=== PATIENT | male | born 1945 | race Two or more races ===

== ENCOUNTER → 2020-04-16 08:42 | Outpatient (BNVA) | payer MEDICARE, SELFPAY | PROVIDERS: PCP Internal Medicine; Referring Provider Internal Medicine; Visit Provider Nurse Practitioner Gerontology | DX: Z13.89 Encounter for screening for other disorder (principal) | CPT/HCPCS: Q3014 ==

== ENCOUNTER → 2020-09-04 08:06 | Outpatient (BNVA) | payer MEDICARE, SELFPAY | PROVIDERS: PCP Internal Medicine; Visit Provider Nurse Practitioner Gerontology | CPT/HCPCS: Q3014 ==

== ENCOUNTER 2020-09-16 07:03 | Outpatient (REF) | payer MEDICARE, BC, SELFPAY ==
[2020-09-16 08:26] LABS: Estimated Average Glucose 148 mg/dL; Hemoglobin A1c % 6.8 %
[2020-09-16 08:37] LABS: Alanine Aminotransferase 24 U/L (0-40); Albumin Level 4.3 g/dL (3.5-5.0); Alkaline Phosphatase 47 U/L (39-117); Anion Gap 14 (12-20); Aspartate Amino Transferase 18 U/L (5-37); Bilirubin Total 0.4 mg/dL (0.0-1.0); Blood Urea Nitrogen 21 mg/dL (9-16); Calcium 9.5 mg/dL (8.4-10.2); Carbon Dioxide 21 mmol/L (22-29); Chloride 106 mmol/L (96-108); Cholesterol 226 mg/dL; Estimated Glomerular Filt Rate > 60; Glucose Fasting 142 mg/dL (60-99); HDL Cholesterol 40 mg/dL; LDL Cholesterol Calculated 144 mg/dl; Potassium 4.2 mmol/L (3.3-5.1); Sodium 137 mmol/L (135-145); Total Protein 6.8 g/dL (6.5-8.0); Triglycerides 213 mg/dL
[2020-09-16 08:47] LABS: Vitamin D 25-OH Total 40.8 ng/mL (>30)
[2020-09-16 08:54] LABS: Vitamin B12 756 pg/mL (200-900)
[2020-09-16 09:21] LABS: Creatinine Urine 76.98 mg/dL; Microalbum/Creatinine Ratio Ur 222.1 ug/mg cr
[2020-09-17 07:56] LABS: LDL Cholesterol Direct 144 mg/dL (<100)
== END 2020-09-16 07:04 | disposition home or self-care (01) ==
LOC: HO.LAB 07:03
PROVIDERS: PCP Internal Medicine; Visit Provider Nurse Practitioner Gerontology
DX: E11.29 Type 2 diabetes mellitus with other diabetic kidney complication (principal)
CPT/HCPCS: 36415; 80053; 80061; 82043; 82306; 82607; 83036; 83721

== ENCOUNTER → 2021-02-20 07:29 | Outpatient (BNVA) | payer MEDICARE, BC, SELFPAY | PROVIDERS: PCP Internal Medicine; Visit Provider Nurse Practitioner Gerontology | DX: E11.42 Type 2 diabetes mellitus with diabetic polyneuropathy (principal); E11.29 Type 2 diabetes mellitus with other diabetic kidney complication; E78.5 Hyperlipidemia, unspecified; I10 Essential (primary) hypertension; R80.9 Proteinuria, unspecified | CPT/HCPCS: 82947; 99212 ==

== ENCOUNTER → 2021-02-25 08:05 | Outpatient (BNVA) | payer MEDICARE, BC, SELFPAY | PROVIDERS: PCP Internal Medicine; Visit Provider Registered Nurse Diabetes Educator | DX: E11.29 Type 2 diabetes mellitus with other diabetic kidney complication (principal) | CPT/HCPCS: 99211 ==

== ENCOUNTER → 2021-05-29 07:17 | Outpatient (BNVA) | payer MEDICARE, BC, SELFPAY | PROVIDERS: PCP Internal Medicine; Visit Provider Nurse Practitioner Gerontology | DX: E11.42 Type 2 diabetes mellitus with diabetic polyneuropathy (principal); E11.29 Type 2 diabetes mellitus with other diabetic kidney complication; I10 Essential (primary) hypertension; E78.5 Hyperlipidemia, unspecified; R80.9 Proteinuria, unspecified | CPT/HCPCS: 82947; 99212 ==

== ENCOUNTER 2021-10-29 07:08 | Outpatient (REF) | payer MEDICARE, BC, SELFPAY ==
[2021-10-29 08:09] LABS: COVID-19 Test Negative (Negative); IDNOW Serial# 16C4AD1C
== END 2021-10-29 07:09 | disposition home or self-care (01) ==
LOC: HO.LAB 07:08
PROVIDERS: Visit Provider Internal Medicine
DX: Z20.822 Contact with and (suspected) exposure to COVID-19 (principal)
CPT/HCPCS: 87635; C9803

== ENCOUNTER → 2022-04-29 09:16 | Outpatient (BNVA) | payer MEDICARE, BC, SELFPAY | PROVIDERS: PCP Internal Medicine; Visit Provider Urology | DX: E11.69 Type 2 diabetes mellitus with other specified complication (principal); N52.1 Erectile dysfunction due to diseases classified elsewhere | CPT/HCPCS: 51798; 99212 ==

== ENCOUNTER → 2022-07-28 10:15 | Outpatient (BNVA) | payer MEDICARE, BC, SELFPAY | PROVIDERS: PCP Internal Medicine; Visit Provider Urology | DX: E11.69 Type 2 diabetes mellitus with other specified complication (principal); N52.1 Erectile dysfunction due to diseases classified elsewhere | CPT/HCPCS: Q3014 ==

== ENCOUNTER 2022-11-24 09:58 | Emergency (ER) | payer MEDICARE, BC, SELFPAY ==
[2022-11-24 10:11] VITALS: BP 183/88; PULSE 62; RESP 16; TEMP 36.6; O2SAT 98; BMI 28.2
--- NOTE | 2022-11-24 11:04 | ED_ITS ---
HPI - General Adult General Chief complaint: General Medical Stated complaint: medication refill Time Seen by Provider: 11/24/22 10:28 Source: patient and RN notes reviewed Mode of arrival: ambulatory Limitations: no limitations History of Present Illness HPI narrative: This is a 77-year-old male, with a history of hypertension and diabetes, presenting to the emergency department for medication refill. He states that he attempted to follow-up with his primary care physician but is unable to be seen until December 27. He states that he ran out of his medications several days ago. He states that he is feeling okay. No headaches, dizziness, chest pain, shortness of breath, abdominal pain, nausea, vomiting, or diarrhea. Patient did not take his blood pressure medication today. No other complaints or concerns at this time. MD complaint: Medication Refill Relieving factors: none Exacerbating factors: none Associated symptoms: denies other symptoms Treatments prior to arrival: none Related Data Home Medications Medication Instructions Recorded Confirmed lancets 33 gauge #100 ea 04/16/20 05/29/21 Previous Rx's Medication Instructions Recorded fluticasone 250 mcg-salmeterol 50 1 inh inhalation BID #3 ea 08/20/20 mcg/dose blistr powdr for inhalation (Wixela Inhub) albuterol sulfate 90 mcg/actuation 2 puff PO Q6H PRN bronchospasm 09/04/20 aerosol inhaler #8.5 grams fluticasone propionate 50 2 spray intranasal DAILY #3 ea 01/01/21 mcg/actuation nasal spray,suspension bempedoic acid 180 mg tablet 180 mg PO DAILY #90 tabs 02/20/21 sitagliptin phosphate 100 mg 100 mg PO DAILY #30 tabs 10/20/21 tablet (Januvia) metformin 500 mg tablet,extended 500 mg PO DAILY 90 days #90 tabs 10/26/21 release 24 hr losartan 25 mg tablet 25 mg PO DAILY #60 tabs 03/08/22 ezetimibe 10 mg tablet 10 mg PO DAILY #30 tabs 03/19/22 tadalafil 20 mg tablet 20 mg PO ONCE PRN sexual activity 04/29/22 30 days #30 tabs sildenafil 100 mg tablet 100 mg PO ONCE PRN sexual activity 07/28/22 30 days #30 tabs tadalafil 5 mg tablet 5 mg PO DAILY sexual activity 90 04/12/23 days #90 tabs ezetimibe 10 mg tablet 10 mg PO DAILY #60 tabs 11/24/22 losartan 25 mg tablet 25 mg PO DAILY #60 tabs 11/24/22 metformin 500 mg tablet,extended 500 mg PO DAILY #60 tabs 11/24/22 release 24hr sitagliptin phosphate 100 mg 100 mg PO DAILY #60 tabs 11/24/22 tablet (Januvia) Allergies Allergy/AdvReac Type Severity Reaction Status Date / Time lisinopril Allergy Unknown cough Verified 11/24/22 10:11 seasonal allergies Allergy Unknown rhinitis Uncoded 07/28/22 10:18 Review of Systems Review of Systems: Yes all other systems are reviewed and are negative [facility] Past Medical History Medical History Degenerative disc disease Dyslipidemia Essential hypertension Proteinuria 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 Mother No problems noted. Social History Social History Household Members Other:: son Alcohol intake: never Patient Tobacco Use Status: Former Tobacco user Tobacco use type: Cigarette Cigarette Packs Per Day: 2 Years Smoked: 25 Advance Directives: No Advance Directives Information Provided: Yes Physical Exam ED Vital Signs: Vital Signs - 24 hr 11/24/22 10:11 Temperature 97.8 F Pulse Rate 62 Respiratory Rate 16 Blood Pressure 183/88 H Pulse Oximetry 98 Oxygen Delivery Method Room Air BMI result Body Mass Index 28.2 Const Other: General: Awake, alert, and oriented X3. No acute distress. HEENT: Normal inspection CVS: Normal heart rate and rhythm. Pulses normal. Respiratory: No respiratory distress Skin: Warm, dry, no rashes noted to exposed skin. Normal skin color. Normal skin turgor. Extremities: Normal to inspection Neuro: Oriented X 3. No motor deficit. No sensory deficit. Medical Decision Making Medical Decision Making MDM Narrative: 77-year-old male presenting to the emergency department for medication refill. He states that he ran out of his medications several days ago. He did not take his blood pressure medication today, blood pressure elevated at 183/88. He has no chest pain, shortness of breath, dizziness or lightheadedness. I agreed that I will refill medication to get him to at least his next primary care visit in December. I advised patient to follow-up with them for further medication refills as we are unable to further manage his chronic conditions. Patient understands agrees with plan. He is nontoxic appearing and has no symptoms. Patient stable for discharge. Differential Diagnosis Differential Diagnoses: The differential diagnosis associated with the presentation includes Medication refill, medication noncompliance, diabetes, hypertension Discharge Plan Discharge Clinical Impression: Medication refill, Hypertension, Hyperlipidemia Patient Disposition: Home, Self-Care Instructions: Medicine Refill (ED) Additional Instructions: I have refilled your medications today. Please get further medication refills from your primary care physician as we are unable to closely monitor your chronic conditions. If any new or worsening symptoms occur please return for re-evaluation. Prescriptions: New ezetimibe 10 mg tablet 10 mg PO DAILY Qty: 60 0RF Januvia 100 mg tablet 100 mg PO DAILY Qty: 60 0RF metformin 500 mg tablet extended release 24hr 500 mg PO DAILY Qty: 60 0RF losartan 25 mg tablet 25 mg PO DAILY Qty: 60 0RF No Action fluticasone propion-salmeterol [Wixela Inhub] 250-50 mcg/dose blister with device 1 inh inhalation BID Qty: 3 3RF albuterol sulfate 90 mcg/actuation HFA aerosol inhaler 2 puff PO Q6H PRN (Reason: bronchospasm) Qty: 8.5 0RF fluticasone propionate 50 mcg/actuation spray,suspension 2 spray intranasal DAILY Qty: 3 3RF Rx Instructions: administer into each nostril Januvia 100 mg tablet 100 mg PO DAILY Qty: 30 6RF metformin 500 mg tablet extended release 24 hr 500 mg PO DAILY 90 Days Qty: 90 1RF losartan 25 mg tablet 25 mg PO DAILY Qty: 60 0RF ezetimibe 10 mg tablet 10 mg PO DAILY Qty: 30 1RF Rx Instructions: FUTURE REFILLS FROM PCP. (DME) lancets 33 gauge misc See Rx Instructions topical DAILY Qty: 100 Rx Instructions: As directed bempedoic acid 180 mg tablet 180 mg PO DAILY Qty: 90 1RF tadalafil 20 mg tablet 20 mg PO ONCE PRN (Reason: sexual activity) 30 Days Qty: 30 0RF Rx Instructions: On demand medication take 60 minutes before intended activity tadalafil 5 mg tablet 5 mg PO DAILY 90 Days Qty: 90 1RF sildenafil 100 mg tablet 100 mg PO ONCE PRN (Reason: sexual activity) 30 Days Qty: 30 0RF Rx Instructions: administer 30 minutes to 4 hours before activity
[2022-11-24 11:25] VITALS: BP 175/91; PULSE 60; RESP 17; O2SAT 98
== END 2022-11-24 11:37 | disposition home or self-care (01) ==
PROVIDERS: Emergency Provider Student in an Organized Health Care Education/Training Program
DX: Z76.0 Encounter for issue of repeat prescription (principal); Z79.899 Other long term (current) drug therapy; Z87.891 Personal history of nicotine dependence; I10 Essential (primary) hypertension; E78.5 Hyperlipidemia, unspecified
CPT/HCPCS: 99283

== ENCOUNTER 2022-12-27 10:04 | Outpatient (AMB) | payer MEDICARE, BC, SELFPAY ==
--- NOTE | 2022-12-27 10:08 | A.OFFPC_ITS ---
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 Transferring care from Dr Conner. Medical records have not been requested and have received. Improvement Intern Required: No Manufacturing Business Analyst: Not Required per policy Accompanied by: Self / Same As Patient Allergies lisinopril Allergy (Unknown, Verified 12/27/22 10:42) cough seasonal allergies Allergy (Unknown, Uncoded 07/28/22 10:18) rhinitis Medication List - Last Reconciled 12/27/22 by KRISSY Leon albuterol sulfate 90 mcg/actuation 2 puffs PO Q6H PRN ascorbic acid (vitamin C) 1 g PO DAILY ezetimibe 10 mg PO DAILY fluticasone propion-salmeterol 250-50 mcg/dose (Wixela Inhub) 1 inh inhalation BID fluticasone propionate 50 mcg/actuation 2 sprays intranasal DAILY lancets As directed losartan 25 mg PO DAILY magnesium 250 mg PO DAILY mecobalamin (vitamin B12) 2,500 mcg PO DAILY melatonin 5 mg PO BEDTIME PRN metformin ER 500 mg PO DAILY sitagliptin phosphate (Januvia) 100 mg PO DAILY Tobacco use date assessed: 12/27/22 Fall risk assessment: 2 + Falls in past year Last assessed Fall Risk: 12/27/22 Dental Screening Dental Screen Date: 12/27/22 Did you have a dental visit in the last 12 months?: No Did you have a dental problem in the last 6 months where you did not have access to dental care?: No Was dental information given to patient?: No HPI HPI Comments History of Present Illness Details 77-year-old male past medical history of hypertension, dyslipidemia type 2 diabetes mellitus, ED. patient presents today as a new patient to reestablish care. Previous patient of Dr Conner last seen a few years ago. Patient currently following with Dr. Chaudhari urologist. Patient reports he has been on his medications in quite some time so he recently went to the emergency room for refill of his metformin, Januvia, losartan. Patient also reports he does not have a good working glucometer and requesting prescription for this. Refill sent on above-listed medication. Pressure elevated in office today 160/80. In office today patient is going positive of PHQ-9 and beulah 7 patient denies SI/HI. States he has been under a lot of stress lately. Would like referral to hugh alejandro. [facility] Medical History Proteinuria Degenerative disc disease Type 2 diabetes mellitus with other diabetic kidney complication Essential hypertension Type 2 diabetes mellitus with diabetic polyneuropathy Dyslipidemia Surgical History Hx of arthroscopy of left knee History of back surgery Family History Father No problems noted. Mother No problems noted. Other Mental health disorder Social History Household Members Other:: son Housing: House Alcohol intake: never Patient Tobacco Use Status: Former Tobacco user Tobacco use type: Cigarette Cigarette Packs Per Day: 2 Years Smoked: 25 e-Cigarette/Vaping Use: Never Used service: Yes Current occupational status: retired Cognitive needs: No Hearing needs: No Vision needs: Yes (rosanna) Questionnaire PHQ-9 Over the last 2 weeks, how often have you been bothered by any of the following problems? 1. Little interest or pleasure in doing things: nearly every day 2. Feeling down, depressed, or hopeless: nearly every day 3. Trouble falling or staying asleep, or sleeping too much: nearly every day 4. Feeling tired or having little energy: nearly every day 5. Poor appetite or overeating: several days 6. Feeling bad about yourself - or that you are a failure or have let yourself or your family down: several days 7. Trouble concentrating on things, such as reading the newspaper or watching television: not at all 8. Moving or speaking so slowly that other people could have noticed. Or the opposite - being so fidgety or restless that you have been moving around a lot more than usual: several days 9. Thoughts that you would be better off or of hurting yourself in some way: not at all Total score: 15 Depression Screening Interpretation: Positive [id number] - PHQ-9 Billing: Yes Source: Developed by Drs. Luis Ji, Daniela Ga, Lan Gray and colleagues, with an educational shalonda from [employer]. Thrive Questionnaire Date Thrive assessed: 12/27/22 I am a: Patient What is your living situation today?: I have a steady place to live Within the past 12 months, did the food you bought not last and you didn't have the money to get more?: Never true Within the past 12 months, did you worry whether your food would run out before you got money to buy more?: Never true Do you have trouble paying for medicines?: No Do you have trouble getting transportation to medical appointments?: No Do you have trouble paying your heating and electricity bill?: No Do you have trouble taking care of your child, family member or friend?: No Do you have trouble with day-to-day activities such as bathing, preparing meals, shopping, managing finances, etc.?: No Are you currently unemployed and looking for a job?: No Are you interested in more education?: No Currently or been in a relationship where the following occur: no concerns reported AUDIT C Alcohol Use Questionnaire (AUDIT-C) 1. How often do you have a drink containing alcohol?: Never Total Score: 0 BEULAH-7 AMB Questionnaire BEULAH-7 Date BEULAH - 7 assessed: 12/27/22 Feeling nervous, anxious, or on edge: 3 = Nearly every day Not being able to stop or control worryin = Several days Worrying too much about different things: 1 = Several days Trouble relaxin = Nearly every day Being so restless that it is hard to sit still: 2 = More than half the days Becoming easily annoyed or irritable: 2 = More than half the days Feeling afraid as if something awful might happen: 0 = Not at all Total BEULAH-7 score (0-4 normal; 5-9 mild; 10-14 moderate; 15-21 severe): 12 Source: Developed by Daniela Ballesteros, Lan Gray and colleagues, with an educational shalonda from [employer]. BEULAH-7 Assessment Billing BEULAH-7 Assessment Tool: BEULAH-7 Assessment 15445 Review of Systems Const Denies chills, Denies fatigue, Denies fever(s) and Denies poor appetite Eyes Denies no additional complaints ENT Reports Normal hearing present Card Denies chest pain, Denies syncope, Denies rapid heart rate and Denies dyspnea Resp Denies cough and Denies dyspnea GI Denies change in stool character, Denies constipation, Denies diarrhea, Denies nausea and Denies vomiting Denies dysuria, Denies urinary frequency and Denies urinary urgency Neuro Reports Normal hearing present, Denies confusion and Denies syncope Psych Denies confusion Endo Denies fatigue Physical exam (Primary Care) Vital Signs: Last Vital Signs Pulse 76 12/27/22 10:12 BP 160/80 H 12/27/22 10:33 Pulse Ox 96 12/27/22 10:12 Oxygen Delivery Method Room Air 12/27/22 10:12 BMI result Body Mass Index 29.4 Tobacco/Smoking Status: Tobacco use Status Tobacco use date assessed 12/27/22 12/27/22 10:27 Patient Tobacco Use Status Former Tobacco user 12/27/22 10:27 Tobacco use type Cigarette 12/27/22 10:27 e-Cigarette/Vaping Use Never Used 12/27/22 10:34 PHQ-9: PHQ-9 Score PHQ-9: Total score 15 12/27/22 10:44 Depression Screening Interpretation: Positive Thrive Assessment: Date of Thrive Assessment Date Thrive assessed 12/27/22 12/27/22 10:27 Currently or been in a relationship where the following occur: no concerns reported Const General: No confusion Orientation/consciousness: No confusion HENMT Head: Yes normocephalic and Yes atraumatic Eyes Conjunctivae: conjunctivae normal Chest Chest palpation & inspection: normal inspection of the chest Resp Effort & Inspection: normal respiratory effort Auscultation: clear to auscultation bilaterally, no crackles, no rhonchi and no wheezes Cardio Rate: regular rate Rhythm: regular rhythm Heart sounds: S1 normal heart sound present and S2 normal heart sound present GI Inspection: Yes normal to inspection Skin General skin exam: other (nevi noted to left forearm ) Neuro General: No confusion Cranial nerves: Yes Normal hearing present Extrem General: No edema Assessment and Plan Assessment & Plan (1) Erectile dysfunction associated with type 2 diabetes mellitus: Code(s): E11.69 - Type 2 diabetes mellitus with other specified complication; N52.1 - Erectile dysfunction due to diseases classified elsewhere Plan: Continue to follow urology. (2) Type 2 diabetes mellitus with other diabetic kidney complication: Code(s): E11.29 - Type 2 diabetes mellitus with other diabetic kidney complication Plan: Continue on metformin ER 500 mg daily. Fasting glucose and hemoglobin A1c ordered Referral placed to Ophthalmology for diabetic eye exam (3) Essential hypertension: Code(s): I10 - Essential (primary) hypertension Plan: Continue on losartan 25 mg daily. Follow low-salt diet and exercise. Will have patient follow-up in 2 weeks with navigation nurse for blood per shoul d recheck if it remains elevated will consider increasing dose of losartan. (4) Dyslipidemia: Code(s): E78.5 - Hyperlipidemia, unspecified Plan: Fasting lipid panel ordered. (5) Depression: Code(s): F32.A - Depression, unspecified Plan: Referral entered to counseling. Discussed medication with patient however he states that he does not like taking medications for depression or anxiety as it just makes him feel like a zombie. Patient agreeable to see counselor. (6) Anxiety: Code(s): F41.9 - Anxiety disorder, unspecified Plan: Referral entered to counseling. (7) Atypical nevi: Code(s): D22.9 - Melanocytic nevi, unspecified Plan: Patient's has atypical nevi to left forearm and requesting to see a oil and gas field technician for removal of this. Plan Follow up in 3 months. Orders: Orders Comprehensive Bath. Panel Fast Today E11.29 - Type 2 diabetes mellitus with other diabetic kidney complication Complete Blood Count Auto Diff Today Z13.0 - Encounter for screening for dis eases of the blood and blood-forming organs and certain disorders involving the immune mechanism Lipid Panel Today Z13.220 - Encounter for screening for lipoid disorders TSH reflex Free T4 Today Z13.29 - Encounter for screening for other suspected endocrine disorder Hemoglobin A1c Today E11.29 - Type 2 diabetes mellitus with other diabetic kidney complication Microalbumin, Random (w Creat) Today E11.42 - Type 2 diabetes mellitus with diabetic polyneuropathy, I10 - Essential (primary) hypertension Referrals Counseling Referral F32.A - Depression, unspecified, F41.9 - Anxiety disorder, unspecified Ophthalmology Referral E11.9 - Type 2 diabetes mellitus without complications, Z01.00 - Encounter for examination of eyes and vision without abnormal findings Dermatology Referral D22.9 - Melanocytic nevi, unspecified Medications: New blood sugar diagnostic (FreeStyle Test strips) As directed 10 ea 0RF blood-glucose meter (FreeStyle Wheeling Lite kit) As directed 1 ea 0RF lancets (FreeStyle Lancets) As directed 100 ea 3RF E11.9 - Type 2 diabetes mellitus without complications Refilled ezetimibe 10 mg PO DAILY 60 tabs 3RF sitagliptin phosphate (Januvia) 100 mg PO DAILY 60 tabs 0RF metformin ER 500 mg PO DAILY 60 tabs 0RF losartan 25 mg PO DAILY 60 tabs 3RF Coding Level of Care Code New Pt Level 4 (30819) Diagnoses Erectile dysfunction associated with type 2 diabetes mellitus E11.69; N52.1 Type 2 diabetes mellitus with other diabetic kidney complication E11.29 Essential hypertension I10 Dyslipidemia E78.5 Depression F32.A Anxiety F41.9 Atypical nevi D22.9 Additional Codes BEULAH-7 Assessment Billing - BEULAH-7 Assessment Tool: BEULAH-7 Assessment [id number] ([id number])
[2022-12-27 10:12] VITALS: BP 170/100; PULSE 76; O2SAT 96; BMI 29.4
[2022-12-27 10:33] VITALS: BP 160/80
== END 2022-12-27 10:54 | disposition home or self-care (01) ==
PROVIDERS: Visit Provider Nurse Practitioner Family
DX: E11.69 Type 2 diabetes mellitus with other specified complication (principal); E11.29 Type 2 diabetes mellitus with other diabetic kidney complication; I10 Essential (primary) hypertension; F41.9 Anxiety disorder, unspecified; N52.1 Erectile dysfunction due to diseases classified elsewhere; E78.5 Hyperlipidemia, unspecified; F32.A Depression, unspecified; D22.9 Melanocytic nevi, unspecified
CPT/HCPCS: 96127; 99204

== ENCOUNTER 2022-12-31 09:47 | Outpatient (REF) | payer MEDICARE, BC, SELFPAY ==
[2022-12-31 10:01] LABS: MANUAL DIFF FLAG NO
[2022-12-31 11:07] LABS: Basophils Absolute Auto 0.1 X10*3/uL (0.0-0.2); Eosinophils Absolute Auto 0.4 X10*3/uL (0.0-0.4); Eosinophils Percent Auto 5.7 % (0-4); Hemoglobin 15.3 g/dl (14.0-18.0); Imm Gran Abs Auto 0.03 X10*3/uL (0.00-0.03); Imm Gran Pct Auto 0.5 % (0.0-0.4); Mean Corpuscular HGB Conc 34.8 g/dl (31.0-36.0); Mean Corpuscular Hemoglobin 29.5 pg (27.0-33.0); Mean Corpuscular Volume 84.9 fL (80.0-98.0); Monocytes Absolute Auto 0.7 X10*3/uL (0.1-1.2); Monocytes Percent Auto 10.4 % (2-11); Neutrophils Absolute Auto 3.2 x10*3/uL (2.0-8.3); Neutrophils Percent Auto 50.4 % (45-73); Platelet Count 207 X10*3/uL (160-400); Red Blood Count 5.18 X10*6/uL (4.60-5.80); Red Cell Distribution Width 13.5 % (11.0-16.0); White Blood Count 6.3 X10*3/uL (4.8-10.8)
[2022-12-31 12:28] LABS: Estimated Average Glucose 169 mg/dL; Hemoglobin A1c % 7.5 % (<6.0)
[2022-12-31 12:57] LABS: Creatinine Urine 124.61 mg/dL; Microalbum/Creatinine Ratio Ur 178.9 ug/mg cr (<30)
[2022-12-31 15:41] LABS: Alanine Aminotransferase 20 U/L (0-40); Albumin Level 4.2 g/dL (3.5-5.0); Alkaline Phosphatase 40 U/L (39-117); Anion Gap 13 (12-20); Aspartate Amino Transferase 17 U/L (5-37); Bilirubin Total 0.6 mg/dL (0.0-1.0); Blood Urea Nitrogen 15 mg/dL (9-16); Calcium 9.4 mg/dL (8.4-10.2); Carbon Dioxide 21 mmol/L (22-29); Chloride 107 mmol/L (96-108); Cholesterol 217 mg/dL (<200); Estimated Glomerular Filt Rate > 60; Glucose Fasting 157 mg/dL (60-99); HDL Cholesterol 38 mg/dL (>40); LDL Cholesterol Calculated 142 mg/dL (<100); Potassium 3.9 mmol/L (3.3-5.1); Sodium 137 mmol/L (135-145); Triglycerides 185 mg/dL (<150)
[2022-12-31 15:42] LABS: TSH reflex Free T4 2.09 uIU/mL (0.32-4.0)
== END 2022-12-31 09:48 | disposition home or self-care (01) ==
LOC: HO.LAB 09:47
PROVIDERS: Visit Provider Nurse Practitioner Family
DX: Z13.220 Encounter for screening for lipoid disorders (principal); Z13.0 Encounter for screening for diseases of the blood and blood-forming organs and certain disorders involving the immune mechanism; Z13.29 Encounter for screening for other suspected endocrine disorder; I10 Essential (primary) hypertension; E11.42 Type 2 diabetes mellitus with diabetic polyneuropathy; E11.29 Type 2 diabetes mellitus with other diabetic kidney complication
CPT/HCPCS: 36415; 80053; 80061; 82043; 82570; 83036; 84443; 85025

== ENCOUNTER 2023-01-28 10:29 | Outpatient (AMB) | payer MEDICARE, BC, SELFPAY ==
--- NOTE | 2023-01-28 10:38 | MHC.OFFVIS ---
Intake Intake Visit Reasons: 6m follow up Intake Note: Patient is Present for Follow Up Urology Medication: Was previously on Tadalafil wants to discuss medication for renewal Antibiotic Allergies: None Blood Thinners:None [facility]acy[facility] Allergies lisinopril Allergy (Unknown, Verified 01/28/23 10:39) cough seasonal allergies Allergy (Unknown, Uncoded 01/28/23 10:39) rhinitis Medication List - Last Reconciled 01/28/23 by Herber Chaudhari MD albuterol sulfate 90 mcg/actuation 2 puffs PO Q6H PRN ascorbic acid (vitamin C) 1 g PO DAILY blood sugar diagnostic (FreeStyle Test strips) As directed blood-glucose meter (FreeStyle Mildred Lite kit) As directed ezetimibe 10 mg PO DAILY fluticasone propion-salmeterol 250-50 mcg/dose (Wixela Inhub) 1 inh inhalation BID fluticasone propionate 50 mcg/actuation 2 sprays intranasal DAILY lancets (FreeStyle Lancets) As directed losartan 50 mg (2 x 25 mg) PO DAILY magnesium 250 mg PO DAILY mecobalamin (vitamin B12) 2,500 mcg PO DAILY melatonin 5 mg PO BEDTIME PRN metformin ER 500 mg PO DAILY sitagliptin phosphate (Januvia) 100 mg PO DAILY tadalafil 5 mg PO DAILY 90 days HPI HPI Comments History of Present Illness Details Issa is a pleasant male. He is a patient Dr. Conner. He seen for the following urologic conditions - lower urinary tract symptoms - erectile dysfunction - background diabetes Effective response with combination daily tadalafil on on demand 100 mg Prescriptions refilled Discussed elevation of HbA1c for 20 minutes Erectile dysfunction Prior therapy sildenafil 50 mg on demand Background diabetes HBA1c % - 6.8, 01/08 7.5 Cardiovascular risk factors include hypertension, dyslipidemia, diabetes Recommendation daily 5 mg tadalafil with on demand 100 mg PFSH Medical History Proteinuria Degenerative disc disease Type 2 diabetes mellitus with other diabetic kidney complication Essential hypertension Type 2 diabetes mellitus with diabetic polyneuropathy Dyslipidemia Surgical History Hx of arthroscopy of left knee History of back surgery Family History Father No problems noted. Mother No problems noted. Other Mental health disorder Social History Household Members Other:: son Housing: House Alcohol intake: never Patient Tobacco Use Status: Former Tobacco user Tobacco use type: Cigarette Cigarette Packs Per Day: 2 Years Smoked: 25 e-Cigarette/Vaping Use: Never Used service: Yes Current occupational status: retired Cognitive needs: No Hearing needs: No Vision needs: Yes (rosanna) Review of Systems Const Denies chills and Denies fever(s) Card Reports no additional complaints and Denies syncope Resp Denies cough GI Denies abdominal pain and Denies heartburn Reports as per HPI and Denies change in libido Neuro Denies syncope Psych Denies change in libido Endo Denies change in libido Physical Exam Const General: cooperative, healthy appearing, comfortable and no acute distress Orientation/consciousness: patient oriented x3 HEENT Face and sinus: Yes normal facial exam Mouth: moist mucous membranes Neck Neck: Yes normal visual inspection, Yes full ROM and Yes trachea midline Chest Chest palpation & inspection: normal inspection of the chest Resp Effort & Inspection: normal respiratory effort, able to speak in complete sentences and no respiratory distress GI Inspection: Yes normal to inspection Back/Spine/Pelvis Cervical Spine: normal cervical lordosis Thoracic/Lumbar Spine: thoracic and lumbar spine normal to inspection Skin General skin exam: no rashes or lesions noted Neuro General: patient oriented x3, gait normal, tone normal and moves all extremities Extrem General: Yes normal to inspection and Yes capillary refill normal Assessment & Plan Assessment & Plan (1) Erectile dysfunction associated with type 2 diabetes mellitus: Code(s): E11.69 - Type 2 diabetes mellitus with other specified complication; N52.1 - Erectile dysfunction due to diseases classified elsewhere Plan Twelve month follow-up Medications: New tadalafil 5 mg PO DAILY 90 days 90 tabs 1RF sexual activity E11.69 - Type 2 diabetes mellitus with other specified complication, N52.1 - Erectile dysfunction due to diseases classified elsewhere sildenafil administer 60 minutes before intended activity 100 mg PO ONCE PRN 30 tabs 1RF sexual activity 30 days E11.69 - Type 2 diabetes mellitus with other specified complication, N52.1 - Erectile dysfunction due to diseases classified elsewhere Patient Instructions: Imaging studies, laboratory and physical exam results were discussed and reviewed in detail. No major barriers to patient understanding were identified. An opportunity to ask questions regarding the treatment plan was provided. All questions were answered. The patient expressed understanding and agreement with the above treatment plan. The patient is aware they should contact our office by phone for worsening of their current condition or the appearance of new urologic symptoms. Compliance is encouraged with any medications and followup testing that is ordered. It is a privilege to participate in the urologic care of your patient. If you have any questions or concerns regarding treatment for the above conditions, or other urologic issues, please do not hesitate to contact me. The office telephone contact is [phone]. This note is constructed using voice recognition software. While every effort has been made to ensure accuracy metal buildings assembler errors may have been included. Yours sincerely, Dr Herber Chaudhari MD, [facility] - Urology Providers of Expert, Compassionate Care for the Genitourinary System Coding Level of Care Code Est Pt Level 4 (47040) Diagnoses Erectile dysfunction associated with type 2 diabetes mellitus E11.69; N52.1
== END 2023-01-28 11:28 | disposition home or self-care (01) ==
PROVIDERS: PCP Internal Medicine; Visit Provider Urology
DX: E11.69 Type 2 diabetes mellitus with other specified complication (principal); N52.1 Erectile dysfunction due to diseases classified elsewhere
CPT/HCPCS: 99213

== ENCOUNTER → 2023-01-28 10:29 | Outpatient (BNVA) | payer MEDICARE, BC, SELFPAY | PROVIDERS: Visit Provider Urology | DX: E11.69 Type 2 diabetes mellitus with other specified complication (principal); N52.1 Erectile dysfunction due to diseases classified elsewhere | CPT/HCPCS: 99212 ==

== ENCOUNTER 2023-03-26 07:13 | Outpatient (REF) | payer MEDICARE, BC, SELFPAY ==
[2023-03-26 08:18] LABS: Estimated Average Glucose 189 mg/dL; Hemoglobin A1c % 8.2 % (<6.0)
[2023-03-26 08:38] LABS: Alanine Aminotransferase 28 U/L (0-40); Albumin Level 4.3 g/dL (3.5-5.0); Alkaline Phosphatase 39 U/L (39-117); Anion Gap 14 (12-20); Aspartate Amino Transferase 19 U/L (5-37); Bilirubin Total 0.5 mg/dL (0.0-1.0); Blood Urea Nitrogen 18 mg/dL (9-16); Calcium 9.8 mg/dL (8.4-10.2); Carbon Dioxide 22 mmol/L (22-29); Chloride 108 mmol/L (96-108); Cholesterol 207 mg/dL (<200); Estimated Glomerular Filt Rate > 60; Glucose Fasting 178 mg/dL (60-99); HDL Cholesterol 39 mg/dL (>40); LDL Cholesterol Calculated 136 mg/dL (<100); Potassium 4.2 mmol/L (3.3-5.1); Sodium 140 mmol/L (135-145); Total Protein 7.2 g/dL (6.5-8.0); Triglycerides 163 mg/dL (<150)
== END 2023-03-26 07:14 | disposition home or self-care (01) ==
LOC: HO.LAB 07:13
PROVIDERS: Visit Provider Nurse Practitioner Family
DX: E11.42 Type 2 diabetes mellitus with diabetic polyneuropathy (principal); E78.5 Hyperlipidemia, unspecified
CPT/HCPCS: 36415; 80053; 80061; 83036

== ENCOUNTER 2023-03-28 10:41 | Outpatient (AMB) | payer MEDICARE, BC, SELFPAY ==
[2023-03-28 10:42] VITALS: BP 160/88; PULSE 70; O2SAT 98; BMI 30.2
--- NOTE | 2023-03-28 10:42 | A.OFFPC_ITS ---
Vital Signs 03/28/23 10:42 Height 5 ft 9 in Weight 204 lb 6 oz BMI 30.2 BP 160/88 H Blood Pressure Location Lt brachial Position Sitting Pulse 70 Pulse Source Pulse Oximeter Pulse Oximetry (%) 98 Oxygen Delivery Method Room Air Intake Visit Reasons: DM, HTN Follow up Shop Director Required: No Accompanied by: Self / Same As Patient Allergies lisinopril Allergy (Unknown, Verified 03/28/23 10:46) cough seasonal allergies Allergy (Unknown, Uncoded 01/28/23 10:39) rhinitis Tobacco use date assessed: 12/27/22 Fall risk assessment: No Falls in past year Last assessed Fall Risk: 03/28/23 Dental Screening Dental Screen Date: 03/28/23 Did you have a dental visit in the last 12 months?: No Did you have a dental problem in the last 6 months where you did not have access to dental care?: No Was dental information given to patient?: Yes HPI HPI Comments History of Present Illness Details 77-year-old male past medical history of hypertension, dyslipidemia type 2 diabetes mellitus, ED. patient presents today for follow up. Blood pressure elevated office today 160/88, patient reports he has not yet taken his losartan today patient advised to take his blood pressure medication when he gets home. Patient's labs completed last week, reviewed office with patient today hemoglobin A1c 8.2%. LDL 136. Patient due for tetanus vaccine, given in office today. Denies any acute concerns. [facility] Medical History Proteinuria Degenerative disc disease Type 2 diabetes mellitus with other diabetic kidney complication Essential hypertension Type 2 diabetes mellitus with diabetic polyneuropathy Dyslipidemia Surgical History Hx of arthroscopy of left knee History of back surgery Family History Father No problems noted. Mother No problems noted. Other Mental health disorder Social History Household Members Other:: son Housing: House Alcohol intake: never Patient Tobacco Use Status: Former Tobacco user Tobacco use type: Cigarette Cigarette Packs Per Day: 2 Years Smoked: 25 e-Cigarette/Vaping Use: Never Used service: Yes Current occupational status: retired Cognitive needs: No Hearing needs: No Vision needs: Yes (rosanna) Questionnaire Thrive Questionnaire Date Thrive assessed: 12/27/22 BEULAH-7 AMB Questionnaire BEULAH-7 Date BEULAH - 7 assessed: 12/27/22 Source: Developed by Drs. Luis Ji, Daniela Ga, Lan Gray and colleagues, with an educational shalonda from [employer]. Review of Systems Const Denies chills, Denies fatigue, Denies fever(s) and Denies poor appetite Eyes Denies no additional complaints ENT Reports Normal hearing present Card Denies chest pain, Denies syncope, Denies rapid heart rate and Denies dyspnea Resp Denies cough and Denies dyspnea GI Denies change in stool character, Denies constipation, Denies diarrhea, Denies nausea and Denies vomiting Denies dysuria, Denies urinary frequency and Denies urinary urgency Neuro Reports Normal hearing present, Denies confusion and Denies syncope Psych Denies confusion Endo Denies fatigue Physical exam (Primary Care) Vital Signs: Last Vital Signs Pulse 70 03/28/23 10:42 BP 160/88 H 03/28/23 10:42 Pulse Ox 98 03/28/23 10:42 Oxygen Delivery Method Room Air 03/28/23 10:42 BMI result Body Mass Index 30.2 Tobacco/Smoking Status: Tobacco use Status Tobacco use date assessed 12/27/22 03/28/23 10:51 Patient Tobacco Use Status Former Tobacco user 03/28/23 10:51 Tobacco use type Cigarette 03/28/23 10:51 e-Cigarette/Vaping Use Never Used 03/28/23 10:51 Thrive Assessment: Date of Thrive Assessment Date Thrive assessed 12/27/22 03/28/23 10:51 Const General: No confusion Orientation/consciousness: No confusion HENMT Head: Yes normocephalic and Yes atraumatic Eyes Conjunctivae: conjunctivae normal Chest Chest palpation & inspection: normal inspection of the chest Resp Effort & Inspection: normal respiratory effort Auscultation: clear to auscultation bilaterally, no crackles, no rhonchi and no wheezes Cardio Rate: regular rate Rhythm: regular rhythm Heart sounds: S1 normal heart sound present and S2 normal heart sound present GI Inspection: Yes normal to inspection Neuro General: No confusion Cranial nerves: Yes Normal hearing present Extrem General: No edema Immunizations tetanus-diphtheria toxoids-Td 2 Lf unit-2 Lf unit/0.5 mL IM suspension Performing Provider: KRISSY Leon Performing Location: [facility] Administered by: Julissa Vera RN on 03/28/23 11:36 Dose Route Admin Location Dispensed Lot Number Expiration Date NDC Worship Leader 0.5 mL IM Right Deltoid 0.5 mL [id number] 09/11/23 [address]-4 [employer] VIS Given Date VIS Provided VIS Publication Date 03/28/23 Single Vaccine 20 Eligibility Eligibility Date Funding Source Not VFC Eligible 03/28/23 State funds Assessment and Plan Assessment & Plan (1) Essential hypertension: Code(s): I10 - Essential (primary) hypertension Plan: Continue on losartan 50 mg daily, amlodipine 5 mg daily Follow low-salt diet and exercise. Blood pressure goal less than 140/90. (2) Dyslipidemia: Code(s): E78.5 - Hyperlipidemia, unspecified Plan: Continue on ezetimibe Avoid fried foods, chicken skin, eggs, butter,margarine, pastries and?? red meat. repeast fasting lipid in 3 months. (3) Type 2 diabetes mellitus with other diabetic kidney complication: Code(s): E11.29 - Type 2 diabetes mellitus with other diabetic kidney complication Plan: Will increase metformin to 500 mg b.i.d., continue on Januvia Hemoglobin A1c8.2% Patient reports has not been following a diabetic diet has been needing a lot of chocolate mousse cake Patient educated to decrease the amount of carbohydrate intake such as pasta, br ead, rice and potatoes are all sugar in addition to the sweet stuff. Remember that fruits are good but they also have sugar.Hemoglobin A1c goal of less than 6.5% Plan Follow up in 3 months. Orders: Orders Comprehensive [place]. Panel Fast 3 Months E11.42 - Type 2 diabetes mellitus with diabetic polyneuropathy Td State Immunization Today Z23 - Encounter for immunization Hemoglobin A1c 3 Months E11.29 - Type 2 diabetes mellitus with other diabetic kidney complication Lipid Panel 3 Months Z13.220 - Encounter for screening for lipoid disorders Medications: Changed From metformin 500 mg PO DAILY 30 tabs 3RF E11.29 - Type 2 diabetes mellitus with other diabetic kidney complication To metformin 500 mg PO BID 60 tabs 3RF E11.29 - Type 2 diabetes mellitus with other diabetic kidney complication Coding Level of Care Code Est Pt Level 4 (31306) Diagnoses Essential hypertension I10 Dyslipidemia E78.5 Type 2 diabetes mellitus with other diabetic kidney complication E11.29
== END 2023-03-28 11:30 | disposition home or self-care (01) ==
PROVIDERS: Visit Provider Nurse Practitioner Family
DX: I10 Essential (primary) hypertension (principal); E78.5 Hyperlipidemia, unspecified; E11.29 Type 2 diabetes mellitus with other diabetic kidney complication; Z23 Encounter for immunization
CPT/HCPCS: 90471; 90714; 99214

== ENCOUNTER 2023-06-29 15:14 | Outpatient (AMB) | payer MEDICARE, BC, SELFPAY ==
[2023-06-29 15:15] VITALS: BP 172/60; PULSE 78; O2SAT 99; BMI 30.1
--- NOTE | 2023-06-29 15:15 | A.OFFPC_ITS ---
Vital Signs 06/29/23 15:15 Height 5 ft 9 in Weight 204 lb BMI 30.1 BP 172/60 H Blood Pressure Location Lt brachial Position Sitting Pulse 78 Pulse Source Pulse Oximeter Pulse Oximetry (%) 99 Oxygen Delivery Method Room Air Intake Visit Reasons: DM, HTN Follow up Extension Supervisor Required: No Master Mechanic: Not Required per policy Accompanied by: Self / Same As Patient Allergies lisinopril Allergy (Unknown, Verified 06/29/23 15:15) cough seasonal allergies Allergy (Unknown, Uncoded 06/29/23 15:15) rhinitis Medication List - Last Reconciled 06/29/23 by Cindy Conner MD albuterol sulfate 90 mcg/actuation 2 puffs PO Q6H PRN amlodipine 5 mg PO DAILY ascorbic acid (vitamin C) 1 g PO DAILY blood sugar diagnostic (TGV SoftwareStyle Test strips) As directed blood-glucose meter (TGV SoftwareStyle [place] Lite kit) As directed escitalopram oxalate (Lexapro) 5 mg PO DAILY ezetimibe 10 mg PO DAILY fluticasone propion-salmeterol 250-50 mcg/dose (Wixela Inhub) 1 inh inhalation BID fluticasone propionate 50 mcg/actuation 2 sprays intranasal DAILY lancets (FreeStyle Lancets) As directed losartan 50 mg (2 x 25 mg) PO DAILY magnesium 250 mg PO DAILY mecobalamin (vitamin B12) 2,500 mcg PO DAILY melatonin 5 mg PO BEDTIME PRN metformin 500 mg PO DAILY sitagliptin phosphate (Januvia) 100 mg PO DAILY Tobacco use date assessed: 06/29/23 Fall risk assessment: No Falls in past year Last assessed Fall Risk: 06/29/23 Dental Screening Dental Screen Date: 06/29/23 Did you have a dental visit in the last 12 months?: Yes Did you have a dental problem in the last 6 months where you did not have access to dental care?: No Was dental information given to patient?: Patient has dentist HPI DM, HTN Follow up HPI Details 77-year-old obese male with diabetes delicia litus hypertension hypercholesterolemia coming in for follow-up last seen in March 2023. has depression and anxiety - goes to [place] lately - left job had stopped med. problem atic about son also and brother with no money. . Had a long discussion with the patient with regards to counseling and therapy as well as diabetes mellitus hypertension hypercholesterolemia [facility] Medical History Proteinuria Degenerative disc disease Type 2 diabetes mellitus with other diabetic kidney complication Essential hypertension Type 2 diabetes mellitus with diabetic polyneuropathy Dyslipidemia Surgical History Hx of arthroscopy of left knee History of back surgery Family History Father No problems noted. Mother No problems noted. Other Mental health disorder Social History Household Members Other:: son Housing: House Alcohol intake: never Patient Tobacco Use Status: Former Tobacco user Tobacco use type: Cigarette Cigarette Packs Per Day: 2 Years Smoked: 25 Packs Per Year: 50 e-Cigarette/Vaping Use: Never Used service: Yes Current occupational status: retired Cognitive needs: No Hearing needs: No Vision needs: Yes (glasses) Questionnaire PHQ-9 Over the last 2 weeks, how often have you been bothered by any of the following problems? 1. Little interest or pleasure in doing things: nearly every day 2. Feeling down, depressed, or hopeless: nearly every day 3. Trouble falling or staying asleep, or sleeping too much: nearly every day 4. Feeling tired or having little energy: nearly every day 5. Poor appetite or overeating: several days 6. Feeling bad about yourself - or that you are a failure or have let yourself or your family down: several days 7. Trouble concentrating on things, such as reading the newspaper or watching television: not at all 8. Moving or speaking so slowly that other people could have noticed. Or the opposite - being so fidgety or restless that you have been moving around a lot more than usual: several days 9. Thoughts that you would be better off or of hurting yourself in some way: not at all Total score: 15 Depression Screening Interpretation: Positive Depression Screening Done: Yes 25963 - PHQ-9 Billing: Yes Source: Developed by Drs. Luis Ji, Daniela Ga, Lan Gray and colleagues, with an educational shalonda from [employer]. Thrive Questionnaire Date Thrive assessed: 06/29/23 I am a: Patient What is your living situation today?: I have a steady place to live Within the past 12 months, did the food you bought not last and you didn't have the money to get more?: Never true Within the past 12 months, did you worry whether your food would run out before you got money to buy more?: Never true Do you have trouble paying for medicines?: No Do you have trouble getting transportation to medical appointments?: No Do you have trouble paying your heating and electricity bill?: No Do you have trouble taking care of your child, family member or friend?: No Do you have trouble with day-to-day activities such as bathing, preparing meals, shopping, managing finances, etc.?: No Are you currently unemployed and looking for a job?: No Are you interested in more education?: No Please select the resources that you would like help with: None THRIVE Score: 0 AUDIT C Alcohol Use Questionnaire (AUDIT-C) 1. How often do you have a drink containing alcohol?: Never Total Score: 0 BEULAH-7 AMB Questionnaire BEULAH-7 Date BEULAH - 7 assessed: 06/29/23 Feeling nervous, anxious, or on edge: 0 = Not at all Not being able to stop or control worryin = Not at all Worrying too much about different things: 0 = Not at all Trouble relaxin = Not at all Being so restless that it is hard to sit still: 0 = Not at all Becoming easily annoyed or irritable: 0 = Not at all Feeling afraid as if something awful might happen: 0 = Not at all Total BEULAH-7 score (0-4 normal; 5-9 mild; 10-14 moderate; 15-21 severe): 0 Source: Developed by Drs. Luis Ji, Daniela Ga, Lan Gray and colleagues, with an educational shalonda from [employer]. Physical exam (Primary Care) Vital Signs: Last Vital Signs Pulse 78 06/29/23 15:15 BP 172/60 H 06/29/23 15:15 Pulse Ox 99 06/29/23 15:15 Oxygen Delivery Method Room Air 06/29/23 15:15 BMI result Body Mass Index 30.1 Tobacco/Smoking Status: Tobacco use Status Tobacco use date assessed 06/29/23 06/29/23 15:17 Patient Tobacco Use Status Former Tobacco user 06/29/23 15:17 Tobacco use type Cigarette 06/29/23 15:17 e-Cigarette/Vaping Use Never Used 06/29/23 15:17 PHQ-9: PHQ-9 Score PHQ-9: Total score 15 06/29/23 15:29 Depression Screening Interpretation: Positive Thrive Assessment: Date of Thrive Assessment Date Thrive assessed 06/29/23 06/29/23 15:17 Const General: alert; No acute distress Eyes Conjunctivae: conjunctivae normal Resp Auscultation: clear to auscultation bilaterally Cardio Rate: regular rate Rhythm: regular rhythm GI Inspection: Yes normal to inspection Extrem General: Yes normal to inspection and No edema Results AMB Hemoglobin A1c AMB Hemoglobin A1c 7.9 % Last Edit by ISHAN Quintero on 06/29/23 15:30 Results Reviewed Results Reviewed: Laboratory Last Values Hgb A1c (Clinic) 7.9 % (4.0-6.0) H 06/29/23 15:17 Assessment and Plan Assessment & Plan (1) Type 2 diabetes mellitus with hyperglycemia: Comment: Fredy I care Code(s): E11.65 - Type 2 diabetes mellitus with hyperglycemia Plan: Decrease the amount of carbohydrate intake, pasta, bread, rice and potatoes are all sugar and that is aside from all the sweet stuff, remember that fruits are g ood but they are Sweet also. Hemoglobin A1c goal of less than 7.0 patient is on metformin 500 mg once a day and Januvia 100 mg once a day concern about the diabetes being uncontrolled weight uncontrolled discussed lengthily with the patient on strategies to get blood sugars under control. Patient does exercise every day patient also has seen Ophthalmology. Holding off any changes in medication and will try to do diet and exercise. (2) Essential hypertension: Code(s): I10 - Essential (primary) hypertension Plan: Continue with blood pressure medication. Decrease salt intake and exercise patient is on losartan 50 mg once a day and amlodipine 5 mg once a day. Discussed about the blood pressure being elevated here in the office he does check it at home and is controlled (3) Dyslipidemia: Code(s): E78.5 - Hyperlipidemia, unspecified Plan: Avoid fried foods, chicken skin, eggs, butter margarine, pastries and meat. Be it pork or beef they have a lot of cholesterol LDL goal of less than 100 and triglyceride of less than 150 patient's blood work in March is very high. Discussed about diet and changes to it and will retest the cholesterol in 3 months (4) Generalized anxiety disorder: Code(s): F41.1 - Generalized anxiety disorder Plan: Patient has been having anxiety and depression and will do referral for counseling. (5) Obesity (BMI 30-39.9): Code(s): E66.9 - Obesity, unspecified Plan: Diet and exercise (6) Major depression: Code(s): F32.9 - Major depressive disorder, single episode, unspecified Plan: Referral to counseling as well as started on medication. Orders: Orders AMB Hemoglobin A1c Today E11.29 - Type 2 diabetes mellitus with other diabetic kidney complication Thyroid Stimulating Hormone 3 Months E11.65 - Type 2 diabetes mellitus with hyperglycemia Lipid Panel 3 Months E11.65 - Type 2 diabetes mellitus with hyperglycemia, E78.00 - Pure hypercholesterolemia, unspecified Microalbumin, Random (w Creat) 3 Months E11.65 - Type 2 diabetes mellitus with hyperglycemia Hemoglobin A1c 3 Months E11.65 - Type 2 diabetes mellitus with hyperglycemia Comprehensive [place]. Panel Fast Today E11.42 - Type 2 diabetes mellitus with diabetic polyneuropathy Lipid Panel Today Z13.220 - Encounter for screening for lipoid disorders Complete Blood Count Auto Diff 3 Months E11.65 - Type 2 diabetes mellitus with hyperglycemia Comprehensive Met. Panel 3 Months E11.65 - Type 2 diabetes mellitus with hyperglycemia Free T4 (Free Thyroxine) 3 Months E11.65 - Type 2 diabetes mellitus with hyperglycemia Vitamin B12 and Folate 3 Months E11.65 - Type 2 diabetes mellitus with hyperglycemia Creatinine Urine 3 Months E11.65 - Type 2 diabetes mellitus with hyperglycemia Referrals Psychiatry Referral F32.9 - Major depressive disorder, single episode, unspecified Medications: New escitalopram oxalate (Lexapro) 5 mg PO DAILY 30 tabs 3RF F32.9 - Major depressive disorder, single episode, unspecified Discontinued tadalafil Discontinued Reason: Doctor's Order 5 mg PO DAILY 90 days 90 tabs 1RF sexual activity E11.69 - Type 2 diabetes mellitus with other specified complication, N52.1 - Erectile dysfunction due to diseases classified elsewhere sildenafil administer 60 minutes before intended activity Discontinued Reason: Doctor's Order 100 mg PO ONCE 30 days PRN 30 tabs 1RF sexual activity E11.69 - Type 2 diabetes mellitus with other specified complication, N52.1 - Erectile dysfunction due to diseases classified elsewhere Coding Level of Care Code Est Pt Level 4 (05648) Diagnoses Type 2 diabetes mellitus with hyperglycemia E11.65 Essential hypertension I10 Dyslipidemia E78.5 Generalized anxiety disorder F41.1 Obesity (BMI 30-39.9) E66.9 Major depression F32.9
== END 2023-06-29 16:01 | disposition home or self-care (01) ==
LOC: HO.HMGH 15:14
PROVIDERS: PCP Internal Medicine; Visit Provider Internal Medicine
DX: E11.65 Type 2 diabetes mellitus with hyperglycemia (principal); I10 Essential (primary) hypertension; E78.5 Hyperlipidemia, unspecified; F41.1 Generalized anxiety disorder
CPT/HCPCS: 83036; 99214

== ENCOUNTER 2023-10-18 06:36 | Outpatient (REF) | payer MEDICARE, BC, SELFPAY ==
[2023-10-18 06:56] LABS: MANUAL DIFF FLAG NO
[2023-10-18 07:42] LABS: Basophils Absolute Auto 0.1 X10*3/uL (0.0-0.2); Basophils Percent Auto 1.1 % (0-2); Eosinophils Absolute Auto 0.3 X10*3/uL (0.0-0.4); Eosinophils Percent Auto 5.4 % (0-4); Hematocrit 41.3 % (42.0-52.0); Hemoglobin 14.4 g/dl (14.0-18.0); Imm Gran Abs Auto 0.03 X10*3/uL (0.00-0.03); Imm Gran Pct Auto 0.5 % (0.0-0.4); Lymphocytes Absolute Auto 1.8 X10*3/uL (1.2-4.9); Lymphocytes Percent Auto 32.6 % (20-40); Mean Corpuscular HGB Conc 34.9 g/dl (31.0-36.0); Mean Corpuscular Hemoglobin 30.2 pg (27.0-33.0); Mean Corpuscular Volume 86.6 fL (80.0-98.0); Monocytes Absolute Auto 0.7 X10*3/uL (0.1-1.2); Monocytes Percent Auto 13.2 % (2-11); Neutrophils Absolute Auto 2.6 x10*3/uL (2.0-8.3); Neutrophils Percent Auto 47.2 % (45-73); Platelet Count 189 X10*3/uL (160-400); Red Blood Count 4.77 X10*6/uL (4.60-5.80); Red Cell Distribution Width 13.7 % (11.0-16.0); White Blood Count 5.6 X10*3/uL (4.8-10.8)
[2023-10-18 08:20] LABS: Alanine Aminotransferase 14 U/L (0-40); Albumin Level 4.3 g/dL (3.5-5.0); Alkaline Phosphatase 40 U/L (39-117); Anion Gap 13 (12-20); Aspartate Amino Transferase 15 U/L (5-37); Bilirubin Total 0.5 mg/dL (0.0-1.0); Blood Urea Nitrogen 19 mg/dL (9-16); Calcium 9.6 mg/dL (8.4-10.2); Carbon Dioxide 23 mmol/L (22-29); Chloride 109 mmol/L (96-108); Cholesterol 202 mg/dL (<200); Estimated Glomerular Filt Rate > 60; Glucose Fasting 118 mg/dL (60-99); HDL Cholesterol 38 mg/dL (>40); LDL Cholesterol Calculated 134 mg/dL (<100); Sodium 141 mmol/L (135-145); Triglycerides 153 mg/dL (<150)
[2023-10-18 08:27] LABS: Estimated Average Glucose 137 mg/dL; Hemoglobin A1c % 6.4 % (<6.0)
[2023-10-18 08:35] LABS: Free T4 (Free Thyroxine) 0.76 ng/dL (0.71-1.85)
[2023-10-18 08:39] LABS: Folate 8.4 ng/mL (> or = 4.0); Vitamin B12 > 2000 pg/mL (200-900)
[2023-10-18 09:55] LABS: Creatinine Urine 112.77 mg/dL; Microalbum/Creatinine Ratio Ur 80.6 ug/mg cr (<30)
== END 2023-10-18 06:37 | disposition home or self-care (01) ==
LOC: HO.LAB 06:36
PROVIDERS: PCP Internal Medicine; Visit Provider Internal Medicine
DX: E11.65 Type 2 diabetes mellitus with hyperglycemia (principal); E78.00 Pure hypercholesterolemia, unspecified; E11.42 Type 2 diabetes mellitus with diabetic polyneuropathy
CPT/HCPCS: 36415; 80053; 80061; 82043; 82570; 82607; 82746; 83036; 84439; 84443; 85025

== ENCOUNTER 2023-10-18 08:41 | Outpatient (AMB) | payer MEDICARE, BC, SELFPAY ==
[2023-10-18 08:49] VITALS: BP 162/80; PULSE 79; O2SAT 96; BMI 29.2
--- NOTE | 2023-10-18 08:49 | MHC.PC.OV ---
Vital Signs 10/18/23 08:49 10/18/23 09:12 Height 5 ft 9 in Weight 198 lb BMI 29.2 BP 162/80 H 148/80 H Blood Pressure Location Lt brachial Lt brachial Position Sitting Sitting Pulse 79 Pulse Source Pulse Oximeter Pulse Oximetry (%) 96 Oxygen Delivery Method Room Air Intake Visit Reasons: DM Allergies lisinopril Allergy (Unknown, Verified 10/18/23 08:49) cough seasonal allergies Allergy (Unknown, Uncoded 10/18/23 08:49) rhinitis Medication List - Last Reconciled 10/18/23 by Cindy Conner MD albuterol sulfate 90 mcg/actuation 2 puffs PO Q6H PRN amlodipine 5 mg PO DAILY ascorbic acid (vitamin C) 1 g PO DAILY blood sugar diagnostic ([employer] Test strips) As directed blood-glucose meter ([employer] Lite kit) As directed escitalopram oxalate (Lexapro) 5 mg PO DAILY ezetimibe 10 mg PO DAILY fluticasone propion-salmeterol 250-50 mcg/dose ([employer] Inhub) 1 inh inhalation BID fluticasone propionate 50 mcg/actuation 2 sprays intranasal DAILY lancets ([employer] Lancets) As directed losartan 50 mg (2 x 25 mg) PO DAILY magnesium 250 mg PO DAILY mecobalamin (vitamin B12) 2,500 mcg PO DAILY melatonin 5 mg PO BEDTIME PRN metformin 500 mg PO DAILY sitagliptin phosphate (Januvia) 100 mg PO DAILY Tobacco use date assessed: 06/29/23 Fall risk assessment: No Falls in past year Last assessed Fall Risk: 10/18/23 Dental Screening Dental Screen Date: 06/29/23 HPI DM HPI Details 78-year-old obese male with uncontrolled diabetes mellitus hypertension hypercholesterolemia and generalized anxiety disorder last seen in 07/06/2023. [facility] Medical History (Updated 10/18/23 @ 09:17 by Cindy Conner MD) Proteinuria Depression Atypical nevi Anxiety Degenerative disc disease Type 2 diabetes mellitus with other diabetic kidney complication Essential hypertension Type 2 diabetes mellitus with diabetic polyneuropathy Dyslipidemia Surgical History Hx of arthroscopy of left knee History of back surgery Family History Father No problems noted. Mother No problems noted. Other Mental health disorder Social History Household Members Other:: son Housing: House Alcohol intake: never Patient Tobacco Use Status: Former Tobacco user Tobacco use type: Cigarette Cigarette Packs Per Day: 2 Years Smoked: 25 e-Cigarette/Vaping Use: Never Used service: Yes Current occupational status: retired Cognitive needs: No Hearing needs: No Vision needs: Yes (glasses) Questionnaire PHQ-9 Over the last 2 weeks, how often have you been bothered by any of the following problems? 1. Little interest or pleasure in doing things: nearly every day 2. Feeling down, depressed, or hopeless: nearly every day 3. Trouble falling or staying asleep, or sleeping too much: nearly every day 4. Feeling tired or having little energy: nearly every day 5. Poor appetite or overeating: several days 6. Feeling bad about yourself - or that you are a failure or have let yourself or your family down: several days 7. Trouble concentrating on things, such as reading the newspaper or watching television: not at all 8. Moving or speaking so slowly that other people could have noticed. Or the opposite - being so fidgety or restless that you have been moving around a lot more than usual: several days 9. Thoughts that you would be better off or of hurting yourself in some way: not at all Total score: 15 Depression Screening Interpretation: Positive Depression Screening Done: Yes 82337 - PHQ-9 Billing: Yes Source: Developed by Drs. Luis Ji, Lan Goodwin and colleagues, with an educational shalonda from [employer]. Thrive Questionnaire Date Thrive assessed: 06/29/23 AUDIT C Alcohol Use Questionnaire (AUDIT-C) 1. How often do you have a drink containing alcohol?: Never Total Score: 0 BEULAH-7 AMB Questionnaire BEULAH-7 Date BEULAH - 7 assessed: 06/29/23 Source: Developed by Drs. Luis Ji, Lan Goodwin and colleagues, with an educational shalonda from [employer]. Physical exam (Primary Care) Vital Signs: Last Vital Signs Pulse 79 10/18/23 08:49 BP 148/80 H 10/18/23 09:12 Pulse Ox 96 10/18/23 08:49 Oxygen Delivery Method Room Air 10/18/23 08:49 BMI result Body Mass Index 29.2 Tobacco/Smoking Status: Tobacco use Status Tobacco use date assessed 06/29/23 10/18/23 08:55 Patient Tobacco Use Status Former Tobacco user 10/18/23 08:55 Tobacco use type Cigarette 10/18/23 08:55 e-Cigarette/Vaping Use Never Used 10/18/23 08:55 PHQ-9: PHQ-9 Score PHQ-9: Total score 15 10/18/23 08:55 Depression Screening Interpretation: Positive Thrive Assessment: Date of Thrive Assessment Date Thrive assessed 06/29/23 10/18/23 08:55 Const General: alert; No acute distress Eyes Conjunctivae: conjunctivae normal Resp Auscultation: clear to auscultation bilaterally Cardio Rate: regular rate Rhythm: regular rhythm GI Inspection: Yes normal to inspection Extrem General: Yes normal to inspection and No edema Assessment and Plan Assessment & Plan (1) Obesity (BMI 30-39.9): Code(s): E66.9 - Obesity, unspecified Plan: Diet and exercise loss (2) Type 2 diabetes mellitus with hyperglycemia: Comment: [facility] Code(s): E11.65 - Type 2 diabetes mellitus with hyperglycemia Plan: Decrease the amount of carbohydrate intake, pasta, bread, rice and potatoes are all sugar and that is aside from all the sweet stuff, remember that fruits are good but they are Sweet also. Hemoglobin A1c goal of less than 7.0. Patient on metformin 500 mg once a day and Januvia 100 mg once a day. Patient admits to taking Januvia 100 mg every other day. (3) Essential hypertension: Code(s): I10 - Essential (primary) hypertension Plan: Continue with blood pressure medication. Decrease salt intake and exercise amlodipine 5 mg once a day losartan 50 mg once a day. Discussed my concerns about the elevated blood pressure and will increase the amlodipine to 10 mg once a day (4) Dyslipidemia: Code(s): E78.5 - Hyperlipidemia, unspecified Plan: Avoid fried foods, chicken skin, eggs, butter margarine, pastries and meat. Be it pork or beef they have a lot of cholesterol LDL goal of less than 100 and triglyceride of less than 150 presently on Zetia 10 mg once a day decline [facility] ASCVD risk calculator computed provides 72.9% in the next 10 years on Zetia presently and declined statins. Discussed the need to lower it down with diet and exercise. (5) Generalized anxiety disorder: Code(s): F41.1 - Generalized anxiety disorder Plan: Continue with Lexapro 5 mg once a day (6) Asthma: Code(s): J45.909 - Unspecified asthma, uncomplicated Plan: continue with inhalers . Under control (7) Colon cancer screening: Code(s): Z12.11 - Encounter for screening for malignant neoplasm of colon Plan: Referral to Gastroenterology Orders: Orders Lipid Panel 3 Months E78.00 - Pure hypercholesterolemia, unspecified, E78.5 - Hyperlipidemia, unspecified Comprehensive Met. Panel 3 Months E78.5 - Hyperlipidemia, unspecified Hemoglobin A1c 3 Months E11.65 - Type 2 diabetes mellitus with hyperglycemia Referrals Gastroenterology Referral Z12.11 - Encounter for screening for malignant neoplasm of colon Medications: New olopatadine 0.1% separate doses by at least 6-8 hours 1 drp ophthalmic (eye) BID 5 mL 0RF Changed From amlodipine 5 mg PO DAILY 30 tabs 2RF I10 - Essential (primary) hypertension To amlodipine 10 mg PO DAILY 30 tabs 2RF 30 days I10 - Essential (primary) hypertension Coding Level of Care Code Est Pt Level 4 (84334) Diagnoses Obesity (BMI 30-39.9) E66.9 Type 2 diabetes mellitus with hyperglycemia E11.65 Essential hypertension I10 Dyslipidemia E78.5 Generalized anxiety disorder F41.1 Asthma J45.909 Colon cancer screening Z12.11
[2023-10-18 09:12] VITALS: BP 148/80
== END 2023-10-18 09:21 | disposition home or self-care (01) ==
PROVIDERS: PCP Internal Medicine; Visit Provider Internal Medicine
DX: E11.65 Type 2 diabetes mellitus with hyperglycemia (principal); E66.9 Obesity, unspecified; I10 Essential (primary) hypertension; Z68.29 Body mass index [BMI] 29.0-29.9, adult; E78.5 Hyperlipidemia, unspecified; F41.1 Generalized anxiety disorder; J45.909 Unspecified asthma, uncomplicated; Z12.11 Encounter for screening for malignant neoplasm of colon
CPT/HCPCS: 99214

== ENCOUNTER 2023-12-26 13:58 | Outpatient (REF) | payer MEDICARE, BC, SELFPAY ==
[2023-12-26 14:48] LABS: Influenza A PCR NEGATIVE (Negative); Influenza B PCR NEGATIVE (Negative); Resp Syncy Virus RNA Qual PCR NEGATIVE (Negative); SARS COV2 PCR INHOUSE POSITIVE (Negative)
== END 2023-12-26 13:59 | disposition home or self-care (01) ==
LOC: HO.LAB 13:58
PROVIDERS: PCP Internal Medicine; Visit Provider Internal Medicine
DX: R09.89 Other specified symptoms and signs involving the circulatory and respiratory systems (principal); R05.9 Cough, unspecified
CPT/HCPCS: 0241U

== ENCOUNTER 2024-01-31 09:57 | Outpatient (AMB) | payer MEDICARE, BC, SELFPAY ==
--- NOTE | 2024-01-31 09:31 | A.OFFVIS_ITS ---
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 He is a patient Dr. Conner. He seen for the following urologic conditions - lower urinary tract symptoms - erectile dysfunction - background diabetes Telemedicine Evaluation 15 min Consultation [employer] Pily Video attempted Effective response with combination daily tadalafil on on demand 100 mg Prescriptions refilled Erectile dysfunction Prior therapy sildenafil 50 mg on demand Background diabetes HBA1c % - 6.8, 01/08 7.5, 11/08 6.4 Cardiovascular risk factors include hypertension, dyslipidemia, diabetes Recommendation daily 5 mg tadalafil with on demand 100 mg PFSH Medical History (Updated 12/26/23 @ 17:52 by Cindy Conner MD) Proteinuria Depression Atypical nevi Anxiety Degenerative disc disease Type 2 diabetes mellitus with other diabetic kidney complication Essential hypertension Type 2 diabetes mellitus with diabetic polyneuropathy Dyslipidemia Surgical History Hx of arthroscopy of left knee History of back surgery Family History Father No problems noted. Mother No problems noted. Other Mental health disorder Social History Household Members Other:: son Housing: House Alcohol intake: never Patient Tobacco Use Status: Former Tobacco user Tobacco use type: Cigarette Cigarette Packs Per Day: 2 Years Smoked: 25 e-Cigarette/Vaping Use: Never Used service: Yes Current occupational status: retired Cognitive needs: No Hearing needs: No Vision needs: Yes (glasses) Review of Systems Const All systems reviewed & are unremarkable except as noted in HPI and below Reports no additional complaints Resp Reports no additional complaints GI Reports no additional complaints Reports as per HPI Musc Reports no additional complaints Physical Exam Telemedicine evaluation Appropriate responses Regular breathing rate and rhythm HEENT Head: Yes normal to inspection Ears: hearing grossly normal bilaterally Eyes General: appearance normal, both eyes and all related structures Neck Neck: Yes normal visual inspection Chest Chest palpation & inspection: normal inspection of the chest Resp Effort & Inspection: normal respiratory effort and able to speak in complete sentences Telehealth Telehealth Telehealth Platform: [employer] Location of provider rendering services: practice address Location of patient: address on file Patient Identification confirmed using: Name, : Yes Telehealth method: video Patient verbally consented to treatment: Yes Patient verbally consented to billing insurance company: Yes Patient informed of any privacy concerns related to visit: Yes Minutes spent on Phone/Video with Pt.: 15 Assessment & Plan Assessment & Plan (1) Erectile dysfunction associated with type 2 diabetes mellitus: Code(s): E11.69 - Type 2 diabetes mellitus with other specified complication; N52.1 - Erectile dysfunction due to diseases classified elsewhere Category: Medical Plan Six-month follow-up office Medications: New tadalafil 5 mg PO DAILY 90 days 90 tabs 1RF sexual activity E11.69 - Type 2 diabetes mellitus with other specified complication, N52.1 - Erectile dysfunction due to diseases classified elsewhere sildenafil administer 60 minutes before intended activity 100 mg PO ONCE 30 days PRN 30 tabs 1RF sexual activity E11.69 - Type 2 diabetes mellitus with other specified complication, N52.1 - Erectile dysfunction due to diseases classified elsewhere Patient Instructions: Imaging studies, laboratory and physical exam results were discussed and reviewed in detail. No major barriers to patient understanding were identified. An opportunity to ask questions regarding the treatment plan was provided. All questions were answered. The patient expressed understanding and agreement with the above treatment plan. The patient is aware they should contact our office by phone for worsening of their current condition or the appearance of new urologic symptoms. Compliance is encouraged with any medications and followup testing that is ordered. It is a privilege to participate in the urologic care of your patient. If you have any questions or concerns regarding treatment for the above conditions, or other urologic issues, please do not hesitate to contact me. The office telephone contact is [phone]. This note is constructed using voice recognition software. While every effort has been made to ensure accuracy armor reconnaissance specialist errors may have been included. Yours sincerely, Dr Herber Chaudhari MD, [facility]ON[facility] - Urology Providers of Expert, Compassionate Care for the Genitourinary System Coding Level of Care Code Tele Est Pt Level 3 (09974) Diagnoses Erectile dysfunction associated with type 2 diabetes mellitus E11.69; N52.1
== END 2024-01-31 13:41 | disposition home or self-care (01) ==
LOC: HO.HUSH 09:57
PROVIDERS: PCP Internal Medicine; Visit Provider Urology
DX: E11.69 Type 2 diabetes mellitus with other specified complication (principal); N52.1 Erectile dysfunction due to diseases classified elsewhere
CPT/HCPCS: 99213

== ENCOUNTER → 2024-01-31 09:57 | Outpatient (BNVA) | payer MEDICARE, BC, SELFPAY | PROVIDERS: PCP Internal Medicine; Visit Provider Urology ==

== ENCOUNTER → 2024-03-01 09:13 | Outpatient (BNV) | payer MEDICARE, BC, SELFPAY | PROVIDERS: PCP Internal Medicine; Visit Provider Internal Medicine | DX: E11.65 Type 2 diabetes mellitus with hyperglycemia (principal) | CPT/HCPCS: 83036 ==

== ENCOUNTER 2024-05-08 14:40 | Emergency (ER) | payer MEDICARE, BC, SELFPAY ==
[2024-05-08 15:13] VITALS: BP 186/99; PULSE 70; RESP 18; TEMP 36.8; O2SAT 97; BMI 29.9
--- NOTE | 2024-05-08 15:13 | ED_ITS ---
HPI - URI/Sore Throat General Chief Complaint: Medical Clearance Stated Complaint: Med refill, congestion Time Seen by Provider: 05/08/24 21:29 History of Present Illness ED Provider: Deyanira FUNES Narrative: The patient is a 78-year-old male who says that 4 days ago he ran out of metformin. He says he takes metformin ER 500 mg b.i.d.. He says that he tried to get a refill from his PCP's office but was told that his insurance would not cover additional metformin until May 26. The patient says he has been doubling up on his Januvia the last few days. He says that he feels mildly run down and slightly unwell but without specific symptoms. He came to the emergency room for evaluation and medication refill. Related Data Home Medications ?Medication ?Instructions ?Recorded ?Confirmed ascorbic acid (vitamin C) 1,000 mg 1 g PO DAILY 12/27/22 10/18/23 tablet magnesium 250 mg tablet 250 mg PO DAILY 12/27/22 10/18/23 mecobalamin (vitamin B12) 2,500 2,500 mcg PO DAILY 12/27/22 10/18/23 mcg chewable tablet melatonin 5 mg tablet 5 mg PO BEDTIME PRN 12/27/22 10/18/23 Previous Rx's ?Medication ?Instructions ?Recorded fluticasone 250 mcg-salmeterol 50 1 inh inhalation BID #3 ea 08/20/20 mcg/dose blistr powdr for inhalation (Wixela Inhub) blood-glucose meter (FreeStyle #1 ea 12/27/22 Cool Lite kit) blood sugar diagnostic (FreeStyle #10 ea 12/29/22 Test strips) lancets 28 gauge (FreeStyle #100 ea 12/29/22 Lancets) losartan 25 mg tablet 50 mg (2 x 25 mg) PO DAILY #180 10/03/23 tabs nirmatrelvir 300 mg (150 mg See Rx Instructions PO .COMPLEX 12/26/23 x2)-ritonavir 100 mg tablet,dose #30 ea pack (Paxlovid) fluticasone propionate 50 2 spray intranasal DAILY #3 ea 12/27/23 mcg/actuation nasal spray,suspension olopatadine 0.1 % eye drops 1 drp ophthalmic (eye) BID #5 mL 12/27/23 sildenafil 100 mg tablet 100 mg PO ONCE PRN sexual activity 01/31/24 30 days #30 tabs tadalafil 5 mg tablet 5 mg PO DAILY sexual activity 90 01/31/24 days #90 tabs albuterol sulfate 90 mcg/actuation 2 puff PO Q6H PRN bronchospasm 03/02/24 aerosol inhaler #8.5 grams ezetimibe 10 mg tablet 10 mg PO DAILY #90 tabs 03/02/24 escitalopram oxalate 5 mg tablet 5 mg PO DAILY #90 tabs 04/03/24 (Lexapro) amlodipine 10 mg tablet 10 mg PO DAILY #90 tabs 05/02/24 metformin 500 mg tablet 500 mg PO DAILY #90 tabs 05/02/24 sitagliptin phosphate 100 mg 100 mg PO DAILY #60 tabs 05/02/24 tablet (Januvia) metformin 500 mg tablet,extended 500 mg PO BID 21 days #42 tabs 05/08/24 release 24 hr Allergies Allergy/AdvReac Type Severity Reaction Status Date / Time lisinopril Allergy Unknown cough Verified 05/08/24 15:16 seasonal allergies Allergy Unknown rhinitis Uncoded 01/31/24 09:34 Review of Systems 2 Review of Systems: Yes all other systems are reviewed and are negative [facility] Past Medical History Medical History (Updated 05/08/24 @ 21:45 by Michael Mcmillan MD) Proteinuria Depression Atypical nevi Anxiety Degenerative disc disease Type 2 diabetes mellitus with other diabetic kidney complication Essential hypertension Type 2 diabetes mellitus with diabetic polyneuropathy Dyslipidemia Surgical History Hx of arthroscopy of left knee History of back surgery Family History Family History Father No problems noted. Mother No problems noted. Other Mental health disorder Social History Social History Household Members Other:: son Housing: House Alcohol intake: never Patient Tobacco Use Status: Former Tobacco user Tobacco use type: Cigarette Cigarette Packs Per Day: 2 Years Smoked: 25 e-Cigarette/Vaping Use: Never Used Advance Directives: No Advance Directives Information Provided: No service: Yes Current occupational status: retired Cognitive needs: No Hearing needs: No Vision needs: Yes (glasses) Physical Exam 2 Vital Signs: Vital Signs: Last Vital Signs Temp 98.6 F 05/08/24 22:06 Pulse 84 05/08/24 22:06 Resp 16 05/08/24 22:06 BP 215/95 H 05/08/24 22:06 Pulse Ox 98 05/08/24 22:06 O2 Del Method Room Air 05/08/24 22:06 BMI result Body Mass Index 29.9 Const: Other: The patient is awake, alert, pleasant, cooperative. He is well-groomed. He does not appear in any acute distress. He does not appear acutely ill. HEENT: Other: Face is symmetrical. Mucous membranes moist. The posterior pharynx is normal. Eyes: Other: Pupils are round equal, conjunctivae clear, extraocular movements intact Neck: Neck: Yes full ROM and Yes no lymphadenopathy Resp: Effort & Inspection: normal respiratory effort Auscultation: clear to auscultation bilaterally Cardio: Rate: regular rate Rhythm: regular rhythm Heart sounds: S1 normal heart sound present and S2 normal heart sound present Skin: Other: Skin is dry and unremarkable Neuro: Other: The patient is awake and alert with a normal mental status. Cranial nerves are intact. He moves extremities normally Extrem: Other: No peripheral edema. Course Course Course Narrative: This is a Rapid Medical Examination (RME) performed by Roney Lanza PA-C in triage. Full HPI, ROS, assessment and treatment plan per primary provider in the Main ED. 78 yo male with history of DM2 and HTN presents for metformin refill, he ran out 4 days. POC at home 200s. did not take BP meds today. recent URI but overall getting better, reports some nasal congestion, generalized weakness, intermittent cough improving. BP elevated in triage, 186/99. no chest pain, headache or vision changes Plan: POC. treat BP. viral swab Reevaluation(s) Reevaluation #1: Upon re-evaluation patient is hypertensive to 215 systolic. He complains of a frontal headache. He was given his home antihypertensives. Labs and EKG ordered. Time: 20:02 Medications Administered Discontinued Medications Generic Name Dose Route Start Last Admin Trade Name Freq PRN Reason Stop Dose Admin Amlodipine Besylate 10 mg 05/08/24 15:15 05/08/24 19:59 Amlodipine Besylate 10 Mg Tablet PO 05/08/24 15:16 10 mg ONCE ONE Administration Protocol Losartan Potassium 25 mg 05/08/24 15:15 05/08/24 19:59 Losartan Potassium 25 Mg Tablet PO 05/08/24 15:16 25 mg ONCE ONE Administration Protocol Metformin HCl 500 mg 05/08/24 15:15 05/08/24 19:59 Metformin Hcl 500 Mg Tablet PO 05/08/24 15:16 500 mg ONCE ONE Administration Medical Decision Making Medical Decision Making [facility] Narrative: The patient is a 78-year-old male with a history of type 2 diabetes on metformin. He says he normally takes 500 mg of extended release metformin 2 times a day. He says he ran out of this medication 4 days ago. For reasons that are not clear to me he has been unable to get a refill. Says he was told by his PCP's office that he was not due for a refill until May 26 because of insurance reasons. The patient is eager to maintain his metformin. He describes feeling moderately unwell in fairly vague terms. I suspect that he is somewhat anxious about not being on his usual medication. Labs are unremarkable. He is not in any acute metabolic derangement because of his lack of metformin. I will prescribe 3 weeks' worth of his metformin which should get him to May 26. He may have to pay [id number] for this. He should contact his PCP's office for additional advice as needed Lab Data 05/08/24 20:08 05/08/24 20:08 Labs: Lab Results 05/08/24 05/08/24 05/08/24 Range/Units 15:19 15:33 20:08 WBC 7.0 (4.8-10.8) X10*3/uL RBC 5.34 (4.60-5.80) X10*6/uL Hgb 15.9 (14.0-18.0) g/dl Hct 45.2 (42.0-52.0) % MCV 84.6 (80.0-98.0) fL MCH 29.8 (27.0-33.0) pg MCHC 35.2 (31.0-36.0) g/dl RDW 13.6 (11.0-16.0) % Plt Count 222 (160-400) X10*3/uL MPV 10.3 (9.4-12.4) fL Immature Gran % (Auto) 0.7 H (0.0-0.4) % Neut % (Auto) 51.5 (45-73) % Lymph % (Auto) 32.1 (20-40) % [place] % (Auto) 8.5 (2-11) % Eos % (Auto) 6.3 H (0-4) % Baso % (Auto) 0.9 (0-2) % Lymph # (Auto) 2.2 (1.2-4.9) X10*3/uL [place] # (Auto) 0.6 (0.1-1.2) X10*3/uL Eos # (Auto) 0.4 (0.0-0.4) X10*3/uL Baso # (Auto) 0.1 (0.0-0.2) X10*3/uL Abs Immat Gran (auto) 0.05 H (0.00-0.03) X10*3/uL Absolute Neuts (auto) 3.6 (2.0-8.3) x10*3/uL Absolute Nucleated RBC 0.000 (0.0-0.012) X10*3/uL Nucleated RBC % (auto) 0.0 (0.0-0.2) /100WBC Sodium 138 (135-145) mmol/L Potassium 4.4 (3.3-5.1) mmol/L Chloride 105 (96-108) mmol/L Carbon Dioxide 24 (22-29) mmol/L Anion Gap 13 (12-20) BUN 16 (9-16) mg/dL Creatinine 0.86 (0.5-1.4) mg/dL Estim Creat Clear Calc 79.3 Estimated GFR > 60 POC Glucose 194 H (60-115) mg/dL Random Glucose 131 H (60-115) mg/dL Calcium 9.8 (8.4-10.2) mg/dL Magnesium 2.2 (1.6-2.6) mg/dL Total Bilirubin 0.7 (0.0-1.0) mg/dL Direct Bilirubin 0.2 (0.0-0.5) mg/dL AST 25 (5-37) U/L ALT 41 H (0-40) U/L Alkaline Phosphatase 46 (39-117) U/L Troponin I High Sens < 2.7 (<3.5-35.0) ng/L Total Protein 8.6 H (6.5-8.0) g/dL Albumin 4.9 (3.5-5.0) g/dL Influenza Type A (PCR) NEGATIVE (Negative) Influenza Type B (PCR) NEGATIVE (Negative) RSV RNA Qual (PCR) NEGATIVE (Negative) SARS-CoV-2 RNA (RT-PCR) NEGATIVE (Negative) Discharge Plan Discharge Clinical Impression: Medication refill Patient Disposition: Home, Self-Care Additional Instructions: Your blood testing today shows no concerning findings. Also your viral testing is negative. Please fill the prescription for the metformin and a resume your normal use of the metformin. Also please resume your normal use of Januvia. Please contact Dr. Conner's office in the morning for a follow up appointment soon. Please stay in touch with his office as well for any additional questions about your medications. Return to the emergency room if you feel significantly worse. Prescriptions: New metformin 500 mg tablet extended release 24 hr 500 mg PO BID 21 Days Qty: 42 0RF No Action fluticasone propion-salmeterol [Wixela Inhub] 250-50 mcg/dose blister with device 1 inh inhalation BID Qty: 3 3RF (DME) FreeStyle Test Strip See Rx Instructions miscellaneous .MEDSUPPLY Qty: 10 0RF Rx Instructions: As directed (DME) lancets [FreeStyle Lancets] 28 gauge misc See Rx Instructions .MEDSUPPLY Qty: 100 3RF Rx Instructions: As directed losartan 25 mg tablet 50 mg PO DAILY Qty: 180 2RF Paxlovid 300 mg (150 mg x 2)-100 mg tablets,dose pack See Rx Instructions PO .COMPLEX Qty: 30 0RF Rx Instructions: take TWO 150 mg tablets of nirmatrelvir with ONE 100 mg tablet of ritonavir twice daily for 5 days PO fluticasone propionate 50 mcg/actuation spray,suspension 2 spray intranasal DAILY Qty: 3 3RF Rx Instructions: administer into each nostril olopatadine 0.1 % drops 1 drp ophthalmic (eye) BID Qty: 5 0RF Rx Instructions: separate doses by at least 6-8 hours albuterol sulfate 90 mcg/actuation HFA aerosol inhaler 2 puff PO Q6H PRN (Reason: bronchospasm) Qty: 8.5 3RF ezetimibe 10 mg tablet 10 mg PO DAILY Qty: 90 2RF escitalopram oxalate [Lexapro] 5 mg tablet 5 mg PO DAILY Qty: 90 1RF amlodipine 10 mg tablet 10 mg PO DAILY Qty: 90 0RF Januvia 100 mg tablet 100 mg PO DAILY Qty: 60 2RF metformin 500 mg tablet 500 mg PO DAILY Qty: 90 1RF melatonin 5 mg tablet 5 mg PO BEDTIME PRN magnesium 250 mg tablet 250 mg PO DAILY ascorbic acid (vitamin C) 1,000 mg tablet 1 g PO DAILY mecobalamin (vitamin B12) 2,500 mcg tablet,chewable 2,500 mcg PO DAILY (DME) blood-glucose meter [Marblar Lite] Kit See Rx Instructions miscellaneous .MEDSUPPLY Qty: 1 0RF Rx Instructions: As directed tadalafil 5 mg tablet 5 mg PO DAILY 90 Days Qty: 90 1RF sildenafil 100 mg tablet 100 mg PO ONCE PRN (Reason: sexual activity) 30 Days Qty: 30 1RF Rx Instructions: administer 60 minutes before intended activity Interventions: ED Discharge Assessment Last Done: 05/08/24 22:06 Discharge Date/Time: 05/08/24 22:07 Print Language: Sami
[2024-05-08 15:23] LABS: Glucose, Whole Blood 194 mg/dL (60-115)
[2024-05-08 16:18] LABS: Influenza A PCR NEGATIVE (Negative); Influenza B PCR NEGATIVE (Negative); Resp Syncy Virus RNA Qual PCR NEGATIVE (Negative); SARS COV2 PCR INHOUSE NEGATIVE (Negative)
[2024-05-08 19:50] VITALS: BP 215/95; PULSE 65; RESP 18; TEMP 37; O2SAT 96
[2024-05-08 19:59] VITALS: BP 215/95
[2024-05-08] MEDS: amLODIPine Besylate 10 MG TABLET PO (19:59)
[2024-05-08] MEDS: metFORMIN HCl 500 MG TABLET PO (19:59)
[2024-05-08] MEDS: Losartan Potassium 25 MG TABLET PO (19:59)
--- NOTE | 2024-05-08 20:01 | ECG_ITS ---
Test Reason : htn Blood Pressure : */* mmHG Vent. Rate : 60 BPM Atrial Rate : 60 BPM P-R Int : 146 ms QRS Dur : 82 ms QT Int : 424 ms P-R-T Axes : * 1 56 degrees QTcB Int : 424 ms Normal sinus rhythm Normal ECG When compared with ECG of 17-Jan-2019 21:25, No significant change was found Referred By: Priya Lanza Electronically Signed By: KANDY BACA MD
[2024-05-08 20:24] LABS: MANUAL DIFF FLAG NO
[2024-05-08 20:25] LABS: Basophils Absolute Auto 0.1 X10*3/uL (0.0-0.2); Basophils Percent Auto 0.9 % (0-2); Eosinophils Absolute Auto 0.4 X10*3/uL (0.0-0.4); Eosinophils Percent Auto 6.3 % (0-4); Hematocrit 45.2 % (42.0-52.0); Hemoglobin 15.9 g/dl (14.0-18.0); Imm Gran Abs Auto 0.05 X10*3/uL (0.00-0.03); Imm Gran Pct Auto 0.7 % (0.0-0.4); Lymphocytes Absolute Auto 2.2 X10*3/uL (1.2-4.9); Lymphocytes Percent Auto 32.1 % (20-40); Mean Corpuscular HGB Conc 35.2 g/dl (31.0-36.0); Mean Corpuscular Hemoglobin 29.8 pg (27.0-33.0); Mean Corpuscular Volume 84.6 fL (80.0-98.0); Mean Platelet Volume 10.3 fL (9.4-12.4); Monocytes Absolute Auto 0.6 X10*3/uL (0.1-1.2); Monocytes Percent Auto 8.5 % (2-11); Neutrophils Absolute Auto 3.6 x10*3/uL (2.0-8.3); Neutrophils Percent Auto 51.5 % (45-73); Platelet Count 222 X10*3/uL (160-400); Red Blood Count 5.34 X10*6/uL (4.60-5.80); Red Cell Distribution Width 13.6 % (11.0-16.0)
[2024-05-08 20:40] LABS: Alanine Aminotransferase 41 U/L (0-40); Albumin Level 4.9 g/dL (3.5-5.0); Alkaline Phosphatase 46 U/L (39-117); Anion Gap 13 (12-20); Aspartate Amino Transferase 25 U/L (5-37); Bilirubin Direct 0.2 mg/dL (0.0-0.5); Bilirubin Total 0.7 mg/dL (0.0-1.0); Blood Urea Nitrogen 16 mg/dL (9-16); Calcium 9.8 mg/dL (8.4-10.2); Carbon Dioxide 24 mmol/L (22-29); Chloride 105 mmol/L (96-108); Creatinine Clr Calc Pharmacy 79.3; Estimated Glomerular Filt Rate > 60; Glucose Random 131 mg/dL (60-115); Magnesium 2.2 mg/dL (1.6-2.6); Potassium 4.4 mmol/L (3.3-5.1); Sodium 138 mmol/L (135-145); Total Protein 8.6 g/dL (6.5-8.0)
[2024-05-08 20:48] LABS: Troponin-I High Sensitivity < 2.7 ng/L (<3.5-35.0)
[2024-05-08 22:06] VITALS: BP 215/95; PULSE 84; RESP 16; TEMP 37; O2SAT 98
== END 2024-05-08 22:07 | disposition home or self-care (01) ==
PROVIDERS: Physician Assistant; Emergency Provider Emergency Medicine; PCP Internal Medicine
DX: J02.9 Acute pharyngitis, unspecified (principal); I10 Essential (primary) hypertension; Z76.0 Encounter for issue of repeat prescription; Z79.899 Other long term (current) drug therapy; Z87.891 Personal history of nicotine dependence; Z03.818 Encounter for observation for suspected exposure to other biological agents ruled out
CPT/HCPCS: 0241U; 36415; 80048; 80076; 82947; 83735; 84484; 85025; 93005; 99283

== ENCOUNTER → 2024-05-08 20:01 | Outpatient (BNV) | payer MEDICARE, BC, SELFPAY | PROVIDERS: Emergency Provider Emergency Medicine; PCP Internal Medicine; Visit Provider Internal Medicine Cardiovascular Disease | DX: I10 Essential (primary) hypertension (principal) | CPT/HCPCS: 93010 ==

== ENCOUNTER 2024-06-07 14:13 | Outpatient (AMB) | payer MEDICARE, BC, SELFPAY ==
--- NOTE | 2024-06-07 14:29 | A.OFFPC_ITS ---
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 Accompanied by: Self / Same As Patient Allergies lisinopril Allergy (Unknown, Verified 06/07/24 14:30) cough seasonal allergies Allergy (Unknown, Uncoded 06/07/24 14:30) rhinitis Medication List - Last Reconciled 06/07/24 by Cindy Conner MD albuterol sulfate 90 mcg/actuation 2 puffs PO Q6H PRN amlodipine 10 mg PO DAILY ascorbic acid (vitamin C) 1 g PO DAILY blood sugar diagnostic (FreeStyle Test strips) As directed blood-glucose meter (CoreXchangeStyle [place] Lite kit) As directed escitalopram oxalate (Lexapro) 5 mg PO DAILY ezetimibe 10 mg PO DAILY fluticasone propion-salmeterol 250-50 mcg/dose (Wixela Inhub) 1 inh inhalation BID fluticasone propionate 50 mcg/actuation 2 sprays intranasal DAILY lancets (FreeStyle Lancets) As directed losartan 50 mg PO DAILY metformin ER 500 mg PO BID 21 days sildenafil 100 mg PO ONCE PRN 30 days sitagliptin phosphate (Januvia) 100 mg PO DAILY tadalafil 5 mg PO DAILY 90 days Tobacco use date assessed: 06/07/24 Fall risk assessment: 2 + Falls in past year Last assessed Fall Risk: 06/07/24 Dental Screening Dental Screen Date: 06/07/24 Did you have a dental visit in the last 12 months?: No Did you have a dental problem in the last 6 months where you did not have access to dental care?: No Was dental information given to patient?: No HPI DM Follow Up 2 HPI0 Details pain RUQ radiating to the R hip The patient is a 78-year-old male presenting for a follow-up of chronic medical conditions, including essential hypertension, type 2 diabetes mellitus, hyperlipidemia, generalized anxiety disorder, and asthma. He was previously seen in October 2023. His last colonoscopy was conducted in 2013. In April 2024, he sought care at an urgent center due to issues related to his diabetes management and was advised to continue metformin. In January, the patient consulted with urology via telemedicine for symptoms of a urinary tract infection and erectile dysfunction, and was prescribed tadalafil and sildenafil for management. Blood work performed in April 2020 indicated a normal complete blood count and electrolyte levels, with a hemoglobin A1c at 7.98%, and liver function tests showed a mildly elevated level at 41. His cholesterol, last checked in October 2023, was reported at 134 mg/dL. The patient's medication regimen includes metformin 500 mg twice a day, and he is also on Janumet 100 mg and amlodipine 10 mg daily. The treatment plan includes maintaining current medications alongside dietary and exercise recommendations. [facility] Medical History (Updated 06/07/24 @ 15:07 by Cindy Conner MD) Proteinuria Depression Atypical nevi Anxiety Degenerative disc disease Type 2 diabetes mellitus with other diabetic kidney complication Essential hypertension Type 2 diabetes mellitus with diabetic polyneuropathy Dyslipidemia Surgical History Hx of arthroscopy of left knee History of back surgery Family History Father No problems noted. Mother No problems noted. Other Mental health disorder Social History Household Members Other:: son Housing: House Alcohol intake: never Patient Tobacco Use Status: Former Tobacco user Tobacco use type: Cigarette Cigarette Packs Per Day: 2 Years Smoked: 25 e-Cigarette/Vaping Use: Never Used service: Yes Current occupational status: retired Cognitive needs: No Hearing needs: No Vision needs: Yes (glasses) Questionnaire PHQ-9 Over the last 2 weeks, how often have you been bothered by any of the following problems? 1. Little interest or pleasure in doing things: nearly every day 2. Feeling down, depressed, or hopeless: nearly every day 3. Trouble falling or staying asleep, or sleeping too much: nearly every day 4. Feeling tired or having little energy: nearly every day 5. Poor appetite or overeating: several days 6. Feeling bad about yourself - or that you are a failure or have let yourself or your family down: several days 7. Trouble concentrating on things, such as reading the newspaper or watching television: not at all 8. Moving or speaking so slowly that other people could have noticed. Or the opposite - being so fidgety or restless that you have been moving around a lot more than usual: several days 9. Thoughts that you would be better off or of hurting yourself in some way: not at all Total score: 15 Depression Screening Interpretation: Positive Depression Screening Done: Yes 60103 - PHQ-9 Billing: Yes Source: Developed by Drs. Luis Ji, Daniela Ga, Lan Gray and colleagues, with an educational shalonda from [employer]. Thrive Questionnaire Date Thrive assessed: 06/07/24 I am a: Patient What is your living situation today?: I have a steady place to live Within the past 12 months, did the food you bought not last and you didn't have the money to get more?: Never true Within the past 12 months, did you worry whether your food would run out before you got money to buy more?: Never true Do you have trouble paying for medicines?: No Do you have trouble getting transportation to medical appointments?: No Do you have trouble paying your heating and electricity bill?: No Do you have trouble taking care of your child, family member or friend?: No Do you have trouble with day-to-day activities such as bathing, preparing meals, shopping, managing finances, etc.?: No Are you currently unemployed and looking for a job?: No Are you interested in more education?: No Please select the resources that you would like help with: None Currently or been in a relationship where the following occur: No concerns reported THRIVE Score: 0 AUDIT C Alcohol Use Questionnaire (AUDIT-C) 1. How often do you have a drink containing alcohol?: Never Total Score: 0 BEULAH-7 AMB Questionnaire BEULAH-7 Date BEULAH - 7 assessed: 06/07/24 Feeling nervous, anxious, or on edge: 0 = Not at all Not being able to stop or control worryin = Not at all Worrying too much about different things: 0 = Not at all Trouble relaxin = Not at all Being so restless that it is hard to sit still: 0 = Not at all Becoming easily annoyed or irritable: 0 = Not at all Feeling afraid as if something awful might happen: 0 = Not at all Total BEULAH-7 score (0-4 normal; 5-9 mild; 10-14 moderate; 15-21 severe): 0 Source: Developed by Drs. Luis Ji, Daniela Ga, Lan Gray and colleagues, with an educational shalonda from [employer]. Physical exam (Primary Care) Vital Signs: Last Vital Signs Pulse 86 06/07/24 14:30 BP 142/80 H 06/07/24 14:30 Pulse Ox 96 06/07/24 14:30 Oxygen Delivery Method Room Air 06/07/24 14:30 BMI result Body Mass Index 30.3 Tobacco/Smoking Status: Tobacco use Status Tobacco use date assessed 06/07/24 06/07/24 14:31 Patient Tobacco Use Status Former Tobacco user 06/07/24 14:31 Tobacco use type Cigarette 06/07/24 14:31 e-Cigarette/Vaping Use Never Used 06/07/24 14:31 PHQ-9: PHQ-9 Score PHQ-9: Total score 15 06/07/24 14:41 Depression Screening Interpretation: Positive Thrive Assessment: Date of Thrive Assessment Date Thrive assessed 06/07/24 06/07/24 14:31 Currently or been in a relationship where the following occur: No concerns reported Const General: alert; No acute distress Eyes Conjunctivae: conjunctivae normal Resp Auscultation: clear to auscultation bilaterally Cardio Rate: regular rate Rhythm: regular rhythm GI Inspection: Yes normal to inspection Extrem General: Yes normal to inspection and No edema Upper/lower leg/hip images: 2 1. 2 1 cm mass felt mild tendernss no redness Results AMB Hemoglobin A1c 2 AMB Hemoglobin A1c 7.9 % Last Edit by ISHAN Doshi on 06/07/24 14 :41 Results Reviewed Results Reviewed: Laboratory Last Values Hgb A1c (Clinic) 7.9 % (4.0-6.0) H 06/07/24 14:39 Coding Level of Care Code Est Pt Level 4 (68527) Complex EM visit Add On G2211 Diagnoses Type 2 diabetes mellitus with hyperglycemia E11.65 Hypercholesterolemia E78.00 Essential hypertension I10 Generalized anxiety disorder F41.1 Obesity (BMI 30-39.9) E66.9 Erectile dysfunction associated with type 2 diabetes mellitus E11.69; N52.1 LFTs abnormal R79.89 Right groin mass R19.09 Additional Codes PHQ-9 - 24970 - PHQ-9 Billing: Yes ([id number]) Assessment & Plan Assessment & Plan (1) Type 2 diabetes mellitus with hyperglycemia: Comment: Fredy Markham care Code(s): E11.65 - Type 2 diabetes mellitus with hyperglycemia Category: Medical Plan: Decrease the amount of carbohydrate intake, pasta, bread, rice and potatoes are all sugar and that is aside from all the sweet stuff, remember that fruits are good but they are Sweet also. Hemoglobin A1c goal of less than 7.0. Patient is on metformin 500 mg twice a day and Januvia 100 mg once a day (2) Hypercholesterolemia: Code(s): E78.00 - Pure hypercholesterolemia, unspecified Category: Medical Plan: Avoid fried foods, chicken skin, eggs, butter margarine, pastries and meat. Be it pork or beef they have a lot of cholesterol LDL goal of less than 100 and triglyceride of less than 150 on Zetia (3) Essential hypertension: Code(s): I10 - Essential (primary) hypertension Category: Medical Plan: Continue with blood pressure medication. Decrease salt intake and exercise takes losartan 50 mg once a day amlodipine 10 mg once a day (4) Generalized anxiety disorder: Code(s): F41.1 - Generalized anxiety disorder Category: Medical Plan: Continue with present medication (5) Obesity (BMI 30-39.9): Code(s): E66.9 - Obesity, unspecified Category: Medical Plan: Diet and exercise (6) Erectile dysfunction associated with type 2 diabetes mellitus: Code(s): E11.69 - Type 2 diabetes mellitus with other specified complication; N52.1 - Erectile dysfunction due to diseases classified elsewhere Category: Medical Plan: Patient follows up with urology and has been prescribed sildenafil and tadalafil (7) LFTs abnormal: Code(s): R79.89 - Other specified abnormal findings of blood chemistry Category: Medical Plan: To get the ultrasound abdomen and repeat blood work (8) Right groin mass: Code(s): R19.09 - Other intra-abdominal and pelvic swelling, mass and lump Category: Medical Plan: Ultrasound requested for the right groin Plan - Continue current management for essential hypertension with amlodipine 10 mg once daily. - Continue diabetes management with metformin 500 mg twice daily and Janumet 100 mg daily, targeting an A1c of less than 7%. - Manage hyperlipidemia with dietary modifications and continue efforts to keep LDL below 100 mg/dL and triglycerides under 150 mg/dL. - Address erectile dysfunction with ongoing use of tadalafil and sildenafil as prescribed, monitoring symptoms and effectiveness. - Monitor for urinary tract infection complications and ensure follow-up with urology as needed. - Continue managing asthma with current medication regimen; monitor symptoms and adjust treatment as necessary. - Address generalized anxiety disorder as part of the overall management plan for chronic conditions, emphasizing adherence to current medications and therapeutic interventions. Orders: Orders 2 Liver Panel Today R79.89 - Other specified abnormal findings of blood chemistry AMB Hemoglobin A1c Today Z13.9 - Encounter for screening, unspecified US abdomen complete Today R79.89 - Other specified abnormal findings of blood chemistry Hepatitis B,C Profile Today R79.89 - Other specified abnormal findings of blood chemistry US extremity nonvascular Today R19.09 - Other intra-abdominal and pelvic swelling, mass and lump Medications: Changed 2 From metformin ER 500 mg PO BID 21 days 42 tabs 0RF E11.65 - Type 2 diabetes mellitus with hyperglycemia To metformin ER 500 mg PO BID 90 days 180 tabs 2RF E11.65 - Type 2 diabetes mellitus with hyperglycemia
[2024-06-07 14:30] VITALS: BP 142/80; PULSE 86; O2SAT 96; BMI 30.3
[2024-06-07 14:55] VITALS: BP 134/60
--- OUTSIDE RECORDS SUMMARY | 2024-06-07 15:19 | XMS_ITS | Continuity of Care Document ---
Author Name [facility] Organization [facility] Care Team Providers Care Circulator Name Role Phone [facility] Unavailable Unavailable Problems Combined list of problems from Department of Defense and Veterans Affairs facilities. It does not include entries that were removed or entered in error. Problem Status Onset Date Problem Type Date of Resolution Comments Source Tremor Active 04/18/19 24 Condition Feb 02, 2024 Entered By: ALBIN TRENT Comment: referred to neurology [facility] Allergic rhinitis Active Condition Se p 2023 Entered By: PERNELL ALLRED Comment: Allergic Rhinitis- grass, dust [facility] BURSITIS NEC Active Condition [facility] CH HEP C W/O COMA Active Condition [facility] CHR ALC DEP,IN REM Active Condition [facility] Depression screening positive Active Condition [facility] Depressive episode (SNOMED CT 481073100) Active Condition [facility] DM TYPE II, W/O COMP Active Condition [place] 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, 2006 Entered By: ZEV PIERRE Comment: Excision of back 1988De2023 Entered By: ALBIN TRENT Comment: chronic pain [facility] Gastroesophageal Reflux Disorder Active Condition [facility] Hepatitis C Active Condition August 16, 2006 Entered By: ZEV PIERRE Comment: Treated 98 to 99 with IFN and Silvana cleared virusMay 2006 Entered By: ZEV PIERRE Comment: Borderline Pos Hep B Ab neg Hep A Ab 08/22 [facility] HEPATITIS C W/O COMA Active Condition [facility] Hyperglycemia Active Condition [facility] Hyperlipidemia Active Condition [facility] LOW BACK PAIN, LUMBAGO Active Condition [facility] Nails, Ingrown Active Condition August Entered By: ZEV PIERRE Comment: Right great toe recurrent since injury in service [facility] PTSD Active Condition Dec 04 Entered By: ZOË PORTER Comment: Dx clarification PTSD / Depression? PCL threshold score [facility] Unspecified monoarthritis (ICD-9-CM 716.60) Active Condition [facility] Diagnosis: ICD-10-CM G89.28 Other chronic postprocedural pain Active Diagnosis [facility] Diagnosis: ICD-10-CM I10 Essential (primary) hypertension Active Diagnosis [facility] Diagnosis: ICD-10-CM G89.29 Other chronic pain Active Diagnosis [facility] Diagnosis: ICD-10-CM F41.9 Anxiety disorder, unspecified Active Diagnosis [facility] Diagnosis: ICD-10-CM Z73.3 Stress, not elsewhere classified Active Diagnosis [facility] Diagnosis: ICD-10-CM F32.A Depression, unspecified Active Diagnosis [facility] Diagnosis: ICD-10-CM Z72.3 Lack of physical exercise Active Diagnosis [facility] Diagnosis: ICD-10-CM G89.4 Chronic pain syndrome Active Diagnosis [facility] Diagnosis: ICD-10-CM F33.8 Other recurrent depressive disorders Active Diagnosis [facility] Diagnosis: ICD-10-CM Z71.81 Spiritual or orthodox counseling Active Diagnosis [facility] Diagnosis: ICD-10-CM Z71.9 Counseling, unspecified Active Diagnosis [facility] Diagnosis: ICD-10-CM F43.9 Reaction to severe stress, unspecified Active Diagnosis [facility] Diagnosis: ICD-10-CM F43.10 Post-traumatic stress disorder, unspecified Active Diagnosis [facility] Medications Combined list of outpatient medications from Department of Defense and Veterans Affairs facilities.Medications provided include 1) outpatient medications from the last 15 months, and 2) patient-reported medications. Medication Details Route Status Patient Instructions Prescription Expires Prescription Number Last Dispense Date Ordering Provider Order Date Order Qty Source ALBUTEROL 100MCG/IPRA TROPIUM BR 20MCG/SPRAY INHALER,ORA L,4GM INHALE 1 PUFF BY MOUTH FOUR TIMES DAILY NEEDED FOR BRONCHOS PASM RESPIR ATORY (INHAL ATION) ACTIVE 05/24/2025 [id number] 5 DONNA TRENT D 2024 3 [facility] AMLODIPINE BESYLATE 10MG TAB TAKE ONE TABLET BY MOUTH ONCE DAILY FOR BLOOD PRESSURE /HEART, DO NOT TAKE WITH GRAPEFRU IT JUICE ORAL ACTIVE 05/24/2025 [id number] 5 DONNA TRENT D 2024 90 [facility] ATORVASTATI N CA 20MG TAB TAKE ONE-HALF TABLET BY MOUTH AT BEDTIME ORAL ACTIVE 05/24/2025 [id number] 5 DONNA TRENT D 2024 45 [facility] ESCITALOPRA M OXALATE 20MG TAB TAKE ONE-HALF TABLET BY MOUTH ONCE DAILY FOR MOOD/DEP RESSION ORAL ACTIVE 03/31/2025 [id number] 4 YFN ELIZABETH 2023 15 [facility] [place] 50MG TAB TAKE ONE TABLET BY MOUTH ONCE DAILY FOR BLOOD PRESSURE /HEART ORAL ACTIVE 05/24/2025 [id number] 5 DONNA TRENT D 2024 90 [facility] MENTHOL/MET HYL SALICYLATE (10-15%) LOW CONC. CREAM,TOP APPLY A THIN FILM TOPICALL Y THREE TIMES DAILY NEEDED FOR MUSCLE PAIN TOPICA L ACTIVE 04/10/2025 [id number] 4 DONNA TRENT D 2023 90 [facility] METFORMIN HCL 500MG 24HR TAB,SA TAKE TWO TABLETS BY MOUTH ONCE DAILY ORAL ACTIVE 05/24/2025 [id number] 5 DONNA TRENT ALEXI D 2024 180 [facility] SITAGLIPTIN (EQV-JANUVI A) 100MG TAB TAKE ONE TABLET BY MOUTH ONCE DAILY ORAL ACTIVE DONNA TRENT ALEXI D 2023 [facility] SITAGLIPTIN (EQV-ZITUVI O) 100MG TAB TAKE ONE TABLET BY MOUTH ONCE DAILY ORAL ACTIVE 05/24/2025 [id number] 5 DONNA TRENT ALEXI D 2024 90 [facility] Allergies, Adverse Reactions, Alerts Combined list of allergies from Department of Defense and Veterans Affairs facilities. It does not include entries that were removed or entered in error. Substance Category Reaction Severity Reaction type Status Date Reported Comments Source LISINOPRIL Propensity to adverse reactions to drug (finding) active 4 [facility] Immunizations Combined list of available immunizations from the Department of Defense and Veterans Affairs facilities. Immunization Series Date Given Administered By Site Reaction Lot Number CVX Code Drug Public Safety Teacher Status Comments Source COVID-19 (MODERNA), MRNA, LNP-S, PF, 50 MCG/0.5 ML (AGES 12+ YEARS) 4 2023 RANDOLPH MANCUSO LEFT DELTO ID [id number] 312 complet ed [facility] INFLUENZA, HIGH-DOSE, TRIVALENT, PF 2023 RANDOLPH MANCUSO LEFT DELTO ID [id number] 135 complet ed [facility] TD (ADULT), 2 LF TETANUS TOXOID, PRESERVATIVE FREE, ADSORBED 1 2022 09 complet ed Tetanus Diphtheri a 2 Lf - Td (adult) [facility] COVID-19 (PFIZER), MRNA, LNP-S, PF, 30 MCG/0.3 ML DOSE 3 2021 208 complet ed Covid Card- Merys Lot#: [id number] Mfr: [employer] [facility] COVID-19 (PFIZER), MRNA, LNP-S, PF, 30 MCG/0.3 ML DOSE 2 2020 208 complet ed PFR; [id number]; 1 [facility] COVID-19 (PFIZER), MRNA, LNP-S, PF, 30 MCG/0.3 ML DOSE 1 2020 208 complet ed PFR; [id number]; 1 [facility] PNEUMOCOCCAL CONJUGATE PCV 13 1 2018 133 complet ed Pneumococ gino Conjugate Vaccine, 13 valent [facility] ZOSTER RECOMBINANT 1 2018 187 complet ed Shingles (Zoster recombina nt) [facility] FLU,3 YRS (HISTORICAL) 2015 88 complet ed Site: Left Deltoid [place] FLU,3 YRS (HISTORICAL) 2015 88 complet ed Site: Left Deltoid [place] DTAP, UNSPECIFIED FORMULATION 2013 107 complet ed Site: Left Deltoid [facility] FLU,3 YRS (HISTORICAL) 2013 88 complet ed Site: Left Deltoid [facility] PNEUMOCOCCAL POLYSACCHARID E [id number] 1 2013 33 complet ed Pneumococ gino Polysacc. Vaccine, 23 valent [facility] FLU,3 YRS (HISTORICAL) 2012 88 complet ed Site: Left Deltoid [place] FLU,3 YRS (HISTORICAL) 2011 88 complet ed Site: Left Deltoid [place] FLU,3 YRS (HISTORICAL) 2010 88 complet ed Site: Left Deltoid [facility] TD(ADULT) UNSPECIFIED FORMULATION 2007 139 complet ed [facility] HEP A-HEP B 2006 KARRIE HOOVER 104 complet ed [place] Results Combined list of recent chemistry, hematology and other laboratory results from Department of Defense and Veterans Affairs, ranging from 15 months to all on record, depending upon the facility. Order Name Results Value Reference Range Date Interpretation Specimen Comments Source MICROSCO PIC AUTOMATE D, URINE LEUKOCYTES [#/AREA] IN URINE SEDIMENT BY MICROSCOPY HIGH POWER FIELD 0-5/[HPF ] 0 - 5 03/28 Specimen Type: URINE Comment: If Glucose = >500 and Ketones are positive, please alert the Physician. Ordering Provider: TIFFANY TRENT Report Released Date/Time: Feb 02, 2024 12:05 PM Reporting Lab: [facility] [address] [facility] [address] Performing Lab: [facility] [place] [facility] [address] [facility] [address] [facility] MICROSCO PIC AUTOMATE D, URINE ERYTHROCYT ES [#/AREA] IN URINE SEDIMENT BY MICROSCOPY HIGH POWER FIELD 0-2/[HPF ] 0 - 3 03/28 Specimen Type: URINE Comment: If Glucose = >500 and Ketones are positive, please alert the Physician. Ordering Provider: TIFFANY TRENT Report Released Date/Time: Feb 02, 2024 12:05 PM Reporting Lab: [facility] [address] [facility] [address] Performing Lab: [facility] [address] [facility] [facility] [address] [facility] LIVER FUNCTION PROTEIN [MASS/VOLU ME] IN SERUM OR PLASMA 7.0 g/dL 6.0 - 8.3 03/28 Specimen Type: SERUM No comment entered. Ordering Provider: TIFFANY TRENT Report Released Date/Time: Feb 02, 2024 12:05 PM Reporting Lab: [facility] [place] [facility] [address] [facility] [address] Performing Lab: [facility] [address] [facility] [facility] [address] [facility] LIVER FUNCTION ALBUMIN [MASS/VOLU ME] IN SERUM OR PLASMA 4.1 g/dL 3.5 - 5.0 03/28 Specimen Type: SERUM No comment entered. Ordering Provider: TIFFANY TRENT Report Released Date/Time: Feb 02, 2024 12:05 PM Reporting Lab: [facility] [place] [facility] [address] [facility] [address] Performing Lab: [facility] [place] [facility] [address] [facility] [address] [facility] LIVER FUNCTION ALKALINE PHOSPHATAS E [ENZYMATIC ACTIVITY/V OLUME] IN SERUM OR PLASMA 37 U/L 40 - 150 03/28 L Specimen Type: SERUM No comment entered. Ordering Provider: TIFFANY TRENT Report Released Date/Time: Feb 02, 2024 12:05 PM Reporting Lab: [facility] [place] [facility] [address] [facility] [address] Performing Lab: [facility] [place] [facility] [address] [facility] [address] [facility] [facility] LIVER FUNCTION ASPARTATE AMINOTRANS FERASE [ENZYMATIC ACTIVITY/V OLUME] IN SERUM OR PLASMA 19 U/L 5 - 34 03/28 Specimen Type: SERUM No comment entered. Ordering Provider: TIFFANY TRENT Report Released Date/Time: Feb 02, 2024 12:05 PM Reporting Lab: [facility] [place] [facility] [address] [facility] [address] Performing Lab: [facility] [place] [facility] [address] [facility] [address] [facility] LIVER FUNCTION ALANINE AMINOTRANS FERASE [ENZYMATIC ACTIVITY/V OLUME] IN SERUM OR PLASMA 28 U/L 03/28 Specimen Type: SERUM No comment entered. Ordering Provider: TIFFANY TRENT Report Released Date/Time: Feb 02, 2024 12:05 PM Reporting Lab: [facility] [place] [facility] [address] [facility] [address] Performing Lab: [facility] [place] [facility] [address] [facility] [address] [facility] [place] [facility] LIVER FUNCTION BILIRUBIN. TOTAL [MASS/VOLU ME] IN SERUM OR PLASMA 0.6 mg/dL 0.2 - 1.2 03/28 Specimen Type: SERUM No comment entered. Ordering Provider: TIFFANY TRENT Report Released Date/Time: Feb 02, 2024 12:05 PM Reporting Lab: [facility] [place] [facility] [address] [facility] [address] Performing Lab: [facility] [address] [facility] [address] [facility] LIPID PANEL FASTING CHOLESTERO L [MASS/VOLU ME] IN SERUM OR PLASMA 248 mg/dL 03/28 H Specimen Type: SERUM No comment entered. Ordering Provider: TIFFANY TRENT Report Released Date/Time: Feb 02, 2024 12:05 PM Reporting Lab: [facility] [place] [facility] [address] [facility] [address] Performing Lab: [facility] [place] [facility] [address] [facility] [address] [facility] [place] [facility] LIPID PANEL FASTING TRIGLYCERI DE [MASS/VOLU ME] IN SERUM OR PLASMA 170 mg/dL 0 - 150 03/28 H Specimen Type: SERUM No comment entered. Ordering Provider: TIFFANY TRENT Report Released Date/Time: Feb 02, 2024 12:05 PM Reporting Lab: [facility] [place] [facility] [address] [facility] [address] Performing Lab: [facility] [place] [facility] [address] [facility] [address] [facility] [place] [facility] LIPID PANEL FASTING CHOLESTERO L IN LDL [MASS/VOLU ME] IN SERUM OR PLASMA BY CALCULATIO N 166 mg/dL 0 - 129 03/28 H Specimen Type: SERUM No comment entered. Ordering Provider: TIFFANY TRENT Report Released Date/Time: Feb 02, 2024 12:05 PM Reporting Lab: [facility] [place] [facility] [address] [facility] [address] Performing Lab: [facility] [place] [facility] [address] [facility] [address] [facility] LIPID PANEL FASTING CHOLESTERO L.TOTAL/CH OLESTEROL IN HDL [MASS RATIO] IN SERUM OR PLASMA 5.2 03/28 Specimen Type: SERUM No comment entered. Ordering Provider: TIFFANY TRENT Report Released Date/Time: Feb 02, 2024 12:05 PM Reporting Lab: [facility] [place] [facility] [address] [facility] [address] Performing Lab: [facility] [place] [facility] [address] [facility] [address] [facility] LIPID PANEL FASTING CHOLESTERO L IN HDL [MASS/VOLU ME] IN SERUM OR PLASMA 48 mg/dL 40 - 60 03/28 Specimen Type: SERUM No comment entered. Ordering Provider: TIFFANY TRENT Report Released Date/Time: Feb 02, 2024 12:05 PM Reporting Lab: [facility] [place] [facility] [address] [facility] [address] Performing Lab: [place] [facility] [place] [address] [address] [facility] [place] BASIC METABOLI C PANEL (fasting ) UREA NITROGEN [MASS/VOLU ME] IN SERUM OR PLASMA 19 mg/dL 7 - 25 03/28 Specimen Type: SERUM No comment entered. Ordering Provider: TIFFANY TRENT Report Released Date/Time: Feb 02, 2024 12:05 PM Reporting Lab: [facility] [place] [facility] [address] [facility] [address] Performing Lab: [facility] [place] [facility] [address] [facility] [address] [facility] [facility] BASIC METABOLI C PANEL (fasting ) GLUCOSE [MASS/VOLU ME] IN SERUM OR PLASMA 227 mg/dL 65 - 100 03/28 H Specimen Type: SERUM No comment entered. Ordering Provider: TIFFANY TRENT Report Released Date/Time: Feb 02, 2024 12:05 PM Reporting Lab: [facility] [place] [facility] [address] [facility] [address] Performing Lab: [facility] [place] [facility] [address] [facility] [address] [facility] BASIC METABOLI C PANEL (fasting ) SODIUM [MOLES/VOL UME] IN SERUM OR PLASMA 137 mmol/L 135 - 145 03/28 Specimen Type: SERUM No comment entered. Ordering Provider: TIFFANY TRENT Report Released Date/Time: Feb 02, 2024 12:05 PM Reporting Lab: [facility] [address] [facility] [address] Performing Lab: [place] [facility] [place] [facility] [address] [facility] [address] [facility] BASIC METABOLI C PANEL (fasting ) POTASSIUM [MOLES/VOL UME] IN SERUM OR PLASMA 4.4 mmol/L 3.5 - 5.0 03/28 Specimen Type: SERUM No comment entered. Ordering Provider: TIFFANY TRENT Report Released Date/Time: Feb 02, 2024 12:05 PM Reporting Lab: [facility] [place] [address] [address] Performing Lab: [place] [facility] [place] [address] [address] [facility] [place] [facility] BASIC METABOLI C PANEL (fasting ) CHLORIDE [MOLES/VOL UME] IN SERUM OR PLASMA 108 mmol/L 100 - 110 03/28 Specimen Type: SERUM No comment entered. Ordering Provider: TIFFANY TRENT Report Released Date/Time: Feb 02, 2024 12:05 PM Reporting Lab: [facility] [place] [address] [address] Performing Lab: [facility] [place] [address] [address] [facility] [place] [facility] BASIC METABOLI C PANEL (fasting ) CARBON DIOXIDE, TOTAL [MOLES/VOL UME] IN SERUM OR PLASMA 20 meq/L 20 - 30 03/28 Specimen Type: SERUM No comment entered. Ordering Provider: TIFFANY TRENT Report Released Date/Time: Feb 02, 2024 12:05 PM Reporting Lab: [facility] [place] [address] Performing Lab: [facility] [place] [facility] [address] [facility] [address] [facility] [place] [facility] BASIC METABOLI C PANEL (fasting ) CREATININE [MASS/VOLU ME] IN SERUM OR PLASMA 0.97 mg/dL 0.50 - 1.40 03/28 Specimen Type: SERUM No comment entered. Ordering Provider: TIFFANY TRENT Report Released Date/Time: Feb 02, 2024 12:05 PM Reporting Lab: [facility] [address] [facility] [address] Performing Lab: [facility]ENTER[facility] [address] [facility] BASIC METABOLI C PANEL (fasting ) GLOMERULAR FILTRATION RATE/1.73 SQ M.PREDICTE D [VOLUME RATE/AREA] IN SERUM, PLASMA OR BLOOD BY CREATININE -BASED FORMULA (CKD-EPI 2020) 80 mL/min 60 03/28 Specimen Type: SERUM No comment entered. Ordering Provider: TIFFANY TRENT Report Released Date/Time: Feb 02, 2024 12:05 PM Reporting Lab: [facility] [address] Performing Lab: [facility] [address] [facility] TSH THYROTROPI N [UNITS/VOL UME] IN SERUM OR PLASMA 0.89 u[IU]/mL 0.35 - 5.00 03/28 Specimen Type: SERUM No comment entered. Ordering Provider: TIFFANY TRENT Report Released Date/Time: Feb 02, 2024 12:05 PM Reporting Lab: [facility] [address] Performing Lab: [facility] [address] [address] [facility] HEMOGLOB IN A1C PANEL HEMOGLOBIN A1C/HEMOGL OBIN.TOTAL IN BLOOD BY HPLC 7.5 4.0 - 5.6 03/28 H Specimen Type: BLOOD Comment: Values obtained from A1C measurement s can vary. For atypical A1C assays, a reported value of 7.0 could actually be between 6.72 and 7.28 if measured by a reference method. A reported value of 9.0 could actually be between 8.73 and 9.27. Ref: http://[email or web address] ngsp.org/[place] Pdata.asp Ordering Provider: TIFFANY TRENT Report Released Date/Time: Feb 02, 2024 12:05 PM Reporting Lab: [facility] [place] [facility] [address] [facility] [address] Performing Lab: [facility] [place] [facility] [address] [facility] [address] [facility] [place] [facility] MICROALB UMIN CREATINI NE RATIO PANEL MICROALBUM IN/CREATIN INE [MASS RATIO] IN URINE 556.1 mg/g 0 - 29.9 03/28 H Specimen Type: URINE No comment entered. Ordering Provider: TIFFANY TRENT Report Released Date/Time: Feb 02, 2024 12:05 PM Reporting Lab: [facility] [place] [facility] [address] [facility] [address] Performing Lab: [facility] [place] [facility] [address] [facility] [address] [facility] [place] [facility] MICROALB UMIN CREATINI NE RATIO PANEL MICROALBUM IN [MASS/VOLU ME] IN URINE 46.1 mg/dL 03/28 Specimen Type: URINE No comment entered. Ordering Provider: TIFFANY TRENT Report Released Date/Time: Feb 02, 2024 12:05 PM Reporting Lab: [facility] [facility] [address] [facility] [address] Performing Lab: [facility] [place] [facility] [address] [facility] [address] [facility] [place] [facility] MICROALB UMIN CREATINI NE RATIO PANEL CREATININE [MASS/VOLU ME] IN URINE 82.90 mg/dL 03/28 Specimen Type: URINE No comment entered. Ordering Provider: TIFFANY TRENT Report Released Date/Time: Feb 02, 2024 12:05 PM Reporting Lab: [facility] [place] [facility] [address] [facility] [address] Performing Lab: [facility] [place] [facility] [address] [facility] [address] [facility] CBC AND DIFF (AUTO) LEUKOCYTES [#/VOLUME] IN BLOOD BY AUTOMATED COUNT 4.53 10*3/uL 4.50 - 11.00 03/28 Specimen Type: BLOOD No comment entered. Ordering Provider: TIFFANY TRENT Report Released Date/Time: Feb 02, 2024 12:05 PM Reporting Lab: [facility] [place] [facility] [address] [facility] [address] Performing Lab: [facility] [place] [facility] [address] [facility] [address] [facility] CBC AND DIFF (AUTO) ERYTHROCYT ES [#/VOLUME] IN BLOOD BY AUTOMATED COUNT 4.74 10*6/uL 4.23 - 5.66 03/28 Specimen Type: BLOOD No comment entered. Ordering Provider: TIFFANY TRENT Report Released Date/Time: Feb 02, 2024 12:05 PM Reporting Lab: [facility] [address] [facility] [address] Performing Lab: [facility] [place] [facility] [address] [facility] [address] [facility] CBC AND DIFF (AUTO) HEMOGLOBIN [MASS/VOLU ME] IN BLOOD 13.9 g/dL 12.8 - 17 03/28 Specimen Type: BLOOD No comment entered. Ordering Provider: TIFFANY TRENT Report Released Date/Time: Feb 02, 2024 12:05 PM Reporting Lab: [facility] [address] [facility] [address] Performing Lab: [facility] [address] [facility] [address] [facility] CBC AND DIFF (AUTO) HEMATOCRIT [VOLUME FRACTION] OF BLOOD BY AUTOMATED COUNT 40.2 39.2 - 50.4 03/28 Specimen Type: BLOOD No comment entered. Ordering Provider: TIFFANY TRENT Report Released Date/Time: Feb 02, 2024 12:05 PM Reporting Lab: [facility] [address] [facility] [address] Performing Lab: [facility] [address] [facility] [address] [facility] CBC AND DIFF (AUTO) MCV [ENTITIC VOLUME] BY AUTOMATED COUNT 84.8 fL 82 - 99 03/28 Specimen Type: BLOOD No comment entered. Ordering Provider: TIFFANY TRENT Report Released Date/Time: Feb 02, 2024 12:05 PM Reporting Lab: [facility] [address] [facility] [address] Performing Lab: [facility] [facility] [address] [facility] [address] [facility] CBC AND DIFF (AUTO) MCHC [MASS/VOLU ME] BY AUTOMATED COUNT 34.6 g/dL 30.8 - 35.1 03/28 Specimen Type: BLOOD No comment entered. Ordering Provider: TIFFANY TRENT Report Released Date/Time: Feb 02, 2024 12:05 PM Reporting Lab: [facility] [facility] [address] [facility] [address] Performing Lab: [facility] [facility] [address] [facility] [address] [facility] CBC AND DIFF (AUTO) PLATELETS [#/VOLUME] IN BLOOD BY AUTOMATED COUNT 195 10*3/uL 140 - 360 03/28 Specimen Type: BLOOD No comment entered. Ordering Provider: TIFFANY TRENT Report Released Date/Time: Feb 02, 2024 12:05 PM Reporting Lab: [facility] [facility] [address] [facility] [address] Performing Lab: [facility] [place] [facility] [address] [facility] [address] [facility] CBC AND DIFF (AUTO) ERYTHROCYT E DISTRIBUTI ON WIDTH [RATIO] BY AUTOMATED COUNT 14.0 12.0 - 16.0 03/28 Specimen Type: BLOOD No comment entered. Ordering Provider: TIFFANY TRENT Report Released Date/Time: Feb 02, 2024 12:05 PM Reporting Lab: [facility] [place] [facility] [address] [facility] [address] Performing Lab: [facility] [place] [facility] [address] [facility] [address] [facility] CBC AND DIFF (AUTO) MONOCYTES [#/VOLUME] IN BLOOD BY AUTOMATED COUNT 0.35 10*3/uL 0.30 - 1.10 03/28 Specimen Type: BLOOD No comment entered. Ordering Provider: TIFFANY TRENT Report Released Date/Time: Feb 02, 2024 12:05 PM Reporting [facility]: [facility] [place] [address] [address] Performing Lab: [facility] [place] [facility] [address] [facility] [address] [facility] CBC AND DIFF (AUTO) MCH [ENTITIC MASS] BY AUTOMATED COUNT 29.3 pg 26.2 - 32.6 03/28 Specimen Type: BLOOD No comment entered. Ordering Provider: TIFFANY TRENT Report Released Date/Time: Feb 02, 2024 12:05 PM Reporting Lab: [facility] [place] [facility] [address] [facility] [address] Performing Lab: [facility] [place] [address] [address] [facility] CBC AND DIFF (AUTO) NEUTROPHIL S/100 LEUKOCYTES IN BLOOD BY AUTOMATED COUNT 60.5 43.7 - 75.8 03/28 Specimen Type: BLOOD No comment entered. Ordering Provider: TIFFANY TRENT Report Released Date/Time: Feb 02, 2024 12:05 PM Reporting Lab: [facility] [place] [address] [address] Performing Lab: [facility] [address] [facility] [address] [facility] CBC AND DIFF (AUTO) LYMPHOCYTE S/100 LEUKOCYTES IN BLOOD BY AUTOMATED COUNT 25.2 14.0 - 42.3 03/28 Specimen Type: BLOOD No comment entered. Ordering Provider: TIFFANY TRENT Report Released Date/Time: Feb 02, 2024 12:05 PM Reporting Lab: [facility] [address] [facility] [address] Performing Lab: [facility] [address] [facility] [address] [facility] CBC AND DIFF (AUTO) MONOCYTES/ 100 LEUKOCYTES IN BLOOD BY AUTOMATED COUNT 7.7 5.1 - 13.7 03/28 Specimen Type: BLOOD No comment entered. Ordering Provider: TIFFANY TRENT Report Released Date/Time: Feb 02, 2024 12:05 PM Reporting Lab: [facility] [address] [facility] [address] Performing Lab: [facility] [address] [facility] [address] [facility] CBC AND DIFF (AUTO) EOSINOPHIL S/100 LEUKOCYTES IN BLOOD BY AUTOMATED COUNT 4.6 0.4 - 6.8 03/28 Specimen Type: BLOOD No comment entered. Ordering Provider: TIFFANY TRENT Report Released Date/Time: Feb 02, 2024 12:05 PM Reporting Lab: [facility] [address] [facility] [address] Performing Lab: [facility] [address] [facility] [address] [facility] CBC AND DIFF (AUTO) BASOPHILS/ 100 LEUKOCYTES IN BLOOD BY AUTOMATED COUNT 1.1 0.1 - 2.0 03/28 Specimen Type: BLOOD No comment entered. Ordering Provider: TIFFANY TRENT Report Released Date/Time: Feb 02, 2024 12:05 PM Reporting Lab: [facility] [address] [facility] [address] Performing Lab: [facility] [place] [facility] [address] [facility] [address] [facility] CBC AND DIFF (AUTO) NEUTROPHIL S [#/VOLUME] IN BLOOD BY AUTOMATED COUNT 2.74 10*3/uL 2.20 - 7.60 03/28 Specimen Type: BLOOD No comment entered. Ordering Provider: TIFFANY TRENT Report Released Date/Time: Feb 02, 2024 12:05 PM Reporting Lab: [facility] [facility] [address] [facility] [address] Performing Lab: [facility] [facility] [address] [facility] [address] [facility] CBC AND DIFF (AUTO) LYMPHOCYTE S [#/VOLUME] IN BLOOD BY AUTOMATED COUNT 1.14 10*3/uL 1.00 - 3.20 03/28 Specimen Type: BLOOD No comment entered. Ordering Provider: TIFFANY TRENT Report Released Date/Time: Feb 02, 2024 12:05 PM Reporting Lab: [facility] [facility] [address] [facility] [address] Performing Lab: [facility] [facility] [address] [facility] [address] [facility] CBC AND DIFF (AUTO) EOSINOPHIL S [#/VOLUME] IN BLOOD BY AUTOMATED COUNT 0.21 10*3/uL 0.03 - 0.44 03/28 Specimen Type: BLOOD No comment entered. Ordering Provider: TIFFANY TRENT Report Released Date/Time: Feb 02, 2024 12:05 PM Reporting Lab: [facility] [facility] [address] [facility] [address] Performing Lab: [facility] [facility] [address] [facility] [address] [facility] CBC AND DIFF (AUTO) BASOPHILS [#/VOLUME] IN BLOOD BY AUTOMATED COUNT 0.05 10*3/uL 0.01 - 0.13 03/28 Specimen Type: BLOOD No comment entered. Ordering Provider: TIFFANY TRENT Report Released Date/Time: Feb 02, 2024 12:05 PM Reporting Lab: [facility] [facility] [address] [facility] [address] Performing Lab: [facility] [facility] [address] [facility] [address] [facility] CBC AND DIFF (AUTO) IMMATURE GRANULOCYT ES/100 LEUKOCYTES IN BLOOD BY AUTOMATED COUNT 0.9 0.0 - 0.7 03/28 H Specimen Type: BLOOD No comment entered. Ordering Provider: TIFFANY TRENT Report Released Date/Time: Feb 02, 2024 12:05 PM Reporting Lab: [facility] [place] [facility] [address] [facility] [address] Performing Lab: [facility] [place] [address] [address] [facility] CBC AND DIFF (AUTO) IMMATURE GRANULOCYT ES [#/VOLUME] IN BLOOD 0.04 10*3/uL 0.00 - 0.06 03/28 Specimen Type: BLOOD No comment entered. Ordering Provider: TIFFANY TRENT Report Released Date/Time: Feb 02, 2024 12:05 PM Reporting Lab: [facility] [place] [facility] [address] [facility] [address] Performing Lab: [facility] [place] [facility] [address] [facility] [address] [facility] [place] CBC AND DIFF (AUTO) NRBC % 0.0 0.0 - 0.0 03/28 Specimen Type: BLOOD No comment entered. Ordering Provider: TIFFANY TRENT Report Released Date/Time: Feb 02, 2024 12:05 PM Reporting Lab: [facility] [place] [facility] [address] [facility] [address] Performing Lab: [facility] [place] [address] [address] [facility] CBC AND DIFF (AUTO) NRBC, ABS 0.00 10*3/uL 0.00 - 0.00 03/28 Specimen Type: BLOOD No comment entered. Ordering Provider: TIFFANY TRENT Report Released Date/Time: Feb 02, 2024 12:05 PM Reporting Lab: [facility] [place] [facility] [address] [facility] [address] Performing Lab: [facility] [place] [facility] [address] [facility] [address] [facility] URINALYS IS CLEAN CATCH COLOR OF URINE Light-Ye llow 03/28 Specimen Type: URINE Comment: If Glucose = >500 and Ketones are positive, please alert the Physician. Ordering Provider: TIFFANY TRENT Report Released Date/Time: Feb 02, 2024 12:05 PM Reporting Lab: [facility] [place] [facility] [address] [facility] [address] Performing Lab: [facility] [place] [facility] [address] [facility] [address] [facility] URINALYS IS CLEAN CATCH APPEARANCE OF URINE Clear 03/28 Specimen Type: URINE Comment: If Glucose = >500 and Ketones are positive, please alert the Physician. Ordering Provider: TIFFANY TRENT Report Released Date/Time: Feb 02, 2024 12:05 PM Reporting Lab: [facility] [place] [address] [address] Performing Lab[facility] [place] [facility] [address] [facility] [address] [facility] URINALYS IS CLEAN CATCH GLUCOSE [MASS/VOLU ME] IN URINE Normalmg /dL 03/28 Specimen Type: URINE Comment: If Glucose = >500 and Ketones are positive, please alert the Physician. Ordering Provider: TIFFANY TRENT Report Released Date/Time: Feb 02, 2024 12:05 PM Reporting Lab: [facility] [place] [facility] [address] [facility] [address] Performing Lab: [facility] [place] [facility] [address] [facility] [address] [facility] URINALYS IS CLEAN CATCH KETONES [MASS/VOLU ME] IN URINE BY TEST STRIP NEGATIVE mg/dL 03/28 Specimen Type: URINE Comment: If Glucose = >500 and Ketones are positive, please alert the Physician. Ordering Provider: TIFFANY TRENT Report Released Date/Time: Feb 02, 2024 12:05 PM Reporting Lab: [facility] [place] [facility] [address] [facility] [address] Performing Lab: [facility] [place] [facility] [address] [facility] [address] [facility] URINALYS IS CLEAN CATCH ERYTHROCYT ES [PRESENCE] IN URINE SEDIMENT BY LIGHT MICROSCOPY NEGATIVE mg/dL 03/28 Specimen Type: URINE Comment: If Glucose = >500 and Ketones are positive, please alert the Physician. Ordering Provider: TIFFANY TRENT Report Released Date/Time: Feb 02, 2024 12:05 PM Reporting Lab: [facility] [place] [facility] [address] [facility] [address] Performing Lab: [facility] [place] [facility] [address] [facility] [address] [facility] URINALYS IS CLEAN CATCH PROTEIN [MASS/VOLU ME] IN URINE BY TEST STRIP 50 mg/dL 03/28 Specimen Type: URINE Comment: If Glucose = >500 and Ketones are positive, please alert the Physician. Ordering Provider: TIFFANY TRENT Report Released Date/Time: Feb 02, 2024 12:05 PM Reporting Lab: [facility] [place] [facility] [address] [facility] [address] Performing Lab: [facility] [place] [facility] [address] [facility] [address] [facility] URINALYS IS CLEAN CATCH NITRITE [PRESENCE] IN URINE NEGATIVE mg/dL 03/28 Specimen Type: URINE Comment: If Glucose = >500 and Ketones are positive, please alert the Physician. Ordering Provider: TIFFANY TRENT Report Released Date/Time: Feb 02, 2024 12:05 PM Reporting Lab: [facility] [address] [facility] [address] Performing Lab: [facility] [address] [facility] [address] [facility] URINALYS IS CLEAN CATCH BILIRUBIN. TOTAL [PRESENCE] IN URINE NEGATIVE mg/dL 03/28 Specimen Type: URINE Comment: If Glucose = >500 and Ketones are positive, please alert the Physician. Ordering Provider: TIFFANY TRENT Report Released Date/Time: Feb 02, 2024 12:05 PM Reporting Lab: [facility] [place] [facility] [address] [facility] [address] Performing Lab: [facility] [place] [facility] [address] [facility] [address] [facility] URINALYS IS CLEAN CATCH SPECIFIC GRAVITY OF URINE BY REFRACTOME TRY 1.019 1.016 - 1.022 03/28 Specimen Type: URINE Comment: If Glucose = >500 and Ketones are positive, please alert the Physician. Ordering Provider: TIFFANY TRENT Report Released Date/Time: Feb 02, 2024 12:05 PM Reporting Lab: [facility] [address] [facility] [address] Performing Lab: [facility] [place] [facility] [address] [facility] [address] [facility] URINALYS IS CLEAN CATCH PH OF URINE BY TEST STRIP 6.0 5.0 - 9.0 03/28 Specimen Type: URINE Comment: If Glucose = >500 and Ketones are positive, please alert the Physician. Ordering Provider: TIFFANY TRENT Report Released Date/Time: Feb 02, 2024 12:05 PM Reporting Lab: [facility] [place] [facility] [address] [facility] [address] Performing Lab: [facility] [place] [facility] [address] [facility] [address] [facility] URINALYS IS CLEAN CATCH UROBILINOG EN [MASS/VOLU ME] IN URINE BY TEST STRIP Normalmg /dL <2.0 - 2.0 03/28 Specimen Type: URINE Comment: If Glucose = >500 and Ketones are positive, please alert the Physician. Ordering Provider: TIFFANY TRENT Report Released Date/Time: Feb 02, 2024 12:05 PM Reporting Lab: [facility] [place] [facility] [address] [facility] [address] Performing Lab: [facility] [place] [facility] [address] [facility] [address] [facility] URINALYS IS CLEAN CATCH LEUKOCYTE ESTERASE [PRESENCE] IN URINE BY TEST STRIP NEGATIVE 03/28 Specimen Type: URINE Comment: If Glucose = >500 and Ketones are positive, please alert the Physician. Ordering Provider: TIFFANY TRENT Report Released Date/Time: Feb 02, 2024 12:05 PM Reporting Lab: [facility] [place] [facility] [address] [facility] [address] Performing Lab: [facility] [place] [facility] [address] [facility] [address] [facility] Vital Signs Combined list of inpatient and outpatient Vital Signs from Department of Defense and Veterans Affairs, ranging from 12 months to all on record, depending upon the facility. Vital Sign Value Date Comments Source SYSTOLIC BLOOD PRESSURE 142 05/23/19 25 14:53:04 [facility] [facility] DIASTOLIC BLOOD PRESSURE 80 025 14:53:04 [facility] [facility] PULSE OXIMETRY 98 05/23/2024 14:53:04 [facility] WEIGHT 204 05/23/2024 14:53:04 [facility] BMI 30 kg/m2 05/23/2024 14:53:04 [facility] PAIN 7 05/23/2024 14:53:04 [facility] [place] [facility] HEIGHT 69 05/23/2024 14:53:04 [facility] TEMPERATURE 97.2 05/23/2024 14:53:04 [facility] PULSE 70 05/23/2024 14:53:04 [facility] RESPIRATION 16 05/23/2024 14:53:04 [facility] SYSTOLIC BLOOD PRESSURE 146 04/09/20 24 14:19:14 [facility] DIASTOLIC BLOOD PRESSURE 70 024 14:19:14 [facility] PULSE OXIMETRY 98 04/09/2024 14:19:14 [facility] WEIGHT 208.9 04/09/2024 14:19:14 [facility] BMI 31 kg/m2 04/09/2024 14:19:14 [facility] PAIN 8 04/09/2024 14:19:14 [facility] HEIGHT 69 04/09/2024 14:19:14 [facility] TEMPERATURE 98 04/09/2024 14:19:14 [facility] PULSE 72 04/09/2024 14:19:14 [facility] RESPIRATION 16 04/09/2024 14:19:14 [facility] SYSTOLIC BLOOD PRESSURE 152 03/13/20 24 15:07:03 [facility] DIASTOLIC BLOOD PRESSURE 76 15:07:03 [facility] PULSE 78 03/13/2024 15:07:03 [facility] SYSTOLIC BLOOD PRESSURE 195 02/02/20 24 08:42:35 [facility] DIASTOLIC BLOOD PRESSURE 90 024 08:42:35 [facility] PULSE OXIMETRY 97 02/02/2024 08:42:35 [facility] WEIGHT 208.3 02/02/2024 08:42:35 [facility] BMI 31 kg/m2 02/02/2024 08:42:35 [facility] PAIN 7 02/02/2024 08:42:35 [facility] HEIGHT 69 02/02/2024 08:42:35 [facility] TEMPERATURE 98.2 02/02/2024 08:42:35 [facility] PULSE 71 02/02/2024 08:42:35 [facility] RESPIRATION 16 02/02/2024 08:42:35 [facility] SYSTOLIC BLOOD PRESSURE 161 01/13/20 13:40:59 [facility] DIASTOLIC BLOOD PRESSURE 74 024 13:40:59 [facility] PULSE OXIMETRY 97 01/13/2024 13:40:59 [facility] WEIGHT 202 01/13/2024 13:40:59 [facility] BMI 31 kg/m2 01/13/2024 13:40:59 [facility] PAIN 8 01/13/2024 13:40:59 [facility] TEMPERATURE 98.5 01/13/2024 13:40:59 [facility] PULSE 76 01/13/2024 13:40:59 [facility] RESPIRATION 20 01/13/2024 13:40:59 [facility] Encounters Combined list of: 1) Encounters from Department of Veterans Affairs facilities going backup to the last 18 months, not all VA inpatient encounters are included; 2) Encounters from the Department of Defense facilities going backup to 280 months. Location Location Details Encounter Type Encounter Number Reason For Visit Attending Provider ADM Date DC Date Status Disposition Source [facility] Outpatient Encounter [id number] 03/28 [facility] Outpatient [facility]counter [id number] GABRIEL PITTS 01/12 [facility] Out[facility]counter [id number] [facility] Out[facility]counter [id number] 1.02/01 [facility] OFFICE O/P EST LOW 20 MIN [id number] Diagnos is: ICD-10- CM F43.10 Post-tr aumatic stress disorde r, unspeci fied MILLER TRENT RD 02/01 [facility] HC PRO PHONE CALL 11-20 MIN [id number] 1. Diagnos is: ICD-10- CM F43.9 Reactio n to severe stress, unspeci fied ONIEL JEAN 02/01 [facility] Out[facility] Encounter [id number] 1.02/01 [facility] CASE MANAGEMENT [id number] 1. Diagnos is: ICD-10- CM F32.A Depress ion, unspeci fiRE Richey 03/05 [facility] Out[facility] Encounter [id number] RE LIM 03/05 [facility] Outpatient Encounter [id number] RE LIM N 03/05 [facility] Outpatient Encounter [id number] 1. RE LIM N 03/05 [facility] PSYTX W PT 45 MINUTES [id number] 1. Diagnos is: ICD-10- CM F32.A Depress ion, unspeci ONIEL Shay RTKETAN R 03/09 [facility] PSYCH DIAGNOSTIC EVALUATION [id number] 1. 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 [id number] Diagnos is: ICD-10- CM Z71.81 Spiritu al or religio us family service counselor VALERI Tucker 03/14 [facility] Outpatient Encounter [id number] [facility] PSYTX W PT 30 MINUTES [id number] Diagnos is: ICD-10- CM F32.A Depress ion, unspeci ONIEL Shay RTKETAN R 03/28 [facility] En[facility] [id number] MALINOFSKY ,JANIS 03/30 [facility] PSYCHOTHER APY [id number] 1. Diagnos is: ICD-10- CM F32.A Depress ion, unspeci fied MALINOFSKY ,JANIS 03/30 [facility] OFFICE O/P EST HI 40 MIN [id number] 1. Diagnos is: ICD-10- CM F33.8 Other recurre nt depress darrius disorde Marita Martin 03/30 [facility] PRO PHONE CALL 11-20 MIN [id number] Diagnos is: ICD-10- CM Z72.3 Lack of physica l REJI Weathers 04/02 [facility] PSYCHOTHER APY [id number] Diagnos is: ICD-10- CM F32.A Depress ion, unspeci fied MALINOFSKY ,JANIS 04/06 [facility] OFFICE O/P EST LOW 20 MIN [id number] Diagnos is: ICD-10- CM G89.4 Chronic pain syndrom e MILLER TRENT RD 04/09 [facility] En[facility] [id number] 04/10 [facility] PSYTX W PT 45 MINUTES [id number] Diagnos is: ICD-10- CM F41.9 Anxiety disorde r, unspeci fied ONIEL JEAN BERT R 04/17 [facility] GROUP PSYCHOTHER APY [id number] Diagnos is: ICD-10- CM F32.A Depress ion, unspeci fied ALBA SCHAEFERA 04/20 [facility] EDU&TRN PT SELF-MGMT NQHP 1 [id number] Diagnos is: ICD-10- CM Z72.3 Lack of physica l exercis REJI Mckeon 04/24 [facility] EXERCISE CLASS [id number] Diagnos is: ICD-10- CM Z72.3 Lack of physica l exercis e Marita ACEVES JAJA 04/25 [facility] Outpatient Encounter [id number] 05/01 [facility] OFFICE O/P EST MOD 30 MIN [id number] Diagnos is: ICD-10- CM F32.A Depress ion, unspeci fied Marita ELIZABETH JAJA 05/02 [facility] [place] Outpatient Encounter [id number] 05/04 [facility] HLTH BHV IVNTJ GRP EA ADDL [id number] Diagnos is: ICD-10- CM Z73.3 Stress, not elsewhe re classif ied MARKJR SUAREZ RA 05/08 [facility] Outpatient Encounter [id number] 05/09 [facility] [place] PSYTX W PT 30 MINUTES [id number] Diagnos is: ICD-10- CM F41.9 Anxiety disorde r, unspeci fied MIRANDA,ONIEL RTNEY R 05/10 [facility] Outpatient Encounter [id number] 05/21 [facility] EDU&TRN PT SLF-MGMT NQHP 5-8 [id number] Diagnos is: ICD-10- CM G89.29 Other chronic pain EMET,KATHL EEN 05/22 [facility] [place] OFFICE O/P EST SF 10 MIN [id number] Diagnos is: ICD-10- CM I10 Essenti al (primar y) hyperte nsion MILLER TRENT RD D 05/23 [facility] [place] Outpatient Encounter [id number] 05/25 [facility] [place] OFFICE O/P EST SF 10 MIN [id number] Diagnos is: ICD-10- CM G89.28 Other chronic postpro cedural pain GAUNYA,CHR ISTOPHER M 05/28 [facility] Outpatient Encounter [id number] 06/06 [facility] Social History Combined list of available smoking, tobacco, and other social history from Department of Defense and Veterans Affairs facilities. Social History Type Response Date Comment Source Tobacco smoking status SDIS OR-TOBACCO [facility] History of tobacco use OR-TOBACCO NEVER USED OTHER TYPE [facility] History of tobacco use QUIT TOBACCO USE > 7 YEARS AGO 08/16/2006 QUIT 20 YEARS AGO [place] Plan of Care List of future care activities from Department of Veterans Affairs facilities. Additional future care activities may be listed in the Assessment and Plan section. Date/Time Care Activity Care Activity Detail Facili ty 06/20/2024 AMBULATORY - PSYCHIATRY AMBULATORY - PSYC HIATRY [place] [facility] [place] [facility] 06/25/2024 AMBULATORY - MEDICINE AMBULATORY - MEDICI NE [place] [facility] [place] [facility] 06/25/2024 AMBULATORY - MEDICINE [facility] [place] [facility] 07[facility]02/2024 AMBULATORY - MEDICINE [facility] [place] [facility] 07/16/2024 AMBULATORY - MEDICINE AMBULATORY - MEDICI NE [place] [facility] [place] [facility] 08/21/2024 AMBULATORY - MEDICINE AM[facility]AT[facility] Advance Directives List of completed, amended, or rescinded Advance Directives on record at Department of Veterans Affairs facilities. An actual copy of the Directive is not included. Date Advance Directive Provider Source 12/15/2011 ADVANCE DIRECTIVE DISCUSSION Sandra CONNOLLY [facility]
--- OUTSIDE RECORDS SUMMARY | 2024-06-07 15:19 | XMS_ITS | Encounter Summary ---
Author Name [facility] [facility] Address [address] [place] [address] Care Team Providers Care Community Health Nurse Supervisor Name Role Phone ALBIN TRENT Primary Care [...] ALEXI FAMIL Y Apr 18, 2009 [id number] [phone] ISSA ELLIS PATIENT BCBS [place] FEP PREFERRED PROVIDER ORGANIZAT ION (PPO) BASIC INDIV IDUAL Apr 18, 2020 [id number] ISSA ELLIS PATIENT [place] F[place] PREFERRED PROVIDER ORGANIZAT ION (PPO) BASIC SELF Apr 18, 2020 111 [id number] ISSA ELLIS PATIENT [place] FEP DENTAL DENTAL INSURANCE BASIC Apr 18, 2020 DENTAL [id number] ISSA ELLIS PATIENT CAREMARK FEP BCBS PRESCRIPT ION CAREM ARK FEPRX PLAN Apr 18, 2010 [id number] ISSA ELLIS PATIENT CAREMARK([phone] [id number]) PRESCRIPT ION FEP Apr 18, 2020 [id number] ISSA ELLIS PATIENT EMPIRE BCBS (FEDERAL) PREFERRED PROVIDER ORGANIZAT ION (PPO) BASIC SELF Apr 18, 2020 111 [id number] ISSA ELLIS PATIENT EMPIRE BCBS FED DENTAL DENTAL INSURANCE FEP DENTA L Apr 18, 2020 FEPDENT AL [id number] ISSA ELLIS PATIENT MEDICARE (WNR) MEDICARE () PART A August 16, 2010 PART A [id number] ISSA ELLIS PATIENT MEDICARE (WNR) MEDICARE () PART B August 16, 2010 PART B [id number] ISSA ELLIS PATIENT MEDICARE (WNR) MEDICARE () PART A August 16, 2010 PART A [id number] WAYNE ELLISO PATIENT MEDICARE (WNR) MEDICARE () PART B August 16, 2010 PART B [id number] ISSA ELLIS PATIENT MEDICARE (WNR) MEDICARE () PART A August 16, 2010 PART A [id number] RHONDA SCOTTWAYNE O PATIENT MEDICARE (R) MEDICARE () PART B August 16, 2010 PART B [id number] RHONDA SCOTTYAIRING O PATIENT MEDICARE (WNR) MEDICARE () PART A August 16, 2010 PART A [id number] [phone] RHONDA SCOTTYAIRING O PATIENT MEDICARE (WNR) MEDICARE () PART B August 16, 2010 PART B [id number] RHONDA SCOTTYAIRING O PATIENT MEDICARE (WNR) MEDICARE () PART A August 16, 2010 PART A [id number] ISSA ELLIS PATIENT MEDICARE (WNR) MEDICARE () PART B August 16, 2010 PART B [id number] [phone] ISSA ELLIS PATIENT MEDICARE (WNR) MEDICARE (M) PART A August 16, 2010 PART A [id number] [phone] WAYNE ELLIS JR O PATIENT MEDICARE (WNR) MEDICARE (M) PART B August 16, 2010 PART B [id number] WAYNE ELLIS JR O PATIENT MEDICARE (WNR) MEDICARE (M) PART A August 16, 2010 PART A [id number] [phone] WAYNE ELLIS JR O PATIENT MEDICARE (WNR) MEDICARE (M) PART B August 16, 2010 PART B [id number] WAYNE ELLIS JR O PATIENT TRIPLE S ADVANTAGE MCR (WNR) MEDICARE ADVANTAGE MCR (WNR) Apr 18, 2024 DO NOT BILL [id number] ISSA ELLIS PATIENT TRIPLE-S RAFAEL (FED) PREFERRED PROVIDER ORGANIZAT ION (PPO) FEP PSHB BLUE BASIC Apr 18, 2024 [id number] ISSA ELLIS PATIENT Selected Encounter This section includes the information on record at [place] for the Encounter. Date/Time Encounter Type Encounter Description Reason Provider Source May 22, 2024 10:00 AM EDU&TRN PT SLF-MGMT [facility] 5-8 PAIN CLINIC ICD-10-CM G89.29 Other chronic pain EMET,TARA [facility] Encounter Template Text not used by [place] Assessments - Encounter Diagnoses This section includes the primary and secondary diagnoses documented for the Encounter. Date/Time Primary/Secondary Diagnosis Diagnosis Name Provider Source May 22, 2024 02:32 PM PRIMARY Other chronic pain EMET,TARA [place] [facility] [place] [facility] Plan of Treatment: Future Appointments (+ 6 months) and Future Tests (+/- 45 days) The Plan of Treatment section includes future care activities for the patient from all [place] treatmentfacilities. This section includes future appointments and future orders which are active, pending or scheduled. Future Appointments This section includes appointments that were scheduled to occur 6 months from the date of the Encounter, up to a maximum of 20 appointments. The data comes from all [place] treatment facilities. Appointment Date/Time Appointment Type Appointme nt Facility Name May 23, 2024 03:00 PM AMBULATORY - MEDICINE [place] [facility] [place] [facility] May 28, 2024 01:00 PM AMBULATORY - MEDICINE [facility] [place] [facility] Jun 06, 2024 02:30 PM AMBULATORY - PSYCHIATRY [facility] [place] [facility] Jun 20, 2024 11:00 AM AMBULATORY - PSYCHIATRY [facility] [place] [facility] Jun 25, 2024 10:00 AM AMBULATORY - MEDICINE [facility] [place] [facility] Jun 25, 2024 10:01 AM AMBULATORY - MEDICINE [facility] [place] [facility] Jul 02, 2024 01:45 PM AMBULATORY - MEDICINE [facility] [place] [facility] Jul 16, 2024 11:00 AM AMBULATORY - MEDICINE [place] [facility] [place] [facility] August 21, 2024 01:30 PM AMBULATORY - MEDICINE [place] [facility] [place] [facility] Social History: Smoking Status (Most current) and Tobacco Use (All prior to encounter date) This section includes the most current, and the historical, smoking and tobacco- related health factors from the VA facility where the Encounter took place. Current Smoking Status This section includes the most current smoking, or tobacco-related health factor, from the VA facility where the Encounter took place. Date/Time Current Smoking Status Comment Facil ity Mar 09, 2024 01:00 PM VA-TOBACCO [facility]O [facility] Tobacco Use History This section includes a history of the smoking, or tobacco-related health factors, that were collected on or before the date of the Encounter. The data comes from the VA facility where the Encounter took place. Date/Time Smoking Status/Tobacco Use Comment F acility Mar 09, 2024 01:00 PM VA-TOBACCO USE FOR ALEJANDRO CIGARETTES [facility] Advance Directives: All historical and current Section Date Range: From patient's date of to the date document was created. This section includes ALL of a patient's completed or amended [place] Advance and Rescinded Directives. The entries below indicate that a directive exists for the patient, but an actual copy is not included with this document. The data comes from all [place] facilities. Date Advance Directives Provider Source Dec 15, 2011 ADVANCE DIRECTIVE DISCUSSION DELLSandra [facility] Encounter Notes: All associated encounter notes This section contains the clinical notes associated to the Encounter. Date/Time Encounter Note(s) Provider Source May 22, 2024 02:49 PM PAIN CONSULT: LOCAL TITLE: CONSULT REPORT/EMPOWERED RELIEF NOTE STANDARD TITLE: PAIN CONSULT DATE OF NOTE: MAY 22, 2024@14:49 ENTRY DATE: MAY 22, 2024@14:49:33 AUTHOR: TARA VINCENT EXP COSIGNER: URGENCY: STATUS: COMPLETED [place] attended class 05/22/2024, please see Empowered Relief Session Note for full details. /es/ TARA VINCENT DPT PHYSICAL THERAPIST Signed: 05/22/2024 14:49 TARA VINCENT [facility] May 22, 2024 02:22 PM PAIN NOTE: LOCAL TITLE: EMPOWERED RELIEF SESSION NOTE STANDARD TITLE: PAIN NOTE DATE OF NOTE: MAY 22, 2024@14:22 ENTRY DATE: MAY 22, 2024@14:22:16 AUTHOR: TARA VINCENT EXP COSIGNER: URGENCY: STATUS: COMPLETED EMPOWERED RELIEF SESSION NOTE Has ADDENDA Empowered Relief Pain Education Class Provider/s facilitating todays session: Tara Vincent PT, DPT Number of Veterans in attendance for todays session: 7 Diagnosis: Chronic pain, other Length of session: 120 minutes = participated in Empowered Relief Pain Education Class via [facility]. The [place] was provided with information on [facility] and has given verbal consent to use group [facility] services for their healthcare. The copy of the Group Telehealth Agreement was mailed to the [place]. The 's location/emergency contact number were confirmed. The Emergency Call Relay Center (E911) was available. The visit was locked for security and privacy. identified with 2 identifiers: [x] Full Name [x] Address = confirmed their willingness and interest in attending this Empowered Relief group class. [place] has acknowledged awareness and acceptance of: 1. The privacy restraints regarding participation in group sessions. 2. The need for respectful behavior toward other participants and providers. 3. The need to focus discussion to specific topics discussed during the session. = Summary of Empowered Relief: Alzada attended Empowered Relief - Train Your Brain Away From Pain - a single session evidence- and skill-based class. During the class, learned the following skills: 1. How pain is processed in the brain and how to best manage it. 2. How to use a guided relaxation exercise to reduce the pain and stress response. Alzada provided with a binaural audiofile with a guided relaxation exercise. Alzada was encouraged to practice this relaxation exercise daily for at least 2 months (can taper to less frequently afterwards). 3. How to counteract their unhelpful pain thoughts, which can worsen pain, by practicing positive or neutral thought reframing. 4. How to develop and utilize a list of self-soothing actions which can be used to interrupt negative pain thoughts and the pain response. At the end of the class, created their own Personalized Plan for pain relief which included the following items: 1) how often they will use the guided relaxation exercise, 2) a list of their most significant unhelpful pain thoughts and then a reframe of these unhelpful pain thoughts using the best friend talk technique and 3) a list of positive self-soothing actions which are used to interrupt the pain response. = Additional comments: Issa shared that he felt relaxed and good after the guided activity, stating all of my thoughts were gone. He was attentive throughout class and offered non-verbals to professional nursing tutor questions. He expressed thanks before signing off. /juan/ TARA VINCENT DPT PHYSICAL THERAPIST Signed: 05/22/2024 14:33 05/23/2024 ADDENDUM STATUS: COMPLETED Assessments were sent to the via text/email. These assessments were completed by ISSA ELLIS on their own device on 05/22/2024 4:22:42 PM. PAIN, ENJOYMENT OF LIFE AND GENERAL ACTIVITY (PEG) Patient rated the following on a scale from 0 to 10, over the past week: 1. Average pain (0=No pain - 10=Pain as bad as you can imagine): 7 2. Pain interference with enjoyment of life (0=Does not interfere - 10=Completely Interferes): 6 3. Pain interference with general activity (0=Does not interfere - 10=Completely Interferes): 6 PEG Average Score: 6 Scores are an average of the 3 items and range from 0 to 10. Higher scores represent worse pain. UW CONCERNS ABOUT PAIN-2 ITEM (UW-CAP-2) In the past 7 days... How often did you have the thought: my pain is more than I can manage: Sometimes How often did you think about how much it hurts: Sometimes UW-CAP-2 Total Score (2-10) = 6 UW-CAP-2 T-score (0-100) = 53.4 Higher scores indicate higher worry about pain. WELL-BEING SIGNS V2 (WBS-V2) Over the past month (0= none of the time / 10 = all of the time), on average how often have you been: 1. Fully satisfied with how these things are goin 2. Regularly involved in things that are important to you: 5 3. Functioning your best in the most important things you do: 6 WBS-V2 Average Score = 5.67 Scores range from 0-10, with higher scores indicating better well-being. /juan/ TARA VINCENT DPT PHYSICAL THERAPIST Signed: 05/23/2024 17:10 TARA VINCENT [facility]
--- OUTSIDE RECORDS SUMMARY | 2024-06-07 15:19 | XMS_ITS | Encounter Summary ---
Author Name [facility] [place] [facility] [place] [facility] [place] [facility] [place] Address [address] [place] [address] Care Team Providers Care Tour Operator Name Role Phone ALBIN TRENT Primary Care [...] ALEXI FAMIL Y Apr 18, 2009 105 [id number] [phone] BETHANY ELLIS PATIENT BCBS [place] FEP PREFERRED PROVIDER ORGANIZAT ION (PPO) BASIC INDIV IDUAL Apr 18, 2020 111 [id number] [phone] BETHANY ELLIS PATIENT [place] F[place] PREFERRED PROVIDER ORGANIZAT ION (PPO) BASIC SELF Apr 18, 2020 [id number] RHONDA BETHANY PATIENT [place] F[place] DENTAL DENTAL INSURANCE BASIC Apr 18, 2020 DENTAL [id number] BETHANY ELLIS PATIENT CAREMARK FEP BCBS PRESCRIPT ION CAREM ARK FEPRX PLAN Apr 18, 2010 [id number] BETHANY ELLIS PATIENT CAREMARK([id number]) PRESCRIPT ION FEP Apr 18, 2020 [id number] BETHANY ELLIS PATIENT [place] BCBS (FEDERAL) PREFERRED PROVIDER ORGANIZAT ION (PPO) BASIC SELF Apr 18, 2020 [id number] BETHANY ELLIS PATIENT [place] BCBS FED DENTAL DENTAL INSURANCE FEP DENTA L Apr 18, 2020 FEPDENT AL [id number] BETHANY ELLIS PATIENT MEDICARE ([facility]) MEDICARE () PART A August 16, 2010 PART A [id number] RHONDA SCOTTWAYNE O PATIENT MEDICARE ([facility]) MEDICARE () PART B August 16, 2010 PART B [id number] RHONDA SCOTTWAYNE O PATIENT MEDICARE ([facility]) MEDICARE () PART A August 16, 2010 PART A [id number] RHONDA SCOTTYAIRING O PATIENT MEDICARE ([facility]) MEDICARE () PART B August 16, 2010 PART B [id number] RHONDA SCOTTWAYNE O PATIENT MEDICARE ([facility]) MEDICARE () PART A August 16, 2010 PART A [id number] RHONDA SCOTTWAYNE O PATIENT MEDICARE ([facility]) MEDICARE () PART B August 16, 2010 PART B [id number] RHONDA SCOTTWAYNE O PATIENT MEDICARE (WN) MEDICARE () PART A August 16, 2010 PART A [id number] WAYNE ELLISO PATIENT MEDICARE (WNR) MEDICARE () PART A August 16, 2010 PART A [id number] WAYNE ELLISO PATIENT MEDICARE (WNR) MEDICARE () PART B August 16, 2010 PART B [id number] BETHANY ELLIS PATIENT MEDICARE (WNR) MEDICARE () PART A August 16, 2010 PART A [id number] [phone] WAYNE ELLIS JR PATIENT MEDICARE (WNR) MEDICARE (M) PART B August 16, 2010 PART B [id number] [phone] WAYNE ELLIS JR O PATIENT MEDICARE (WNR) MEDICARE (M) PART B August 16, 2010 PART B [id number] [phone] BETHANY ELLIS PATIENT MEDICARE (WNR) MEDICARE (M) PART A August 16, 2010 PART A [id number] BETHANY ELLIS PATIENT MEDICARE (WNR) MEDICARE (M) PART B August 16, 2010 PART B [id number] BETHANY ELLIS PATIENT TRIPLE S ADVANTAGE MCR (WNR) MEDICARE ADVANTAGE MCR (WNR) Apr 18, 2024 DO NOT BILL [id number] BETHANY ELLIS PATIENT TRIPLE-S RAFAEL (FED) PREFERRED PROVIDER ORGANIZAT ION (PPO) FEP PSHB BLUE BASIC Apr 18, 2024 [id number] BETHANY ELLIS PATIENT Selected Encounter This section includes the information on record at [place] for the Encounter. Date/Time Encounter Type Encounter Description Reason Provider Source May 10, 2024 11:00 AM PSYTX W PT 30 MINUTES PCMHI INDIV ICD-10-CM F41.9 Anxiety disorder, unspecified KAILA JEAN E Encounter Template Text not used by [place] Assessments - Encounter Diagnoses This section includes the primary and secondary diagnoses documented for the Encounter. Date/Time Primary/Secondary Diagnosis Diagnosis Name Provider Source May 25, 2024 11:38 AM PRIMARY Anxiety disorder, unspecified KAILA JEAN [facility] [place] [facility] May 25, 2024 11:38 AM SECONDARY Depression, unspecified [facility] Plan of Treatment: Future Appointments (+ 6 months) and Future Tests (+/- 45 days) The Plan of Treatment section includes future care activities for the patient from all [place] treatmentfacilities. This section includes future appointments and future orders which are active, pending or scheduled. Future Appointments This section includes appointments that were scheduled to occur 6 months from the date of the Encounter, up to a maximum of 20 appointments. The data comes from all [facility]. Appointment Date/Time Appointment Type Appointme nt Facility Name May 22, 2024 10:00 AM [place] [facility] [place] [facility] May 23, 2024 03:00 PM [place] [facility] [place] [facility] May 28, 2024 01:00 PM [place] [facility] [place] [facility] Jun 06, 2024 02:30 PM [place] [facility] [place] [facility] Jun 20, 2024 11:00 AM [place] [facility] [place] [facility] Jun 25, 2024 10:00 AM [place] [facility] [place] [facility] Jun 25, 2024 10:01 AM [place] [facility] [place] [facility] Jul 02, 2024 01:45 PM [place] [facility] [place] [facility] Jul 16, 2024 11:00 AM [place] [facility] [place] [facility] August 21, 2024 01:30 PM [place] [facility] [place] [facility] Active, Pending, and Scheduled Orders This section includes a listing of several types of active, pending, and scheduled orders, including clinic medications orders, diagnostic test orders, procedure orders and consult orders; where the start date of the order is 45 days before the date of the Encounter or 45 days after the date of theEncounter. The data comes from all [facility]. Test Date/Time Test Type Test Details Facility Name Mar 30, 2024 01:26 PM Consult Order HOME SLEEP STUDY NOX/NHM OUTPT Cons [employer] F[employer] Machine Operator's Choice [place] [facility] [place] [facility] Social History: Smoking Status (Most current) and Tobacco Use (All prior to encounter date) This section includes the most current, and the historical, smoking and tobacco- related health factors from the [place] facility where the Encounter took place. Current Smoking Status This section includes the most current smoking, or tobacco-related health factor, from the [place] facility where the Encounter took place. Date/Time Current Smoking Status Comment Rosalba downing Mar 09, 2024 01:00 PM VA-TOBACCO USE FOR ALEJANDRO CIGARETTES [facility] Tobacco Use History This section includes a history of the smoking, or tobacco-related health factors, that were collected on or before the date of the Encounter. The data comes from the [place] facility where the Encounter took place. Date/Time Smoking Status/Tobacco Use Comment Maday beaver Mar 09, 2024 01:00 PM [place]-TOBACCO USE FOR ALEJANDRO CIGARETTES [facility] Advance Directives: All historical and current Section Date Range: From patient's date of to the date document was created. This section includes ALL of a patient's completed or amended [place] Advance and Rescinded Directives. The entries below indicate that a directive exists for the patient, but an actual copy is not included with this document. The data comes from all [place] facilities. Date Advance Directives Provider Source Dec 15, 2011 ADVANCE DIRECTIVE DISCUSSION Sandra CONNOLLY [facility] Encounter Notes: All associated encounter notes This section contains the clinical notes associated to the Encounter. Date/Time Encounter Note(s) Provider Source May 10, 2024 04:55 AM [facility]ENTAL [facility]ALTH [facility]: LOCAL TITLE: PRIMARY MENTAL HEALTH OUTPATIENT FOLLOW UP NOTE STANDARD TITLE: MENTAL HEALTH OUTPATIENT NOTE DATE OF NOTE: MAY 10, 2024@04:55 ENTRY DATE: MAY 10, 2024@04:55:40 AUTHOR: ALFREDO JEAN COSIGNER: URGENCY: STATUS: COMPLETED [facility] OUTPATIENT F/U NOTE DURATION: 35 mins Mr. Ellis is a 78 year-old, male Dameron with a PMH of depression, anxiety, PTSD, tremors and chronic pain. This was the fourth session between marketing underwriter and . yodit Ellis shared that he recently ran out of Metformin after taking double by accident and had to be seen at ER to receive needed treatment. He explored how his mood has somewhat improved with better DM management. He also explored how he is working on sleep hygiene. Sleep hygiene tips were reviewed and he noted that he will try to be more consistent with bed and wake time, and reducing daytime napping. Options of topics to explore for today were reviewed and he identified interest in relaxation and exercise goal setting. He created goal of exercising at [employer], 3-4x a week. He will do treadmill, or bike or machines. He and his aim to start going together. Once his has a new PCP and has form signed, they will both try [facility] program. Moreover, stress response was reviewed as well as benefits of relaxation training and he was guided through an abdominal breathing exercise. Related handouts were provided. He identified how he felt relaxed and how he practiced meditation years ago and aims to return to these practice. He will practice daily in the mornings. He said that he was 9/10 confident he will adhere to set goals. SCREENERS: PHQ-9: 8, moderately severe depression, somewhat difficult BEULAH-7: 12, moderately severe anxiety, somewhat difficult DIAGNOSES: Anxiety Disorder, Unspecified; Depressive Disorder, Unspecified IMPRESSIONS/PLAN: Dameron Rhonda endorsed symptoms of trauma-related anxiety and depression that originated after [place] war and have waxed and waned since that time. He acknowledged that pride and shame caused difficulty talking about depression and anxiety symptoms for many eyras. He also shared that he struggled with substance abuse following [place] war. He denied SI/HI. In collaboration with considering evidence-based treatment, clinical judgment and patient preference, options of treatment were offered. agreed to return for brief CBT for anxiety and depression, including relaxation training and cognitive restructuring, and further evaluation of trauma-related anxiety symptoms. In addition, he will learn of other MH treatment options. He will return to -I for roughly 2-3, individual sessions. He will return to -[facility], 05/25 at 10am. /juan/ ALFREDO JEAN, PhD STAFF PSYCHOLOGIST Signed: 05/11/2024 12:14 ALFREDO JEAN [place] [facility]
--- OUTSIDE RECORDS SUMMARY | 2024-06-07 15:19 | XMS_ITS | Encounter Summary ---
Author Name [facility] [place] [facility] [place] [facility] [facility] [place] Address [address] [place] [address] Care Team Providers Care Crt Name Role Phone ALBIN TRENT Primary Care [...] ALEXI FAMIL Y Apr 18, 2009 [id number] [phone] BETHANY ELLIS PATIENT BCBS [place] FEP PREFERRED PROVIDER ORGANIZAT ION (PPO) BASIC INDIV IDUAL Apr 18, 2020 111 [id number] BETHANY ELLIS PATIENT [place] PREFERRED PROVIDER ORGANIZAT ION (PPO) BASIC SELF Apr 18, 2020 111 [id number] [phone] RHONDA BETHANY PATIENT [place] F[place] DENTAL DENTAL INSURANCE BASIC Apr 18, 2020 DENTAL [id number] BETHANY ELLIS PATIENT CAREMARK FEP BCBS PRESCRIPT ION CAREM ARK FEPRX PLAN Apr 18, 2010 [id number] BETHANY ELLIS PATIENT CAREMARK([id number]) PRESCRIPT ION FEP Apr 18, 2020 [id number] BETHANY ELLIS PATIENT [place]IRE BCBS (FEDERAL) PREFERRED PROVIDER ORGANIZAT ION (PPO) BASIC SELF Apr 18, 2020 [id number] BETHANY ELLIS PATIENT [place] BCBS FED DENTAL DENTAL INSURANCE FEP DENTA L Apr 18, 2020 FEPDENT AL [id number] BETHANY ELLIS PATIENT MEDICARE (WNR) MEDICARE () PART A August 16, 2010 PART A [id number] BETHANY ELLIS PATIENT MEDICARE (WNR) MEDICARE () PART B August 16, 2010 PART B [id number] [phone] BETHANY ELLIS PATIENT MEDICARE (WNR) MEDICARE () PART A August 16, 2010 PART A [id number] WAYNE ELLISO PATIENT MEDICARE (WNR) MEDICARE () PART B August 16, 2010 PART B [id number] BETHANY ELLIS PATIENT MEDICARE (WNR) MEDICARE () PART A August 16, 2010 PART A [id number] RHONDA SCOTTYAIRING O PATIENT MEDICARE (WN) MEDICARE () PART B August 16, 2010 PART B [id number] RHONDA SCOTTYAIRING O PATIENT MEDICARE (WNR) MEDICARE () PART A August 16, 2010 PART A [id number] RHONDA SCOTTYAIRING O PATIENT MEDICARE (WNR) MEDICARE () PART B August 16, 2010 PART B [id number] RHONDA SCOTTYAIRING O PATIENT MEDICARE (WNR) MEDICARE () PART A August 16, 2010 PART A [id number] BETHANY ELLIS PATIENT MEDICARE (WNR) MEDICARE () PART B August 16, 2010 PART B [id number] BETHANY ELLIS PATIENT MEDICARE (WNR) MEDICARE (M) PART A August 16, 2010 PART A [id number] [phone] WAYNE ELLIS JR PATIENT MEDICARE (WNR) MEDICARE (M) PART B August 16, 2010 PART B [id number] WAYNE ELLIS JR O PATIENT MEDICARE (WNR) MEDICARE (M) PART A August 16, 2010 PART A [id number] [phone] WAYNE ELLIS JR O PATIENT MEDICARE (WNR) MEDICARE (M) PART B August 16, 2010 PART B [id number] WAYNE ELLIS JR PATIENT TRIPLE S ADVANTAGE MCR (WNR) MEDICARE ADVANTAGE MCR (WNR) Apr 18, 2024 DO NOT BILL [id number] BETHANY ELLIS PATIENT TRIPLE-S RAFAEL (FED) PREFERRED PROVIDER ORGANIZAT ION (PPO) FEP PSHB BLUE BASIC Apr 18, 2024 [id number] BETHANY ELLIS PATIENT Selected Encounter This section includes the information on record at [place] for the Encounter. Date/Time Encounter Type Encounter Description Reason Provider Source Apr 17, 2024 02:00 PM PSYTX W PT 45 MINUTES PCMHI INDIV ICD-10-CM F41.9 Anxiety disorder, unspecified KAILA JEAN E Encounter Template Text not used by [place] Assessments - Encounter Diagnoses This section includes the primary and secondary diagnoses documented for the Encounter. Date/Time Primary/Secondary Diagnosis Diagnosis Name Provider Source May 06, 2024 05:17 PM PRIMARY Anxiety disorder, unspecified [facility] May 06, 2024 05:17 PM SECONDARY Depression, unspecified [facility] Plan of Treatment: Future Appointments (+ 6 months) and Future Tests (+/- 45 days) The Plan of Treatment section includes future care activities for the patient from all [place] treatmentfacilities. This section includes future appointments and future orders which are active, pending or scheduled. Future Appointments This section includes appointments that were scheduled to occur 6 months from the date of the Encounter, up to a maximum of 20 appointments. The data comes from all [place] treatment facilities. Appointment Date/Time Appointment Type Appointme nt Facility Name Apr 20, 2024 09:00 AM AMBULATORY - PS[facility]CHIATRY [facility] [place] [facility] May 02, 2024 03:00 PM AMBULATORY - PS[facility]CHIATRY [facility] [place] [facility] May 08, 2024 01:00 PM AMBULATORY [facility]ICINE [facility] [place] [facility] May 10, 2024 11:00 AM AMBULATORY - PS[facility]CHIATRY [facility] [place] [facility] May 22, 2024 10:00 AM AMBULATORY [facility] MEDIC[facility] [place] [facility] May 23, 2024 03:00 PM AMBULATORY - [facility]ICINE [facility] [place] [facility] May 28, 2024 01:00 PM AMBULATORY [facility] MEDICINE [facility] [place] [facility] Jun 06, 2024 02:30 PM AMBULATORY - PSYCHIATRY [facility] [place] [facility] Jun 20, 2024 11:00 AM AMBULATORY - [facility]CHIATRY [facility] [place] [facility] Jun 25, 2024 10:00 AM AMBULATORY - MEDICINE [facility] [place] [facility] Jun 25, 2024 10:01 AM AMBULATORY - MEDICINE [place] [facility] [place] [facility] Jul 02, 2024 01:45 PM AMBULATORY - MEDICINE [facility] [place] [facility] Jul 16, 2024 11:00 AM AMBULATORY - MEDICINE [facility] [place] [facility] August 21, 2024 01:30 PM AMBULATORY - MEDICINE [place] [facility] [place] [facility] Active, Pending, and Scheduled Orders This section includes a listing of several types of active, pending, and scheduled orders, including clinic medications orders, diagnostic test orders, procedure orders and consult orders; where the start date of the order is 45 days before the date of the Encounter or 45 days after the date of theEncounter. The data comes from all [facility]. Test Date/Time Test Type Test Details Facility Name Mar 13, 2024 12:02 PM Consult Order PSYCHOTHER CLYDE MAURO/NEENA OUTPT [employer] Software Engineer's Choice [facility] [place] [facility] Mar 30, 2024 01:26 PM Consult Order HOME SLEEP STUDY NOX/NHM OUTPT [employer] Software Engineer's Choice [facility] Lab Results: +/- 30 days of the encounter This section includes the Chemistry and Hematology Lab Results on record with [place] for the patient. Radiology Reports and Pathology Reports are provided separately, in subsequent sections. Lab Results This section contains the Chemistry/Hematology Results that were resulted 30 days before or 30 daysafter the date of the Encounter. Date/Time Source Result Type Result - Unit Interpretation Reference Range Comment Mar 28, 2024 12:21 PM [facility] MICROSCOPIC AUTOMATED, URINE Specimen Type: URINE Comment: If Glucose = >500 and Ketones are positive, please alert the Physician. Ordering Provider: ALBIN TRENT Report Released Date/Time: Feb 02, 2024 12:05 PM Reporting Lab: [address] [address] Performing Lab: [address] [address] UA WBC 0-5 /[HPF] 0-5 UA RBC 0-2 /[HPF] 0-3 Mar 28, 2024 12:21 PM [facility] LIVER FUNCTION Specimen Type: SERUM No comment entered. Ordering Provider: ALBIN TRENT Report Released Date/Time: Feb 02, 2024 12:05 PM Reporting Lab: [address] [address] Performing Lab: [address] [address] PROTEIN,TOTAL 7.0 g/dL 6.0-8.3 ALBUMIN 4.1 g/dL 3.5-5.0 ALKALINE PHOSPHATASE 37 U/L L 40-150 AST 19 U/L 5-34 ALT 28 U/L BILIRUBIN, TOTAL 0.6 mg/dL 0.2-1.2 Mar 28, 2024 12:21 PM [facility] LIPID PANEL FASTING Specimen Type: SERUM No comment entered. Ordering Provider: ALBIN TRENT Report Released Date/Time: Feb 02, 2024 12:05 PM Reporting Lab: [facility] [address] [facility] [address] Performing Lab: [facility] [address] [facility] [address] CHOLESTEROL 248 mg/dL H TRIGLYCERIDE 170 mg/dL H 0-150 LDL calculated 166 mg/dL H 0-129 CHOL/HDL 5.2 HDL CHOLESTEROL 48 mg/dL 40-60 Mar 28, 2024 12:21 PM [facility] BASIC METABOLIC PANEL (fasting) Specimen Type: SERUM No comment entered. Ordering Provider: ALBIN TRENT Report Released Date/Time: Feb 02, 2024 12:05 PM Reporting Lab: [facility] [address] [facility] [address] Performing Lab: [address] [address] UREA NITROGEN 19 mg/dL 7-25 GLUCOSE 227 mg/dL H 65-100 SODIUM 137 mmol/L 135-145 POTASSIUM 4.4 mmol/L 3.5-5.0 CHLORIDE 108 mmol/L 100-110 CO2 20 meq/L 20-30 CREATININE, Serum 0.97 mg/dL 0.50-1.40 eGFR(CKD-EPI 2020) 80 mL/min >60 Mar 28, 2024 12:21 PM [facility] TSH Specimen Type: SERUM No comment entered. Ordering Provider: ALBIN TRENT Report Released Date/Time: Feb 02, 2024 12:05 PM Reporting Lab: [address] [address] Performing Lab: [address] [address] TSH 0.89 u[IU]/mL 0.35-5.00 Mar 28, 2024 12:21 PM [facility] HEMOGLOBIN A1C PANEL Specimen Type: BLOOD Comment: Values obtained from A1C measurements can vary. For atypical A1C assays, a reported value of 7.0 could actually be between 6.72 and 7.28 if measured by a reference method. A reported value of 9.0 could actually be between 8.73 and 9.27. Ref: http://www.ngs p.org/CAPdata. asp Ordering Provider: ALBIN TRENT Report Released Date/Time: Feb 02, 2024 12:05 PM Reporting Lab: [address] [address] Performing Lab: [address] [address] HEMOGLOBIN A1C 7.5 H 4.0-5.6 Mar 28, 2024 12:21 PM [facility] MICROALBUMIN CREATININE RATIO PANEL Specimen Type: URINE No comment entered. Ordering Provider: ALBIN TRENT Report Released Date/Time: Feb 02, 2024 12:05 PM Reporting Lab: [address] [address] Performing Lab: [address] [address] MICROALBUMIN/C REATININE RATIO 556.1 mg/g H 0-29.9 MICROALBUMIN,Q UANTITATIVE 46.1 mg/dL RR UNAVAIL CREATININE URINE 82.90 mg/dL Mar 28, 2024 12:21 PM [facility] CBC AND DIFF (AUTO) Specimen Type: BLOOD No comment entered. Ordering Provider: ALBIN TRENT Report Released Date/Time: Feb 02, 2024 12:05 PM Reporting Lab: [address] [address] Performing Lab: [address] [address] WBC 4.53 10*3/uL 4.50-11.00 RBC 4.74 10*6/uL [...] H 0.0-0.7 IMMATURE GRAN, ABS 0.04 10*3/uL 0.00-0.06 NRBC % 0.0 0.0-0.0 NRBC, ABS 0.00 10*3/uL 0.00-0.00 Mar 28, 2024 12:21 PM [facility] URINALYSIS CLEAN CATCH Specimen Type: URINE Comment: If Glucose = >500 and Ketones are positive, please alert the Physician. Ordering Provider: ALBIN TRENT Report Released Date/Time: Feb 02, 2024 12:05 PM Reporting Lab: [address] [address] Performing Lab: [address] [address] UA COLOR Light-Yellow Yellow UA APPEARANCE Clear Clear UA GLUCOSE Normal mg/dL Negative UA KETONES NEGATIVE mg/dL Negative UA BLOOD NEGATIVE mg/dL Negative UA PROTEIN 50 mg/dL Negative UA NITRITE NEGATIVE mg/dL Negative UA BILIRUBIN NEGATIVE mg/dL Negative UA SPECIFIC GRAVITY 1.019 1.016-1.02 2 UA pH 6.0 5.0-9.0 UA UROBILINOGEN Normal mg/dL <2.0 UA LEUKOCYTE NEGATIVE Negative Social History: Smoking Status (Most current) and Tobacco Use (All prior to encounter date) This section includes the most current, and the historical, smoking and tobacco- related health factors from the [place] facility where the Encounter took place. Current Smoking Status This section includes the most current smoking, or tobacco-related health factor, from the [place] facility where the Encounter took place. Date/Time Current Smoking Status Comment Facil chang Mar 09, 2024 01:00 PM VA-TOBACCO USE FOR ALEJANDRO CIGARETTES [facility] Tobacco Use History This section includes a history of the smoking, or tobacco-related health factors, that were collected on or before the date of the Encounter. The data comes from the [place] facility where the Encounter took place. Date/Time Smoking Status/Tobacco Use Comment F acility Mar 09, 2024 01:00 PM VA-TOBACCO USE FOR ALEJANDRO CIGARETTES [facility] Advance Directives: All historical and current Section Date Range: From patient's date of to the date document was created. This section includes ALL of a patient's completed or amended [place] Advance and Rescinded Directives. The entries below indicate that a directive exists for the patient, but an actual copy is not included with this document. The data comes from all [place] facilities. Date Advance Directives Provider Source Dec 15, 2011 ADVANCE DIRECTIVE DISCUSSION Sandra CONNOLLY [facility] Encounter Notes: All associated encounter notes This section contains the clinical notes associated to the Encounter. Date/Time Encounter Note(s) Provider Source Apr 17, 2024 05:52 AM [facility]: LOCAL TITLE: PRIMARY MENTAL HEALTH OUTPATIENT FOLLOW UP NOTE STANDARD TITLE: MENTAL HEALTH OUTPATIENT NOTE DATE OF NOTE: APR 17, 2024@05:52 ENTRY DATE: APR 17, 2024@05:53:03 AUTHOR: ALFREDO JEAN COSIGNER: URGENCY: STATUS: COMPLETED [facility] OUTPATIENT F/U NOTE DURATION: 40 mins Mr. Ellis is a 78 year-old, male [place] with a PMH of depression, anxiety, PTSD, tremors and chronic pain. This was the third session between auto service writer and . Ambleryodit Ellis explored how he hopes to schedule a sleep test and is aware the consult for the sleep study was placed. Nurse Paralegal assisted with coordinating the scheduling of this appointment for the during today's appt. In addition, he explored [...] chose sleep hygiene. Related handouts were reviewed. identified room to not stay in bed [...] will start walking more again, and continue witu upcoming screening appt with PT for Gerofit. [...] patient preference, options of treatment were offered. Ambler agreed to return for brief CBT for anxiety and depression, including relaxation training and cognitive restructuring, and further evaluation of trauma-related anxiety symptoms. In addition, he will learn of other MH treatment options. He will return to [facility] for roughly 2-3, individual sessions. He will return to [facility], 05/04 at 1pm. /juan/ ALFREDO JEAN, PhD STAFF PSYCHOLOGIST Signed: 04/19/2024 15:40 ALFREDO JEAN [facility]
--- OUTSIDE RECORDS SUMMARY | 2024-06-07 15:20 | XMS_ITS | Encounter Summary ---
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 Name Role Phone ALBIN TRENT Primary Care [...] ALEXI FAMIL Y Apr 18, 2009 [id number] [phone] BETHANY ELLIS PATIENT BCBS [place] FEP PREFERRED PROVIDER ORGANIZAT ION (PPO) BASIC INDIV IDUAL Apr 18, 2020 [id number] BETHANY ELLIS PATIENT [place] F[place] PREFERRED PROVIDER ORGANIZAT ION (PPO) BASIC SELF Apr 18, 2020 [id number] RHONDA BETHANY PATIENT [place] F[place] DENTAL DENTAL INSURANCE BASIC Apr 18, 2020 DENTAL [id number] BETHANY ELLIS PATIENT CAREMARK FEP BCBS PRESCRIPT ION CAREM ARK FEPRX PLAN Apr 18, 2010 [id number] BETHANY ELLIS PATIENT CAREMARK([id number]) PRESCRIPT ION FEP Apr 18, 2020 [id number] BETHANY ELLIS PATIENT EMPIRE BCBS (FEDERAL) PREFERRED PROVIDER ORGANIZAT ION (PPO) BASIC SELF Apr 18, 2020 [id number] BETHANY ELLIS PATIENT EMPIRE BCBS FED DENTAL DENTAL INSURANCE FEP DENTA L Apr 18, 2020 FEPDENT AL [id number] [phone] BETHANY ELLIS PATIENT MEDICARE (WNR) MEDICARE () PART A August 16, 2010 PART A [id number] BETHANY ELLIS PATIENT MEDICARE (WNR) MEDICARE () PART B August 16, 2010 PART B [id number] [phone] BETHANY ELLIS PATIENT MEDICARE (R) MEDICARE () PART A August 16, 2010 PART A [id number] BETHANY ELLIS PATIENT MEDICARE (WNR) MEDICARE () PART B August 16, 2010 PART B [id number] BETHANY ELLIS PATIENT MEDICARE (WNR) MEDICARE () PART A August 16, 2010 PART A [id number] RHONDA SCOTTWAYNE O PATIENT MEDICARE ([facility]) MEDICARE () PART B August 16, 2010 PART B [id number] [id number] RHONDA SCOTTYAIRING O PATIENT MEDICARE (WNR) MEDICARE () PART A August 16, 2010 PART A [id number] [phone] RHONDA SCOTTYAIRING O PATIENT MEDICARE (WNR) MEDICARE () PART B August 16, 2010 PART B [id number] RHONDA SCOTTYAIRING O PATIENT MEDICARE (WNR) MEDICARE () PART A August 16, 2010 PART A [id number] BETHANY ELLIS PATIENT MEDICARE (WNR) MEDICARE () PART B August 16, 2010 PART B [id number] BETHANY ELLIS PATIENT MEDICARE (WNR) MEDICARE (M) PART A August 16, 2010 PART A [id number] WAYNE ELLIS JR PATIENT MEDICARE (WNR) MEDICARE (M) PART B August 16, 2010 PART B [id number] [phone] WAYNE ELLIS JR PATIENT MEDICARE (WNR) MEDICARE (M) PART A August 16, 2010 PART A [id number] WAYNE ELLIS JR O PATIENT MEDICARE (WNR) MEDICARE (M) PART B August 16, 2010 PART B [id number] WAYNE ELLIS JR PATIENT TRIPLE S ADVANTAGE MCR (WNR) MEDICARE ADVANTAGE [facility] (WNR) Apr 18, 2024 DO NOT BILL [id number] [phone] BETHANY ELLIS PATIENT TRIPLE-S RAFAEL (FED) PREFERRED PROVIDER ORGANIZAT ION (PPO) FEP PSHB BLUE BASIC Apr 18, 2024 [id number] [phone] BETHANY ELLIS PATIENT Selected Encounter This section includes the information on record at [place] for the Encounter. Date/Time Encounter Type Encounter Description Reason Provider Source Mar 30, 2024 01:00 PM OFFICE O/P EST HI 40 [facility] - IND ICD-10-CM F33.8 Other recurrent depressive disorders [facility] Encounter Template Text not used by [place] Assessments - Encounter Diagnoses This section includes the primary and secondary diagnoses documented for the Encounter. Date/Time Primary/Secondary Diagnosis Diagnosis Name Provider Source May 08, 2024 07:00 AM PRIMARY Other recurrent depressive disorders [facility] May 08, 2024 07:00 AM SECONDARY Other reactions to severe stress [facility] Plan of Treatment: Future Appointments (+ 6 months) and Future Tests (+/- 45 days) The Plan of Treatment section includes future care activities for the patient from all [place] treatmentfacilities. This section includes future appointments and future orders which are active, pending or scheduled. Future Appointments This section includes appointments that were scheduled to occur 6 months from the date of the Encounter, up to a maximum of 20 appointments. The data comes from all [place] treatment facilities. Appointment Date/Time Appointment Type Appointme nt Facility Name Apr 06, 2024 09:00 AM AMBULATORY - PS[facility]CHIATRY [facility] [place] [facility] Apr 09, 2024 02:30 PM AMBULATORY [facility] MEDICINE [facility] [place] [facility] Apr 13, 2024 09:00 AM AMBULATORY - PS[facility]IATRY [facility] [place] [facility] Apr 17, 2024 02:00 PM AMBULATORY - PS[facility]CHIATRY [facility] [place] [facility] Apr 20, 2024 09:00 AM AMBULATORY - PS[facility]CHIATRY [facility] [place] [facility] May 02, 2024 03:00 PM AMBULATORY - PS[facility]CHIATRY [facility] [place] [facility] May 08, 2024 01:00 PM AMBULATORY - MEDICINE [facility] [place] [facility] May 10, 2024 11:00 AM AMBULATORY - PS[facility]CHIATRY [facility] [place] [facility] May 22, 2024 10:00 AM AMBULATORY - MEDICINE [facility] [place] [facility] May 23, 2024 03:00 PM AMBULATORY - MEDICINE [facility] [place] [facility] May 28, 2024 01:00 PM AMBULATORY - MEDICINE [facility] [place] [facility] Jun 06, 2024 02:30 PM AMBULATORY - PSYCHIATRY [facility] [place] [facility] Jun 20, 2024 11:00 AM AMBULATORY - PS[facility]CHIATRY [facility] [place] [facility] Jun 25, 2024 10:00 AM AMBULATORY - MEDICINE [facility] [place] [facility] Jun 25, 2024 10:01 AM AMBULATORY - MEDICINE [facility] [place] [facility] Jul 02, 2024 01:45 PM AMBULATORY - MEDICINE [facility] [place] [facility] Jul 16, 2024 11:00 AM AMBULATORY - MEDICINE [facility] [place] [facility] August 21, 2024 01:30 PM AMBULATORY - MEDICINE [facility] [place] [facility] Active, Pending, and Scheduled Orders This section includes a listing of several types of active, pending, and scheduled orders, including clinic medications orders, diagnostic test orders, procedure orders and consult orders; where the start date of the order is 45 days before the date of the Encounter or 45 days after the date of theEncounter. The data comes from all [place] treatment facilities. Test Date/Time Test Type Test Details Facility Name Mar 13, 2024 12:02 PM Consult Order PSYCHOTHER APY BHIP/NHM OUTPT Cons Solutions Architect's Choice [facility] [place] [facility] Mar 30, 2024 01:26 PM Consult Order HOME SLEEP STUDY NOX/NHM OUTPT [facility] Lab Results: +/- 30 days of the encounter This section includes the Chemistry and Hematology Lab Results on record with VA for the patient. Radiology Reports and Pathology Reports are provided separately, in subsequent sections. Lab Results This section contains the Chemistry/Hematology Results that were resulted 30 days before or 30 daysafter the date of the Encounter. Date/Time Source Result Type Result - Unit Interpretation Reference Range Comment Mar 28, 2024 12:21 PM [facility] MICROSCOPIC AUTOMATED, URINE Specimen Type: URINE Comment: If Glucose = >500 and Ketones are positive, please alert the Physician. Ordering Provider: ALBIN TRENT Report Released Date/Time: Feb 02, 2024 12:05 PM Reporting Lab: [facility] [address] [facility] [address] Performing Lab: [address] [address] UA WBC 0-5 /[HPF] 0-5 UA RBC 0-2 /[HPF] 0-3 Mar 28, 2024 12:21 PM [facility] LIVER FUNCTION Specimen Type: SERUM No comment entered. Ordering Provider: ALBIN TRENT Report Released Date/Time: Feb 02, 2024 12:05 PM Reporting Lab: [facility] [address] [facility] [address] Performing Lab: [address] [address] PROTEIN,TOTAL 7.0 g/dL 6.0-8.3 ALBUMIN 4.1 g/dL 3.5-5.0 ALKALINE PHOSPHATASE 37 U/L L 40-150 AST 19 U/L 5-34 ALT 28 U/L BILIRUBIN, TOTAL 0.6 mg/dL 0.2-1.2 Mar 28, 2024 12:21 PM [facility] LIPID PANEL FASTING Specimen Type: SERUM No comment entered. Ordering Provider: ALBIN TRENT Report Released Date/Time: Feb 02, 2024 12:05 PM Reporting Lab: [facility] [address] [facility] [address] Performing Lab: [facility] [address] [facility] [address] CHOLESTEROL 248 mg/dL H TRIGLYCERIDE 170 mg/dL H 0-150 LDL calculated 166 mg/dL H 0-129 CHOL/HDL 5.2 HDL CHOLESTEROL 48 mg/dL 40-60 Mar 28, 2024 12:21 PM [facility] BASIC METABOLIC PANEL (fasting) Specimen Type: SERUM No comment entered. Ordering Provider: ALBIN TRENT Report Released Date/Time: Feb 02, 2024 12:05 PM Reporting Lab: [facility] [address] [facility] [address] Performing Lab: [address] [address] UREA NITROGEN 19 mg/dL 7-25 GLUCOSE 227 mg/dL H 65-100 SODIUM 137 mmol/L 135-145 POTASSIUM 4.4 mmol/L 3.5-5.0 CHLORIDE 108 mmol/L 100-110 CO2 20 meq/L 20-30 CREATININE, Serum 0.97 mg/dL 0.50-1.40 eGFR(CKD-EPI 2020) 80 mL/min >60 Mar 28, 2024 12:21 PM [facility] TSH Specimen Type: SERUM No comment entered. Ordering Provider: ALBIN TRENT Report Released Date/Time: Feb 02, 2024 12:05 PM Reporting Lab: [facility] [address] [facility] [address] Performing Lab: [address] [address] TSH 0.89 u[IU]/mL 0.35-5.00 Mar 28, 2024 12:21 PM [facility] HEMOGLOBIN A1C PANEL Specimen Type: BLOOD Comment: [...] Feb 02, 2024 12:05 PM Reporting Lab: [address] [address] Performing Lab: [address] [address] HEMOGLOBIN A1C 7.5 H 4.0-5.6 Mar 28, 2024 12:21 PM [facility] MICROALBUMIN CREATININE RATIO PANEL Specimen Type: URINE No comment entered. Ordering Provider: ALBIN TRENT Report Released Date/Time: Feb 02, 2024 12:05 PM Reporting Lab: [address] [address] Performing Lab: [address] [address] MICROALBUMIN/C REATININE RATIO 556.1 mg/g H 0-29.9 MICROALBUMIN,Q UANTITATIVE 46.1 mg/dL RR UNAVAIL CREATININE URINE 82.90 mg/dL Mar 28, 2024 12:21 PM [facility] CBC AND DIFF (AUTO) Specimen Type: BLOOD No comment entered. Ordering Provider: ALBIN TRENT Report Released Date/Time: Feb 02, 2024 12:05 PM Reporting Lab: [address] [address] Performing Lab: [address] [address] WBC 4.53 10*3/uL 4.50-11.00 RBC 4.74 10*6/uL [...] 10*3/uL 0.00-0.00 Mar 28, 2024 12:21 PM [facility] URINALYSIS CLEAN CATCH Specimen Type: URINE Comment: If Glucose = >500 and Ketones are positive, please alert the Physician. Ordering Provider: ALBIN TRENT Report Released Date/Time: Feb 02, 2024 12:05 PM Reporting Lab: [facility] [address] [facility] [address] Performing Lab: [address] [address] UA COLOR Light-Yellow Yellow UA APPEARANCE Clear [...] and tobacco- related health factors from the [place] facility where the Encounter took place. Current Smoking Status This section includes the most current smoking, or tobacco-related health factor, from the [place] facility where the Encounter took place. Date/Time Current Smoking Status Comment Facil ity Mar 09, 2024 01:00 PM VA-TOBACCO USE FOR ALEJANDRO CIGARETTES [facility] Tobacco Use History This section includes a history of the smoking, or tobacco-related health factors, that were collected on or before the date of the Encounter. The data comes from the [place] facility where the Encounter took place. Date/Time Smoking Status/Tobacco Use Comment F acility Mar 09, 2024 01:00 PM VA-TOBACCO USE FOR ALEJANDRO CIGARETTES [facility] Advance Directives: All historical and current Section Date Range: From patient's date of to the date document was created. This section includes ALL of a patient's completed or amended [place] Advance and Rescinded Directives. The entries below indicate that a directive exists for the patient, but an actual copy is not included with this document. The data comes from all [place] facilities. Date Advance Directives Provider Source Dec 15, 2011 ADVANCE DIRECTIVE DISCUSSION Sandra CONNOLLY [facility] Encounter Notes: All associated encounter notes This section contains the clinical notes associated to the Encounter. Date/Time Encounter Note(s) Provider Source Mar 30, 2024 01:04 PM MENTAL HEALTH INIT IAL EVALUATION NOTE: LOCAL TITLE: CONSULT REPORT/MENTAL HEALTH INTAKE STANDARD TITLE: MENTAL HEALTH INITIAL EVALUATION NOTE DATE OF NOTE: MAR 30, 2024@13:04 ENTRY DATE: MAR 30, 2024@13:05:32 AUTHOR: YFN ELIZABETH: URGENCY: STATUS: COMPLETED OUTPATIENT MENTAL HEALTH CLINIC: INITIAL ASSESSMENT HPI: BETHANY ELLIS, a 78 y/o male previously diagnosed with depressive disorder, PTSD and AUD presents for Initial Assessment following screening and referral by [facility] psychotherapist prescribed escitalopram, 5 mg by non-VA PCP and reports I don't really know if it's doing anything. Endorses symptoms of depression, anxiety and somnolence including tiredness, sleeping a lot not concentrating too well. Being uneasy and nervous. Not knowing how to relax. I have a very difficult time relaxing. Feels that both depression and anxiety are equal in severity I'm always tired. I can't sleep Wakes up once per hour because of polyuria Scheduled for sleep apnea evaluation; sons says that he gasps for air in his sleep Reports ambivalence about psychotropics and that with previous trials I felt like I'm a mummy. I don't feel like I'm me. Denies side effects from escitalopram, this far. I don't remember a lot of stuff that happened in the service but I did have bad experiences. Notes that he resorted to drug and alcohol use to self-medicate these bad experiences. With regards to bad experiences reports A few people that I knew . One committed suicide. All I can remember are their faces. Also reports A lot of discrimination Did not report intrusive thoughts or flashbacks but does report nightmares ('sometimes about the . Sometimes that I'm a situation where someone's going to kill me or someone's going to get hurt.') Denies hypervigilance; gets stressed when driving to [place] Takes a THC edible once in awhile for pain or sleep Denies auditory or visual hallucinations, paranoia or delusions. Denies any recent episodes of paola/hypomania and specifically denies discrete episodes of increased energy, irritability, impulsivity and/or expansive affect lasting several days. Lindside explicitly and convincingly denied SI, intent or plan and denied thoughts of harming others. SUBSTANCE USE: Tobacco: none in 25 years Alcohol: yfni 2-3 times per month Narcotics: denied Cannabis: Takes a THC edible once in awhile for pain or sleep Remote history of AUD and that he Did lots of drugs when he was in the . Heroin. Cocaine. None in recent years (aside from cannabis) PSYCHIATRIC HISTORY: Medication trials: ALPRAZOLAM BUPROPION CITALOPRAM FLUOXETINE that one was better SERTRALINE Per chart review: as noted previously, pt has h/o prozac, xanax, zoloft , lexapro trials, then celexa mostly w/o benefit or w GI side effects. He feels celexa helped but he had GI side effects w it; more recently wellbutrin -- stopped bec wanted to be off psych meds Inpatient Hospitalizations: Multiple detoxes for drugs and alcohol in the 1970s but none since Suicidal Acts and Self-Harm: denied HISTORY OF VIOLENCE/ASSAULTING OTHERS: FAMILY MENTAL HEALTH AND SUBSTANCE USE HISTORY: AIDE, brother, in remission SOCIAL HISTORY: Per [facility] Outpatient Mental Health Assessment (03/13/2024), confirmed by Lindside during assessment: Raised in the [facility] with mom, dad, and 7 siblings. Mom is still living in [place] and is 102 y/o. Father at age 86. 2 siblings are . Lindside has brother and nephews living in [facility]. No hx of neglect or abuse in childhood. Vet lives with his 31 y/o son,Zev, as he has since the boy's mother kicked him out of her home when he was 18. is in caregiver role for son and is attempting to secure disability for MH issues (he believes Bipolar, denied 5x by [employer])and get him the treatment he needs. Son is independent with ADLs. Lindside has a girlfriend of a year and hopes she will move in soon. Girlfriend is supportive of Vet seeking MH treatment. 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 Diploma w a few college courses in liberal arts. Open to further training, perhaps culinary in nature. Working since age 12. 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 Please check JLV. FACILITY ALLERGY/ADR -------- [facility] NO KNOWN ALLERGIES [facility] [place] [facility] LISINOPRIL MEDICATIONS: reviewed and updated in CPRS Active Outpatient Medications (including Supplies): Active Non-VA Medications Status 1) Non-VA ESCITALOPRAM OXALATE 10MG TAB 5MG BY MOUTH ONCE DAILY ACTIVE 2) Non-VA EZETIMIBE 10MG TAB 10MG BY MOUTH ONCE DAILY ACTIVE 3) Non-VA LOSARTAN 25MG TAB 25MG BY MOUTH TWICE DAILY ACTIVE Indication: FOR HIGH BLOOD PRESSURE 4) Non-VA METFORMIN (ONCE DAILY) TAB,SA 500MG BY MOUTH ONCE ACTIVE DAILY 5) Non-VA SITAGLIPTIN (EQV-JANUVIA) 100MG TAB 100MG BY MOUTH ACTIVE ONCE DAILY MENTAL STATUS EXAM: Appearance: consistent w/ stated age, appropriate grooming and hygiene Behavior: polite, cooperative and treatment motivated Motor: no tics, tremors, or abnormal movements Speech: normal rate, volume and articulation Thought process: logical, linear and coherent Thought content: denies hallucinations, delusions, or paranoia. No ideas of reference. No thoughts insertion. Denies homicidal thoughts. Denies suicidal ideation, intent or plan. Insight and Judgment: both intact Cognition: alert and oriented x 3, good attention, memory grossly intact to conversational testing Mood: depressed and anxious Affect: mood congruent LABS AND STUDIES: MICROALB/CR RATIO: 556.1 H MICROALBUMIN URINE: 46.1 CREATININE URINE: 82.90 WBC/HPF: 0-5 RBC/HPF: 0-2 Color, Urine (AX 4280): Light-Yellow Appearance, Urine (AX 4280): Clear Glucose, Urine (AX 4280): Normal Ketones, Urine (AX 4280): NEGATIVE Blood, Urine (AX 4280): NEGATIVE Protein, Urine (AX 4280): 50 Nitrite, Urine (AX 4280): NEGATIVE Bilirubin, Urine (AX 4280): NEGATIVE Specific [place], (AX 4280): 1.019 pH, Urine (QB2514): 6.0 Urobilinogen, Urine (AX 4280): Normal Leukocyte Esterase, (AX 4280): NEGATIVE TSH (Access): 0.89 GLUCOSE: 227 H UREA NITROGEN: 19 SODIUM: 137 POTASSIUM: 4.4 CHLORIDE: 108 CO2: 20 CHOLESTEROL: 248 H PROTEIN,TOTAL: 7.0 ALBUMIN: 4.1 ALKALINE PHOSPHATASE: 37 L SGOT: 19 SGPT: 28 TRIGLYCERIDE: 170 H LDL CHOL: 166 H CHOL/HDL RATIO: 5.2 HDL: 48 BILIRUBIN,TOT.: 0.6 CREATININE-EGFR: 0.97 eGFR CKD-EPI 2020: 80 HGB A1C (WR): 7.5 H WBC: 4.53 RBC: 4.74 HGB: 13.9 HCT: 40.2 MCV: 84.8 MCHC: 34.6 RDW: 14.0 PLT: 195 MCH: 29.3 Neut %: 60.5 Lymph %: 25.2 [place] %: 7.7 Eos %: 4.6 Baso %: 1.1 Neut, Abs: 2.74 Lymph, Abs: 1.14 [place], Abs: 0.35 Eos, Abs: 0.21 Baso, Abs: 0.05 Immature Granulocytes %: 0.9 H Immature Granulocytes, Abs: 0.04 NRBC%: 0.0 NRBC#: 0.00 SAFETY ASSESSMENT: No acute safety concerns. Convincingly denies any thoughts, intents, or plans to harm self or others. Chronic risk is elevated by status and mental illness but is currently mitigated by participation in treatment and demonstration of help-seeking behaviors. IMPRESSION: Lindside presents as polite, cooperative and treatment motivated Reports adherence to current medications with significant therapeutic benefit and denies side effects. Reports desire to continue with current pharmacotherapy regimen. Lindside agreed to continue with upward titration of escitalopram. Reminded of possible side effects including: Nausea, GI upset, diarrhea, somnolence, increased risk of bleeding, insomnia, hyponatremia, sweating, tremor, weight change, headaches and risk for sexual dysfunction including anorgasmia, decreased libido, erectile dysfunction. Also advised of small but non-negligible risk of QT-prolongation and that SSRIs may increase the risk of bleeding, bone fractures, dizziness, extrapyramidal symptoms Also reminded that medication can take several weeks to take effect. Lindside requested sleep study and so a Consult [facility] sleep study was placed. Endorses loud snoring and witnessed apneic episodes. Reports ambivalence about psychotropics and specifically requested assessment for PTSD. Unclear to explain motivation for seeking PTSD assessment or reason why he thinks he might have it. From his report it was unclear if he meets diagnostic criteria for PTSD No acute safety concerns Diagnosis: Depressive Disorder, unspecified Trauma related Disorder, unspecified Alcohol Use Disorder, severe, in sustained remission PLAN: 1) INCREASE ESCITALOPRAM FROM 5 TO 10 MG PO DAILY Labs: none today Follow-Up: 05/02/24 Discussed risks and benefits of proposed medication treatments including FDA approved indications and off-label uses, as well as common and severe side effects. comprehended all information discussed, had opportunity to ask questions which were answered to their satisfaction, and voluntarily and without duress agreed to trial as documented. CONTACT AND CRISIS INFO: Lindside informed that This Provider can be contacted at , EXT [phone] or via Secure Messaging. We have reviewed the Crisis Hotline (988, dial #1 for line), and the has been instructed to call 911 or go to the nearest ED if acutely suicidal or experiencing a mental health emergency. INFORMED CONSENT REVIEWED: At beginning of session reviewed rights and limits of confidentiality, mandatory reporting situations, duty to warn and protect, risk of suicide or homicide, potential elder or child abuse/neglect and [place] Warning, (if treatment team finds patient to be an acute danger to himself or others, that this information could be relayed to a court of law and presented to a husbandry technician), and DOD access for active-duty service members. CODING: Total time today was 60 minutes, which included an in-person visit with the patient, providing counseling and education, and time spent reviewing the record, ordering meds, completing documentation, and coordinating care. CLINICAL REMINDERS: Medication Reconciliation: Outpatient: Has the patient been taking medications as documented in the EMLR? YES: The patient has been taking medications as documented in the EMLR. Essential Medication List for Review used to complete this medication reconciliation. INCLUDED IN THIS LIST: Alphabetical list of active outpatient prescriptions dispensed from this [facility] (local) and dispensed from another VA or DoD facility (remote) as well as inpatient orders (local, pending and active), local clinic medications, locally documented non-VA medications, and local prescriptions that have or been discontinued in the past 90 days. - All changes in medications, including all non-VA/Herbal/OTC medications were entered into CPRS. - If there were any medications the patient should no longer take, they were discontinued. - The patient/caregiver was instructed to update this list, discard old lists, and take this list to the next appointment, whether with a VA or non-VA provider. /juan/ YFN ELIZABETH Psychiatric Mental Health Nurse Practitioner Signed: 04/09/2024 13:47 YFN ELIZABETH [facility]
--- OUTSIDE RECORDS SUMMARY | 2024-06-07 15:20 | XMS_ITS | Encounter Summary ---
Author Name [facility] [place] [facility] Address [address] [place] [address] Care Team Providers Care Cattle Knocker Name Role Phone ALBIN TRENT Primary Care [...] ALEXI FAMIL Y Apr 18, 2009 105 [id number] [phone] BETHANY ELLIS PATIENT BCBS [place] FEP PREFERRED PROVIDER ORGANIZAT ION (PPO) BASIC INDIV IDUAL Apr 18, 2020 [id number] RHONDA BETHANY PATIENT [place] F[place] PREFERRED PROVIDER ORGANIZAT ION (PPO) BASIC SELF Apr 18, 2020 [id number] [phone] RHONDA BETHANY PATIENT [place] FEP DENTAL DENTAL INSURANCE BASIC Apr 18, 2020 DENTAL [id number] BETHANY ELLIS PATIENT CAREMARK FEP BCBS PRESCRIPT ION CAREM ARK FEPRX PLAN Apr 18, 2010 [id number] BETHANY ELLIS PATIENT CAREMARK([id number]) PRESCRIPT ION FEP Apr 18, 2020 [id number] BETHANY ELLIS PATIENT EMPIRE BCBS (FEDERAL) PREFERRED PROVIDER ORGANIZAT ION (PPO) BASIC SELF Apr 18, 2020 [id number] BETHANY ELLIS PATIENT [place] BCBS FED DENTAL DENTAL INSURANCE FEP DENTA L Apr 18, 2020 FEPDENT AL [id number] [phone] BETHANY ELLIS PATIENT MEDICARE (WNR) MEDICARE () PART A August 16, 2010 PART A [id number] BETHANY ELLIS PATIENT MEDICARE (WNR) MEDICARE () PART B August 16, 2010 PART B [id number] [phone] BETHANY ELLIS PATIENT MEDICARE (R) MEDICARE () PART A August 16, 2010 PART A [id number] WAYNE ELLISO PATIENT MEDICARE (WNR) MEDICARE () PART B August 16, 2010 PART B [id number] BETHANY ELLIS PATIENT MEDICARE (WNR) MEDICARE () PART A August 16, 2010 PART A [id number] RHONDA SCOTTWAYNE O PATIENT MEDICARE (WN) MEDICARE () PART B August 16, 2010 PART B [id number] RHONDA SCOTTYAIRVENKAT O PATIENT MEDICARE (WNR) MEDICARE () PART A August 16, 2010 PART A [id number] RHONDA SCOTTYAIRING O PATIENT MEDICARE (WNR) MEDICARE () PART B August 16, 2010 PART B [id number] [phone] RHONDA SCOTTYAIRVENKAT O PATIENT MEDICARE (WNR) MEDICARE () PART A August 16, 2010 PART A [id number] BETHANY ELLIS PATIENT MEDICARE (WNR) MEDICARE () PART B August 16, 2010 PART B [id number] [phone] BETHANY ELLIS PATIENT MEDICARE (WNR) MEDICARE (M) PART A August 16, 2010 PART A [id number] [phone] WAYNE ELLIS JR O PATIENT MEDICARE (WNR) MEDICARE (M) PART B August 16, 2010 PART B [id number] [phone] WAYNE ELLIS JR O PATIENT MEDICARE (WNR) MEDICARE (M) PART A August 16, 2010 PART A [id number] WAYNE ELLIS JR O PATIENT MEDICARE (WNR) MEDICARE (M) PART B August 16, 2010 PART B [id number] WAYNE ELLIS JR PATIENT TRIPLE S ADVANTAGE MCR (WNR) MEDICARE ADVANTAGE MCR (WNR) Apr 18, 2024 DO NOT BILL [id number] BETHANY ELLIS PATIENT TRIPLE-S RAFAEL (FED) PREFERRED PROVIDER ORGANIZAT ION (PPO) FEP PS BLUE BASIC Apr 18, 2024 [id number] BETHANY ELLIS PATIENT Selected Encounter This section includes the information on record at [place] for the Encounter. Date/Time Encounter Type Encounter Description Reason Provider Source Mar 30, 2024 09:00 AM Outpatient Encounter [facility] Encounter Template Text not used by [place] Plan of Treatment: Future Appointments (+ 6 months) and Future Tests (+/- 45 days) The Plan of Treatment section includes future care activities for the patient from all [place] treatmentfacilities. This section includes future appointments and future orders which are active, pending or scheduled. Future Appointments This section includes appointments that were scheduled to occur 6 months from the date of the Encounter, up to a maximum of 20 appointments. The data comes from all [place] treatment facilities. Appointment Date/Time Appointment Type Appointme nt Facility Name Apr 06, 2024 09:00 AM [facility] Apr 09, 2024 02:30 PM [facility] Apr 13, 2024 09:00 AM [facility] Apr 17, 2024 02:00 PM [facility] Apr 20, 2024 09:00 AM [facility] [place] May 02, 2024 03:00 PM [facility]BUL[facility] [place] [facility] May 08, 2024 01:00 PM [facility] [place] May 10, 2024 11:00 AM [facility] [place] [facility] May 22, 2024 10:00 AM [facility] [place] [facility] May 23, 2024 03:00 PM [facility] [place] [facility] May 28, 2024 01:00 PM [facility] [place] [facility] Jun 06, 2024 02:30 PM AMBULAT[facility] [place] [facility] Jun 20, 2024 11:00 AM AM[facility]UL[facility] [place] [facility] Jun 25, 2024 10:00 AM [facility] [place] [facility] Jun 25, 2024 10:01 AM [facility]INE [facility] [place] [facility] Jul 02, 2024 01:45 PM [facility]INE [facility] [place] [facility] Jul 16, 2024 11:00 AM [facility]ULATORY [facility]INE [facility] [place] [facility] August 21, 2024 01:30 PM AMBULATORY - MEDICINE [facility] [place] [facility] Active, Pending, and Scheduled Orders This section includes a listing of several types of active, pending, and scheduled orders, including clinic medications orders, diagnostic test orders, procedure orders and consult orders; where the start date of the order is 45 days before the date of the Encounter or 45 days after the date of theEncounter. The data comes from all [place] treatment facilities. Test Date/Time Test Type Test Details Facility Name Mar 13, 2024 12:02 PM Consult Order PSYCHOTHER APY BHIP/[facility] OUTPT Cons Senior Functional Analyst's Choice [facility] [place] [facility] Mar 30, 2024 01:26 PM Consult Order HOME SLEEP STUDY NOX/[facility] OUTPT Cons Senior Functional Analyst's Choice [facility] Lab Results: +/- 30 days of the encounter This section includes the Chemistry and Hematology Lab Results on record with [place] for the patient. Radiology Reports and Pathology Reports are provided separately, in subsequent sections. Lab Results This section contains the Chemistry/Hematology Results that were resulted 30 days before or 30 daysafter the date of the Encounter. Date/Time Source Result Type Result - Unit Interpretation Reference Range Comment Mar 28, 2024 12:21 PM [facility] MICROSCOPIC AUTOMATED, URINE Specimen Type: URINE Comment: If Glucose = >500 and Ketones are positive, please alert the Physician. Ordering Provider: ALBIN TRENT Report Released Date/Time: Feb 02, 2024 12:05 PM Reporting Lab: [address] [address] Performing Lab: [address] [address] UA WBC 0-5 /[HPF] 0-5 UA RBC 0-2 /[HPF] 0-3 Mar 28, 2024 12:21 PM [facility] LIVER FUNCTION Specimen Type: SERUM No comment entered. Ordering Provider: ALBIN TRENT Report Released Date/Time: Feb 02, 2024 12:05 PM Reporting Lab: [address] [address] Performing Lab: [address] [address] PROTEIN,TOTAL 7.0 g/dL 6.0-8.3 ALBUMIN 4.1 g/dL 3.5-5.0 ALKALINE PHOSPHATASE 37 U/L L 40-150 AST 19 U/L 5-34 ALT 28 U/L BILIRUBIN, TOTAL 0.6 mg/dL 0.2-1.2 Mar 28, 2024 12:21 PM [facility] LIPID PANEL FASTING Specimen Type: SERUM No comment entered. Ordering Provider: ALBIN TRENT Report Released Date/Time: Feb 02, 2024 12:05 PM Reporting Lab: [address] [address] Performing Lab: [facility] [address] [facility] [address] CHOLESTEROL 248 mg/dL H TRIGLYCERIDE 170 mg/dL H 0-150 LDL calculated 166 mg/dL H 0-129 CHOL/HDL 5.2 HDL CHOLESTEROL 48 mg/dL 40-60 Mar 28, 2024 12:21 PM [facility] BASIC METABOLIC PANEL (fasting) Specimen Type: SERUM No comment entered. Ordering Provider: ALBIN TRENT Report Released Date/Time: Feb 02, 2024 12:05 PM Reporting Lab: [facility] [address] [facility] [address] Performing Lab: [address] [address] UREA NITROGEN 19 mg/dL 7-25 GLUCOSE 227 mg/dL H 65-100 SODIUM 137 mmol/L 135-145 POTASSIUM 4.4 mmol/L 3.5-5.0 CHLORIDE 108 mmol/L 100-110 CO2 20 meq/L 20-30 CREATININE, Serum 0.97 mg/dL 0.50-1.40 eGFR(CKD-EPI 2020) 80 mL/min >60 Mar 28, 2024 12:21 PM [facility] TSH Specimen Type: SERUM No comment entered. Ordering Provider: ALBIN TRENT Report Released Date/Time: Feb 02, 2024 12:05 PM Reporting Lab: [address] [address] Performing Lab: [address] [address] TSH 0.89 u[IU]/mL 0.35-5.00 Mar 28, 2024 12:21 PM [facility] HEMOGLOBIN A1C PANEL Specimen Type: BLOOD Comment: [...] Feb 02, 2024 12:05 PM Reporting Lab: [facility] [address] [facility] [address] Performing [facility] [address] [address] HEMOGLOBIN A1C 7.5 H 4.0-5.6 Mar 28, 2024 12:21 PM [facility] MICROALBUMIN CREATININE RATIO PANEL Specimen Type: URINE No comment entered. Ordering Provider: ALBIN TRENT Report Released Date/Time: Feb 02, 2024 12:05 PM Reporting Lab: [address] [address] Performing Lab: [address] [address] MICROALBUMIN/C REATININE RATIO 556.1 mg/g H 0-29.9 MICROALBUMIN,Q UANTITATIVE 46.1 mg/dL RR UNAVAIL CREATININE URINE 82.90 mg/dL Mar 28, 2024 12:21 PM [facility] CBC AND DIFF (AUTO) Specimen Type: BLOOD No comment entered. Ordering Provider: ALBIN TRENT Report Released Date/Time: Feb 02, 2024 12:05 PM Reporting Lab: [address] [address] Performing Lab: [address] [address] WBC 4.53 10*3/uL 4.50-11.00 RBC 4.74 10*6/uL [...] 10*3/uL 0.00-0.00 Mar 28, 2024 12:21 PM [facility] URINALYSIS CLEAN CATCH Specimen Type: URINE Comment: If Glucose = >500 and Ketones are positive, please alert the Physician. Ordering Provider: ALBIN TRENT Report Released Date/Time: Feb 02, 2024 12:05 PM Reporting Lab: [address] [address] Performing Lab: [address] [address] UA COLOR Light-Yellow Yellow UA APPEARANCE Clear [...] and tobacco- related health factors from the [place] facility where the Encounter took place. Current Smoking Status This section includes the most current smoking, or tobacco-related health factor, from the [place] facility where the Encounter took place. Date/Time Current Smoking Status Comment Rosalba downing Mar 09, 2024 01:00 PM [place]-TOBACCO USE FOR ALEJANDRO CIGARETTES [facility] Tobacco Use History This section includes a history of the smoking, or tobacco-related health factors, that were collected on or before the date of the Encounter. The data comes from the [place] facility where the Encounter took place. Date/Time Smoking Status/Tobacco Use Comment Maday acdon Mar 09, 2024 01:00 PM [place]-TOBACCO USE FOR ALEJANDRO CIGARETTES [facility] Advance Directives: All historical and current Section Date Range: From patient's date of to the date document was created. This section includes ALL of a patient's completed or amended [place] Advance and Rescinded Directives. The entries below indicate that a directive exists for the patient, but an actual copy is not included with this document. The data comes from all [place] facilities. Date Advance Directives Provider Source Dec 15, 2011 ADVANCE DIRECTIVE DISCUSSION Sandra CONNOLLY [facility]
--- OUTSIDE RECORDS SUMMARY | 2024-06-07 15:20 | XMS_ITS | Encounter Summary ---
Author Name [facility] [place] [facility] [place] Address [address] [place] [address] Care Team Providers Care Fundraising Sale Representative Name Role Phone ALBIN TRENT Primary Care [...] ALEXI FAMIL Y Apr 18, 2009 [id number] [phone] BETHANY ELLIS PATIENT BCBS [place] FEP PREFERRED PROVIDER ORGANIZAT ION (PPO) BASIC INDIV IDUAL Apr 18, 2020 111 [id number] [phone] BETHANY ELLIS PATIENT [place] F[place] PREFERRED PROVIDER ORGANIZAT ION (PPO) BASIC SELF Apr 18, 2020 111 [id number] RHONDA BETHANY PATIENT [place] F[place] DENTAL DENTAL INSURANCE BASIC Apr 18, 2020 DENTAL [id number] BETHANY ELLIS PATIENT CAREMARK FEP BCBS PRESCRIPT ION CAREM ARK FEPRX PLAN Apr 18, 2010 [id number] BETHANY ELLIS PATIENT CAREMARK([id number]) PRESCRIPT ION FEP Apr 18, 2020 [id number] BETHANY ELLIS PATIENT EMPIRE BCBS (FEDERAL) PREFERRED PROVIDER ORGANIZAT ION (PPO) BASIC SELF Apr 18, 2020 111 [id number] BETHANY ELLIS PATIENT EMPIRE BCBS FED DENTAL DENTAL INSURANCE FEP DENTA L Apr 18, 2020 FEPDENT AL [id number] BETHANY ELLIS PATIENT MEDICARE ([facility] MEDICARE () PART A August 16, 2010 PART A [id number] RHONDA SCOTTWAYNE O PATIENT MEDICARE ([facility]) MEDICARE () PART B August 16, 2010 PART B [id number] [phone] RHONDA SCOTTYAIRVENKAT O PATIENT MEDICARE ([facility]) MEDICARE () PART A August 16, 2010 PART A [id number] RHONDA SCOTTWAYNE O PATIENT MEDICARE ([facility]) MEDICARE () PART B August 16, 2010 PART B [id number] RHONDA SCOTTWAYNE O PATIENT MEDICARE ([facility]) MEDICARE () PART A August 16, 2010 PART A [id number] [phone] RHONDA SCOTTWAYNE O PATIENT MEDICARE ([facility]) MEDICARE () PART B August 16, 2010 PART B [id number] RHONDA SCOTTWAYNE O PATIENT MEDICARE ([facility]) MEDICARE () PART A August 16, 2010 PART A [id number] WAYNE ELLISO PATIENT MEDICARE ([facility]) MEDICARE () PART A August 16, 2010 PART A [id number] WAYNE ELLISO PATIENT MEDICARE (WN) MEDICARE () PART B August 16, 2010 PART B [id number] [phone] BETHANY ELLIS PATIENT MEDICARE ([facility]) MEDICARE () PART A August 16, 2010 PART A [id number] WAYNE ELLIS JR O PATIENT MEDICARE (WNR) MEDICARE (M) PART B August 16, 2010 PART B [id number] WAYNE ELLIS JR O PATIENT MEDICARE (WNR) MEDICARE (M) PART B August 16, 2010 PART B [id number] BETHANY ELLIS PATIENT MEDICARE (WNR) MEDICARE (M) PART A August 16, 2010 PART A [id number] BETHANY ELLIS PATIENT MEDICARE (WNR) MEDICARE (M) PART B August 16, 2010 PART B [id number] BETHNAY ELLIS PATIENT TRIPLE S ADVANTAGE MCR (WNR) MEDICARE ADVANTAGE [facility] (WNR) Apr 18, 2024 DO NOT BILL [id number] [phone] BETHANY ELLIS PATIENT TRIPLE-S RAFAEL (FED) PREFERRED PROVIDER ORGANIZAT ION (PPO) FEP PS BLUE BASIC Apr 18, 2024 33A [id number] BETHANY ELLIS PATIENT Selected Encounter This section includes the information on record at [place] for the Encounter. Date/Time Encounter Type Encounter Description Reason Provider Source May 28, 2024 01:00 PM OFFICE O/P EST SF 10 MIN CIH TREATMENT ICD-10-CM G89.28 Other chronic postprocedural pain LESVIA BOJORQUEZ [facility] Encounter Template Text not used by [place] Assessments - Encounter Diagnoses This section includes the primary and secondary diagnoses documented for the Encounter. Date/Time Primary/Secondary Diagnosis Diagnosis Name Provider Source May 28, 2024 04:15 PM PRIMARY Other chronic postprocedural pain LESVIA BOJORQUEZ [facility] [place] [place] [facility] May 28, 2024 04:15 PM SECONDARY Anxiety disorder, unspecified LESVIA BOJORQUEZ [place] [facility] May 28, 2024 04:15 PM SECONDARY Other low back pain LESVIA BOJORQUEZ [facility] [place] [facility] Plan of Treatment: Future Appointments (+ 6 months) and Future Tests (+/- 45 days) The Plan of Treatment section includes future care activities for the patient [facility] [place] [facility] This section includes future appointments and future orders which are active, pending or scheduled. Future Appointments This section includes appointments that were scheduled to occur 6 months from the date of the Encounter, up to a maximum of 20 appointments. The data comes from all [place] treatment facilities. Appointment Date/Time Appointment Type Appointme nt Facility Name Jun 06, 2024 02:30 PM [facility] Jun 20, 2024 11:00 AM AMBULATORY - PSYCHIATRY [place] [facility] [place] [facility] Jun 25, 2024 10:00 AM AMBULATORY MEDICINE [facility] Jun 25, 2024 10:01 AM AMBULATORY MEDICINE [facility] Jul 02, 2024 01:45 PM AMBULATORY MEDICINE [place] [facility] Jul 16, 2024 11:00 AM AMBULATORY MEDICINE [facility] NTRL TR[facility] August 21, 2024 01:30 PM AMBULATORY MEDICINE [facility] Social History: Smoking Status (Most current) and Tobacco Use (All prior to encounter date) This section includes the most current, and the historical, smoking and tobacco- related health factors from the [place] facility where the Encounter took place. Current Smoking Status This section includes the most current smoking, or tobacco-related health factor, from the [place] facility where the Encounter took place. Date/Time Current Smoking Status Comment Facil ity Mar 09, 2024 01:00 PM VA-TOBACCO USE FOR ALEJANDRO CIGARETTES [facility] Tobacco Use History This section includes a history of the smoking, or tobacco-related health factors, that were collected on or before the date of the Encounter. The data comes from the [place] facility where the Encounter took place. Date/Time Smoking Status/Tobacco Use Comment F acility Mar 09, 2024 01:00 PM VA-TOBACCO USE FOR ALEJANDRO CIGARETTES [facility] Advance Directives: All historical and current Section Date Range: From patient's date of to the date document was created. This section includes ALL of a patient's completed or amended VA Advance and Rescinded Directives. The entries below indicate that a directive exists for the patient, but an actual copy is not included with this document. The data comes from all [place] facilities. Date Advance Directives Provider Source Dec 15, 2011 ADVANCE DIRECTIVE DISCUSSION Sandra CONNOLLY [facility] [place] [facility] Encounter Notes: All associated encounter notes This section contains the clinical notes associated to the Encounter. Date/Time Encounter Note(s) Provider Source May 28, 2024 04:10 PM ACUPUNCTURE CONSULT: LOCAL TITLE: CONSULT REPORT/ACUPUNCTURE STANDARD TITLE: ACUPUNCTURE CONSULT DATE OF NOTE: MAY 28, 2024@16:10 ENTRY DATE: MAY 28, 2024@16:10:59 AUTHOR: SHAKA BOJORQUEZ EXP COSIGNER: URGENCY: STATUS: COMPLETED BETHANY ELLIS is a 78 DECLINED TO ANSWER MALE who presents with Upper back pain left side. Anxiety. 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 INFORMED CONSENT: Oral Consent obtained on May: Acupuncture treatment including risk/side effects, benefits, alternatives to treatment, and the management plan were reviewed with client who expressed understanding and agreed. 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 [place] has scar around left scapula and [place] states that ever since the surgery he has had sharp stabbing pain in the area. states his current pain is 6-7/10. [place] also has low back pain more recently over the past several weeks. [place] states he has started working out a few weeks ago and experienced pain superior to the PSIS and describes the pain level as 4-5/10. [place] is also struggling with some anxiety and an inability to relax and wonders if acupuncture can be effective. RESPONSE TO PREVIOUS TREATMENT: N/A CLIENT GOALS FOR TREATMENT: Reduced back pain and reduced anxiety SYMPTOM CHECKLIST: Any endorsement of the following symptoms provided below: Headache, Radicalgia, weakness, fever, sore throat, chest pain, shortness of breath, joint swelling, dizziness, vision loss, unexplained weight loss, bowel or bladder incontinence/retention or saddle anesthesia History of: N/A OBJECTIVE General: . Client in no apparent distress . Appropriate attire . Oriented x4 Skin: . No effusion/edema . No ecchymosis . No erythema ASSESSMENT / SUMMARY CM / Channel Diagnosis: UB, GB, SI Treatment principle: move stagnation of blood and Qi. Medical Decision Making (MDM) o - 2 or more stable chronic illnesses PLAN / RECOMMENDATION: Acupuncture Protocol: [X]Grady Acupuncture (BFA), [ ]NADA, [ ]Auricular Trauma Protocol (ATP), [ ]Neal Men, Point Zero, Sympathetic Pt. Needle Type: [ ]ASP [X]Standard acupuncture needle [ ]Left Ear [ ]Right Ear [X]Bilateral - Ear swabbed with alcohol prior to needle insertion. Additional Acupuncture: [ ]Head: [ ]Neck: [ ]Torso: [X] RUE: LK, DB, ZB, SI 4 [X] LUE: Wayne Vidales, Wayne Chung [X] RLE: LR 4.2, LR 4.5, LR 4.8, LR 5, SP 5.5, SP 6, KD 7 [X] LLE: UB 65, GB 41, GB 40, GB 34 [ ]Other Treatment: [ ] TDP: Treatment Response: . Post treatment reported feelingLess pain in back and more relaxed. Treatment Plan/Follow-up: [X]Transfer to individual acupuncture [ ]Return approximately 2x followed by update to treatment plan [ ]Referred to community Treatment Note(s): [X]Client provided handout on information regarding acupuncture including cautions/contraindicatio ns. INSTRUCTIONS: . Attend follow-up appointment . Follow instructions from other providers /es/ SHAKA BOJORQUEZ LA.C DIPL.AC SOFT WORK WRAPPER LAYER AND EXAMINER Signed: 05/28/2024 16:15 SHAKA BOJORQUEZ [facility] [place] [facility]
--- OUTSIDE RECORDS SUMMARY | 2024-06-07 15:20 | XMS_ITS | Encounter Summary ---
Author Name [facility] [place] Address [address] [place] [address] Care Team Providers Care Dope Edger Name Role Phone ALBIN TRENT Primary Care [...] ALEXI FAMIL Y Apr 18, 2009 [id number] [phone] BETHANY ELLIS PATIENT BCBS MA FEP PREFERRED PROVIDER ORGANIZAT ION (PPO) BASIC INDIV IDUAL Apr 18, 2020 [id number] BETHANY ELLIS PATIENT [place] F[place] PREFERRED PROVIDER ORGANIZAT ION (PPO) BASIC SELF Apr 18, 2020 111 [id number] RHONDA BETHANY PATIENT [place] F[place] DENTAL DENTAL INSURANCE BASIC Apr 18, 2020 DENTAL [id number] BETHANY ELLIS PATIENT CAREMARK FEP BCBS PRESCRIPT ION CAREM ARK FEPRX PLAN Apr 18, 2010 [id number] BETHANY ELLIS PATIENT CAREMARK([id number]) PRESCRIPT ION FEP Apr 18, 2020 [id number] BETHANY ELLIS PATIENT EMPIRE BCBS (FEDERAL) PREFERRED PROVIDER ORGANIZAT ION (PPO) BASIC SELF Apr 18, 2020 111 [id number] BETHANY ELLIS PATIENT EMPIRE BCBS FED DENTAL DENTAL INSURANCE FEP DENTA L Apr 18, 2020 FEPDENT AL [id number] 30 BETHANY ELLIS PATIENT MEDICARE ([facility] MEDICARE () PART A August 16, 2010 PART A [id number] RHONDA SCOTTWAYNE O PATIENT MEDICARE ([facility] MEDICARE () PART B August 16, 2010 PART B [id number] RHONDA SCOTTYAIRVENKAT O PATIENT MEDICARE ([facility] MEDICARE () PART A August 16, 2010 PART A [id number] [id number] RHONDA SCOTTYAIRING O PATIENT MEDICARE (WN) MEDICARE () PART B August 16, 2010 PART B [id number] RHONDA SCOTTYAIRING O PATIENT MEDICARE ([facility] MEDICARE () PART A August 16, 2010 PART A [id number] RHONDA SCOTTYAIRING O PATIENT MEDICARE ([facility] MEDICARE () PART B August 16, 2010 PART B [id number] RHONDA SCOTTYARIING O PATIENT MEDICARE (WN) MEDICARE () PART A August 16, 2010 PART A [id number] [phone] WAYNE ELLISO PATIENT MEDICARE (WNR) MEDICARE () PART A August 16, 2010 PART A [id number] RHONDA, BETHANY PATIENT MEDICARE (WNR) MEDICARE () PART B August 16, 2010 PART B [id number] [phone] BETHANY ELLIS PATIENT MEDICARE (WNR) MEDICARE () PART A August 16, 2010 PART A [id number] WAYNE ELLIS JR PATIENT MEDICARE (WNR) MEDICARE (M) PART B August 16, 2010 PART B [id number] [phone] WAYNE ELLIS JR O PATIENT MEDICARE (WNR) MEDICARE (M) PART B August 16, 2010 PART B [id number] [phone] BETHANY ELLIS PATIENT MEDICARE (WNR) MEDICARE (M) PART A August 16, 2010 PART A [id number] [phone] WAYNE ELLISO PATIENT MEDICARE (WNR) MEDICARE (M) PART B August 16, 2010 PART B [id number] [phone] BETHANY ELLIS PATIENT TRIPLE S ADVANTAGE MCR (WNR) MEDICARE ADVANTAGE MCR (WNR) Apr 18, 2024 DO NOT BILL [id number] [phone] BETHANY ELLIS PATIENT TRIPLE-S RAFAEL (FED) PREFERRED PROVIDER ORGANIZAT ION (PPO) FEP PSHB BLUE BASIC Apr 18, 2024 33A [id number] BETHANY ELLIS PATIENT Selected Encounter This section includes the information on record at [place] for the Encounter. Date/Time Encounter Type Encounter Description Reason Provider Source May 08, 2024 01:00 PM HLTH BHV IVNTJ GRP EA ADDL HEALTH/WELLBEING SRVS ICD-10-CM Z73.3 Stress, not elsewhere classified CASEY TORRES [facility] Encounter Template Text not used by [place] Assessments - Encounter Diagnoses This section includes the primary and secondary diagnoses documented for the Encounter. Date/Time Primary/Secondary Diagnosis Diagnosis Name Provider Source May 31, 2024 02:16 PM PRIMARY Stress, not elsewhere classified CASEY TORRES [place] [facility] [place] [facility] Plan of Treatment: Future Appointments (+ [...] 20 appointments. The data comes from all [place] treatment facilities. Appointment Date/Time Appointment Type Appointme nt Facility Name May 10, 2024 11:00 AM AMBULATORY - PS[place]IATRY [place] [facility] [place] [facility] May 22, 2024 10:00 AM AMBULATORY [place]ICINE [place] [facility] [facility] May 23, 2024 03:00 PM AMBULATORY [place] MEDICINE [place] [facility] [place] [facility] May 28, 2024 01:00 PM AMBULATORY [place]ICINE [place] [facility] Jun 06, 2024 02:30 PM AMBULATORY [place]ATRY [place] [facility] [place] [facility] Jun 20, 2024 11:00 AM AMBULATORY [place] [facility] [place] [facility] Jun 25, 2024 10:00 AM AM[place]UL[place]ORY [place] [facility] Jun 25, 2024 10:01 AM AM[place]ORY [place] [facility] Jul 02, 2024 01:45 PM AM[place]UL[place]ORY [place] [facility] Jul 16, 2024 11:00 AM AM[place]UL[place]ORY [place] [facility] August 21, 2024 01:30 PM AM[place]ORY [place]ICINE [place] [facility] Active, Pending, and Scheduled Orders This section includes a listing of several types of active, pending, and scheduled orders, including clinic medications orders, diagnostic test orders, procedure orders and consult orders; where the start date of the order is 45 days before the date of the Encounter or 45 days after the date of theEncounter. The data comes from all [facility]. Test Date/Time Test Type Test Details Facility Name Mar 30, 2024 01:26 PM Consult Order HOME SLEEP STUDY NOX/NHM OUTPT Cons Statistical Analyst's Choice [place] [facility] [place] [facility] Social History: Smoking Status (Most current) [...] 01:00 PM VA-TOBACCO USE FOR ALEJANDRO CIGARETTES [facility] Tobacco Use History This section includes a history of the smoking, or tobacco-related health factors, that were collected on or before the date of the Encounter. The data comes from the [place] facility where the Encounter took place. Date/Time Smoking Status/Tobacco Use Comment [place] [place] Mar 09, 2024 01:00 PM VA-TOBACCO USE FOR ALEJANDRO CIGARETTES [facility] Advance Directives: All historical and current [...] 15, 2011 ADVANCE DIRECTIVE DISCUSSION Sandra CONNOLLY [facility] Encounter Notes: All associated encounter notes This section contains the clinical notes associated to the Encounter. Date/Time Encounter Note(s) Provider Source May 08, 2024 01:00 PM CONSULT: LOCAL TITLE: CONSULT REPORT/WHOLE HEALTH STANDARD TITLE: CONSULT DATE OF NOTE: MAY 08, 2024@13:00 ENTRY DATE: MAY 08, 2024@14:47:46 AUTHOR: CASEY TORRES COSIGNER: URGENCY: STATUS: COMPLETED [facility] Video Connect (VVC) Standard Documentation VVC Clinician Resources Only: E911 (Emergency Call Relay Center): [phone] National Veterans Crisis Line - 988 then press #1. [facility] Suicide Coordinator [phone], Ext. [phone]; Back-up Ext. [phone] [place] Police, Elida MADRIGAL [phone] Introduction: Visit is being conducted by [place] [facility] Connect. identified with 2 identifiers: [X] Full Name [X] Date of [ ] [place] ID Card Emergency Plan: confirmed and/or provided the following information in case of emergency or technology failure. PATIENT PHONE - PHONE NUMBER [CELLULAR] - Is patient phone number correct, if not, enter below: Hutchinson's phone number: BETHANY ELLIS [address] [place] [address], [phone] 's present location and address for appointment: Home address Hutchinson's emergency contact name and phone number: See chart reported that location is private and safe: Yes Informed Consent: Hutchinson informed of the risks and benefits of Telehealth video care. Hutchinson has the right to refuse video services. If refuses video visit, a [id number] visit will be scheduled. Hutchinson verbalized consent for this video visit: Yes provided consent for any other persons present for visit: N/A If yes, who and relationship to patient: Secure visit: Visit was locked for security and privacy: Yes Date: Apr Number of Veterans attended: 9 Drawing Tracer/s: Sobia Hurst, Health and Billet Shearer; Casey Torres, PhD Diagnosis: Stress, not elsewhere classified Time: 75 minutes WHOLE HEALTH GROUP/CLASS Introduction to Whole Health class Hutchinson attended Introduction to Whole Health session. Information was provided to introduce Veterans to the Whole Health approach to care. was supported in considering how to utilize his/her own strengths and abilities to help build a healing partnership with VA to optimize well-being with a focus on what matters most to the Hutchinson. Content included an overview of the [place] of Health/Personal Health Inventory and descriptions of 8 areas of self-care and well-being that address many areas of an individual's life. Facilitators discussed how Whole Health goes beyond illnesses, injuries, or disabilities and supports Veterans' focus on values and aspirations. was encouraged to consider the question What would you do if your health were the best it could be? to assist with setting goals to improve health and well-being. The facilitators provided a description of local service available including, though not limited to: - Enrollment office information - Complementary and Integrative Health approaches - Whole Health Groups - Mental Health services - Whole Health Coaching - Next steps for care referral services (as needed) HANDOUTS: - Whole Health Brochure - Whole Health PHI - Whole Health [place] of Health All Veterans were given opportunities to participate and ask questions, and all questions posed were addressed. Veterans were informed of availability of emergency services, including 911 and the local ED, as well as the Crisis Line, [phone]. MISSION, ASPIRATION, PURPOSE (MAP), AND VALUES MAP and values are: Be a better and healthier person, to share and enjoy life with family and friends, to learn and grow PERSONAL HEALTH INVENTORY For each component below, rate yourself on a scale of 1 (LOW) to 5(HIGH) of where you are and where you would like to be: 1. MOVING THE BODY: Where are you? 3 Where would you like to be? 5 Hutchinson reported that he was walking, using a bike and weights, and was trying to stay active to maintain his physical functioning. Participation: Hutchinson was engaged in the discussion. No SI/HI plan or intent expressed. Licensed Independent Practitioners: Clinical Observation was Alert & Oriented x3. Thoughts were normal, coherent, and linear. 's affect appeared full range and congruent with current mood. There was no evidence of perceptual or auditory disturbance observed. Hutchinson's speech was of normal rate, rhythm, volume with normal content. Follow up: Displayed interest in follow up with: Declined further Whole Health follow up, reported he would be trying acupuncture and was interested in additional services but not at this time, will reach out when ready. /juan/ Casey Torres, PhD Clinical Psychologist Signed: 05/08/2024 14:52 [facility] TORRES [facility]
--- OUTSIDE RECORDS SUMMARY | 2024-06-07 15:20 | XMS_ITS | Encounter Summary ---
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 Name Role Phone REG HERRING Primary Care Provider Unavailabl e Insurance Providers: [...] ALEXI FAMIL Y Apr 18, 2009 [id number] [phone] BETHANY ELLIS PATIENT BCBS [place] PREFERRED PROVIDER ORGANIZAT ION (PPO) BASIC INDIV IDUAL Apr 18, 2020 111 [id number] [phone] BETHANY ELLIS PATIENT [place] PREFERRED PROVIDER ORGANIZAT ION (PPO) BASIC SELF Apr 18, 2020 111 [id number] [phone] RHONDA BETHANY PATIENT [place] DENTAL DENTAL INSURANCE BASIC Apr 18, 2020 DENTAL [id number] BETHANY ELLIS PATIENT [place] FEP BCBS PRESCRIPT ION CAREM ARK FEPRX PLAN Apr 18, 2010 [id number] BETHANY ELLIS PATIENT [place]EMARK([id number]) PRESCRIPT ION FEP Apr 18, 2020 [id number] BETHANY ELLIS PATIENT [place] BCBS ([place]) PREFERRED PROVIDER ORGANIZAT ION (PPO) BASIC SELF Apr 18, 2020 111 [id number] BETHANY ELLIS PATIENT [place] BCBS FED DENTAL DENTAL INSURANCE FEP DENTA L Apr 18, 2020 FEPDENT [place] [id number] [phone] BETHANY ELLIS PATIENT MEDICARE ([facility]) MEDICARE () PART A August 16, 2010 PART A [id number] [phone] RHONDA SCOTTWAYNE O PATIENT MEDICARE ([facility]) MEDICARE () PART B August 16, 2010 PART B [id number] RHONDA SCOTTWAYNE O PATIENT MEDICARE ([facility]) MEDICARE () PART A August 16, 2010 PART A [id number] RHONDA SCOTTYAIRING O PATIENT MEDICARE ([facility]) MEDICARE () PART B August 16, 2010 PART B [id number] RHONDA SCOTTWAYNE O PATIENT MEDICARE ([facility]) MEDICARE () PART A August 16, 2010 PART A [id number] RHONDA SCOTTWAYNE O PATIENT MEDICARE ([facility]) MEDICARE () PART B August 16, 2010 PART B [id number] RHONDA SCOTTWAYNE O PATIENT MEDICARE (WN) MEDICARE () PART A August 16, 2010 PART A [id number] WAYNE ELLISO PATIENT MEDICARE (WNR) MEDICARE () PART A August 16, 2010 PART A [id number] WAYNE ELLISO PATIENT MEDICARE (WNR) MEDICARE () PART B August 16, 2010 PART B [id number] BETHANY ELLIS PATIENT MEDICARE (WNR) MEDICARE () PART A August 16, 2010 PART A [id number] WAYNE ELLIS JR O PATIENT MEDICARE (WNR) MEDICARE (M) PART B August 16, 2010 PART B [id number] WAYNE ELLIS JR O PATIENT MEDICARE (WNR) MEDICARE (M) PART B August 16, 2010 PART B [id number] BETHANY ELLIS PATIENT MEDICARE (WNR) MEDICARE (M) PART A August 16, 2010 PART A [id number] BETHANY ELLIS PATIENT MEDICARE (WNR) MEDICARE (M) PART B August 16, 2010 PART B [id number] BETHANY ELLIS PATIENT TRIPLE S ADVANTAGE MCR (WNR) MEDICARE ADVANTAGE MCR (WNR) Apr 18, 2024 DO NOT BILL [id number] [phone] BETHANY ELLIS PATIENT TRIPLE-S RAFAEL (FED) PREFERRED PROVIDER ORGANIZAT ION (PPO) FEP PSHB BLUE BASIC Apr 18, 2024 [id number] BETHANY ELLIS PATIENT Selected Encounter This section includes the information on record at [place] for the Encounter. Date/Time Encounter Type Encounter Description Reason Provider Source Mar 09, 2024 01:00 PM PSYTX W PT 45 MINUTES PCMHI INDIV ICD-10-CM F32.A Depression, unspecified KAILA JEAN IHE Encounter Template Text not used by [place] Assessments - Encounter Diagnoses This section includes the primary and secondary diagnoses documented for the Encounter. Date/Time Primary/Secondary Diagnosis Diagnosis Name Provider Source Mar 29, 2024 08:55 AM PRIMARY Depression, unspecified [facility] [place] [facility] Mar 29, 2024 08:55 AM SECONDARY Anxiety disorder, unspecified KAILA JEAN [facility] [place] [facility] Plan of Treatment: Future Appointments (+ 6 months) and Future Tests (+/- 45 days) The Plan of Treatment section includes future care activities for the patient from all VA treatmentfacilities. This section includes future appointments and future orders which are active, pending or scheduled. Future Appointments This section includes appointments that were scheduled to occur 6 months from the date of the Encounter, up to a maximum of 20 appointments. The data comes from all VA treatment facilities. Appointment Date/Time Appointment Type Appointme nt Facility Name Mar 13, 2024 11:00 AM AMBULATORY - PS[facility]CHIATRY [facility] [place] [facility] Mar 13, 2024 11:15 AM AMBULATORY - MEDICINE [facility] [place] [facility] Mar 21, 2024 02:30 PM AMBULATORY - MEDICINE [facility] [place] [facility] Mar 28, 2024 01:00 PM AMBULATORY - PS[facility]CHIATRY [facility] [place] [facility] Mar 30, 2024 09:01 AM AMBULATORY - PS[facility]CHIATRY [facility] [place] [facility] Mar 30, 2024 01:00 PM AMBULATORY - PSYCHIATRY [facility] [place] [facility] Apr 06, 2024 09:00 AM AMBULATORY - PSYCHIATRY [facility] [place] [facility] Apr 09, 2024 02:30 PM AMBULATORY - MEDICINE [facility] [place] [facility] Apr 13, 2024 09:00 AM AMBULATORY - PSYCHIATRY [facility] [place] [facility] Apr 17, 2024 02:00 PM AMBULATORY - PSYCHIATRY [facility] [place] [facility] Apr 20, 2024 09:00 AM AMBULATORY - PSYCHIATRY [facility] [place] [facility] May 02, 2024 03:00 PM AMBULATORY - PSYCHIATRY [facility] [place] [facility] May 08, 2024 01:00 PM AMBULATORY - MEDICINE [facility] [place] [facility] May 10, 2024 11:00 AM AMBULATORY - PSYCHIATRY [facility] [place] [facility] May 22, 2024 10:00 AM AMBULATORY - MEDICINE [facility] [place] [facility] May 23, 2024 03:00 PM AMBULATORY - MEDICINE [facility] [place] [facility] May 28, 2024 01:00 PM AMBULATORY - MEDICINE [facility] [place] [facility] Jun 06, 2024 02:30 PM AMBULATORY - PSYCHIATRY [facility] [place] [facility] Jun 20, 2024 11:00 AM AMBULATORY - PSYCHIATRY [facility] [place] [facility] Jun 25, 2024 10:00 AM AMBULATORY - MEDICINE [facility] Active, Pending, and Scheduled Orders This section includes a listing of several types of active, pending, and scheduled orders, including clinic medications orders, diagnostic test orders, procedure orders and consult orders; where the start date of the order is 45 days before the date of the Encounter or 45 days after the date of theEncounter. The data comes from all [place] treatment facilities. Test Date/Time Test Type Test Details Facility Name Feb 02, 2024 12:04 PM Consult Order COMMUNITY CARE-NEUROLOGY [facility] [facility] [place] [facility] [place] [facility] Mar 13, 2024 12:02 PM Consult Order PSYCHOTHER APY BHIP/NHM OUTPT [facility] [place] [facility] [place] [facility] Mar 30, 2024 01:26 PM Consult Order HOME SLEEP STUDY NOX/NHM OUTPT [facility] Lab Results: +/- 30 days of the [...] Range Comment Mar 28, 2024 12:21 PM [facility] [place] [place] MICROSCOPIC AUTOMATED, URINE Specimen Type: URINE Comment: If Glucose = >500 and Ketones are positive, please alert the Physician. Ordering Provider: REG HERRING Report Released Date/Time: Feb 02, 2024 12:05 PM Reporting Lab: [facility] [place] [facility] [address] [address] Performing Lab: [facility] [place] [address] [address] UA WBC 0-5 /[HPF] 0-5 UA RBC 0-2 /[HPF] 0-3 Mar 28, 2024 12:21 PM [facility] LIPID PANEL FASTING Specimen Type: SERUM No comment entered. Ordering Provider: REG HERRING Report Released Date/Time: Feb 02, 2024 12:05 PM Reporting Lab: [facility] [address] [address] Performing Lab: [facility] [address] [address] CHOLESTEROL 248 mg/dL H TRIGLYCERIDE 170 mg/dL H 0-150 LDL calculated 166 mg/dL H 0-129 CHOL/HDL 5.2 HDL CHOLESTEROL 48 mg/dL 40-60 Mar 28, 2024 12:21 PM [facility] [place] BASIC METABOLIC PANEL (fasting) Specimen Type: SERUM No comment entered. Ordering Provider: REG HERRING Report Released Date/Time: Feb 02, 2024 12:05 PM Reporting Lab: [facility] [place] [address] [address] Performing Lab: [address] [address] UREA NITROGEN 19 mg/dL 7-25 GLUCOSE 227 mg/dL H 65-100 SODIUM 137 mmol/L 135-145 POTASSIUM 4.4 mmol/L 3.5-5.0 CHLORIDE 108 mmol/L 100-110 CO2 20 meq/L 20-30 CREATININE, Serum 0.97 mg/dL 0.50-1.40 eGFR(CKD-EPI 2020) 80 mL/min >60 Mar 28, 2024 12:21 PM [facility] TSH Specimen Type: SERUM No comment entered. Ordering Provider: REG HERRING Report Released Date/Time: Feb 02, 2024 12:05 PM Reporting Lab: [address] [address] Performing Lab: [facility] [address] [address] TSH 0.89 u[IU]/mL 0.35-5.00 Mar 28, 2024 12:21 PM [facility] LIVER FUNCTION Specimen Type: SERUM No comment entered. Ordering Provider: REG HERRING Report Released Date/Time: Feb 02, 2024 12:05 PM Reporting Lab: [address] [address] Performing Lab: [address] [place] [address] PROTEIN,TOTAL 7.0 g/dL 6.0-8.3 ALBUMIN 4.1 g/dL 3.5-5.0 ALKALINE PHOSPHATASE 37 U/L L 40-150 AST 19 U/L 5-34 ALT 28 U/L BILIRUBIN, TOTAL 0.6 mg/dL 0.2-1.2 Mar 28, 2024 12:21 PM [facility] [place] HEMOGLOBIN A1C PANEL Specimen Type: BLOOD Comment: Values obtained from A1C measurements can vary. For atypical A1C assays, a reported value of 7.0 could actually be between 6.72 and 7.28 if measured by a reference method. A reported value of 9.0 could actually be between 8.73 and 9.27. Ref: http://www.ngs p.org/CAPdata. asp Ordering Provider: REG HERRING Report Released Date/Time: Feb 02, 2024 12:05 PM Reporting Lab: [address] [address] Performing Lab: [address] [address] HEMOGLOBIN A1C 7.5 H 4.0-5.6 Mar 28, 2024 12:21 PM [facility] [place] MICROALBUMIN CREATININE RATIO PANEL Specimen Type: URINE No comment entered. Ordering Provider: REG HERRING Report Released Date/Time: Feb 02, 2024 12:05 PM Reporting Lab: [address] [address] Performing Lab: [address] [address] MICROALBUMIN/C REATININE RATIO 556.1 mg/g H 0-29.9 MICROALBUMIN,Q UANTITATIVE 46.1 mg/dL RR UNAVAIL CREATININE URINE 82.90 mg/dL Mar 28, 2024 12:21 PM [facility] [place] CBC AND DIFF (AUTO) Specimen Type: BLOOD No comment entered. Ordering Provider: REG HERRING Report Released Date/Time: Feb 02, 2024 12:05 PM Reporting Lab: [place] [address] [address] Performing Lab: [facility] [place] [address] [address] WBC 4.53 10*3/uL 4.50-11.00 RBC 4.74 10*6/uL [...] 10*3/uL 0.00-0.00 Mar 28, 2024 12:21 PM [facility] [place] URINALYSIS CLEAN CATCH Specimen Type: URINE Comment: If Glucose = >500 and Ketones are positive, please alert the Physician. Ordering Provider: REG HERRING Report Released Date/Time: Feb 02, 2024 12:05 PM Reporting Lab: [facility] [place] [address] [address] Performing Lab: [facility] [place] [address] [address] UA COLOR Light-Yellow Yellow UA APPEARANCE Clear [...] and tobacco- related health factors from the [place] facility where the Encounter took place. Current Smoking Status This section includes the most current smoking, or tobacco-related health factor, from the [place] facility where the Encounter took place. Date/Time Current Smoking Status Comment Facil ity Mar 09, 2024 01:00 PM VA-TOBACCO USE FOR ALEJANDRO CIGARETTES [facility] [place] Tobacco Use History This section includes a history of the smoking, or tobacco-related health factors, that were collected on or before the date of the Encounter. The data comes from the [place] facility where the Encounter took place. Date/Time Smoking Status/Tobacco Use Comment F acility Mar 09, 2024 01:00 PM VA-TOBACCO USE FOR ALEJANDRO CIGARETTES [facility] [place] Advance Directives: All historical and current Section Date Range: From patient's date of to the date document was created. This section includes ALL of a patient's completed or amended [place] Advance and Rescinded Directives. The entries below indicate that a directive exists for the patient, but an actual copy is not included with this document. The data comes from all [place] facilities. Date Advance Directives Provider Source Dec 15, 2011 ADVANCE DIRECTIVE DISCUSSION Sandra CONNOLLY [facility] [place] Encounter Notes: All associated encounter notes This section contains the clinical notes associated to the Encounter. Date/Time Encounter Note(s) Provider Source Mar 09, 2024 08:44 AM MENTAL HEALTH E & M NOTE: LOCAL TITLE: PRIMARY MENTAL HEALTH ASSESSMENT NOTE STANDARD TITLE: MENTAL HEALTH E & M NOTE DATE OF NOTE: MAR 09, 2024@08:44 ENTRY DATE: MAR 09, 2024@08:44:51 AUTHOR: MIRANDA,ALFREDO R EXP COSIGNER: URGENCY: STATUS: COMPLETED PC-[facility] HEALTH ASSESSMENT NOTE DURATION: 45 mins REFERRING PROVIDER: PCPNevaeh REASON FOR REFERRAL: trauma-related anxiety, depression Informed consent and limits of confidentiality were provided. Mr. Ellis is a 78 yead-old, male [place] with a PMH of Hep C, DM II, low back pain, GI reflux, PTSD, alcohol dependence, and depression. CHIEF COMPLAINT: shared that he has experienced trauma-related anxiety and depression for many years, but just recently has been feeling less shame and embarrassment than he used to talking about MH challenges and symptoms. He said that friends, his girlfriend, a niece, and the shinto have helped him reduce shame and pride. He has also been prescribed Escitalopram in the community the last six months. He explored how in his culture, men do not cry or show their emotions. He said that he keeps busy working and being physically active as main coping. Role of avoidance was briefly explored. He revealed that he served in [place] war and endured trauma and that symptoms originated after trauma. Moreover, he revealed that his father passed way six years ago of whom he was close. Furthermore, he identified self-defeating thoughts and room to practice more positive thinking and self-compassion. FUNCTIONAL ASSESSMENT: o SLEEP: 12 hours lay in bed, sleep only 3 hours, always tired, problems staying asleep, always dreams past month- 2-3x month o APPETITE: poor appetite, eat junk - skips meals and overeating, little meals o ALCOHOL: espresso jayme with girlfriend 1-2x a month, stopped drinking alcohol heavily, 15 years ago o CAFFIENE: 3-4 cups a day of coffee (used to drink 1 cup- increase) used to drink 20 cups a day prior to that o ILLICIT DRUGS/TOBACCO: 6 months started trying cannabis gummies for pain, every once in a while; used to smoke 6 ppd- quit cigarettes 20 years ago o CLOSE RELATIONSHIPS: girlfriend, niece, son (30) o LIVING SITUATION: lives with son (30)- he stays in his room (other kicked him out)- brother lives upstairs (he had heart surgery)- try to support one another o EMPLOYMENT: 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- [place] working 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 3 years ago- o COPING: watch tv and movies (in bed sometimes)- chess, work projects o PAIN/CHRONIC HEALTH CONDITIONS: had back surgery- TENS unit- sometime pain levels increase (patches, medicine) o CULTURE: racial discrimination workplace and - risa a source of strength INTERVENTION: Gathered psychosocial history and functioning Provided psychoeducation on effects of trauma and stress response- handouts provided Provided psychoeducation on downward spiral of depression, and impact of grief and habits of avoidance- handouts provided Conducted SI/HI risk assessment Provided information on [facility] LETHALITY: Suicidal or homicidal ideation: No Suicidal or homicidal plans: No Suicidal or homicidal intention: No Previous suicide attempts: No RISK LEVEL IMPRESSION: presents at low risk of harm to self and others at this time. SCREENERS: PHQ-9: 19, moderately severe depression, somewhat difficult BEULAH-7: 17, moderately severe anxiety, somewhat difficult DIAGNOSES: Anxiety Disorder, Unspecified; Depressive Disorder, Unspecified IMPRESSIONS/PLAN: [place] Ellis endorsed symptoms of trauma-related anxiety and [...] patient preference, options of treatment were offered. [place] agreed to return for brief CBT for anxiety and depression, including relaxation training and cognitive restructuring, and further evaluation of trauma-related anxiety symptoms. In addition, he will learn of other treatment options. He will return to [facility] for roughly 4-5, individual sessions. He will return to [facility], 03/28 at 1pm. INTERDICIPLINARY TREATMENT PLANNING INVOLVING: Referring provider will be alerted of this plan ACTIVE PROBLEMS LIST Active problems - Computerized Problem List is the source for the followin. Tremor 2. Allergic rhinitis 3. DM TYPE II, W/O COMP 4. CHR ALC DEP,IN REM 5. Unspecified monoarthritis 6. LOW BACK PAIN, LUMBAGO 7. PTSD 8. Hyperglycemia 9. 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 Nails, Ingrown 12. Gastroesophageal Reflux Disorder 13. Hyperlipidemia 14. Depression ALL ACTIVE MEDICATIONS Active Outpatient Medications (including Supplies): Active Non-VA Medications Status 1) Non-VA ESCITALOPRAM OXALATE 10MG TAB 5MG BY MOUTH ACTIVE ONCE DAILY 2) Non-VA EZETIMIBE 10MG TAB 10MG BY MOUTH ONCE DAILY ACTIVE 3) Non-VA LOSARTAN 25MG TAB 25MG BY MOUTH TWICE DAILY ACTIVE 4) Non-VA METFORMIN (ONCE DAILY) TAB,SA 500MG BY MOUTH ACTIVE ONCE DAILY 5) Non-VA SITAGLIPTIN (EQV-JANUVIA) 100MG TAB 100MG BY ACTIVE MOUTH ONCE DAILY Tobacco Use Screening: The patient is a former cigarette smoker. The patient has never used other types of tobacco. Suicide Screen: C-SSRS Screening [place]-Suicide Severity Rating Scale (C-SSRS Screener) 1. Over the past month, have you wished you were or wished you could go to sleep and not wake up? No 2. Over the past month, have you had any actual thoughts of killing yourself? No 3. Over the past month, have you been thinking about how you might do this? Response not required due to responses to other questions. 4. Over the past month, have you had these thoughts and had some intention of acting on them? Response not required due to responses to other questions. 5. Over the past month, have you started to work out or worked out the details of how to kill yourself? Response not required due to responses to other questions. 6. If yes, at any time in the past month did you intend to carry out this plan? Response not required due to responses to other questions. 7. In your lifetime, have you ever done anything, started to do anything, or prepared to do anything to end your life (for example, collected pills, obtained a gun, gave away valuables, went to the roof but didn't jump)? No 8. If YES, was this within the past 3 months? Response not required due to responses to other questions. /juan/ ALFREDO JEAN, PhD STAFF PSYCHOLOGIST Signed: 03/12/2024 08:28 Receipt Acknowledged By: 03/12/2024 16:38 /juan/ Reg Herring MD Staff Physician ALFREDO JEAN [facility] [place]
--- OUTSIDE RECORDS SUMMARY | 2024-06-07 15:20 | XMS_ITS | Encounter Summary ---
Author Name [facility] [place] [facility] [place] Address [address] [place] [address] Care Team Providers Care Operation Specialist Name Role Phone ALBIN TRENT Primary Care [...] ALEXI FAMIL Y Apr 18, 2009 [id number] [phone] BETHANY ELLIS PATIENT BCBS [place] FEP PREFERRED PROVIDER ORGANIZAT ION (PPO) BASIC INDIV IDUAL Apr 18, 2020 [id number] BETHANY ELLIS PATIENT [place] F[place] PREFERRED PROVIDER ORGANIZAT ION (PPO) BASIC SELF Apr 18, 2020 [id number] [phone] RHONDA BETHANY PATIENT [place] FEP DENTAL DENTAL INSURANCE BASIC Apr 18, 2020 DENTAL [id number] [phone] BETHANY ELLIS PATIENT CAREMARK FEP BCBS PRESCRIPT ION CAREM ARK FEPRX PLAN Apr 18, 2010 [id number] BETHANY ELLIS PATIENT CAREMARK([id number]) PRESCRIPT ION FEP Apr 18, 2020 [id number] BETHANY ELLIS PATIENT EMPIRE BCBS (FEDERAL) PREFERRED PROVIDER ORGANIZAT ION (PPO) BASIC SELF Apr 18, 2020 [id number] BETHANY ELLIS PATIENT [place] BCBS FED DENTAL DENTAL INSURANCE FEP DENTA L Apr 18, 2020 FEPDENT AL [id number] BETHANY ELLIS PATIENT MEDICARE (WNR) MEDICARE () PART A August 16, 2010 PART A [id number] BETHANY ELLIS PATIENT MEDICARE (WNR) MEDICARE () PART B August 16, 2010 PART B [id number] BETHANY ELLIS PATIENT MEDICARE (R) MEDICARE () PART A August 16, 2010 PART A [id number] BETHANY ELLIS PATIENT MEDICARE (WNR) MEDICARE () PART B August 16, 2010 PART B [id number] BETHANY ELLIS PATIENT MEDICARE (WNR) MEDICARE () PART B August 16, 2010 PART B [id number] RHONDA SCOTTWAYNE O PATIENT MEDICARE ([facility]) MEDICARE () PART A August 16, 2010 PART A [id number] RHONDA SCOTTYAIRING O PATIENT MEDICARE (WNR) MEDICARE () PART A August 16, 2010 PART A [id number] RHONDA SCOTTYAIRING O PATIENT MEDICARE (WNR) MEDICARE () PART B August 16, 2010 PART B [id number] [phone] RHONDA SCOTTYAIRING O PATIENT MEDICARE (WNR) MEDICARE () PART A August 16, 2010 PART A [id number] [phone] BETHANY ELLIS PATIENT MEDICARE (WNR) MEDICARE () PART B August 16, 2010 PART B [id number] [phone] BETHANY ELLIS PATIENT MEDICARE (WNR) MEDICARE (M) PART A August 16, 2010 PART A [id number] [phone] WAYNE ELLIS JR PATIENT MEDICARE (WNR) MEDICARE (M) PART B August 16, 2010 PART B [id number] WAYNE ELLIS JR PATIENT MEDICARE (WNR) MEDICARE (M) PART A August 16, 2010 PART A [id number] WAYNE ELLIS JR O PATIENT MEDICARE (WNR) MEDICARE (M) PART B August 16, 2010 PART B [id number] WAYNE ELLIS JR PATIENT TRIPLE S ADVANTAGE MCR (WNR) MEDICARE ADVANTAGE [facility] (WNR) Apr 18, 2024 DO NOT BILL [id number] BETHANY ELLIS PATIENT TRIPLE-S RAFAEL (FED) PREFERRED PROVIDER ORGANIZAT ION (PPO) FEP PSHB BLUE BASIC Apr 18, 2024 [id number] [phone] BETHANY ELLIS PATIENT Selected Encounter This section includes the information on record at [place] for the Encounter. Date/Time Encounter Type Encounter Description Reason Provider Source May 02, 2024 03:00 PM OFFICE O/P EST MOD 30 MIN [facility] CLINIC - IND ICD-10-CM F32.A Depression, unspecified CLARA,AMBER N IHE Encounter Template Text not used by [place] Assessments - Encounter Diagnoses This section includes the primary and secondary diagnoses documented for the Encounter. Date/Time Primary/Secondary Diagnosis Diagnosis Name Provider Source May 29, 2024 10:06 AM PRIMARY Depression, unspecified CLARA,AMBER N [facility] [place] [facility] May 29, 2024 10:06 AM SECONDARY Anxiety disorder, unspecified CLARA,AMBER N [facility] [place] [facility] Plan of Treatment: Future Appointments [...] 20 appointments. The data comes from all [facility]. Appointment Date/Time Appointment Type Appointme nt Facility Name May 08, 2024 01:00 PM AMBULATORY - MEDICINE [place] [facility] [place] [facility] May 10, 2024 11:00 AM AMBULATORY - [place]CHIATRY [place] [facility] [place] [facility] May 22, 2024 10:00 AM AMBULATORY [place]ICINE [place] [facility] [place] [facility] May 23, 2024 03:00 PM AM[place]ULATORY - [place]ICINE [place] [facility] [place] [facility] May 28, 2024 01:00 PM AM[place]ULATORY [place]ICINE [place] [facility] [place] [facility] Jun 06, 2024 02:30 PM AMBULATORY - PS[place]IATRY [place] [facility] [place] [facility] Jun 20, 2024 11:00 AM AMBULATORY - [place]IATRY [place] [facility] [place] [facility] Jun 25, 2024 10:00 AM AM[place]ULATORY [place]ICINE [place] [facility] [place] [facility] Jun 25, 2024 10:01 AM AMBULATORY - [place]ICINE [place] [facility] [place] [facility] Jul 02, 2024 01:45 PM AMBULATORY - MEDICINE [place] [facility] [place] [facility] Jul 16, 2024 11:00 AM AM[place]ULATORY - [place]ICINE [place] [facility] [place] [facility] August 21, 2024 01:30 PM AMBULATORY - MEDICINE [place] [facility] [place] [facility] Active, Pending, and Scheduled Orders This section includes a listing of several types of active, pending, and scheduled orders, including clinic medications orders, diagnostic test orders, procedure orders and consult orders; where the start date of the order is 45 days before the date of the Encounter or 45 days after the date of theEncounter. The data comes from all [facility]. Test Date/Time Test Type Test Details Facility Name Mar 30, 2024 01:26 PM Consult Order HOME SLEEP STUDY NOX/NHM OUTPT Cons Senior Software Test Engineer's Choice [place] [facility] [place] [facility] Social History: Smoking Status (Most current) and [...] 01:00 PM VA-TOBACCO USE FOR [facility] Tobacco Use History This section includes a history of the smoking, or tobacco-related health factors, that were collected on or before the date of the Encounter. The data comes from the [place] facility where the Encounter took place. Date/Time Smoking Status/Tobacco Use Comment F acility Mar 09, 2024 01:00 PM VA-TOBACCO USE FOR [facility] Advance Directives: All historical and current Section [...] 15, 2011 ADVANCE DIRECTIVE DISCUSSION Sandra [facility] Encounter Notes: All associated encounter notes This section contains the clinical notes associated to the Encounter. Date/Time Encounter Note(s) Provider Source May 02, 2024 03:14 PM PRIMARY CARE NURSE PRACTITIONER OUTPATIENT NOTE: LOCAL TITLE: NURSE PRACTITIONER OUTPATIENT NOTE STANDARD TITLE: PRIMARY CARE NURSE PRACTITIONER OUTPATIENT NOTE DATE OF NOTE: MAY 02, 2024@15:14 ENTRY DATE: MAY 02, 2024@15:14:53 AUTHOR: YFN ELIZABETHIGNER: URGENCY: STATUS: COMPLETED OUTPATIENT MENTAL HEALTH CLINIC: FOLLOW-UP HPI: BETHANY ELLIS, a 78 y/o male [place] previously diagnosed with depressive disorder, PTSD and AUD presents for [facility] Follow-Up appointment. Last seen by This Provider on 03/30/24 Today's appointment started nearly 15 minutes because required a reminder call and then had technical difficulties logging into [facility] and then using its audio settings After start of appointment [place] also had to be redirected as he expressed concern about [facility] not filling the metformin order submitted by his PCP. With effort was convinced that he would need to followup with his PCP about this and that if any MH assessment was to take place we would need to focus on that topic in the limited time remaining. Has felt congested I've been all stuffed up the last four days. Has tolerated increased dose of ESCITALOPRAM well without side effects Feels that both anxiety and depression have decreased slightly Declined continuing upward titration of ESCITALOPRAM at present Sometimes I feel okay and other times not. Elaborated that he sometimes feel some symptoms of depression or anxiety but does not feel that these symptoms warrant a change in his current medication and specifically declines continuing with upward titration of ESCITALOPRAM to better target these symptoms. Still having trouble sleeping. Sleep is interrupted by need for urination. Sleep ranges between 4-6 hours per night at present explicitly and convincingly denied SI, intent or plan and denied thoughts of harming others. SUBSTANCE USE: Tobacco: none in 25 years Alcohol: martini 2-3 times per month Narcotics: denied Cannabis: [...] Outpatient Mental Health Assessment (03/13/2024), confirmed by [place] during assessment: Raised in the [facility] with mom, dad, and 7 siblings. Mom is still living in [place] and is 102 y/o. Father at age 86. 2 siblings are . [place] has brother and nephews living in [facility]. No hx of neglect or abuse in [...] he needs. Son is independent with ADLs. has a girlfriend of a year and hopes she will move in soon. Girlfriend is supportive of Vet seeking MH treatment. 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 Diploma w a few college courses in [employer] arts. Open to further training, perhaps culinary in nature. Working since age 12. 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 Then joined [employer] and retired from there in 2007. 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 Please check JLV. FACILITY ALLERGY/ADR -------- [facility] [[email or web address] NO KNOWN ALLERGIES [place] [facility] [place] [facility] LISINOPRIL MEDICATIONS: reviewed and updated in CPRS Active Outpatient Medications (including Supplies): Active Outpatient Medications Status 1) ESCITALOPRAM OXALATE 20MG TAB TAKE ONE-HALF TABLET BY MOUTH ACTIVE ONCE DAILY FOR /DEPRESSION Indication: MOOD 2) MENTHOL/M-SALICYLATE 10-15% TOP CREAM APPLY A THIN FILM ACTIVE TOPICALLY THREE TIMES DAILY NEEDED Indication: FOR MUSCLE PAIN Active Non-VA Medications Status 1) Non-VA ESCITALOPRAM [...] TAB 100MG BY MOUTH ACTIVE ONCE DAILY 7 Total Medications LABS AND STUDIES: MICROALB/CR RATIO: 556.1 H MICROALBUMIN URINE: 46.1 CREATININE URINE: 82.90 WBC/HPF: 0-5 RBC/HPF: 0-2 Color, Urine (AX 4280): Light-Yellow Appearance, Urine (AX 4280): Clear Glucose, Urine (AX 4280): Normal Ketones, Urine (AX 4280): NEGATIVE Blood, Urine (AX 4280): NEGATIVE Protein, Urine (AX 4280): 50 Nitrite, Urine (AX 4280): NEGATIVE Bilirubin, Urine (AX 4280): NEGATIVE Specific Flora, (AX 4280): 1.019 pH, Urine (UY4264): 6.0 Urobilinogen, Urine (AX 4280): Normal Leukocyte [...] 29.3 Neut %: 60.5 Lymph %: 25.2 [place] %: 7.7 Eos %: 4.6 Baso %: 1.1 Neut, Abs: 2.74 Lymph, Abs: 1.14 [place], Abs: 0.35 Eos, Abs: 0.21 Baso, Abs: 0.05 Immature Granulocytes %: 0.9 H Immature Granulocytes, Abs: 0.04 NRBC%: 0.0 NRBC#: 0.00 SAFETY ASSESSMENT: No acute safety concerns. Convincingly denies any thoughts, intents, or plans to harm self or others. Chronic risk is elevated by status and mental illness but is currently mitigated by participation in treatment and demonstration of help-seeking behaviors. IMPRESSION: [place] presents as polite, cooperative and treatment motivated Reports adherence to current medications with significant therapeutic benefit and denies side effects. Reports desire to continue with current pharmacotherapy regimen. No acute safety concerns Diagnosis: Depressive Disorder, unspecified Anxiety Disorder, unspecified Alcohol Use Disorder, severe, in sustained remission PLAN: 1) CONTINUE ESCITALOPRAM 10 MG PO DAILY Labs: none today Follow-Up: 06/20/24 Discussed risks and benefits of proposed medication treatments including FDA approved indications and off-label uses, as well as common and severe side effects. comprehended all information discussed, had opportunity to ask questions which were answered to their satisfaction, and voluntarily and without duress agreed to trial as documented. CONTACT AND CRISIS INFO: informed that This Provider can be contacted at , EXT 2024 or via Secure Messaging. 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 CODING: Total time today was 30 minutes, which included an in-person visit with [...] of active outpatient prescriptions dispensed from this [place] (local) and dispensed from another [facility] or [...] ELIZABETH Psychiatric Mental Health Nurse Practitioner Signed: 05/19/2024 14:02 YFN ELIZABETH [facility] [place] [facility]
--- OUTSIDE RECORDS SUMMARY | 2024-06-07 15:20 | XMS_ITS | Encounter Summary ---
Author Name [facility] [place] [facility] [place] Address [address] [place] [address] Care Team Providers Care Water Pump Servicer Name Role Phone REG HERRING Primary Care [...] ALEXI FAMIL Y Apr 18, 2009 105 [id number] [phone] BETHANY ELLIS PATIENT BCBS [place] FEP PREFERRED PROVIDER ORGANIZAT ION (PPO) BASIC INDIV IDUAL Apr 18, 2020 111 [id number] [phone] BETHANY ELLIS PATIENT [place] F[place] PREFERRED PROVIDER ORGANIZAT ION (PPO) BASIC SELF Apr 18, 2020 111 [id number] RHONDA BETHANY PATIENT [place] F[place] DENTAL DENTAL INSURANCE BASIC Apr 18, 2020 DENTAL [id number] BETHANY ELLIS PATIENT CAREMARK FEP BCBS PRESCRIPT ION CAREM ARK FEPRX PLAN Apr 18, 2010 [id number] BETHANY ELLIS PATIENT CAREMARK([id number]) PRESCRIPT ION FEP Apr 18, 2020 [id number] BETHANY ELLIS PATIENT EMPIRE BCBS (FEDERAL) PREFERRED PROVIDER ORGANIZAT ION (PPO) BASIC SELF Apr 18, 2020 [id number] BETHANY ELLIS PATIENT [place] BCBS FED DENTAL DENTAL INSURANCE FEP DENTA L Apr 18, 2020 FEPDENT AL [id number] BETHANY ELLIS PATIENT MEDICARE (WNR) MEDICARE () PART A August 16, 2010 PART A [id number] BETHANY ELLIS PATIENT MEDICARE (WNR) MEDICARE () PART B August 16, 2010 PART B [id number] BETHANY ELLIS PATIENT MEDICARE (R) MEDICARE () PART A August 16, 2010 PART A [id number] BETHANY ELLIS PATIENT MEDICARE (WNR) MEDICARE () PART B August 16, 2010 PART B [id number] BETHANY ELLIS PATIENT MEDICARE (WNR) MEDICARE () PART A August 16, 2010 PART A [id number] [id number] RHONDA SCOTTWAYNE O PATIENT MEDICARE ([facility]) MEDICARE () PART B August 16, 2010 PART B [id number] RHONDA SCOTTYAIRING O PATIENT MEDICARE (WNR) MEDICARE () PART A August 16, 2010 PART A [id number] RHONDA SCOTTYAIRING O PATIENT MEDICARE (WNR) MEDICARE () PART B August 16, 2010 PART B [id number] RHONDA SCOTTYAIRING O PATIENT MEDICARE (WNR) MEDICARE () PART A August 16, 2010 PART A [id number] [phone] BETHANY ELLIS PATIENT MEDICARE (WNR) MEDICARE () PART B August 16, 2010 PART B [id number] BETHANY ELLIS PATIENT MEDICARE (WNR) MEDICARE (M) PART A August 16, 2010 PART A [id number] [phone] WAYNE ELLIS JR PATIENT MEDICARE (WNR) MEDICARE (M) PART B August 16, 2010 PART B [id number] WAYNE ELLIS JR O PATIENT MEDICARE (WNR) MEDICARE (M) PART A August 16, 2010 PART A [id number] WAYNE ELLIS JR O PATIENT MEDICARE (WNR) MEDICARE (M) PART B August 16, 2010 PART B [id number] WAYNE ELLIS JR PATIENT TRIPLE S ADVANTAGE MCR (WNR) MEDICARE ADVANTAGE [facility] (WNR) Apr 18, 2024 DO NOT BILL [id number] [phone] BETHANY ELLIS PATIENT TRIPLE-S RAFAEL (FED) PREFERRED PROVIDER ORGANIZAT ION (PPO) FEP PSHB BLUE BASIC Apr 18, 2024 [id number] [phone] BETHANY ELLIS PATIENT Selected Encounter This section includes the information on record at [place] for the Encounter. Date/Time Encounter Type Encounter Description Reason Provider Source Apr 09, 2024 02:30 PM OFFICE O/P EST LOW 20 MIN PRIMARY CARE/MEDICINE ICD-10-CM G89.4 Chronic pain syndrome REG HERRING [facility] Encounter Template Text not used by [place] Assessments - Encounter Diagnoses This section includes the primary and secondary diagnoses documented for the Encounter. Date/Time Primary/Secondary Diagnosis Diagnosis Name Provider Source May 08, 2024 07:14 AM PRIMARY Chronic pain syndrome REG HERRING [facility] May 08, 2024 07:14 AM SECONDARY Encounter for immunization RANDOLPH MANCUSO [facility] Plan of Treatment: Future Appointments (+ 6 months) and Future Tests (+/- 45 days) The Plan of Treatment section includes future care activities for the patient from all [place] treatmentfacilities. This section includes future appointments and future orders which are active, pending or scheduled. Future Appointments This section includes appointments that were scheduled to occur 6 months from the date of the Encounter, up to a maximum of 20 appointments. The data comes from all [place] treatment facilities. Appointment Date/Time Appointment Type Appointme nt Facility Name Apr 13, 2024 09:00 AM AMBULATORY [facility] [place] [facility] Apr 17, 2024 02:00 PM AMBULATORY [facility] [place] [facility] Apr 20, 2024 09:00 AM AMBULATORY [facility] [place] [facility] May 02, 2024 03:00 PM AMBULATORY [facility] [place] [facility] May 08, 2024 01:00 PM [facility]ULATORY [facility] [place] [facility] May 10, 2024 11:00 AM AMBULATORY [facility] [place] [facility] May 22, 2024 10:00 AM [facility]ULATORY [facility] [place] [facility] May 23, 2024 03:00 PM [facility]UL[facility]ORY [facility] [place] [facility] May 28, 2024 01:00 PM [facility]ULATORY [facility] [place] [facility] Jun 06, 2024 02:30 PM AMBULATORY [facility] [place] [facility] Jun 20, 2024 11:00 AM AMBULATORY [facility] [place] [facility] Jun 25, 2024 10:00 AM [facility]ORY [facility] [place] [facility] Jun 25, 2024 10:01 AM [place] [facility] [place] [facility] Jul 02, 2024 01:45 PM [facility]ULATORY [facility] [place] [facility] Jul 16, 2024 11:00 AM [facility]UL[facility]ORY [facility] [place] [facility] August 21, 2024 01:30 PM [place] [facility] [place] [facility] Active, Pending, and Scheduled Orders This section includes a listing of several types of active, pending, and scheduled orders, including clinic medications orders, diagnostic test orders, procedure orders and consult orders; where the start date of the order is 45 days before the date of the Encounter or 45 days after the date of theEncounter. The data comes from all [place] treatment [facility]. Test Date/Time Test Type Test Details Facility Name Mar 13, 2024 12:02 PM Consult Order PSYCHOTHER APY BHIP/NHM OUTPT Cons Crayon Sorting Machine [facility] Mar 30, 2024 01:26 PM Consult Order HOME SLEEP STUDY NOX/NHM OUTPT Cons [employer]on Sorting Machine Feeder's Choice [facility] Lab Results: +/- 30 days of [...] Range Comment Mar 28, 2024 12:21 PM [facility] MICROSCOPIC AUTOMATED, URINE Specimen Type: URINE Comment: If Glucose = >500 and Ketones are positive, please alert the Physician. Ordering Provider: REG HERRING Report Released Date/Time: Feb 02, 2024 12:05 PM Reporting Lab: [facility] [address] [facility] [address] Performing Lab: [facility] [address] [facility] [address] UA WBC 0-5 /[HPF] 0-5 UA RBC 0-2 /[HPF] 0-3 Mar 28, 2024 12:21 PM [facility] LIVER FUNCTION Specimen Type: SERUM No comment entered. Ordering Provider: REG HERRING Report Released Date/Time: Feb 02, 2024 12:05 PM Reporting Lab: [facility] [address] [facility] [address] Performing Lab: [address] [address] PROTEIN,TOTAL 7.0 g/dL 6.0-8.3 ALBUMIN 4.1 g/dL 3.5-5.0 ALKALINE PHOSPHATASE 37 U/L L 40-150 AST 19 U/L 5-34 ALT 28 U/L BILIRUBIN, TOTAL 0.6 mg/dL 0.2-1.2 Mar 28, 2024 12:21 PM [facility] LIPID PANEL FASTING Specimen Type: SERUM No comment entered. Ordering Provider: REG HERRING Report Released Date/Time: Feb 02, 2024 12:05 PM Reporting Lab: [facility] [address] [facility] [address] Performing Lab: [facility] [address] [facility] [address] CHOLESTEROL 248 mg/dL H TRIGLYCERIDE 170 mg/dL H 0-150 LDL calculated 166 mg/dL H 0-129 CHOL/HDL 5.2 HDL CHOLESTEROL 48 mg/dL 40-60 Mar 28, 2024 12:21 PM [facility] BASIC METABOLIC PANEL (fasting) Specimen Type: SERUM No comment entered. Ordering Provider: REG HERRING Report Released Date/Time: Feb 02, 2024 12:05 PM Reporting Lab: [address] [address] Performing Lab: [address] [address] UREA NITROGEN 19 mg/dL 7-25 GLUCOSE 227 mg/dL H 65-100 SODIUM 137 mmol/L 135-145 POTASSIUM 4.4 mmol/L 3.5-5.0 CHLORIDE 108 mmol/L 100-110 CO2 20 meq/L 20-30 CREATININE, Serum 0.97 mg/dL 0.50-1.40 eGFR(CKD-EPI 2020) 80 mL/min >60 Mar 28, 2024 12:21 PM [facility] TSH Specimen Type: SERUM No comment entered. Ordering Provider: REG HERRING Report Released Date/Time: Feb 02, 2024 12:05 PM Reporting Lab: [address] [address] Performing Lab: [address] [address] TSH 0.89 u[IU]/mL 0.35-5.00 Mar 28, 2024 12:21 PM [facility] HEMOGLOBIN A1C PANEL Specimen Type: BLOOD [...] Feb 02, 2024 12:05 PM Reporting Lab: [facility] [address] [address] Performing Lab: [facility] [address] HEMOGLOBIN A1C 7.5 H 4.0-5.6 Mar 28, 2024 12:21 PM [facility] MICROALBUMIN CREATININE RATIO PANEL Specimen Type: URINE No comment entered. Ordering Provider: REG HERRING Report Released Date/Time: Feb 02, 2024 12:05 PM Reporting Lab: [facility] [address] [address] Performing Lab: [facility] [address] [address] MICROALBUMIN/C REATININE RATIO 556.1 mg/g H 0-29.9 MICROALBUMIN,Q UANTITATIVE 46.1 mg/dL RR UNAVAIL CREATININE URINE 82.90 mg/dL Mar 28, 2024 12:21 PM [facility] CBC AND DIFF (AUTO) Specimen Type: BLOOD No comment entered. Ordering Provider: REG HERRING Report Released Date/Time: Feb 02, 2024 12:05 PM Reporting Lab: [facility] [address] [address] Performing Lab: [facility] [address] [address] WBC 4.53 10*3/uL 4.50-11.00 RBC 4.74 10*6/uL [...] 10*3/uL 0.00-0.00 Mar 28, 2024 12:21 PM [facility] URINALYSIS CLEAN CATCH Specimen Type: URINE Comment: If Glucose = >500 and Ketones are positive, please alert the Physician. Ordering Provider: REG HERRING Report Released Date/Time: Feb 02, 2024 12:05 PM Reporting Lab: [address] [address] Performing Lab: [address] [address] UA COLOR Light-Yellow Yellow UA APPEARANCE Clear Clear UA GLUCOSE Normal mg/dL Negative UA KETONES NEGATIVE mg/dL Negative UA BLOOD NEGATIVE mg/dL Negative UA PROTEIN 50 mg/dL Negative UA NITRITE NEGATIVE mg/dL Negative UA BILIRUBIN NEGATIVE mg/dL Negative UA SPECIFIC GRAVITY 1.019 1.016-1.02 2 UA pH 6.0 5.0-9.0 UA UROBILINOGEN Normal mg/dL <2.0 UA LEUKOCYTE NEGATIVE Negative Vital Signs: All taken on the encounter date This section contains inpatient and outpatient Vital Signs collected on the date of the Encounter. Date/Time Temperature Pulse Blood Pressure Respiratory Rate SP02 Pain Height Weight Body Mass Index Source Apr 09, 2024 02:19 PM 98 72 146/70 16 98 8 69 208.9 31 [facility] Immunizations: All administered on the encounter date This section contains immunizations associated to the Encounter. Immunization Series Date Issued Reaction Comments COVID-19 (MODERNA), MRNA, LN P-S, PF, 50 MCG/0.5 ML (AGES 12+ YEARS) 4 Apr 09, 2024 Social History: Smoking Status (Most current) and Tobacco Use (All prior to encounter date) This section includes the most current, and the historical, smoking and tobacco- related health factors from the [place] facility where the Encounter took place. Current Smoking Status This section includes the most current smoking, or tobacco-related health factor, from the [place] facility where the Encounter took place. Date/Time Current Smoking Status Comment Facil ity Mar 09, 2024 01:00 PM VA-TOBACCO USE FOR ALEJANDRO CIGARETTES [facility] Tobacco Use History This section includes a history of the smoking, or tobacco-related health factors, that were collected on or before the date of the Encounter. The data comes from the [place] facility where the Encounter took place. Date/Time Smoking Status/Tobacco Use Comment F acility Mar 09, 2024 01:00 PM VA-TOBACCO USE FOR ALEJANDRO CIGARETTES [facility] Advance Directives: All historical and current Section Date Range: From patient's date of to the date document was created. This section includes ALL of a patient's completed or amended [place] Advance and Rescinded Directives. The entries below indicate that a directive exists for the patient, but an actual copy is not included with this document. The data comes from all [place] facilities. Date Advance Directives Provider Source Dec 15, 2011 ADVANCE DIRECTIVE DISCUSSION Sandra CONNOLLY [facility] Encounter Notes: All associated encounter notes This section contains the clinical notes associated to the Encounter. Date/Time Encounter Note(s) Provider Source Apr 09, 2024 04:39 PM PHYSICIAN NOTE: LOCAL TITLE: NOTE STANDARD TITLE: PHYSICIAN NOTE DATE OF NOTE: APR 09, 2024@16:39 ENTRY DATE: APR 09, 2024@16:39:39 AUTHOR: REG HERRING COSIGNER: URGENCY: STATUS: COMPLETED Patient Name: BETHANY ELLIS VITALS: Patient temperature: 98 F [36.7 C] (04/09/2024 14:19) Blood pressure: 146/70 (04/09/2024 14:19) Patient height: 69 in [175.3 cm] (04/09/2024 14:19) Patient weight: 208.9 lb [94.76 kg] (04/09/2024 14:19) Patient BMI: BMI: 30.9 Patient pulse: 72 (04/09/2024 14:19) Patient respiration: 16 (04/09/2024 14:19) Patient Pulse Oximetry: 98% (04/09/2024 14:19) Pain Ratin (04/09/2024 14:19) Active [facility] Medications: Active Outpatient Medications (including Supplies): Active Outpatient Medications Status 1) ESCITALOPRAM OXALATE 20MG TAB TAKE ONE-HALF TABLET BY MOUTH ACTIVE ONCE DAILY FOR /DEPRESSION Indication: MOOD Pending Outpatient Medications Status 1) MENTHOL/M-SALICYLATE 10-15% TOP CREAM APPLY A THIN FILM PENDING TOPICALLY THREE TIMES DAILY NEEDED Indication: FOR [...] MOUTH ACTIVE ONCE DAILY 7 Total Medications Remote Medications: No Active 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 Patient wishes to continue this medication Review of systems No chest pain or dyspnea No abdominal pain No trouble urinating No fever or chills No cough Physical examination Well-developed well-nourished male in no acute distress Coronary no murmur Lungs clear No scarring or lesions on back MICROALB/CR RATIO: 556.1 H MICROALBUMIN URINE: 46.1 CREATININE URINE: 82.90 WBC/HPF: 0-5 RBC/HPF: 0-2 Color, Urine (AX 4280): Light-Yellow Appearance, Urine (AX 4280): Clear Glucose, Urine (AX 4280): Normal Ketones, Urine (AX 4280): NEGATIVE Blood, Urine (AX 4280): NEGATIVE Protein, Urine (AX 4280): 50 Nitrite, Urine (AX 4280): NEGATIVE Bilirubin, Urine (AX 4280): NEGATIVE Specific [place], (AX 4280): 1.019 pH, Urine (KL6159): 6.0 Urobilinogen, Urine (AX 4280): Normal Leukocyte [...] 29.3 Neut %: 60.5 Lymph %: 25.2 Milam %: 7.7 Eos %: 4.6 Baso %: 1.1 Neut, Abs: 2.74 Lymph, Abs: 1.14 Milam, Abs: 0.35 Eos, Abs: 0.21 Baso, Abs: 0.05 Immature Granulocytes %: 0.9 H Immature Granulocytes, Abs: 0.04 NRBC%: 0.0 NRBC#: 0.00 I discussed above test results with patient Assessment and plan: 1. Back pain: Postoperative skin pain. No acute neurologic deficit. No spinal pain Plan: Topical menthol salicylate Patient said in the past he would like to transfer all medical care to this [place]. today he says he forgot to get private medical records or vaccine record. He will get private medical record to the next few days Follow-up 6 weeks Medication Reconciliation: Outpatient: Has the patient been taking medications as documented in the EMLR? YES: The patient has been taking medications as documented in the EMLR. Essential Medication List for Review used to complete this medication reconciliation. INCLUDED IN THIS LIST: Alphabetical list of active outpatient prescriptions dispensed from this [place] (local) and dispensed from another [place] or [facility] facility (remote) as well as inpatient orders [...] with a VA or non-VA provider. /juan/ Reg Herring MD Staff Physician Signed: 04/09/2024 16:43 REG HERRING [place] [facility] [place] [facility] Apr 09, 2024 02:21 PM PREVENTIVE MEDICINE NURSING NOTE: LOCAL TITLE: CLINICAL REMINDERS/NURSING STANDARD TITLE: PREVENTIVE MEDICINE NURSING NOTE DATE OF NOTE: APR 09, 2024@14:21 ENTRY DATE: APR 09, 2024@14:21:58 AUTHOR: HYUN MANCUSO EXP COSIGNER: URGENCY: STATUS: COMPLETED CLINICAL REMINDERS/NURSING Has ADDENDA Falls & Incontinence Screen: Falls Screen: During the past 12 months, did the patient report any falls? 4. No falls within the past year. Incontinence Screen: During the past 12 months, has the patient has any characteristics of incontinence (ability, voiding, leakage, etc.)? No incontinence. Homelessness/Food Insecurity Screen: In the past 2 months, have you been living in stable housing that you own, rent, or stay in as part of a household? Yes - Living in stable housing. Are you worried or concerned that in the next 2 months you may NOT have stable housing that you own, rent, or stay in as part of a household? No - Not worried about housing near future The reports the following: Within the past 12 months, you worried whether your food would run out before you got money to buy more. Never true Within the past 12 months, the food you bought just didn't last and you didn't have money to get more. Never true /juan/ HYUN MANCUSO LPN LPN Signed: 04/09/2024 14:23 04/09/2024 ADDENDUM STATUS: COMPLETED COVID-19 Immunization: Moderna Monovalent (Spikevax) Administered: COVID-19 (MODERNA), MRNA, LNP-S, PF, 50 MCG/0.5 ML (AGES 12+ YEARS) Date Administered: Apr 09, 2024 14:30 Series: Series 4 Emergency Veterinary Technician: [employer] Lot: [id number] Exp Date: September 15, 2024 [facility]: [phone] Admin Route/Site: INTRAMUSCULAR/LEFT DELTOID Dosage: 0.5mL Vaccine Information Statement(s): COVID-19 MRNA VACCINE (12+ YRS) VIS Feb 02, 2024 (SAMMARINESE) Order By: Policy Administered By: Hyun Mancuso Vaccine administered without complications. /jeff MANCUSO LPN LPN Signed: 04/09/2024 14:58 HYUN MANCUSO [place] [facility]
--- OUTSIDE RECORDS SUMMARY | 2024-06-07 15:20 | XMS_ITS | Encounter Summary ---
Author Name [facility] [place] [facility] [place] Address [address] [place] [address] Care Team Providers Care Controller Operations And Hr Manager Name Role Phone ALBIN TRENT Primary Care [...] ALEXI FAMIL Y Apr 18, 2009 [id number] [phone] RHONDA ISSA PATIENT BCBS [place] FEP PREFERRED PROVIDER ORGANIZAT ION (PPO) BASIC INDIV IDUAL Apr 18, 2020 [id number] RHONDA ISSA PATIENT [place] F[place] PREFERRED PROVIDER ORGANIZAT ION (PPO) BASIC SELF Apr 18, 2020 [id number] RHONDA ISSA PATIENT [place] FEP DENTAL DENTAL INSURANCE BASIC Apr 18, 2020 DENTAL [id number] RHONDA ISSA PATIENT CAREMARK FEP BCBS PRESCRIPT ION CAREM ARK FEPRX PLAN Apr 18, 2010 [id number] ISSA ELLIS PATIENT CAREMARK([id number]) PRESCRIPT ION FEP Apr 18, 2020 [id number] ISSA ELLIS PATIENT EMPIRE BCBS (FEDERAL) PREFERRED PROVIDER ORGANIZAT ION (PPO) BASIC SELF Apr 18, 2020 [id number] ISSA ELLIS PATIENT EMPIRE BCBS FED DENTAL DENTAL INSURANCE FEP DENTA L Apr 18, 2020 FEPDENT AL [id number] ISSA ELLIS PATIENT MEDICARE (WNR) MEDICARE () PART A August 16, 2010 PART A [id number] [phone] ISSA ELLIS PATIENT MEDICARE (WNR) MEDICARE () PART B August 16, 2010 PART B [id number] [phone] ISSA ELLIS PATIENT MEDICARE ([facility]) MEDICARE () PART A August 16, 2010 PART A [id number] WAYNE ELLISO PATIENT MEDICARE (WNR) MEDICARE () PART B August 16, 2010 PART B [id number] ISSA ELLIS PATIENT MEDICARE (WNR) MEDICARE () PART A August 16, 2010 PART A [id number] RHONDA SCOTTWAYNE O PATIENT MEDICARE ([facility]) MEDICARE () PART B August 16, 2010 PART B [id number] RHONDA SCOTTYAIRING O PATIENT MEDICARE (WNR) MEDICARE () PART A August 16, 2010 PART A [id number] RHONDA SCOTTYAIRING O PATIENT MEDICARE (WNR) MEDICARE () PART B August 16, 2010 PART B [id number] RHONDA SCOTTYAIRING O PATIENT MEDICARE (WNR) MEDICARE () PART A August 16, 2010 PART A [id number] ISSA ELLIS PATIENT MEDICARE (WNR) MEDICARE () PART B August 16, 2010 PART B [id number] ISSA ELLIS PATIENT MEDICARE (WNR) MEDICARE (M) PART A August 16, 2010 PART A [id number] [phone] WAYNE ELLIS JR PATIENT MEDICARE (WNR) MEDICARE (M) PART B August 16, 2010 PART B [id number] WAYNE ELLIS JR PATIENT MEDICARE (WNR) MEDICARE (M) PART A August 16, 2010 PART A [id number] WAYNE ELLIS JR O PATIENT MEDICARE (WNR) MEDICARE (M) PART B August 16, 2010 PART B [id number] WAYNE ELLIS JR PATIENT TRIPLE S ADVANTAGE MCR (WNR) MEDICARE ADVANTAGE [facility] (WNR) Apr 18, 2024 DO NOT BILL [id number] ISSA ELLIS PATIENT TRIPLE-S RAFAEL (FED) PREFERRED PROVIDER ORGANIZAT ION (PPO) FEP PSHB BLUE BASIC Apr 18, 2024 [id number] ISSA ELLIS PATIENT Selected Encounter This section includes the information on record at [place] for the Encounter. Date/Time Encounter Type Encounter Description Reason Provider Source Apr 06, 2024 09:00 AM [facility] ICD-10-CM F32.A Depression, unspecified MALINOFSKY,TE VIJI IHE Encounter Template Text not used by [place] Assessments - Encounter Diagnoses This section includes the primary and secondary diagnoses documented for the Encounter. Date/Time Primary/Secondary Diagnosis Diagnosis Name Provider Source May 01, 2024 08:24 AM PRIMARY Depression, unspecified MALINOFSKY,TER JEZ [facility] May 01, 2024 08:24 AM SECONDARY Post-traumatic stress disorder, unspecified MALINOFSKY,TER JEZ [facility] [place] [facility] Plan of Treatment: Future Appointments (+ 6 months) and Future Tests (+/- 45 days) The Plan of Treatment section includes future care activities for the patient from all [place] treatmentfacilities. This section includes future appointments and future orders which are active, pending or scheduled. Future Appointments This section includes appointments that were scheduled to occur 6 months from the date of the Encounter, up to a maximum of 20 appointments. The data comes from all [place] treatment facilities. Appointment Date/Time Appointment Type Appointme nt Facility Name Apr 09, 2024 02:30 PM AM[facility]ULATORY [facility]IC[facility] [place] [facility] Apr 13, 2024 09:00 AM AMBULATORY - PSYCHIATRY [facility] [place] [facility] Apr 17, 2024 02:00 PM AMBULATORY - PS[facility]CHIATRY [facility] [place] [facility] Apr 20, 2024 09:00 AM AMBULATORY - PS[facility]CHIATRY [facility] [place] [facility] May 02, 2024 03:00 PM AMBULATORY - PS[facility]CHIATRY [facility] [place] [facility] May 08, 2024 01:00 PM AMBULATORY [facility]ICINE [facility] [place] [facility] May 10, 2024 11:00 AM AMBULATORY - PS[facility]CHIATRY [facility] [place] [facility] May 22, 2024 10:00 AM AMBULATORY [facility]ICINE [facility] [place] [facility] May 23, 2024 03:00 PM AMBULATORY [facility]ICINE [facility] [place] [facility] May 28, 2024 01:00 PM AMBULATORY - [facility]ICINE [facility] [place] [facility] Jun 06, 2024 02:30 PM AMBULATORY - PSYCHIATRY [facility] [place] [facility] Jun 20, 2024 11:00 AM AMBULATORY - PS[facility]CHIATRY [facility] [place] [facility] Jun 25, 2024 10:00 AM AMBULATORY - [facility]ICINE [facility] [place] [facility] Jun 25, 2024 10:01 AM AMBULATORY [facility] MEDICINE [facility] [place] [facility] Jul 02, 2024 01:45 PM AMBULATORY - MEDICINE [facility] [place] [facility] Jul 16, 2024 11:00 AM AMBULATORY - MEDICINE [facility] [place] [facility] August 21, 2024 01:30 PM AMBULATORY - MEDICINE [facility] [place] [facility] Active, Pending, and Scheduled Orders This section includes a listing of several types of active, pending, and scheduled orders, including clinic medications orders, diagnostic test orders, procedure orders and consult orders; where the start date of the order is 45 days before the date of the Encounter or 45 days after the date of theEncounter. The data comes from all [place] treatment facilities. Test Date/Time Test Type Test Details Facility Name Mar 13, 2024 12:02 PM Consult Order PSYCHOTHER APY BHIP/[facility] OUTPT Cons [employer] [facility] [place] [facility] Mar 30, 2024 01:26 PM Consult Order HOME SLEEP STUDY [facility] Lab Results: +/- 30 days of the encounter This section includes the Chemistry and Hematology Lab Results on record with [place] for the patient. Radiology Reports and Pathology Reports are provided separately, in subsequent sections. Lab Results This section contains the Chemistry/Hematology Results that were resulted 30 days before or 30 daysafter the date of the Encounter. Date/Time Source Result Type Result - Unit Interpretation Reference Range Comment Mar 28, 2024 12:21 PM [facility] MICROSCOPIC AUTOMATED, URINE Specimen Type: URINE Comment: If Glucose = >500 and Ketones are positive, please alert the Physician. Ordering Provider: ALBIN TRENT Report Released Date/Time: Feb 02, 2024 12:05 PM Reporting Lab: [facility] [address] [facility] [address] Performing Lab: [facility] [address] [facility] [address] UA WBC 0-5 /[HPF] 0-5 UA RBC 0-2 /[HPF] 0-3 Mar 28, 2024 12:21 PM [facility] LIVER FUNCTION Specimen Type: SERUM No comment entered. Ordering Provider: ALBIN TRENT Report Released Date/Time: Feb 02, 2024 12:05 PM Reporting Lab: [facility] [address] [facility] [address] Performing Lab: [address] [address] PROTEIN,TOTAL 7.0 g/dL 6.0-8.3 ALBUMIN 4.1 g/dL 3.5-5.0 ALKALINE PHOSPHATASE 37 U/L L 40-150 AST 19 U/L 5-34 ALT 28 U/L BILIRUBIN, TOTAL 0.6 mg/dL 0.2-1.2 Mar 28, 2024 12:21 PM [facility] LIPID PANEL FASTING Specimen Type: SERUM No comment entered. Ordering Provider: ALBIN TRENT Report Released Date/Time: Feb 02, 2024 12:05 PM Reporting Lab: [facility] [address] [facility] [address] Performing Lab: [facility] [address] [facility] [address] CHOLESTEROL 248 mg/dL H TRIGLYCERIDE 170 mg/dL H 0-150 LDL calculated 166 mg/dL H 0-129 CHOL/HDL 5.2 HDL CHOLESTEROL 48 mg/dL 40-60 Mar 28, 2024 12:21 PM [facility] BASIC METABOLIC PANEL (fasting) Specimen Type: SERUM No comment entered. Ordering Provider: ALBIN TRENT Report Released Date/Time: Feb 02, 2024 12:05 PM Reporting Lab: [facility] [address] [facility] [address] Performing Lab: [facility] [address] [facility] [address] UREA NITROGEN 19 mg/dL 7-25 GLUCOSE 227 mg/dL H 65-100 SODIUM 137 mmol/L 135-145 POTASSIUM 4.4 mmol/L 3.5-5.0 CHLORIDE 108 mmol/L 100-110 CO2 20 meq/L 20-30 CREATININE, Serum 0.97 mg/dL 0.50-1.40 eGFR(CKD-EPI 2020) 80 mL/min >60 Mar 28, 2024 12:21 PM [facility] TSH Specimen Type: SERUM No comment entered. Ordering Provider: ALBIN TRENT Report Released Date/Time: Feb 02, 2024 12:05 PM Reporting Lab: [facility] [address] [facility] [address] Performing Lab: [facility] [address] [facility] [address] TSH 0.89 u[IU]/mL 0.35-5.00 Mar 28, 2024 12:21 PM [facility] HEMOGLOBIN A1C PANEL Specimen Type: BLOOD Comment: [...] Feb 02, 2024 12:05 PM Reporting Lab: [facility] [address] [facility] [address] Performing Lab: [address] [address] HEMOGLOBIN A1C 7.5 H 4.0-5.6 Mar 28, 2024 12:21 PM [facility] MICROALBUMIN CREATININE RATIO PANEL Specimen Type: URINE No comment entered. Ordering Provider: ALBIN TRENT Report Released Date/Time: Feb 02, 2024 12:05 PM Reporting Lab: [facility] [address] [facility] [address] Performing Lab: [facility] [address] [facility] [address] MICROALBUMIN/C REATININE RATIO 556.1 mg/g H 0-29.9 MICROALBUMIN,Q UANTITATIVE 46.1 mg/dL RR UNAVAIL CREATININE URINE 82.90 mg/dL Mar 28, 2024 12:21 PM [facility] CBC AND DIFF (AUTO) Specimen Type: BLOOD No comment entered. Ordering Provider: ALBIN TRENT Report Released Date/Time: Feb 02, 2024 12:05 PM Reporting Lab: [facility] [address] [facility] [address] Performing Lab: [address] [address] WBC 4.53 10*3/uL 4.50-11.00 RBC 4.74 10*6/uL [...] 10*3/uL 0.00-0.00 Mar 28, 2024 12:21 PM [facility] URINALYSIS CLEAN CATCH Specimen Type: URINE Comment: If Glucose = >500 and Ketones are positive, please alert the Physician. Ordering Provider: ALBIN TRENT Report Released Date/Time: Feb 02, 2024 12:05 PM Reporting Lab: [facility] [address] [facility] [address] Performing Lab: [address] [address] UA COLOR Light-Yellow Yellow UA APPEARANCE Clear [...] and tobacco- related health factors from the [place] facility where the Encounter took place. Current Smoking Status This section includes the most current smoking, or tobacco-related health factor, from the [place] facility where the Encounter took place. Date/Time Current Smoking Status Comment Rosalba ity Mar 09, 2024 01:00 PM VA-TOBACCO USE FOR ALEJANDRO CIGARETTES [facility] Tobacco Use History This section includes a history of the smoking, or tobacco-related health factors, that were collected on or before the date of the Encounter. The data comes from the [place] facility where the Encounter took place. Date/Time Smoking Status/Tobacco Use Comment F acility Mar 09, 2024 01:00 PM VA-TOBACCO USE FOR ALEJANDRO CIGARETTES [facility] Advance Directives: All historical and current Section Date Range: From patient's date of to the date document was created. This section includes ALL of a patient's completed or amended [place] Advance and Rescinded Directives. The entries below indicate that a directive exists for the patient, but an actual copy is not included with this document. The data comes from all [place] facilities. Date Advance Directives Provider Source Dec 15, 2011 ADVANCE DIRECTIVE DISCUSSION Sandra CONNOLLY [facility] Encounter Notes: All associated encounter notes This section contains the clinical notes associated to the Encounter. Date/Time Encounter Note(s) Provider Source Apr 06, 2024 09:00 AM PSYCHIATRY GROUP COUNSELING NOTE: LOCAL TITLE: PSYCHOLOGY GROUP NOTE STANDARD TITLE: PSYCHIATRY GROUP COUNSELING NOTE DATE OF NOTE: APR 06, 2024@09:00 ENTRY DATE: APR 06, 2024@10:18:33 AUTHOR: JANIS SCHAEFER EXP COSIGNER: URGENCY: STATUS: COMPLETED DEPRESSION group aka [facility] 04/06/2024 SEVEN (7) MEMBERS attended today's group meeting. TOPICS: After wondering whether any of a number of factors are singularly cause for depression, group decided NO, there is not a single factor. But all in all, coming out of depression and moving towards a better life involves all of the following: core belief of self-worth reassessing memories that haunt you with feelings of shame living in the moment, creativity, choosing a job you believe in. Respecting your feelings whatever they are, but also not necessarily considering feelings as truth. Therefore, coping with depression presents a paradox: more next time... The following handouts were provided to those who wanted them. Emotion Avoidance Finding Solid Ground, lesson one Coping with Isolation and Loneliness ........................ ........................ ........................ ........ ........................ ........................ ............. Issa Ellis speaks thoughtfully, quietly, and brings up a concept from years of experience and wisdom, which reflects life's paradox. ........................ ........................ . Diagnoses: Depressive episode ([facility] [id number]) - Depression, unspecified (ICD-10-CM F32.A) (Primary) Post-Traumatic Stress Disorder, unspecified (ICD-10-CM F43.10) Procedures: Group Psychotherapy - Clinical Psychologist /juan/ JANIS SCHAEFER,PhD Neuropsychologist Signed: 04/06/2024 16:30 JANIS SCHAEFER [facility]
--- OUTSIDE RECORDS SUMMARY | 2024-06-07 15:20 | XMS_ITS | Encounter Summary ---
Author Name [facility] [place] [facility] [place] Address [address] [place] [address] Care Team Providers Care Documentation Lead Name Role Phone ALBIN TRENT Primary Care [...] ALEXI FAMIL Y Apr 18, 2009 105 [id number] [phone] BETHANY ELLIS PATIENT BCBS [place] FEP PREFERRED PROVIDER ORGANIZAT ION (PPO) BASIC INDIV IDUAL Apr 18, 2020 111 [id number] [phone] BETHANY ELLIS PATIENT [place] F[place] PREFERRED PROVIDER ORGANIZAT ION (PPO) BASIC SELF Apr 18, 2020 111 [id number] RHONDA BETHANY PATIENT [place] F[place] DENTAL DENTAL INSURANCE BASIC Apr 18, 2020 DENTAL [id number] BETHANY ELLIS PATIENT CAREMARK FEP BCBS PRESCRIPT ION CAREM ARK FEPRX PLAN Apr 18, 2010 [id number] BETHANY ELLIS PATIENT CAREMARK([id number]) PRESCRIPT ION FEP Apr 18, 2020 [id number] BETHANY ELLIS PATIENT EMPIRE BCBS (FEDERAL) PREFERRED PROVIDER ORGANIZAT ION (PPO) BASIC SELF Apr 18, 2020 111 [id number] BETHANY ELLIS PATIENT EMPIRE BCBS FED DENTAL DENTAL INSURANCE FEP DENTA L Apr 18, 2020 FEPDENT AL [id number] [phone] BETHANY ELLIS PATIENT MEDICARE (WNR) MEDICARE () PART A August 16, 2010 PART A [id number] [phone] BETHANY ELLIS PATIENT MEDICARE (WNR) MEDICARE () PART B August 16, 2010 PART B [id number] BETHANY ELLIS PATIENT MEDICARE (WNR) MEDICARE () PART A August 16, 2010 PART A [id number] WAYNE ELLISO PATIENT MEDICARE (WNR) MEDICARE () PART B August 16, 2010 PART B [id number] BETHANY ELLIS PATIENT MEDICARE (WNR) MEDICARE () PART A August 16, 2010 PART A [id number] [id number] RHONDA SCOTTYAIRING O PATIENT MEDICARE (WN) MEDICARE () PART B August 16, 2010 PART B [id number] [id number] RHONDA SCOTTYAIRING O PATIENT MEDICARE (WNR) MEDICARE () PART A August 16, 2010 PART A [id number] RHONDA SCOTTYAIRING O PATIENT MEDICARE (WNR) MEDICARE () PART B August 16, 2010 PART B [id number] RHONDA SCOTTYAIRING O PATIENT MEDICARE (WNR) MEDICARE () PART A August 16, 2010 PART A [id number] BETHANY ELLIS PATIENT MEDICARE (WNR) MEDICARE () PART B August 16, 2010 PART B [id number] [phone] BETHANY ELLIS PATIENT MEDICARE (WNR) MEDICARE (M) PART A August 16, 2010 PART A [id number] WAYNE ELLIS JR PATIENT MEDICARE (WNR) MEDICARE (M) PART B August 16, 2010 PART B [id number] WAYNE ELLIS JR O PATIENT MEDICARE (WNR) MEDICARE (M) PART A August 16, 2010 PART A [id number] [phone] WAYNE ELLIS JR O PATIENT MEDICARE (WNR) MEDICARE (M) PART B August 16, 2010 PART B [id number] [phone] WAYNE ELLIS JR PATIENT TRIPLE S ADVANTAGE MCR (WNR) MEDICARE ADVANTAGE MCR (WNR) Apr 18, 2024 DO NOT BILL [id number] [phone] BETHANY ELLIS PATIENT TRIPLE-S RAFAEL (FED) PREFERRED PROVIDER ORGANIZAT ION (PPO) FEP PSHB BLUE BASIC Apr 18, 2024 33A [id number] BETHANY ELLIS PATIENT Selected Encounter This section includes the information on record at [place] for the Encounter. Date/Time Encounter Type Encounter Description Reason Provider Source Mar 28, 2024 01:00 PM PSYTX W PT 30 MINUTES PCMHI INDIV ICD-10-CM F32.A Depression, unspecified KAILA JEAN IHE Encounter Template Text not used by [place] Assessments - Encounter Diagnoses This section includes the primary and secondary diagnoses documented for the Encounter. Date/Time Primary/Secondary Diagnosis Diagnosis Name Provider Source Apr 19, 2024 11:20 AM PRIMARY Depression, unspecified [facility]AN [facility] Apr 19, 2024 11:20 AM SECONDARY Anxiety disorder, unspecified KAILA JEAN [facility] Plan of Treatment: Future Appointments (+ [...] Appointment Type Appointme nt Facility Name Mar 30, 2024 09:01 AM AMBULATORY [facility] [place] [facility] Mar 30, 2024 01:00 PM AMBULAT[facility] [place] [facility] Apr 06, 2024 09:00 AM AMBULATORY - [facility] [place] [facility] Apr 09, 2024 02:30 PM AMBULATORY - MEDICINE [facility] [place] [facility] Apr 13, 2024 09:00 AM AMBULATORY - [facility]IATRY [facility] [place] [facility] Apr 17, 2024 02:00 PM AMBULATORY - [facility]IATRY [facility] [place] [facility] Apr 20, 2024 09:00 AM AMBULATORY - [facility]ATRY [facility] [place] [facility] May 02, 2024 03:00 PM AMBULATORY - [facility]IATRY [facility] [place] [facility] May 08, 2024 01:00 PM AMBULATORY - MEDICINE [facility] [place] [facility] May 10, 2024 11:00 AM AMBULATORY [facility]IATRY [facility] [place] [facility] May 22, 2024 10:00 AM AMBULATORY [facility] MEDICINE [facility] [place] [facility] May 23, 2024 03:00 PM AMBULATORY [facility] MEDICINE [facility] [place] [facility] May 28, 2024 01:00 PM AMBULATORY [facility] MEDICINE [facility] [place] [facility] Jun 06, 2024 02:30 PM AMBULATORY - PS[facility]IATRY [facility] [place] [facility] Jun 20, 2024 11:00 AM AMBULATORY - [facility]ATRY [facility] [place] [facility] Jun 25, 2024 10:00 AM AMBULATORY [facility] MEDICINE [facility] [place] [facility] Jun 25, 2024 10:01 AM AMBULATORY [facility] MEDICINE [facility] [place] [facility] Jul 02, 2024 01:45 PM AMBULATORY - MEDICINE [facility] [place] [facility] Jul 16, 2024 11:00 AM AMBULATORY - MEDICINE [facility] [place] [facility] August 21, 2024 01:30 PM AMBULATORY - MEDICINE [facility] [place] [facility] Active, Pending, and Scheduled Orders This section includes a listing of several types of active, pending, and scheduled orders, including clinic medications orders, diagnostic test orders, procedure orders and consult orders; where the start date of the order is 45 days before the date of the Encounter or 45 days after the date of theEncounter. The data comes from all [place] treatment facilities. Test Date/Time Test Type Test Details Facility Name Mar 13, 2024 12:02 PM Consult Order PSYCHOTHER APY BHIP/NHM OUTPT Cons Inside B2B [facility] [place] [facility] Mar 30, 2024 01:26 PM Consult Order HOME SLEEP STUDY NOX/NHM OUTPT Cons Inside B2B [facility] [place] [facility] [place] [facility] Lab Results: +/- 30 days of [...] Range Comment Mar 28, 2024 12:21 PM [facility] MICROSCOPIC AUTOMATED, URINE Specimen Type: URINE Comment: If Glucose = >500 and Ketones are positive, please alert the Physician. Ordering Provider: ALBIN TRENT Report Released Date/Time: Feb 02, 2024 12:05 PM Reporting Lab: [facility] [address] [facility] [address] Performing Lab: [facility] [address] [facility] [facility] [address] UA WBC 0-5 /[HPF] 0-5 UA RBC 0-2 /[HPF] 0-3 Mar 28, 2024 12:21 PM [facility] LIPID PANEL FASTING Specimen Type: SERUM No comment entered. Ordering Provider: ALBIN TRENT Report Released Date/Time: Feb 02, 2024 12:05 PM Reporting Lab: [facility] [address] [address] Performing Lab: [facility] [address] [address] CHOLESTEROL 248 mg/dL H TRIGLYCERIDE 170 mg/dL H 0-150 LDL calculated 166 mg/dL H 0-129 CHOL/HDL 5.2 HDL CHOLESTEROL 48 mg/dL 40-60 Mar 28, 2024 12:[address] [facility] LIVER FUNCTION Specimen Type: SERUM No comment entered. Ordering Provider: ALBIN TRENT Report Released Date/Time: Feb 02, 2024 12:05 PM Reporting Lab: [address] [address] Performing Lab: [address] [address] PROTEIN,TOTAL 7.0 g/dL 6.0-8.3 ALBUMIN 4.1 g/dL 3.5-5.0 ALKALINE PHOSPHATASE 37 U/L L 40-150 AST 19 U/L 5-34 ALT 28 U/L BILIRUBIN, TOTAL 0.6 mg/dL 0.2-1.2 Mar 28, 2024 12:[address] [facility] BASIC METABOLIC PANEL (fasting) Specimen Type: SERUM No comment entered. Ordering Provider: ALBIN TRENT Report Released Date/Time: Feb 02, 2024 12:05 PM Reporting Lab: [address] [address] Performing Lab: [address] [address] UREA NITROGEN 19 mg/dL 7-25 GLUCOSE 227 mg/dL H 65-100 SODIUM 137 mmol/L 135-145 POTASSIUM 4.4 mmol/L 3.5-5.0 CHLORIDE 108 mmol/L 100-110 CO2 20 meq/L 20-30 CREATININE, Serum 0.97 mg/dL 0.50-1.40 eGFR(CKD-EPI 2020) 80 mL/min >60 Mar 28, 2024 12:[address] [facility] TSH Specimen Type: SERUM No comment entered. Ordering Provider: ALBIN TRENT Report Released Date/Time: Feb 02, 2024 12:05 PM Reporting Lab: [address] [address] Performing Lab: [facility] [place] [facility] [address] [facility] [address] TSH 0.89 u[IU]/mL 0.35-5.00 Mar 28, 2024 12:21 PM [facility] HEMOGLOBIN A1C PANEL Specimen Type: BLOOD [...] Feb 02, 2024 12:05 PM Reporting Lab: [facility] [address] [address] Performing Lab: [address] [address] HEMOGLOBIN A1C 7.5 H 4.0-5.6 Mar 28, 2024 12:[address] [facility] MICROALBUMIN CREATININE RATIO PANEL Specimen Type: URINE No comment entered. Ordering Provider: ALBIN TRENT Report Released Date/Time: Feb 02, 2024 12:05 PM Reporting [facility]: [facility] [address] [address] Performing Lab: [facility] [address] [address] MICROALBUMIN/C REATININE RATIO 556.1 mg/g H 0-29.9 MICROALBUMIN,Q UANTITATIVE 46.1 mg/dL RR UNAVAIL CREATININE URINE 82.90 mg/dL Mar 28, 2024 12:[address] [facility] CBC AND DIFF (AUTO) Specimen Type: BLOOD No comment entered. Ordering Provider: ALBIN TRENT Report Released Date/Time: Feb 02, 2024 12:05 PM Reporting Lab: [facility] [address] [address] Performing Lab: [facility] [address] [place] [address] WBC 4.53 10*3/uL 4.50-11.00 RBC 4.74 10*6/uL [...] 10*3/uL 0.00-0.00 Mar 28, 2024 12:[address] [facility] URINALYSIS CLEAN CATCH Specimen Type: URINE Comment: If Glucose = >500 and Ketones are positive, please alert the Physician. Ordering Provider: ALBIN TRENT Report Released Date/Time: Feb 02, 2024 12:05 PM Reporting Lab: [address] [address] Performing Lab: [address] [address] UA COLOR Light-Yellow Yellow UA APPEARANCE Clear [...] Facil ity Mar 09, 2024 01:00 PM [place]-TOBACCO USE FOR ALEJANDRO CIGARETTES [facility] Tobacco Use History This section includes a history of the smoking, or tobacco-related health factors, that were collected on or before the date of the Encounter. The data comes from the [place] facility where the Encounter took place. Date/Time Smoking Status/Tobacco Use Comment F acility Mar 09, 2024 01:00 PM [place]-TOBACCO USE FOR ALEJANDRO CIGARETTES [facility] Advance Directives: All historical and current [...] 15, 2011 ADVANCE DIRECTIVE DISCUSSION Sandra CONNOLLY [facility] Encounter Notes: All associated encounter notes This section contains the clinical notes associated to the Encounter. Date/Time Encounter Note(s) Provider Source Mar 28, 2024 05:06 AM [facility]: LOCAL TITLE: PRIMARY MENTAL HEALTH OUTPATIENT FOLLOW UP NOTE STANDARD TITLE: MENTAL HEALTH OUTPATIENT NOTE DATE OF NOTE: MAR 28, 2024@05:06 ENTRY DATE: MAR 28, 2024@05:06:19 AUTHOR: ALFREDO JEAN COSIGNER: URGENCY: STATUS: COMPLETED PC-MHI OUTPATIENT F/U NOTE DURATION: 40 mins Mr. Ellis is a 78 year-old, male with a PMH of depression, anxiety, PTSD, tremors and chronic pain. This was the second session between justowriter operator and [place]. [place] explored how he was feeling a little better regarding mood and stress, and results on screeners were reviewed and reflected this. [place] shared that knowing he was in treatment and feeing heard and validated was helpful. 's goals were explored and confirmed as well as WH MAP and what matters most, and shared that improving his communication with his girlfriend and learning to be more open and vulnerable and less avoidant were his primary goals for treatment. Options of topics and interventions to explore to support this were offered and he confirmed interest in reviewing styles of communication, ways of improving assertiveness, and learning positive and negative ways of giving and receiving power, and related handouts were reviewed. He identified ways of improving assertiveness and benefits of improving assertiveness. He identified self- defeating thoughts. Moreover, he identified challenges with sleep and described possible sleep apnea symptoms and he agreed with justowriter operator consulting with his PCP about potential for a referral for a sleep study. [employer] contacted his PCP about this request. Moreover, he denied SI/HI. SCREENERS: PHQ-9: 8, moderately severe depression, somewhat [...] patient preference, options of treatment were offered. Uriel agreed to return for brief CBT for anxiety and depression, including relaxation training and cognitive restructuring, and further evaluation of trauma-related anxiety symptoms. In addition, he will learn of other MH treatment options. He will return to [facility] for roughly 2-4, individual sessions. He will return to [facility], 04/13 at 1pm. [facility], ASPIRATION, PURPOSE, VALUES, AND SHARED GOALS MAP and values discussed /es/ ALFREDO JEAN, PhD STAFF PSYCHOLOGIST Signed: 04/01/2024 20:04 ALFREDO JEAN [place] [facility] [place] [facility]
--- OUTSIDE RECORDS SUMMARY | 2024-06-07 15:21 | XMS_ITS | Encounter Summary ---
Author Name [facility] [place] Address [address] [place] [address] Care Team Providers Care Cutter Hand Name Role Phone ALBIN TRENT Primary Care [...] ALEXI FAMIL Y Apr 18, 2009 105 [id number] [phone] BETHANY ELLIS PATIENT BCBS MA FEP PREFERRED PROVIDER ORGANIZAT ION (PPO) BASIC INDIV IDUAL Apr 18, 2020 111 [id number] [phone] RHONDA BETHANY PATIENT [place] F[place] PREFERRED PROVIDER ORGANIZAT ION (PPO) BASIC SELF Apr 18, 2020 111 [id number] RHONDA BETHANY PATIENT [place] DENTAL DENTAL INSURANCE BASIC Apr 18, 2020 DENTAL [id number] BETHANY ELLIS PATIENT CAREMARK FEP BCBS PRESCRIPT ION CAREM ARK FEPRX PLAN Apr 18, 2010 [id number] BETHANY ELLIS PATIENT CAREMARK([id number]) PRESCRIPT ION FEP Apr 18, 2020 [id number] BETHANY ELLIS PATIENT EMPIRE BCBS (FEDERAL) PREFERRED PROVIDER ORGANIZAT ION (PPO) BASIC SELF Apr 18, 2020 111 [id number] BETHANY ELLIS PATIENT EMPIRE BCBS FED DENTAL DENTAL INSURANCE FEP DENTA L Apr 18, 2020 FEPDENT [place] [id number] BETHANY ELLIS PATIENT MEDICARE ([facility]) MEDICARE () PART B August 16, 2010 PART B [id number] BETHANY ELLIS PATIENT MEDICARE ([facility]) MEDICARE () PART A August 16, 2010 PART A [id number] RHONDA SCOTTWAYNE O PATIENT MEDICARE ([facility]) MEDICARE () PART B August 16, 2010 PART B [id number] RHONDA SCOTTWAYNE O PATIENT MEDICARE ([facility]) MEDICARE () PART A August 16, 2010 PART A [id number] RHONDA SCOTTYAIRING O PATIENT MEDICARE ([facility]) MEDICARE () PART B August 16, 2010 PART B [id number] RHONDA SCOTTYAIRING O PATIENT MEDICARE ([facility]) MEDICARE () PART B August 16, 2010 PART B [id number] RHONDA SCOTTYAIRING O PATIENT MEDICARE (WN) MEDICARE () PART A August 16, 2010 PART A [id number] RHONDA SCOTTYAIRING O PATIENT MEDICARE (WN) MEDICARE () PART A August 16, 2010 PART A [id number] [phone] BETHANY ELLIS PATIENT MEDICARE (WN) MEDICARE () PART A August 16, 2010 PART A [id number] BETHANY ELLIS PATIENT MEDICARE (R) MEDICARE () PART B August 16, 2010 PART B [id number] BETHANY ELLIS PATIENT MEDICARE (WNR) MEDICARE (M) PART A August 16, 2010 PART A [id number] WAYNE ELLIS JR PATIENT MEDICARE (WNR) MEDICARE (M) PART B August 16, 2010 PART B [id number] WAYNE ELLIS JR PATIENT MEDICARE (WNR) MEDICARE (M) PART B August 16, 2010 PART B [id number] BETHANY ELLIS PATIENT MEDICARE (WNR) MEDICARE (M) PART A August 16, 2010 PART A [id number] BETHANY ELLIS PATIENT TRIPLE S ADVANTAGE MCR (WNR) MEDICARE ADVANTAGE MCR (WNR) Apr 18, 2024 DO NOT BILL [id number] BETHANY ELLIS PATIENT TRIPLE-S RAFAEL (FED) PREFERRED PROVIDER ORGANIZAT ION (PPO) FEP PS BLUE BASIC Apr 18, 2024 33A [id number] [phone] BETHANY ELLIS PATIENT Selected Encounter This section includes the information on record at [place] for the Encounter. Date/Time Encounter Type Encounter Description Reason Pro vider Source Jun 06, 2024 02:30 PM Outpatient Encounter SUBSTANCE USE DISORDER IND IHE Encounter Template Text not used by [place] Plan of Treatment: Future Appointments (+ 6 months) and Future Tests (+/- 45 days) The Plan of Treatment section includes future care activities for the patient from all [place] treatmentfacilities. This section includes future appointments and future orders which are active, pending or scheduled. Future Appointments This section includes appointments that were scheduled to occur 6 months from the date of the Encounter, up to a maximum of 20 appointments. The data comes from all [place] treatment facilities. Appointment Date/Time Appointment Type Appointme nt Facility Name Jun 20, 2024 11:00 AM AMBULATORY - PS[place]CHIATRY [place] [facility] [place] [facility] Jun 25, 2024 10:00 AM AMBULATORY - MEDICINE [place] [facility] [place] [facility] Jun 25, 2024 10:01 AM AMBULATORY - MEDICINE [place] [facility] [place] [facility] Jul 02, 2024 01:45 PM AMBULATORY - MEDICINE [facility] Jul 16, 2024 11:00 AM AMBULATORY - MEDICINE [facility] August 21, 2024 01:30 PM AMBULATORY - MEDICINE [facility] Social History: Smoking Status (Most current) and Tobacco Use (All prior to encounter date) This section includes the most current, and the historical, smoking and tobacco- related health factors from the [place] facility where the Encounter took place. Current Smoking Status This section includes the most current smoking, or tobacco-related health factor, from the [place] facility where the Encounter took place. Date/Time Current Smoking Status Comment Facil ity Mar 09, 2024 01:00 PM [place]-TOBACCO USE FOR ALEJANDRO CIGARETTES [facility] Tobacco Use History This section includes a history of the smoking, or tobacco-related health factors, that were collected on or before the date of the Encounter. The data comes from the [place] facility where the Encounter took place. Date/Time Smoking Status/Tobacco Use Comment F acility Mar 09, 2024 01:00 PM VA-TOBACCO USE FOR ALEJANDRO CIGARETTES [facility] Advance Directives: All historical and current Section Date Range: From patient's date of to the date document was created. This section includes ALL of a patient's completed or amended [place] Advance and Rescinded Directives. The entries below indicate that a directive exists for the patient, but an actual copy is not included with this document. The data comes from all [place] facilities. Date Advance Directives Provider Source Dec 15, 2011 ADVANCE DIRECTIVE DISCUSSION Sandra CONNOLLY [facility]
--- OUTSIDE RECORDS SUMMARY | 2024-06-07 15:21 | XMS_ITS | Encounter Summary ---
Author Name [facility] [place] Organization [facility] Address [address] [place] [address] Care Team Providers Care Housekeeping Coordinator Name Role Phone ALBIN TRENT Primary Care [...] ALEXI FAMIL Y Apr 18, 2009 105 [id number] [phone] RHONDA BETHANY PATIENT BCBS [place] FEP PREFERRED PROVIDER ORGANIZAT ION (PPO) BASIC INDIV IDUAL Apr 18, 2020 111 [id number] [phone] YAIR ELLISINGO PATIENT [place] FEP PREFERRED PROVIDER ORGANIZAT ION (PPO) BASIC SELF Apr 18, 2020 111 [id number] YAIR ELLISINGO PATIENT [place] F[place] DENTAL DENTAL INSURANCE BASIC Apr 18, 2020 DENTAL [id number] YAIR ELLISINGO PATIENT CAREMARK FEP BCBS PRESCRIPT ION CAREM ARK FEPRX PLAN Apr 18, 2010 [id number] YAIR ELLISINGO PATIENT CAREMARK([id number]) PRESCRIPT ION FEP Apr 18, 2020 [id number] BETHANY ELLIS PATIENT EMPIRE BCBS (FEDERAL) PREFERRED PROVIDER ORGANIZAT ION (PPO) BASIC SELF Apr 18, 2020 111 [id number] BETHANY ELLIS PATIENT [place] BCBS FED DENTAL DENTAL INSURANCE FEP DENTA L Apr 18, 2020 FEPDENT AL [id number] [phone] BETHANY ELLIS PATIENT MEDICARE (WNR) MEDICARE () PART B August 16, 2010 PART B [id number] RHONDAWAYNEO PATIENT MEDICARE (WNR) MEDICARE () PART A August 16, 2010 PART A [id number] [phone] RHONDA SCOTTWAYNE O PATIENT MEDICARE (WN) MEDICARE () PART B August 16, 2010 PART B [id number] RHONDA SCOTTWAYNE O PATIENT MEDICARE (WNR) MEDICARE () PART A August 16, 2010 PART A [id number] RHONDA SCOTTYAIRING O PATIENT MEDICARE (WNR) MEDICARE () PART B August 16, 2010 PART B [id number] RHONDA SCOTTWAYNE O PATIENT MEDICARE (WN) MEDICARE () PART A August 16, 2010 PART A [id number] [phone] [id number] RHONDA SCOTTWAYNE O PATIENT MEDICARE (WNR) MEDICARE () PART B August 16, 2010 PART B [id number] RHONDA SCOTTYAIRING O PATIENT MEDICARE (WNR) MEDICARE () PART A August 16, 2010 PART A [id number] [phone] BETHANY ELLIS PATIENT MEDICARE (WNR) MEDICARE () PART A August 16, 2010 PART A [id number] BETHANY ELLIS PATIENT MEDICARE (WNR) MEDICARE () PART B August 16, 2010 PART B [id number] BETHANY ELLIS PATIENT MEDICARE (WNR) MEDICARE () PART A August 16, 2010 PART A [id number] WAYNE ELLIS JR O PATIENT MEDICARE (WNR) MEDICARE (M) PART B August 16, 2010 PART B [id number] WAYNE ELLIS JR O PATIENT MEDICARE (WNR) MEDICARE (M) PART B August 16, 2010 PART B [id number] BETHANY ELLIS PATIENT MEDICARE (WNR) MEDICARE (M) PART A August 16, 2010 PART A [id number] BETHANY ELLIS PATIENT TRIPLE S ADVANTAGE MCR (WNR) MEDICARE ADVANTAGE MCR (WNR) Apr 18, 2024 DO NOT BILL [id number] BETHANY ELLIS PATIENT TRIPLE-S RAFAEL (FED) PREFERRED PROVIDER ORGANIZAT ION (PPO) FEP PSHB BLUE BASIC Apr 18, 2024 33A [id number] BETHANY ELLIS PATIENT Selected Encounter This section includes the information on record at [place] for the Encounter. Date/Time Encounter Type Encounter Description Reason Pro vider Source IHE Encounter Template Text not used by [place] Advance Directives: All historical and current Section Date Range: From patient's date of to the date document was created. This section includes ALL of a patient's completed or amended [place] Advance and Rescinded Directives. The entries below indicate that a directive exists for the patient, but an actual copy is not included with this document. The data comes from all [place] facilities. Date Advance Directives Provider Source Dec 15, 2011 ADVANCE DIRECTIVE DISCUSSION Sandra CONNOLLY [place] [facility]
--- OUTSIDE RECORDS SUMMARY | 2024-06-07 15:21 | XMS_ITS ---
Author Name [facility] [place] Organization [facility] Address [address] [place] [address] Care Team Providers Care Electrocardiogram Technician Name Role Phone ALBIN TRENT Primary Care [...] ALEXI FAMIL Y Apr 18, 2009 [id number] [phone] BETHANY ELLIS PATIENT BCBS [place] FEP PREFERRED PROVIDER ORGANIZAT ION (PPO) BASIC INDIV IDUAL Apr 18, 2020 111 [id number] RHONDA BETAHNY PATIENT [place] F[place] PREFERRED PROVIDER ORGANIZAT ION (PPO) BASIC SELF Apr 18, 2020 [id number] RHONDA BETHANY PATIENT [place] FEP DENTAL DENTAL INSURANCE BASIC Apr 18, 2020 DENTAL [id number] BETHANY ELLIS PATIENT CAREMARK FEP BCBS PRESCRIPT ION CAREM ARK FEPRX PLAN Apr 18, 2010 [id number] BETHANY ELLIS PATIENT CAREMARK([id number]) PRESCRIPT ION FEP Apr 18, 2020 [id number] BETHANY ELLIS PATIENT EMPIRE BCBS (FEDERAL) PREFERRED PROVIDER ORGANIZAT ION (PPO) BASIC SELF Apr 18, 2020 111 [id number] BETHANY ELLIS PATIENT [place] BCBS FED DENTAL DENTAL INSURANCE FEP DENTA L Apr 18, 2020 FEPDENT AL [id number] [phone] BETHANY ELLIS PATIENT MEDICARE (WNR) MEDICARE () PART B August 16, 2010 PART B [id number] BETHANY ELLIS PATIENT MEDICARE ([facility]) MEDICARE () PART A August 16, 2010 PART A [id number] [phone] RHONDA SCOTTWAYNE O PATIENT MEDICARE ([facility]) MEDICARE () PART B August 16, 2010 PART B [id number] 86A RHONDA SCOTTYAIRING O PATIENT MEDICARE ([facility]) MEDICARE () PART A August 16, 2010 PART A [id number] [phone] RHONDA SCOTTYAIRING O PATIENT MEDICARE (WN) MEDICARE () PART B August 16, 2010 PART B [id number] [phone] RHONDA SCOTTYAIRING O PATIENT MEDICARE ([facility]) MEDICARE () PART A August 16, 2010 PART A [id number] RHONDA SCOTTYAIRVENKAT O PATIENT MEDICARE (WN) MEDICARE () PART B August 16, 2010 PART B [id number] RHONDA SCOTTYAIRVENKAT O PATIENT MEDICARE (WNR) MEDICARE () PART A August 16, 2010 PART A [id number] 86A WAYNE ELLISO PATIENT MEDICARE (WNR) MEDICARE () PART A August 16, 2010 PART A [id number] 86A BETHANY ELLIS PATIENT MEDICARE (WNR) MEDICARE () PART B August 16, 2010 PART B [id number] BETHANY ELLIS PATIENT MEDICARE (WNR) MEDICARE (M) PART A August 16, 2010 PART A [id number] WAYNE ELLIS JR PATIENT MEDICARE (WNR) MEDICARE (M) PART B August 16, 2010 PART B [id number] [phone] WAYNE ELLIS JR PATIENT MEDICARE (WNR) MEDICARE (M) PART B August 16, 2010 PART B [id number] 86A BETHANY ELLIS PATIENT MEDICARE (WNR) MEDICARE (M) PART A August 16, 2010 PART A [id number] BETHANY ELLIS PATIENT TRIPLE S ADVANTAGE MCR (WNR) MEDICARE ADVANTAGE MCR (WNR) Apr 18, 2024 DO NOT BILL [id number] [phone] BETHANY ELLIS PATIENT TRIPLE-S RAFAEL (FED) PREFERRED PROVIDER ORGANIZAT ION (PPO) FEP PSHB BLUE BASIC Apr 18, 2024 [id number] [phone] BETHANY ELLIS PATIENT Selected Encounter This section includes the information on record at [place] for the Encounter. Date/Time Encounter Type Encounter Description Reason Provider Source Mar 14, 2024 09:30 AM ICE CREAM MIXER STAND UP COMEDIAN INDIVIDU ICE CREAM MIXER SERVICE - INDIVIDUAL ICD-10-CM Z71.81 Spiritual or oriental orthodox counseling OWEN BETHEA [facility] Encounter Template Text not used by [place] Assessments - Encounter Diagnoses This section includes the primary and secondary diagnoses documented for the Encounter. Date/Time Primary/Secondary Diagnosis Diagnosis Name Provider Source Mar 14, 2024 10:23 AM PRIMARY Spiritual or oriental orthodox counseling OWEN BETHEA [place] [facility] [place] [facility] Plan of Treatment: Future Appointments (+ 6 months) and Future Tests (+/- 45 days) The Plan of Treatment section includes future care activities for the patient from all [place] treatmentfacilities. This section includes future appointments and future orders which are active, pending or scheduled. Future Appointments This section includes appointments that were scheduled to occur 6 months from the date of the Encounter, up to a maximum of 20 appointments. The data comes from all [place] treatment facilities. Appointment Date/Time Appointment Type Appointme nt Facility Name Mar 21, 2024 02:30 PM AM[facility]ULATORY [facility]INE [facility] [place] [facility] Mar 28, 2024 01:00 PM AMBULATORY - PS[facility]CHIATRY [facility] [place] [facility] Mar 30, 2024 09:01 AM AMBULATORY - PS[facility]IATRY [facility] [place] [facility] Mar 30, 2024 01:00 PM AMBULATORY - PS[facility]CHIATRY [facility] [place] [facility] Apr 06, 2024 09:00 AM AMBULATORY - PS[facility]IATRY [facility] [place] [facility] Apr 09, 2024 02:30 PM [facility]ULATORY [facility]ICINE [facility] [place] [facility] Apr 13, 2024 09:00 AM AMBULATORY - PS[facility]IATRY [facility] [place] [facility] Apr 17, 2024 02:00 PM AMBULATORY - PS[facility]CHIATRY [facility] [place] [facility] Apr 20, 2024 09:00 AM AMBULATORY [facility] PS[facility]IATRY [facility] [place] [facility] May 02, 2024 03:00 PM AMBULATORY - PS[facility]CHIATRY [facility] [place] [facility] May 08, 2024 01:00 PM AM[facility]ULATORY [facility] MEDICINE [facility] [place] [facility] May 10, 2024 11:00 AM AMBULATORY [facility] PS[facility]IATRY [facility] [place] [facility] May 22, 2024 10:00 AM AM[facility]ULATORY [facility] MEDICINE [facility] [place] [facility] May 23, 2024 03:00 PM AM[facility]ULATORY [facility] MEDICINE [facility] [place] [facility] May 28, 2024 01:00 PM AM[facility]ULATORY [facility] MEDICINE [facility] [place] [facility] Jun 06, 2024 02:30 PM AMBULATORY - PS[facility]CHIATRY [facility] [place] [facility] Jun 20, 2024 11:00 AM AMBULATORY - PS[facility]CHIATRY [facility] [place] [facility] Jun 25, 2024 10:00 AM AMBULATORY [facility] MEDICINE [facility] [place] [facility] Jun 25, 2024 10:01 AM AM[facility]ULATORY [facility] MEDICINE [facility] [place] [facility] Jul 02, 2024 01:45 PM AMBULATORY - MEDICINE [facility] [place] [facility] Active, Pending, and Scheduled Orders This section includes a listing of several types of active, pending, and scheduled orders, including clinic medications orders, diagnostic test orders, procedure orders and consult orders; where the start date of the order is 45 days before the date of the Encounter or 45 days after the date of theEncounter. The data comes from all [place] treatment facilities. Test Date/Time Test Type Test Details Facility Name Feb 02, 2024 12:04 PM Consult Order COMMUNITY CARE-NEUROLOGY Cons Computer Numerical Control [facility] [place] [facility] Mar 13, 2024 12:02 PM Consult Order PSYCHOTHER APY BHIP/[facility] OUTPT Cons Computer Numerical Control Programmer[facility] [place] [facility] Mar 30, 2024 01:26 PM Consult Order HOME SLEEP STUDY NOX/[facility] OUTPT Cons Computer Numerical Control [facility] Lab Results: +/- 30 days of [...] Range Comment Mar 28, 2024 12:21 PM [facility] MICROSCOPIC AUTOMATED, URINE Specimen Type: URINE Comment: If Glucose = >500 and Ketones are positive, please alert the Physician. Ordering Provider: ALBIN TRENT Report Released Date/Time: Feb 02, 2024 12:05 PM Reporting [facility] [address] [facility] [address] Performing Lab: [facility] [address] [facility] [address] UA WBC 0-5 /[HPF] 0-5 UA RBC 0-2 /[HPF] 0-3 Mar 28, 2024 12:21 PM [facility] LIPID PANEL FASTING Specimen Type: SERUM No comment entered. Ordering Provider: ALIBN TRENT Report Released Date/Time: Feb 02, 2024 12:05 PM Reporting Lab: [address] [address] Performing Lab: [facility] [address] [facility] [address] CHOLESTEROL 248 mg/dL H TRIGLYCERIDE 170 mg/dL H 0-150 LDL calculated 166 mg/dL H 0-129 CHOL/HDL 5.2 HDL CHOLESTEROL 48 mg/dL 40-60 Mar 28, 2024 12:21 PM [facility] LIVER FUNCTION Specimen Type: SERUM No comment entered. Ordering Provider: ALBIN TRENT Report Released Date/Time: Feb 02, 2024 12:05 PM Reporting Lab: [address] [address] Performing Lab: [address] [address] PROTEIN,TOTAL 7.0 g/dL 6.0-8.3 ALBUMIN 4.1 g/dL 3.5-5.0 ALKALINE PHOSPHATASE 37 U/L L 40-150 AST 19 U/L 5-34 ALT 28 U/L BILIRUBIN, TOTAL 0.6 mg/dL 0.2-1.2 Mar 28, 2024 12:21 PM [facility] BASIC METABOLIC PANEL (fasting) Specimen Type: SERUM No comment entered. Ordering Provider: ALBIN TRENT Report Released Date/Time: Feb 02, 2024 12:05 PM Reporting Lab: [address] [address] Performing Lab: [address] [address] UREA NITROGEN 19 mg/dL 7-25 GLUCOSE 227 mg/dL H 65-100 SODIUM 137 mmol/L 135-145 POTASSIUM 4.4 mmol/L 3.5-5.0 CHLORIDE 108 mmol/L 100-110 CO2 20 meq/L 20-30 CREATININE, Serum 0.97 mg/dL 0.50-1.40 eGFR(CKD-EPI 2020) 80 mL/min >60 Mar 28, 2024 12:21 PM [facility] TSH Specimen Type: SERUM No comment entered. Ordering Provider: ALBIN TRENT Report Released Date/Time: Feb 02, 2024 12:05 PM Reporting Lab: [address] [place] [address] Performing Lab: [facility] [address] TSH 0.89 u[IU]/mL 0.35-5.00 Mar 28, 2024 12:21 PM [facility] HEMOGLOBIN A1C PANEL Specimen Type: BLOOD [...] Feb 02, 2024 12:05 PM Reporting Lab: [facility] [address] [address] Performing Lab: [address] [address] HEMOGLOBIN A1C 7.5 H 4.0-5.6 Mar 28, 2024 12:21 PM [facility] MICROALBUMIN CREATININE RATIO PANEL Specimen Type: URINE No comment entered. Ordering Provider: ALBIN TRENT Report Released Date/Time: Feb 02, 2024 12:05 PM Reporting [facility]: [facility] [address] [address] Performing Lab: [facility] [address] [address] MICROALBUMIN/C REATININE RATIO 556.1 mg/g H 0-29.9 MICROALBUMIN,Q UANTITATIVE 46.1 mg/dL RR UNAVAIL CREATININE URINE 82.90 mg/dL Mar 28, 2024 12:21 PM [facility] CBC AND DIFF (AUTO) Specimen Type: BLOOD No comment entered. Ordering Provider: ALBIN TRENT Report Released Date/Time: Feb 02, 2024 12:05 PM Reporting Lab: [facility] [address] [address] Performing Lab: [facility] [place] [facility] [address] [facility] [address] WBC 4.53 10*3/uL 4.50-11.00 RBC 4.74 10*6/uL [...] 10*3/uL 0.00-0.00 Mar 28, 2024 12:21 PM [facility] URINALYSIS CLEAN CATCH Specimen Type: URINE Comment: If Glucose = >500 and Ketones are positive, please alert the Physician. Ordering Provider: ALBIN TRENT Report Released Date/Time: Feb 02, 2024 12:05 PM Reporting Lab: [address] [address] Performing Lab: [address] [address] UA COLOR Light-Yellow Yellow UA APPEARANCE Clear [...] and tobacco- related health factors from the [place] facility where the Encounter took place. Current Smoking Status This section includes the most current smoking, or tobacco-related health factor, from the [place] facility where the Encounter took place. Date/Time Current Smoking Status Comment Facil ity Mar 09, 2024 01:00 PM [place]-TOBACCO USE FOR ALEJANDRO CIGARETTES [facility] Tobacco Use History This section includes a history of the smoking, or tobacco-related health factors, that were collected on or before the date of the Encounter. The data comes from the [place] facility where the Encounter took place. Date/Time Smoking Status/Tobacco Use Comment F acility Mar 09, 2024 01:00 PM VA-TOBACCO USE FOR ALEJANDRO CIGARETTES [facility] Advance Directives: All historical and current Section Date Range: From patient's date of to the date document was created. This section includes ALL of a patient's completed or amended [place] Advance and Rescinded Directives. The entries below indicate that a directive exists for the patient, but an actual copy is not included with this document. The data comes from all [place] facilities. Date Advance Directives Provider Source Dec 15, 2011 ADVANCE DIRECTIVE DISCUSSION Sandra CONNOLLY [facility] Encounter Notes: All associated encounter notes This section contains the clinical notes associated to the Encounter. Date/Time Encounter Note(s) Provider Source Mar 14, 2024 10:56 AM PASTORAL CARE CONS ULT: LOCAL TITLE: CONSULT REPORT/PASTORAL CARE STANDARD TITLE: PASTORAL CARE CONSULT DATE OF NOTE: MAR 14, 2024@10:56 ENTRY DATE: MAR 14, 2024@10:57:40 AUTHOR: ZIA BETHEA EXP COSIGNER: URGENCY: STATUS: COMPLETED See Pipe Line Walker telephone note from 14 March 2024. /juan/ ZIA BETHEA Signed: 03/14/2024 10:58 ZIA BETHEA [place] [facility] [place] [facility] Mar 14, 2024 10:07 AM PASTORAL CARE TELE PHONE ENCOUNTER NOTE: LOCAL TITLE: TELEPHONE NOTE/ICE CREAM MIXER COUNSELING STANDARD TITLE: PASTORAL CARE TELEPHONE ENCOUNTER NOTE DATE OF NOTE: MAR 14, 2024@10:07 ENTRY DATE: MAR 14, 2024@10:07:47 AUTHOR: ZIA BETHEA EXP COSIGNER: URGENCY: STATUS: COMPLETED Date: 14 March 2024 Time: 0930 hrs. Confirm Taoist Preference: Mu-Ism Covenant/Yarsani Branch of Service: [employer] [place] Spiritual Needs/Concerns: CH received message requested consult regarding finding a new christian home where they could feel comfortable attending. CH contacted by phone to offer information about several churches in the [facility] [place] where is living. During the conversation made several statements about previous mistakes and feeling uncomfortable being in a christian setting. Olivia Points During Discussion: CH gave information about the [place] chapel staff and weekly groups called paper roll machine operator time groups here at the [facility] designed to encourage veterans to explore their spiritual self and investigate who they are as a spiritual being using the [place] whole health concept of what matters most to them. [place] received information about Tuesday Night Movie group, [employer] group, [employer], [employer], and [employer]. Impressions: [place] is clearly dealing with something that happened several years ago that has kept him from feeling God's love. Gently encourage him to see the beauty in forgiveness/repentance. Pastoral Plan: This is going to depend on whether attends any of the upcoming paper roll machine operator time groups. If he does attend hold space for them to start sharing their story and working through the issues they are feeling. If doesn't attend upcoming groups reach back out to them and offer further support as needed. Length of Visit: 45 mins. /juan/ ZIA BETHEA Signed: 03/14/2024 10:23 ZIA BETHEA [place] [facility] [place] [facility]
--- OUTSIDE RECORDS SUMMARY | 2024-06-07 15:21 | XMS_ITS | Encounter Summary ---
Author Name [place] Address [address] [place] [address] Care Team Providers Care Flight Attendant Inflight Services Name Role Phone ALBIN TRENT Primary Care [...] Downing's Name Patient's Relationship to Policy Downing ANTHMACKENZIE BCBS CT FEDERAL PREFERRED PROVIDER ORGANIZAT ION (PPO) STAND ALEXI FAMIL Y Apr 18, 2009 [id number] [phone] RHONDA BETHANY PATIENT BCBS [place] FEP PREFERRED PROVIDER ORGANIZAT ION (PPO) BASIC INDIV IDUAL Apr 18, 2020 111 [id number] RHONDA BETHANY PATIENT [place] FEP PREFERRED PROVIDER ORGANIZAT ION (PPO) BASIC SELF Apr 18, 2020 111 [id number] RHONDA BETHANY PATIENT [place] FEP DENTAL DENTAL INSURANCE BASIC Apr 18, 2020 DENTAL [id number] RHONDA BETHANY PATIENT CAREMARK FEP BCBS PRESCRIPT ION CAREM ARK FEPRX PLAN Apr 18, 2010 [id number] BETHANY ELLIS PATIENT CAREMARK([id number]) PRESCRIPT ION FEP Apr 18, 2020 [id number] BETHANY ELLIS PATIENT EMPIRE BCBS (FEDERAL) PREFERRED PROVIDER ORGANIZAT ION (PPO) BASIC SELF Apr 18, 2020 111 [id number] [phone] BETHANY ELLIS PATIENT E[place]IRE BCBS FED DENTAL DENTAL INSURANCE FEP DENTA L Apr 18, 2020 FEPDENT AL [id number] BETHANY ELLIS PATIENT MEDICARE (WNR) MEDICARE () PART A August 16, 2010 PART A [id number] BETHANY ELLIS PATIENT MEDICARE (WNR) MEDICARE () PART B August 16, 2010 PART B [id number] [phone] BETHANY ELLIS PATIENT MEDICARE ([facility] MEDICARE () PART A August 16, 2010 PART A [id number] WAYNE ELLISO PATIENT MEDICARE (WNR) MEDICARE () PART B August 16, 2010 PART B [id number] BETHANY ELLIS PATIENT MEDICARE (WNR) MEDICARE () PART A August 16, 2010 PART A [id number] 86A RHONDA SCOTTWAYNE O PATIENT MEDICARE ([facility] MEDICARE () PART B August 16, 2010 PART B [id number] 86A RHONDA SCOTTYAIRING O PATIENT MEDICARE (WNR) MEDICARE () PART A August 16, 2010 PART A [id number] [phone] RHONDA SCOTTYAIRING O PATIENT MEDICARE (WNR) MEDICARE () PART B August 16, 2010 PART B [id number] RHONDA SCOTTYAIRING O PATIENT MEDICARE (WNR) MEDICARE () PART A August 16, 2010 PART A [id number] BETHANY ELLIS PATIENT MEDICARE (WNR) MEDICARE () PART B August 16, 2010 PART B [id number] 86A BETHANY ELLIS PATIENT MEDICARE (WNR) MEDICARE (M) PART A August 16, 2010 PART A [id number] [phone] WAYNE ELLIS JR PATIENT MEDICARE (WNR) MEDICARE (M) PART B August 16, 2010 PART B [id number] WAYNE ELLIS JR O PATIENT MEDICARE (WNR) MEDICARE (M) PART A August 16, 2010 PART A [id number] [phone] WAYNE ELLIS JR O PATIENT MEDICARE (WNR) MEDICARE (M) PART B August 16, 2010 PART B [id number] WAYNE ELLIS JR PATIENT TRIPLE S ADVANTAGE MCR (WNR) MEDICARE ADVANTAGE MCR (WNR) Apr 18, 2024 DO NOT BILL [id number] [phone] BETHANY ELLIS PATIENT TRIPLE-S RAFAEL (FED) PREFERRED PROVIDER ORGANIZAT ION (PPO) FEP PSHB BLUE BASIC Apr 18, 2024 [id number] BETHANY ELLIS PATIENT Selected Encounter This section includes the information on record at [place] for the Encounter. Date/Time Encounter Type Encounter Description Reason Pro vider Source May 21, 2024 12:00 PM Outpatient Encounter PAIN CLINIC [facility] Encounter Template Text not used by [place] Plan of Treatment: Future Appointments (+ 6 months) and Future Tests (+/- 45 days) The Plan of Treatment section includes future care activities for the patient from all [place] treatmentfacilities. This section includes future appointments and future orders which are active, pending or scheduled. Future Appointments This section includes appointments that were scheduled to occur 6 months from the date of the Encounter, up to a maximum of 20 appointments. The data comes from all [place] treatment facilities. Appointment Date/Time Appointment Type Appointme nt Facility Name May 22, 2024 10:00 AM AMBULATORY - MEDICINE [place] [facility] [place] [facility] May 23, 2024 03:00 PM AMBULATORY - MEDICINE [place] [facility] [place] [facility] May 28, 2024 01:00 PM AMBULATORY - MEDICINE [place] [facility] [facility] Jun 06, 2024 02:30 PM AMBULATORY - PSYCHIATRY [place] [facility] [place] [facility] Jun 20, 2024 11:00 AM AMBULATORY - PS[place]CHIATRY [place] [facility] [place] [facility] Jun 25, 2024 10:00 AM [facility] [place] [facility] Jun 25, 2024 10:01 AM [facility] [place] [facility] Jul 02, 2024 01:45 PM [facility] [place] [facility] Jul 16, 2024 11:00 AM [facility] [place] [facility] August 21, 2024 01:30 PM [facility] Social History: Smoking Status (Most current) and Tobacco Use (All prior to encounter date) This section includes the most current, and the historical, smoking and tobacco- related health factors from the [place] facility where the Encounter took place. Current Smoking Status This section includes the most current smoking, or tobacco-related health factor, from the [place] facility where the Encounter took place. Date/Time Current Smoking Status Comment Facil ity Mar 09, 2024 01:00 PM VA-TOBACCO USE FOR ALEJANDRO CIGARETTES [facility] Tobacco Use History This section includes a history of the smoking, or tobacco-related health factors, that were collected on or before the date of the Encounter. The data comes from the [place] facility where the Encounter took place. Date/Time Smoking Status/Tobacco Use Comment F acility Mar 09, 2024 01:00 PM VA-TOBACCO USE FOR ALEJANDRO CIGARETTES [facility] Advance Directives: All historical and current Section Date Range: From patient's date of to the date document was created. This section includes ALL of a patient's completed or amended [place] Advance and Rescinded Directives. The entries below indicate that a directive exists for the patient, but an actual copy is not included with this document. The data comes from all [place] facilities. Date Advance Directives Provider Source Dec 15, 2011 ADVANCE DIRECTIVE DISCUSSION Sandra CONNOLLY [facility] Encounter Notes: All associated encounter notes This section contains the clinical notes associated to the Encounter. Date/Time Encounter Note(s) Provider Source May 21, 2024 12:00 PM TELEPHONE ENCOUNTE R NOTE: LOCAL TITLE: TELEPHONE NOTE/SPECIALTY CLINIC STANDARD TITLE: TELEPHONE ENCOUNTER NOTE DATE OF NOTE: MAY 21, 2024@12:00 ENTRY DATE: MAY 21, 2024@12:00:22 AUTHOR: SWETA AG EXP COSIGNER: URGENCY: STATUS: COMPLETED Called and spoke with pt to remind them that they have a VVC appt with the Pain clinic on 05/22/2024 at 10am . /juan/ SWETA AG ADVANCED HEAD TENNIS COACH Signed: 05/21/2024 12:01 SWETA AG [place] [facility]
--- OUTSIDE RECORDS SUMMARY | 2024-06-07 15:21 | XMS_ITS | Encounter Summary ---
Author Name [facility] [place] [facility] [place] [facility] [place] Address [address] [place] [address] Care Team Providers Care Over Short And Damage Clerk Name Role Phone ALBIN TRENT Primary Care [...] ALEXI FAMIL Y Apr 18, 2009 [id number] [phone] RHONDA BETHANY PATIENT BCBS [place] FEP PREFERRED PROVIDER ORGANIZAT ION (PPO) BASIC INDIV IDUAL Apr 18, 2020 [id number] RHONDA BETHANY PATIENT [place] FEP PREFERRED PROVIDER ORGANIZAT ION (PPO) BASIC SELF Apr 18, 2020 [id number] YAIR ELLISINGO PATIENT [place] F[place] DENTAL DENTAL INSURANCE BASIC Apr 18, 2020 DENTAL [id number] RHONDA BETHANY PATIENT CAREMARK FEP BCBS PRESCRIPT ION CAREM ARK FEPRX PLAN Apr 18, 2010 [id number] BETHANY ELLIS PATIENT CAREMARK([id number]) PRESCRIPT ION FEP Apr 18, 2020 [id number] BETHANY ELLIS PATIENT [place] BCBS (FED[place]) PREFERRED PROVIDER ORGANIZAT ION (PPO) BASIC SELF Apr 18, 2020 [id number] BETHANY ELLIS PATIENT [place] BCBS FED DENTAL DENTAL INSURANCE FEP DENTA L Apr 18, 2020 FEPDENT AL [id number] BETHANY ELLIS PATIENT MEDICARE ([place]) MEDICARE () PART A August 16, 2010 PART A [id number] BETHANY ELLIS PATIENT MEDICARE (WNR) MEDICARE () PART B August 16, 2010 PART B [id number] BETHANY ELLIS PATIENT MEDICARE ([facility]) MEDICARE () PART A August 16, 2010 PART A [id number] WAYNE ELLISO PATIENT MEDICARE ([place]NR) MEDICARE () PART B August 16, 2010 PART B [id number] BETHANY ELLIS PATIENT MEDICARE ([place]NR) MEDICARE () PART A August 16, 2010 PART A [id number] WAYNE ELLIS JR O PATIENT MEDICARE ([facility]) MEDICARE () PART B August 16, 2010 PART B [id number] RHONDA SCOTTYAIRVENKAT O PATIENT MEDICARE (R) MEDICARE () PART A August 16, 2010 PART A [id number] [phone] RHONDA SCOTTYAIRING O PATIENT MEDICARE ([place]NR) MEDICARE () PART B August 16, 2010 PART B [id number] WAYNE ELLIS JR O PATIENT MEDICARE ([place]NR) MEDICARE () PART A August 16, 2010 PART A [id number] [phone] BETHANY ELLIS PATIENT MEDICARE ([place]) MEDICARE () PART B August 16, 2010 PART B [id number] [phone] BETHANY ELLIS PATIENT MEDICARE ([place]) MEDICARE (M) PART A August 16, 2010 PART A [id number] WAYNE ELLIS JR O PATIENT MEDICARE ([place]NR) MEDICARE (M) PART B August 16, 2010 PART B [id number] [phone] WAYNE ELLIS JR O PATIENT MEDICARE ([place]NR) MEDICARE (M) PART A August 16, 2010 PART A [id number] WAYNE ELLIS JR O PATIENT MEDICARE ([place]) MEDICARE (M) PART B August 16, 2010 PART B [id number] [phone] WAYNE ELLIS JR PATIENT TRIPLE S ADVANTAGE MCR ([place]) MEDICARE ADVANTAGE MCR ([place]NR) Apr 18, 2024 DO NOT BILL [id number] [phone] BETHANY ELLIS PATIENT TRIPLE-S RAFAEL (FED) PREFERRED PROVIDER ORGANIZAT ION (PPO) FEP PS BLUE BASIC Apr 18, 2024 [id number] BETHANY ELLIS PATIENT Selected Encounter This section includes the information on record at [place] for the Encounter. Date/Time Encounter Type Encounter Description Reason Pro vider Source May 25, 2024 08:03 AM Outpatient Encounter [facility] INDIV IHE Encounter Template Text not used by [place] Plan of Treatment: Future Appointments (+ 6 months) and Future Tests (+/- 45 days) The Plan of Treatment section includes future care activities for the patient from all [place] treatmentfacilities. This section includes future appointments and future orders which are active, pending or scheduled. Future Appointments This section includes appointments that were scheduled to occur 6 months from the date of the Encounter, up to a maximum of 20 appointments. The data comes from all [place] treatment facilities. Appointment Date/Time Appointment Type Appointme nt Facility Name May 28, 2024 01:00 PM AMBULATORY - MEDICINE [facility] NTR LUCHO ARMENDARIZ [facility] Jun 06, 2024 02:30 PM [facility] Jun 20, 2024 11:00 AM [facility], [facility]24 10:00 AM [facility] Jun 25, 2024 10:01 AM [facility] [facility] Jul 02, 2024 01:45 PM [place] [facility] [facility] Jul 16, 2024 11:00 AM AMBULATORY - MEDICINE [facility] N[facility]L [facility] August 21, 2024 01:30 PM AMBULATORY - MEDICINE [facility] Social History: Smoking Status (Most current) and Tobacco Use (All prior to encounter date) This section includes the most current, and the historical, smoking and tobacco- related health factors from the [place] facility where the Encounter took place. Current Smoking Status This section includes the most current smoking, or tobacco-related health factor, from the [place] facility where the Encounter took place. Date/Time Current Smoking Status Comment Facil ity Mar 09, 2024 01:00 PM VA-TOBACCO USE FOR ALEJANDRO CIGARETTES [facility] Tobacco Use History This section includes a history of the smoking, or tobacco-related health factors, that were collected on or before the date of the Encounter. The data comes from the [place] facility where the Encounter took place. Date/Time Smoking Status/Tobacco Use Comment F acility Mar 09, 2024 01:00 PM VA-TOBACCO USE FOR ALEJANDRO CIGARETTES [facility] Advance Directives: All historical and current Section Date Range: From patient's date of to the date document was created. This section includes ALL of a patient's completed or amended [place] Advance and Rescinded Directives. The entries below indicate that a directive exists for the patient, but an actual copy is not included with this document. The data comes from all [place] facilities. Date Advance Directives Provider Source Dec 15, 2011 ADVANCE DIRECTIVE DISCUSSION Sandra [facility] Encounter Notes: All associated encounter notes This section contains the clinical notes associated to the Encounter. Date/Time Encounter Note(s) Provider Source May 25, 2024 08:03 AM ADMINISTRATIVE NOTE: LOCAL TITLE: ADMINISTRATIVE NOTE STANDARD TITLE: ADMINISTRATIVE NOTE DATE OF NOTE: MAY 25, 2024@08:03 ENTRY DATE: MAY 25, 2024@08:03:51 AUTHOR: KELLY SOL EXP COSIGNER: URGENCY: STATUS: COMPLETED ADMINISTRATIVE NOTE Has ADDENDA DHRUVA left voice message for [place] regarding cancelation of appointment today 05/25/[address] Nayla Weiner due to provider unavailability. Dr. Weiner will reach back out to to reschedule. /es/ KELLY BERGER Signed: 05/25/2024 08:04 05/28/2024 ADDENDUM STATUS: COMPLETED Zipper Machine Operator called and left a voicemail message with name and direct contact information. 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 Zipper Machine Operator left her direct contact information and requested for a call back to gain assistance with rescheduling the appt. /es/ NAYLA WEINER, PhD STAFF PSYCHOLOGIST Signed: 05/28/2024 14:21 05/28/2024 ADDENDUM STATUS: UNSIGNED You may not VIEW this UNSIGNED Addendum. KELLY SOL [place] [facility]
--- OUTSIDE RECORDS SUMMARY | 2024-06-07 15:21 | XMS_ITS | Encounter Summary ---
Author Name [facility] [facility] [place] Address [address] [place] [address] Care Team Providers Care Quantometer Operator Name Role Phone ALBIN TRENT Primary [...] ALEXI FAMIL Y Apr 18, 2009 [id number] [phone] RHONDA BETHANY PATIENT BCBS [place] FEP PREFERRED PROVIDER ORGANIZAT ION (PPO) BASIC INDIV IDUAL Apr 18, 2020 111 [id number] RHONDA BETHANY PATIENT [place] FEP PREFERRED PROVIDER ORGANIZAT ION (PPO) BASIC SELF Apr 18, 2020 111 [id number] RHONDA BETHANY PATIENT [place] FEP DENTAL DENTAL INSURANCE BASIC Apr 18, 2020 DENTAL [id number] RHONDA BETHANY PATIENT CAREMARK FEP BCBS PRESCRIPT ION CAREM ARK FEPRX PLAN Apr 18, 2010 [id number] BETHANY ELLIS PATIENT CAREMARK([id number]) PRESCRIPT ION FEP Apr 18, 2020 [id number] BETHANY ELLIS PATIENT EMPIRE BCBS (FEDERAL) PREFERRED PROVIDER ORGANIZAT ION (PPO) BASIC SELF Apr 18, 2020 111 [id number] BETHANY ELLIS PATIENT [place] BCBS FED DENTAL DENTAL INSURANCE FEP DENTA L Apr 18, 2020 FEPDENT AL [id number] BETHANY ELLIS PATIENT MEDICARE ([facility]) MEDICARE () PART B August 16, 2010 PART B [id number] BETHANY ELLIS PATIENT MEDICARE ([facility] MEDICARE () PART A August 16, 2010 PART A [id number] RHONDA SCOTTWAYNE O PATIENT MEDICARE ([facility]) MEDICARE () PART B August 16, 2010 PART B [id number] [phone] [id number] RHONDA SCOTTWAYNE O PATIENT MEDICARE ([facility]) MEDICARE () PART A August 16, 2010 PART A [id number] RHONDA SCOTTYAIRING O PATIENT MEDICARE ([facility]) MEDICARE () PART B August 16, 2010 PART B [id number] RHONDA SCOTTWAYNE O PATIENT MEDICARE ([facility]) MEDICARE () PART B August 16, 2010 PART B [id number] RHONDA SCOTTYAIRING O PATIENT MEDICARE ([facility]) MEDICARE () PART A August 16, 2010 PART A [id number] RHONDA SCOTTYAIRING O PATIENT MEDICARE (WN) MEDICARE () PART A August 16, 2010 PART A [id number] BETHANY ELLIS PATIENT MEDICARE (WN) MEDICARE () PART A August 16, 2010 PART A [id number] BETHANY ELLIS PATIENT MEDICARE (R) MEDICARE () PART B August 16, 2010 PART B [id number] [phone] BETHANY ELLIS PATIENT MEDICARE (WNR) MEDICARE (M) PART A August 16, 2010 PART A [id number] WAYNE ELLIS JR PATIENT MEDICARE (WNR) MEDICARE (M) PART B August 16, 2010 PART B [id number] WAYNE ELLIS JR PATIENT MEDICARE (WNR) MEDICARE (M) PART B August 16, 2010 PART B [id number] BETHANY ELLIS PATIENT MEDICARE (WNR) MEDICARE (M) PART A August 16, 2010 PART A [id number] BETHANY ELLIS PATIENT TRIPLE S ADVANTAGE MCR (WNR) MEDICARE ADVANTAGE MCR (WNR) Apr 18, 2024 DO NOT BILL [id number] BETHANY ELLIS PATIENT TRIPLE-S RAFAEL (FED) PREFERRED PROVIDER ORGANIZAT ION (PPO) FEP PSHB BLUE BASIC Apr 18, 2024 [id number] BETHANY ELLIS PATIENT Selected Encounter This section includes the information on record at [place] for the Encounter. Date/Time Encounter Type Encounter Description Reason Provider Source Mar 13, 2024 11:00 AM PSYCH DIAGNOSTIC EVALUATION MENTAL [facility] ICD-10-CM F32.A Depression, unspecified RE LIM E Encounter Template Text not used by [place] Assessments - Encounter Diagnoses This section includes the primary and secondary diagnoses documented for the Encounter. Date/Time Primary/Secondary Diagnosis Diagnosis Name Provider Source Mar 29, 2024 08:57 AM PRIMARY Depression, unspecified RE LIM [place] [facility] [place] [facility] Plan of Treatment: Future Appointments [...] - MEDICINE [facility] [place] [facility] Mar 28, 2024 01:00 PM AMBULATORY - PSYCHIATRY [facility] [place] [facility] Mar 30, 2024 09:01 AM AMBULATORY - PSYCHIATRY [facility] [place] [facility] Mar 30, 2024 01:00 PM AMBULATORY - PSYCHIATRY [facility] [place] [facility] Apr 06, 2024 09:00 AM AMBULATORY - PSYCHIATRY [facility] [place] [facility] Apr 09, 2024 02:30 PM AMBULATORY - MEDICINE [facility] [place] [facility] Apr 13, 2024 09:00 AM AMBULATORY - PSYCHIATRY [facility] [place] [facility] Apr 17, 2024 02:00 PM AMBULATORY - PSYCHIATRY [facility] [place] [facility] Apr 20, 2024 09:00 AM AMBULATORY - PSYCHIATRY [facility] [place] [facility] May 02, 2024 03:00 PM AMBULATORY - PSYCHIATRY [facility] [place] [facility] May 08, 2024 01:00 PM AMBULATORY - MEDICINE [facility] [place] [facility] May 10, 2024 11:00 AM AMBULATORY - PSYCHIATRY [facility] [place] [facility] May 22, 2024 10:00 AM AMBULATORY - MEDICINE [facility] [place] [facility] May 23, 2024 03:00 PM AMBULATORY - MEDICINE [facility] [place] [facility] May 28, 2024 01:00 PM AMBULATORY - MEDICINE [facility] [place] [facility] Jun 06, 2024 02:30 PM AMBULATORY - PSYCHIATRY [facility] [place] [facility] Jun 20, 2024 11:00 AM AMBULATORY - PSYCHIATRY [facility] [place] [facility] Jun 25, 2024 10:00 AM AMBULATORY - MEDICINE [facility] [place] [facility] Jun 25, 2024 10:01 AM AMBULATORY - MEDICINE [facility] [place] [facility] Jul 02, 2024 01:45 PM AMBULATORY - MEDICINE [facility] [place] [facility] Active, Pending, and Scheduled Orders [...] 12:04 PM Consult Order COMMUNITY CARE-NEUROLOGY 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 MICROSCOPIC AUTOMATED, URINE Specimen Type: URINE Comment: If Glucose = >500 and Ketones are positive, please alert the Physician. Ordering Provider: ALBIN TRENT Report Released Date/Time: Feb 02, 2024 12:05 PM Reporting Lab: [facility] [address] [address] Performing Lab: [facility] [address] [facility] [address] UA WBC 0-5 /[HPF] 0-5 UA RBC 0-2 /[HPF] 0-3 Mar 28, 2024 12:21 PM [facility] LIVER FUNCTION Specimen Type: SERUM No comment entered. Ordering Provider: ALBIN TRENT Report Released Date/Time: Feb 02, 2024 12:05 PM Reporting Lab: [facility] [address] [address] Performing Lab: [facility] [address] PROTEIN,TOTAL 7.0 g/dL 6.0-8.3 ALBUMIN 4.1 g/dL 3.5-5.0 ALKALINE PHOSPHATASE 37 U/L L 40-150 AST 19 U/L 5-34 ALT 28 U/L BILIRUBIN, TOTAL 0.6 mg/dL 0.2-1.2 Mar 28, 2024 12:21 PM [facility] LIPID PANEL FASTING Specimen Type: SERUM No comment entered. Ordering Provider: ALBIN TRENT Report Released Date/Time: Feb 02, 2024 12:05 PM Reporting Lab: [address] [address] Performing Lab: [address] [address] CHOLESTEROL 248 mg/dL H TRIGLYCERIDE 170 mg/dL H 0-150 LDL calculated 166 mg/dL H 0-129 CHOL/HDL 5.2 HDL CHOLESTEROL 48 mg/dL 40-60 Mar 28, 2024 12:21 PM [facility] BASIC METABOLIC PANEL (fasting) Specimen Type: SERUM No comment entered. Ordering Provider: ALBIN TRENT Report Released Date/Time: Feb 02, 2024 12:05 PM Reporting Lab: [address] [address] Performing Lab: [address] [address] UREA NITROGEN 19 mg/dL 7-25 GLUCOSE 227 mg/dL H 65-100 SODIUM 137 mmol/L 135-145 POTASSIUM 4.4 mmol/L 3.5-5.0 CHLORIDE 108 mmol/L 100-110 CO2 20 meq/L 20-30 CREATININE, Serum 0.97 mg/dL 0.50-1.40 eGFR(CKD-EPI 2020) 80 mL/min >60 Mar 28, 2024 12:21 PM [facility] TSH Specimen Type: SERUM No comment entered. Ordering Provider: ALBIN TRENT Report Released Date/Time: Feb 02, 2024 12:05 PM Reporting Lab: [address] [address] Performing Lab: [facility] [address] [address] TSH 0.89 u[IU]/mL 0.35-5.00 Mar 28, 2024 12:21 PM [facility] HEMOGLOBIN A1C PANEL Specimen Type: BLOOD [...] Feb 02, 2024 12:05 PM Reporting Lab: [facility] [address] [address] Performing Lab: [address] [address] HEMOGLOBIN A1C 7.5 H 4.0-5.6 Mar 28, 2024 12:21 PM [facility] MICROALBUMIN CREATININE RATIO PANEL Specimen Type: URINE No comment entered. Ordering Provider: ALBIN TRENT Report Released Date/Time: Feb 02, 2024 12:05 PM Reporting Lab: [facility] [address] [address] Performing Lab: [address] [address] MICROALBUMIN/C REATININE RATIO 556.1 mg/g H 0-29.9 MICROALBUMIN,Q UANTITATIVE 46.1 mg/dL RR UNAVAIL CREATININE URINE 82.90 mg/dL Mar 28, 2024 12:21 PM [facility] CBC AND DIFF (AUTO) Specimen Type: BLOOD No comment entered. Ordering Provider: ALBIN TRENT Report Released Date/Time: Feb 02, 2024 12:05 PM Reporting Lab: [address] [address] Performing Lab: [address] [address] WBC 4.53 10*3/uL 4.50-11.00 RBC 4.74 10*6/uL [...] 10*3/uL 0.00-0.00 Mar 28, 2024 12:21 PM [facility] URINALYSIS CLEAN CATCH Specimen Type: URINE Comment: If Glucose = >500 and Ketones are positive, please alert the Physician. Ordering Provider: ALBIN TRENT Report Released Date/Time: Feb 02, 2024 12:05 PM Reporting Lab: [address] [address] Performing Lab: [address] [address] UA COLOR Light-Yellow Yellow UA APPEARANCE Clear [...] Pain Height Weight Body Mass Index Source Mar 13, 2024 03:07 PM 78 152/76 [facility] Social History: Smoking Status (Most current) [...] 01:00 PM VA-TOBACCO USE FOR ALEJANDRO CIGARETTES [facility] Tobacco Use History This section includes a history of the smoking, or tobacco-related health factors, that were collected on or before the date of the Encounter. The data comes from the [place] facility where the Encounter took place. Date/Time Smoking Status/Tobacco Use Comment F acility Mar 09, 2024 01:00 PM [place]-TOBACCO USE FOR ALEJANDRO CIGARETTES [facility] Advance Directives: All historical and current [...] 15, 2011 ADVANCE DIRECTIVE DISCUSSION Sandra CONNOLLY [facility] Encounter Notes: All associated encounter notes This section contains the clinical notes associated to the Encounter. Date/Time Encounter Note(s) Provider Source Mar 13, 2024 09:23 AM MENTAL HEALTH CONS ULT: LOCAL TITLE: CONSULT REPORT/UNIFORM OUTPATIENT MENTAL HEALTH ASS STANDARD TITLE: MENTAL HEALTH CONSULT DATE OF NOTE: MAR 13, 2024@09:23 ENTRY DATE: MAR 13, 2024@09:23:23 AUTHOR: RE LIM EXP COSIGNER: URGENCY: STATUS: COMPLETED INFORMED CONSENT TO PARTICIPATE IN ASSESSMENT: At beginning of session reviewed rights and limits of confidentiality, mandatory reporting situations, duty to warn and protect, [place] Warning, (if treatment team finds patient to be an acute danger to himself or others, that this information could be relayed to a court of law and presented to a staff air tactical officer), and 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 Provided Suicide Prevention Hotline number, and other contact numbers as necessary. Uniform Outpatient Mental Health Assessment I. IDENTIFYING INFORMATION: BETHANY ELLIS August [phone] SERVICE CONNECTED % - 10 MARITAL STATUS - Referral source: Present at time of intake: [X] Family member [ ] Supportive person(s) Name: Language Preference:Luxembourgish Language Spoken:Luxembourgish II. PRESENTING SITUATION: A. What brings you into Mental Health at this time: I want to be able to relax and feel more confident. B. What are some of your goals for treatment: To be able to talk to people and do things without being afraid...be myself...relaxed, smiling, compassionate...to be a better human to myself too.. C. What are some of your strengths: kind, hard worker, motivated for treatment D. What are the obstacles or challenges preventing you from meeting your goals?: myself...fear...caring for my son.. III: ASSESSMENT: A. Do you have concerns about past or current mental health symptoms or problems: Yes [X] No [ ] If yes, please describe: describes feeling sad or down most days, lack of self-esteem, feeling he freezes or 'shuts down' when experiencing strong emotions, as well as poor sleep in the form of lying in bed for 14-16 hours but only sleeping for 3 hours. He reports depressive symptoms began two years ago when he fully retired but have gotten significantly worse in the past couple of months. He has stopped his daily exercise bike use and lost 10+ pounds. No SI/HI endorsed. How do you see these concerns impacting past and current quality of life (School, Work, Family, Housing, Finances, Social life, Legal): He sees an impact on his social life, particularly relationships with family and girlfriend, as well as on his finances. B. Have you previously been involved in Mental Health treatment: Yes [X] No [ ] If yes, please check all that apply and describe: [ ] Hospitalizations (when, where, etc.): [X] Medication trials (what, when, doses, etc.): Buproprion was trialed but left him feeling 'numb.' has been on Escitalopram prescribed by outside PCP for several months at 5mg/day. He feels it is helpful in evening out his mood. [ ] Therapy trials (type, when, etc.): Recent sessions with [facility] Nayla Weiner relating to depressive sx C. Do you have concerns about current or past substance use: Yes [X] No [] If yes, please identify 's primary and secondary substances of choice: No current concerns about substance use; Heroin was primary choice of substance in past ALCOHOL Age of onset: upon enlistment Method of aquiring substance: friends, legal purchase Means of use: ingestion Pattern of use: pretty much daily while active Duration (how long have you been using for the most recent episode): 7-8 years Frequency: 1-2 drinks a couple of times per month Amount: 1-2 drinks per sitting Last use: did not ask due to time limitations What was you longest period of sobriety?: 7-8 years Check all that apply with respect to this substance: none indicated Depending on how many boxes were checked above, indicate the severity level: none Regarding the motivation for treatment, estimate 's stage of change with respect to this substance: Maintenance Which withdrawl symptoms have you had when you tried to stop using substance? 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 Currently experimenting with small amounts of edibles. Duration (how long have you been using for the most recent episode): 1 month Frequency: a couple of times per week Amount: 5-10 mg Last use: last week What was you longest period of sobriety?: 12 years Check all that apply with respect to this substance: none indicated Depending on how many boxes were checked above, indicate the severity level: none Regarding the motivation for treatment, estimate Valentine's stage of change with respect to this substance: Maintenance Which withdrawl symptoms have you had when you tried to stop using substance? OPIATES Age of onset: upon enlistment Method of aquiring substance: friends, fellow soldiers Means of use: snorting or IV Pattern of use: hx, would use until funds ran out. Duration (how long have you been using for the most recent episode): n/a Frequency: hx, daily for 20+ years; no use currently Amount: hx, as much as could be afforded; none currently Last use: 1988 What was you longest period of sobriety?: 35 years Check all that apply with respect to this substance: none indicated Depending on how many boxes were checked above, indicate the severity level: none Regarding the motivation for treatment, estimate 's stage of change with respect to this substance: Maintenance Which withdrawl symptoms have you had when you tried to stop using substance? COCAINE Age of onset: 18 Method of aquiring substance: friends Means of use: snorting Pattern of use: While using, would use as much as possible until he ran out of money. No current use. Duration (how long have you been using for the most recent episode): n/a Frequency: hx, daily for 20-25 years; currently none Amount: more than an ounce per day Last use: 35 years ago What was you longest period of sobriety?: 35 years Check all that apply with respect to this substance: none indicated Depending on how many boxes were checked above, indicate the severity level: none Regarding the motivation for treatment, estimate 's stage of change with respect to this substance: Maintenance Which withdrawl symptoms have you had when you tried to stop using substance? SEDATIVES, HYPNOTICS, ANXIOLYTICS Age of onset: upon enlistment Method of aquiring substance: friends Means of use: ingestion Pattern of use: daily when active , no current use Duration (how long have you been using for the most recent episode): n/a Frequency: hx, daily. Currently no use. Amount: 8-10 pills per day. Black beauties, yellow jackets, [place]. Last use: 1988 What was you longest period of sobriety?: 35 years Check all that apply with respect to this substance: none indicated Depending on how many boxes were checked above, indicate the severity level: none Regarding the motivation for treatment, estimate 's stage of change with respect to this substance: Maintenance Which withdrawl symptoms have you had when you tried to stop using substance? TOBACCO Age of onset: upon enlistment Method of aquiring substance: legal purchase Means of use: smoking Pattern of use: Heavy user for 20 years Duration (how long have you been using for the most recent episode): n/a Frequency: Daily when using, none now Amount: 5pp/day when using Last use: 20 years ago What was you longest period of sobriety?: 20 years Check all that apply with respect to this substance: none indicated Depending on how many boxes were checked above, indicate the severity level: none Regarding the motivation for treatment, estimate 's stage of change with respect to this substance: Maintenance Which withdrawl symptoms have you had when you tried to stop using substance? if patient has substance use issues What are some triggers leading patient to use substances: stress, social gatherings where people are using What does this individual do to cope when triggered to use besides using, if anything? projects around the home, TV Has substance use lead to any medical concerns (including black outs, liver function, pancreatitis, withdrawal symptoms)? Which?: hepatitis How would you rate your readiness to change with respect to your substance(s) of choice: Maintenance. is only using alcohol and cannabis in limited amounts now. 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 Valentine declines consult for AIDE clinic at this time. Describe patient's level of awareness of the relationship between his or her behavioral conditions and his or her pattern of use? good Describe any prior substance use treatment patient has had (detox, Residential, outpatient; when, where, modality, outcome): Completed residential stints while active in the and then again at the [place] in the . Positive outcome w latter treatment. Any current self-help group attendance (including AA/NA)? No Is patient receiving any substance use counseling or psychotherapy currently?: No -If yes, note modality, provider, and frequency: AUDIT-C RESULTS--In men, a score of 4 or more is considered positive; in women, a score of 3 or more is considered positive for at risk drinking. A score of 8-12 represents severe risk : Date Instrument Raw Trans Scale 03/05/2024 16:16 AUDC 2 Total Does patient report substance use is related to MST, Service-Connected Condition, and/or combat experience? Valentine's enlistment coincides with polysubstance abuse. IV: PERSONAL HISTORY/INFORMATION: A. Biological/Social History (including: relevant developmental history, family of origin, sexual/physical/emotional traumas, cultural factors, applicable sexual history): Raised in the [facility] with mom, dad, and 7 siblings. Mom is still living in [place] and is 102 y/o. Father at age 86. 2 siblings are . Valentine has brother and nephews living in [facility]. No hx of neglect or abuse [...] is supportive of Vet seeking MH treatment. B. 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 What provides you with sense of value or quality of life: my son...housing...family, friends.. D. What are some accomplishments that you feel a sense of pride about: leading people, reaching fdc E. What brings you enjoyment: nature, music, used to like paddleball and going to voodoo F. Are you comfortable with your current living arrangement (Have you ever been homelessness or at risk for homelessness): yes; no G. What are your social or community Supports, your healthy or positive relationships: girlfriend, son H: What is your educational history or current goals: H.S. Diploma w a few college courses in liberal arts. Open to further training, perhaps culinary in nature. I. What is your employment history or current goals: Working since age 12. 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 Then joined [employer] and retired from there in 2007. 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 J. Do you have a legal history (incarcerations, probation, parole, divorce, child custody issues): no K. What is your level of yazidi or spiritual fulfillment: Uriel is Sabianism and considers himself very yazidi. Had a very strong relationship with his voodoo community in [facility] but has not identified a voodoo he likes in this area. He is interested in a consult with the director rehabilitation program regarding pastoral care. L. How do you culturally identify? Can you anticipate any particular cultural on treatment? Uriel is part of community M. Is there anybody you would like involved in the planning or delivery of your care: no N. Do you have concerns for your safety or the safety of others (domestic violence, abuse/neglect, etc): no O. Have you ever been in a situation where you felt you were taken advantage of or exploited, particularly by someone in a position of power? yes, during service and during employment. P. Income source: Brings in around 40k/year including fdc and 10% SC for tinnitus. V. PHYSICAL HEALTH SCREENING A. Do you have any past or current medical concerns: Yes [X] No [ ] Active Problem Tremor R25.1, Onset 02/02/2024 ALBIN TRENT Allergic [...] ZEV PIERRE Hyperlipidemia 272.4 11/06/2007 ZEV PIERRE Depression 311. 09/20/2013 LACY PALMA Other medical problems not listed above: Valentine identifies back pain, HBP, and diabetes as core medical issues. B. Date of last physical exam:[X]Unknown C.Are you experiencing pain: Rating (0-10: Comment on pain ratin, I'm always in pain, reports he typically has a headache or backache at any given time D. Nutritional screening - Have you experienced any of the following: Food Allergies? No, describe: NO Significant (+/- 10lbs) gain or loss in the last three months? No, describe: Yes, attributes to declining MH Decrease in food intake/appetite? No, describe: yes, attributes to declining MH Notable Dental problems? Has not seen a dentist in a long time due to $. Significant change in eating habits (purging, restricting, etc.)? No, describe: no E. How do you see these concerns impacting on past and current quality of life (School, Work, Family, Housing, Finances, Social life, Legal, etc): minimal impact Active Outpatient Medications (including Supplies): Non-VA ESCITALOPRAM OXALATE 10MG TAB 5MG BY MOUTH ONCE ACTIVE DAILY Non-VA EZETIMIBE 10MG TAB 10MG BY MOUTH ONCE DAILY ACTIVE Non-VA LOSARTAN 25MG TAB 25MG BY MOUTH TWICE DAILY ACTIVE Non-VA METFORMIN (ONCE DAILY) TAB,SA 500MG BY MOUTH ONCE ACTIVE DAILY Non-VA SITAGLIPTIN (EQV-JANUVIA) 100MG TAB 100MG BY MOUTH ACTIVE ONCE DAILY : MENTAL STATUS / SUBJECTIVE COMPLAINTS: (check all that apply): Appearance:Neatly groomed, fit, appears younger than chronological age Behavior:Appropriate, Pleasant Mood/Affect:Subdued Energy: Low per self-report, WNL during interview Sleep:Early awakening, Sleep onset insomnia, Frequent disruption Orientation: Oriented to person: Yes Oriented to place: Yes Oriented to time: Yes Stream of thought:Normal, denies flashbacks and Auditory and Visual Hallucinations Speech: soft Insight / Judgment: good : DSM5 DIAGNOSES: Depression, unspecified VII: SUMMARY AND IMPRESSIONS: 78 y/o cisgender [employer] Valentine presents with depressive symptoms including sadness, fatigue, poor focus, poor sleep, low self-esteem, weight loss, and loss of interest in activities once enjoyed. These sx began around the time he fully retired in 2021 but have significantly worsened in the last couple of months. Primary impact is interpersonal. MBC indicates severe depression. No SI/HI noted. Hx of polysubstance abuse for 20+ years but is in sustained remission for 20+ years. is in agreement for multiple referrals. Within [facility], he would like to explore joining the Depression group as well as getting on waitlist for med mgmt and Individual Psychotherapy. He plans to work individually with [facility] in the meantime. Outside [facility], he agrees to consults with pastoral care and [facility], as connection to yazidi and exercise communities has historically been valuable to him. VIII: NEXT STEPS: A: How can we work to meet your goals: submitting relevant consults for group therapy, individual therapy, pastoral care, and [facility] B: What would like to see happen next: meeting with a provider C: Recommendations: [X]Provided psychoeducation on the role of Measurement Based Care (MBC)and administered the following measures: C-SSRS,neg PHQ, severe dep BDI, severe dep [X]Based on measurement outcomes, the following plan was discussed and agreed upon: Submission of consults for mental and whole health [X]Informed Consent for [facility] Bri /juan/ RAFA Fernández [facility] [employer] Signed: 03/13/2024 13:50 RE [place] [facility]
--- OUTSIDE RECORDS SUMMARY | 2024-06-07 15:21 | XMS_ITS | Encounter Summary ---
Author Name [facility] Address [address] [place] [address] Care Team Providers Care Supervisor Roving Name Role Phone REG HERRING Primary Care [...] ALEXI FAMIL Y Apr 18, 2009 [id number] [phone] BETHANY ELLIS PATIENT BCBS [place] FEP PREFERRED PROVIDER ORGANIZAT ION (PPO) BASIC INDIV IDUAL Apr 18, 2020 111 [id number] [phone] BETHANY ELLIS PATIENT [place] F[place] PREFERRED PROVIDER ORGANIZAT ION (PPO) BASIC SELF Apr 18, 2020 111 [id number] [phone] RHONDA BETHANY PATIENT [place] F[place] DENTAL DENTAL INSURANCE BASIC Apr 18, 2020 DENTAL [id number] BETHANY ELLIS PATIENT [place] FEP BCBS PRESCRIPT ION CAREM ARK FEPRX PLAN Apr 18, 2010 [id number] BETHANY ELLIS PATIENT CAR[place]ARK([id number]) PRESCRIPT ION FEP Apr 18, 2020 [id number] BETHANY ELLIS PATIENT EMPIRE BCBS (FEDERAL) PREFERRED PROVIDER ORGANIZAT ION (PPO) BASIC SELF Apr 18, 2020 [id number] BETHANY ELLIS PATIENT [place] BCBS FED DENTAL DENTAL INSURANCE FEP DENTA L Apr 18, 2020 FEPDENT AL [id number] BETHANY ELLIS PATIENT MEDICARE ([facility]) MEDICARE () PART B August 16, 2010 PART B [id number] BETHANY ELLIS PATIENT MEDICARE ([facility]) MEDICARE () PART A August 16, 2010 PART A [id number] RHONDA SCOTTWAYNE O PATIENT MEDICARE ([facility]) MEDICARE () PART B August 16, 2010 PART B [id number] RHONDA SCOTTYAIRING O PATIENT MEDICARE ([facility]) MEDICARE () PART A August 16, 2010 PART A [id number] RHONDA SCOTTYAIRING O PATIENT MEDICARE ([facility]) MEDICARE () PART B August 16, 2010 PART B [id number] RHONDA SCOTTYAIRING O PATIENT MEDICARE ([facility]) MEDICARE () PART A August 16, 2010 PART A [id number] RHONDA SCOTTYAIRVENKAT O PATIENT MEDICARE (WN) MEDICARE () PART B August 16, 2010 PART B [id number] RHONDA SCOTTYAIRVENKAT O PATIENT MEDICARE ([facility]) MEDICARE () PART A August 16, 2010 PART A [id number] WAYNE ELLISO PATIENT MEDICARE (WN) MEDICARE () PART A August 16, 2010 PART A [id number] BETHANY ELLIS PATIENT MEDICARE (R) MEDICARE () PART B August 16, 2010 PART B [id number] [phone] BETHANY ELLIS PATIENT MEDICARE (WNR) MEDICARE (M) PART A August 16, 2010 PART A [id number] WAYNE ELLIS JR PATIENT MEDICARE (WNR) MEDICARE (M) PART B August 16, 2010 PART B [id number] WAYNE ELLIS JR PATIENT MEDICARE (WNR) MEDICARE (M) PART B August 16, 2010 PART B [id number] [phone] BETHANY ELLIS PATIENT MEDICARE (WNR) MEDICARE (M) PART A August 16, 2010 PART A [id number] [phone] BETHANY ELLIS PATIENT TRIPLE S ADVANTAGE MCR (WNR) MEDICARE ADVANTAGE MCR (WNR) Apr 18, 2024 DO NOT BILL [id number] BETHANY ELLIS PATIENT TRIPLE-S RAFAEL (FED) PREFERRED PROVIDER ORGANIZAT ION (PPO) FEP PSHB BLUE BASIC Apr 18, 2024 [id number] BETHANY ELLIS PATIENT Selected Encounter This section includes the information on record at [place] for the Encounter. Date/Time Encounter Type Encounter Description Reason Provider Source May 23, 2024 03:00 PM OFFICE O/P EST SF 10 MIN PRIMARY CARE/MEDICINE ICD-10-CM I10 Essential (primary) hypertension REG HERRIGN IH Encounter Template Text not used by PA Assessments - Encounter Diagnoses This section includes the primary and secondary diagnoses documented for the Encounter. Date/Time Primary/Secondary Diagnosis Diagnosis Name Provider Source May 23, 2024 03:45 PM PRIMARY Essential (primary) hypertension REG HERRING [place] [facility] [place] [facility] Plan of Treatment: Future Appointments (+ 6 months) and Future Tests (+/- 45 days) The Plan of Treatment section includes future care activities for the patient from all PA treatmentfacilities. This section includes future appointments and future orders which are active, pending or scheduled. Future Appointments This section includes appointments that were scheduled to occur 6 months from the date of the Encounter, up to a maximum of 20 appointments. The data comes from all [place] treatment facilities. Appointment Date/Time Appointment Type Appointme nt Facility Name May 28, 2024 01:00 PM AMBULATORY - MEDICINE [facility] [place] [facility] Jun 06, 2024 02:30 PM AMBULATORY - PSYCHIATRY [facility] [place] [facility] Jun 20, 2024 11:00 AM AMBULATORY - PSYCHIATRY [facility] [place] [facility] Jun 25, 2024 10:00 AM AMBULATORY - MEDICINE [facility] [place] [facility] Jun 25, 2024 10:01 AM AMBULATORY - MEDICINE [facility] [place] [facility] Jul 02, 2024 01:45 PM AMBULATORY - MEDICINE [facility] [place] [facility] Jul 16, 2024 11:00 AM AMBULATORY - MEDICINE [facility] [place] [facility] August 21, 2024 01:30 PM AMBULATORY - MEDICINE PA [facility] [place] [facility] Vital Signs: All taken on the encounter date This section contains inpatient and outpatient Vital Signs collected on the date of the Encounter. Date/Time Temperature Pulse Blood Pressure Respiratory Rate SP02 Pain Height Weight Body Mass Index Source May 23, 2024 03:42 PM 128/62 [place] [facility] [place] [facility] May 23, 2024 02:53 PM 97.2 70 142/80 16 98 7 69 204 30 [place] [facility] [place] [facility] Social History: Smoking Status (Most current) and Tobacco Use (All prior to encounter date) This section includes the most current, and the historical, smoking and tobacco- related health factors from the PA facility where the Encounter took place. Current Smoking Status This section includes the most current smoking, or tobacco-related health factor, from the PA facility where the Encounter took place. Date/Time Current Smoking Status Comment Facil ity Mar 09, 2024 01:00 PM VA-TOBACCO USE FOR [facility]O [facility] Tobacco Use History This section includes a history of the smoking, or tobacco-related health factors, that were collected on or before the date of the Encounter. The data comes from the PA facility where the Encounter took place. Date/Time Smoking Status/Tobacco Use Comment F acility Mar 09, 2024 01:00 PM VA-TOBACCO USE FOR ALEJANDRO CIGARETTES [facility] Advance Directives: All historical and current Section Date Range: From patient's date of to the date document was created. This section includes ALL of a patient's completed or amended PA Advance and Rescinded Directives. The entries below indicate that a directive exists for the patient, but an actual copy is not included with this document. The data comes from all [place] facilities. Date Advance Directives Provider Source Dec 15, 2011 ADVANCE DIRECTIVE DISCUSSION Sandra CONNOLLY [facility] ARMENDARIZ [facility] Encounter Notes: All associated encounter notes This section contains the clinical notes associated to the Encounter. Date/Time Encounter Note(s) Provider Source May 23, 2024 03:43 PM PHYSICIAN NOTE: LOCAL TITLE: MD NOTE STANDARD TITLE: PHYSICIAN NOTE DATE OF NOTE: MAY 23, 2024@15:43 ENTRY DATE: MAY 23, 2024@15:43:19 AUTHOR: REG HERRING COSIGNER: URGENCY: STATUS: COMPLETED Patient Name: BETHANY ELLIS VITALS: Patient temperature: 97.2 F [36.2 C] (05/23/2024 14:53) Blood pressure: 128/62 (05/23/2024 15:42) Patient height: 69 in [175.3 cm] (05/23/2024 14:53) Patient weight: 204 lb [92.53 kg] (05/23/2024 14:53) Patient BMI: BMI: 30.2 Patient pulse: 70 (05/23/2024 14:53) Patient respiration: 16 (05/23/2024 14:53) Patient Pulse Oximetry: 98% (05/23/2024 14:53) Pain Ratin (05/23/2024 14:53) Active VA Medications: Active Outpatient Medications (including Supplies): Active Outpatient Medications Status === 1) ALBUTEROL 100/IPRATRO 20MCG 120D PO INHL INHALE 1 PUFF BY ACTIVE MOUTH FOUR TIMES DAILY NEEDED Indication: FOR BRONCHOSPASM 2) AMLODIPINE BESYLATE 10MG TAB TAKE ONE TABLET BY MOUTH ONCE ACTIVE DAILY FOR BLOOD PRESSURE/HEART, DO NOT TAKE WITH GRAPEFRUIT JUICE Indication: FOR HIGH BLOOD PRESSURE 3) ATORVASTATIN CALCIUM 20MG TAB TAKE ONE-HALF TABLET BY MOUTH ACTIVE AT BEDTIME Indication: FOR HIGH CHOLESTEROL 4) ESCITALOPRAM OXALATE 20MG TAB TAKE ONE-HALF TABLET BY MOUTH ACTIVE ONCE DAILY FOR /DEPRESSION Indication: MOOD 5) MENTHOL/M-SALICYLATE 10-15% TOP CREAM APPLY A THIN FILM ACTIVE TOPICALLY THREE TIMES DAILY NEEDED Indication: FOR MUSCLE PAIN Pending Outpatient Medications Status === 1) LOSARTAN 50MG TAB TAKE ONE TABLET BY MOUTH ONCE DAILY FOR PENDING BLOOD PRESSURE/HEART Indication: FOR HIGH BLOOD PRESSURE 2) METFORMIN HCL 500MG 24HR SA TAB TAKE TWO TABLETS BY MOUTH PENDING ONCE DAILY Indication: FOR TYPE 2 DIABETES MELLITUS 3) SITAGLIPTIN (EQV-ZITUVIO) 100MG TAB TAKE ONE TABLET BY MOUTH PENDING ONCE DAILY Indication: DIABETES Active Non-VA Medications Status === 1) Non-VA SITAGLIPTIN (EQV-JANUVIA) 100MG TAB 100MG BY MOUTH ACTIVE ONCE DAILY 9 Total Medications Remote Medications: No Active Remote 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 Conner to [place] History of present illness Patient takes losartan and amlodipine for hypertension. He feels well today with no complaints. He takes all medications regularly Review of systems No chest pain or dyspnea No abdominal pain No trouble urinating No fever or chills No cough Physical examination Well-developed well-nourished male in no acute distress Coronary no murmur Lungs clear No edema Assessment and plan: 1. Hypertension: Blood pressure satisfactory Plan continue present medications amlodipine and losartan Follow-up 3 months clinic visit and lab Medication Reconciliation: Outpatient: Has the patient been taking medications as documented in the EMLR? YES: The patient has been taking medications as documented in the EMLR. Essential Medication List for Review used to complete this medication reconciliation. INCLUDED IN THIS LIST: Alphabetical list of active outpatient prescriptions dispensed from this PA (local) and dispensed from another VA or [...] /juan/ Reg Herring MD Staff Physician Signed: 05/23/2024 15:45 [facility] May 23, 2024 03:11 PM PREVENTIVE MEDICIN E NURSING NOTE: LOCAL TITLE: CLINICAL REMINDERS/NURSING STANDARD TITLE: PREVENTIVE MEDICINE NURSING NOTE DATE OF NOTE: MAY 23, 2024@15:11 ENTRY DATE: MAY 23, 2024@15:11:39 AUTHOR: STIVEN MANCUSO EXP COSIGNER: URGENCY: STATUS: COMPLETED Advance Directive Screen AD: Patient has an up-to-date Advance Directive at an outside, non-va facility and was asked to forward a copy to his/her clinician. Comment: was given the paperwork to return upon completion /jeff MANCUSO LPN LPN Signed: 05/23/2024 15:12 STIVEN MANCUSO [facility]
--- OUTSIDE RECORDS SUMMARY | 2024-06-07 15:21 | XMS_ITS | Encounter Summary ---
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 Name Role Phone ALBIN TRENT Primary Care [...] ALEXI FAMIL Y Apr 18, 2009 [id number] [phone] RHONDA ISSA PATIENT BCBS [place] FEP PREFERRED PROVIDER ORGANIZAT ION (PPO) BASIC INDIV IDUAL Apr 18, 2020 [id number] RHONDA ISSA PATIENT [place] PREFERRED PROVIDER ORGANIZAT ION (PPO) BASIC SELF Apr 18, 2020 [id number] [phone] RHONDA ISSA PATIENT [place] DENTAL DENTAL INSURANCE BASIC Apr 18, 2020 DENTAL [id number] RHONDA ISSA PATIENT CAREMARK FEP BCBS PRESCRIPT ION CAREM ARK FEPRX PLAN Apr 18, 2010 [id number] ISSA ELLIS PATIENT CAREMARK([id number]) PRESCRIPT ION FEP Apr 18, 2020 [id number] ISSA ELLIS PATIENT EMPIRE BCBS (FEDERAL) PREFERRED PROVIDER ORGANIZAT ION (PPO) BASIC SELF Apr 18, 2020 [id number] ISSA ELLIS PATIENT EMPIRE BCBS FED DENTAL DENTAL INSURANCE FEP DENTA L Apr 18, 2020 FEPDENT AL [id number] ISSA ELLIS PATIENT MEDICARE (WNR) MEDICARE () PART A August 16, 2010 PART A [id number] [phone] RHONDA SCOTTWAYNE O PATIENT MEDICARE ([facility]) MEDICARE () PART B August 16, 2010 PART B [id number] [phone] RHONDA SCOTTWAYNE O PATIENT MEDICARE ([facility]) MEDICARE () PART A August 16, 2010 PART A [id number] RHONDA SCOTTWAYEN O PATIENT MEDICARE (WN) MEDICARE () PART B August 16, 2010 PART B [id number] RHONDA SCOTTWAYNE O PATIENT MEDICARE (WN) MEDICARE () PART A August 16, 2010 PART A [id number] RHONDA SCOTTWAYNE O PATIENT MEDICARE (WN) MEDICARE () PART B August 16, 2010 PART B [id number] [phone] [id number] RHONDA SCOTTWAYNE O PATIENT MEDICARE (WNR) MEDICARE () PART A August 16, 2010 PART A [id number] WAYNE ELLISO PATIENT MEDICARE (WNR) MEDICARE () PART A August 16, 2010 PART A [id number] WAYNE ELLISO PATIENT MEDICARE (WNR) MEDICARE () PART B August 16, 2010 PART B [id number] ISSA ELLIS PATIENT MEDICARE (WNR) MEDICARE () PART A August 16, 2010 PART A [id number] WAYNE ELLIS JR PATIENT MEDICARE (WNR) MEDICARE (M) PART B August 16, 2010 PART B [id number] WAYNE ELLIS JR O PATIENT MEDICARE (WNR) MEDICARE (M) PART B August 16, 2010 PART B [id number] ISSA ELLIS PATIENT MEDICARE (WNR) MEDICARE (M) PART A August 16, 2010 PART A [id number] ISSA ELLIS PATIENT MEDICARE (WNR) MEDICARE (M) PART B August 16, 2010 PART B [id number] ISSA ELLIS PATIENT TRIPLE S ADVANTAGE MCR (WNR) MEDICARE ADVANTAGE MCR (WNR) Apr 18, 2024 DO NOT BILL [id number] ISSA ELLIS PATIENT TRIPLE-S RAFAEL (FED) PREFERRED PROVIDER ORGANIZAT ION (PPO) FEP PSHB BLUE BASIC Apr 18, 2024 [id number] ISSA ELLIS PATIENT Selected Encounter This section includes the information on record at [place] for the Encounter. Date/Time Encounter Type Encounter Description Reason Provider Source Mar 30, 2024 09:01 AM [facility] ICD-10-CM F32.A Depression, unspecified MALINOFSKY,TE VIJI IHE Encounter Template Text not used by [place] Assessments - Encounter Diagnoses This section includes the primary and secondary diagnoses documented for the Encounter. Date/Time Primary/Secondary Diagnosis Diagnosis Name Provider Source Apr 23, 2024 08:04 AM PRIMARY Depression, unspecified MALINOFSKY,TER JEZ [place] [facility] [place] [facility] Plan of Treatment: Future Appointments (+ [...] AMBULATORY - PSYCHIATRY [facility] [place] [facility] Apr 09, 2024 02:30 PM AMBULATORY - MEDICINE [facility] [place] [facility] Apr 13, 2024 09:00 AM AMBULATORY - PSYCHIATRY [facility] [place] [facility] Apr 17, 2024 02:00 PM AMBULATORY - PS[facility]CHIATRY [facility] [place] [facility] Apr 20, 2024 09:00 AM AMBULATORY - PS[facility]CHIATRY [facility] [place] [facility] May 02, 2024 03:00 PM AMBULATORY - PSYCHIATRY [facility] [place] [facility] May 08, 2024 01:00 PM AMBULATORY - MEDICINE [facility] [place] [facility] May 10, 2024 11:00 AM AMBULATORY - PS[facility]CHIATRY [facility] [place] [facility] May 22, 2024 10:00 AM AMBULATORY - MEDICINE [facility] [place] [facility] May 23, 2024 03:00 PM AMBULATORY - MEDICINE [facility] [place] [facility] May 28, 2024 01:00 PM AMBULATORY - MEDICINE [facility] [place] [facility] Jun 06, 2024 02:30 PM AMBULATORY - PSYCHIATRY [facility] [place] [facility] Jun 20, 2024 11:00 AM AMBULATORY - PS[facility]CHIATRY [facility] [place] [facility] Jun 25, 2024 10:00 AM AMBULATORY - MEDICINE [facility] [place] [facility] Jun 25, 2024 10:01 AM AMBULATORY - MEDICINE [facility] [place] [facility] Jul 02, 2024 01:45 PM AMBULATORY - MEDICINE [facility] [place] [facility] Jul 16, 2024 11:00 AM AMBULATORY - MEDICINE [facility] [place] [facility] August 21, 2024 01:30 PM AMBULATORY - MEDICINE [facility] [place] [facility] Active, Pending, and Scheduled Orders This section includes a listing of several types of active, pending, and scheduled orders, including clinic medications orders, diagnostic test orders, procedure orders and consult orders; where the start date of the order is 45 days before the date of the Encounter or 45 days after the date of theEncounter. The data comes from all [place] treatment facilities. Test Date/Time Test Type Test Details Facility Name Mar 13, 2024 12:02 PM Consult Order PSYCHOTHER APY BHIP/NHM OUTPT Cons Gis Specialist's Choice [facility] [place] [facility] Mar 30, 2024 01:26 PM Consult Order HOME SLEEP STUDY NOX/NHM OUTPT Cons Gis Special[facility]'s [facility] Lab Results: +/- 30 days of the encounter This section includes the Chemistry and Hematology Lab Results on record with [place] for the patient. Radiology Reports and Pathology Reports are provided separately, in subsequent sections. Lab Results This section contains the Chemistry/Hematology Results that were resulted 30 days before or 30 daysafter the date of the Encounter. Date/Time Source Result Type Result - Unit Interpretation Reference Range Comment Mar 28, 2024 12:21 PM [facility] MICROSCOPIC AUTOMATED, URINE Specimen Type: URINE Comment: If Glucose = >500 and Ketones are positive, please alert the Physician. Ordering Provider: ALBIN TRENT Report Released Date/Time: Feb 02, 2024 12:05 PM Reporting Lab: [facility] [address] [address] Performing Lab: [facility] [address] [address] UA WBC 0-5 /[HPF] 0-5 UA RBC 0-2 /[HPF] 0-3 Mar 28, 2024 12:21 PM [facility] LIVER FUNCTION Specimen Type: SERUM No comment entered. Ordering Provider: ALBIN TRENT Report Released Date/Time: Feb 02, 2024 12:05 PM Reporting Lab: [facility] [address] [address] Performing Lab: [facility] [address] [address] PROTEIN,TOTAL 7.0 g/dL 6.0-8.3 ALBUMIN 4.1 g/dL 3.5-5.0 ALKALINE PHOSPHATASE 37 U/L L 40-150 AST 19 U/L 5-34 ALT 28 U/L BILIRUBIN, TOTAL 0.6 mg/dL 0.2-1.2 Mar 28, 2024 12:21 PM [facility] LIPID PANEL FASTING Specimen Type: SERUM No comment entered. Ordering Provider: ALBIN TRENT Report Released Date/Time: Feb 02, 2024 12:05 PM Reporting Lab: [facility] [address] [address] Performing Lab: [address] [address] CHOLESTEROL 248 mg/dL H TRIGLYCERIDE 170 mg/dL H 0-150 LDL calculated 166 mg/dL H 0-129 CHOL/HDL 5.2 HDL CHOLESTEROL 48 mg/dL 40-60 Mar 28, 2024 12:21 PM [facility] TSH Specimen Type: SERUM No comment entered. Ordering Provider: ALBIN TRENT Report Released Date/Time: Feb 02, 2024 12:05 PM Reporting Lab: [address] [address] Performing Lab: [address] [address] TSH 0.89 u[IU]/mL 0.35-5.00 Mar 28, 2024 12:21 PM [facility] BASIC METABOLIC PANEL (fasting) Specimen Type: SERUM No comment entered. Ordering Provider: ALBIN TRENT Report Released Date/Time: Feb 02, 2024 12:05 PM Reporting Lab: [address] [address] Performing Lab: [address] [address] UREA NITROGEN 19 mg/dL 7-25 GLUCOSE 227 mg/dL H 65-100 SODIUM 137 mmol/L 135-145 POTASSIUM 4.4 mmol/L 3.5-5.0 CHLORIDE 108 mmol/L 100-110 CO2 20 meq/L 20-30 CREATININE, Serum 0.97 mg/dL 0.50-1.40 eGFR(CKD-EPI 2020) 80 mL/min >60 Mar 28, 2024 12:21 PM [facility] HEMOGLOBIN A1C PANEL Specimen Type: BLOOD [...] Feb 02, 2024 12:05 PM Reporting Lab: [facility] [address] [address] Performing Lab: [facility] [address] [address] HEMOGLOBIN A1C 7.5 H 4.0-5.6 Mar 28, 2024 12:21 PM [facility] MICROALBUMIN CREATININE RATIO PANEL Specimen Type: URINE No comment entered. Ordering Provider: ALBIN TRENT Report Released Date/Time: Feb 02, 2024 12:05 PM Reporting Lab: [facility] [address] [address] Performing Lab: [facility] [address] [address] MICROALBUMIN/C REATININE RATIO 556.1 mg/g H 0-29.9 MICROALBUMIN,Q UANTITATIVE 46.1 mg/dL RR UNAVAIL CREATININE URINE 82.90 mg/dL Mar 28, 2024 12:21 PM [facility] CBC AND DIFF (AUTO) Specimen Type: BLOOD No comment entered. Ordering Provider: ALBIN TRENT Report Released Date/Time: Feb 02, 2024 12:05 PM Reporting Lab: [facility] [address] [address] Performing Lab: [address] [address] WBC 4.53 10*3/uL 4.50-11.00 RBC 4.74 10*6/uL [...] 10*3/uL 0.00-0.00 Mar 28, 2024 12:21 PM [facility] URINALYSIS CLEAN CATCH Specimen Type: URINE Comment: If Glucose = >500 and Ketones are positive, please alert the Physician. Ordering Provider: ALBIN TRENT Report Released Date/Time: Feb 02, 2024 12:05 PM Reporting Lab: [address] [address] Performing Lab: [address] [address] UA COLOR Light-Yellow Yellow UA APPEARANCE Clear [...] PM VA-TOBACCO USE FOR ALEJANDRO CIGARETTES [facility] Tobacco Use History This section includes a history of the smoking, or tobacco-related health factors, that were collected on or before the date of the Encounter. The data comes from the [place] facility where the Encounter took place. Date/Time Smoking Status/Tobacco Use Comment F acility Mar 09, 2024 01:00 PM VA-TOBACCO USE FOR ALEJANDRO CIGARETTES [facility] Advance Directives: All historical and current [...] 2011 ADVANCE DIRECTIVE DISCUSSION Sandra CONNOLLY [facility] Encounter Notes: All associated encounter notes This section contains the clinical notes associated to the Encounter. Date/Time Encounter Note(s) Provider Source Mar 30, 2024 09:00 AM PSYCHOLOGY CONSULT : LOCAL TITLE: CONSULT REPORT/MENTAL HEALTH/PSYCHOLOGY STANDARD TITLE: PSYCHOLOGY CONSULT DATE OF NOTE: MAR 30, 2024@09:00 ENTRY DATE: MAR 30, 2024@15:21:27 AUTHOR: JANIS SCHAEFER EXP COSIGNER: URGENCY: STATUS: COMPLETED Issa Rhonda attende Depression aka [facility] [employer] Group [facility] for the first time. See CPRS note on this date 03/30/2024. /juan/ JANIS SCHAEFER,PhD Neuropsychologist Signed: 03/30/2024 15:22 JANIS SCHAEFER [facility] Mar 30, 2024 09:00 AM PSYCHIATRY GROUP COUNSELING NOTE: LOCAL TITLE: PSYCHOLOGY GROUP NOTE STANDARD TITLE: PSYCHIATRY GROUP COUNSELING NOTE DATE OF NOTE: MAR 30, 2024@09:00 ENTRY DATE: MAR 30, 2024@10:17:09 AUTHOR: JANIS CSHAEFER COSIGNER: URGENCY: STATUS: COMPLETED DEPRESSION aka [facility] [employer] [facility] group 03/30/2024 NINE (9) MEMBERS attended today's group. QUESTIONS: COPING with ISOLATION and LONELINESS 1.Reflect on when you prefer alone time, and what you like doing in your alone time, and what you would like to add to your alone time. 2. Reflect on a time of isolation or loneliness. Describe that internal experience. 3. What do you usually expect when you try to connect with someone? 4. What do you usually experience when someone tries to connect with you? 5. What adjustments to your core beliefs would help? Members were asked to write down their initial responses to the above questions before start of group discussion. Handout: COPING with ISOLATION and LONELINESS Quoted Extracts from Chapter 30, Coping with TraumaRelated Dissociation: Skills Training for Patients and Therapists, By Radhika Washington, Amada Easton, Eric Haney. Intro from above: The fear or emptiness of being alone is a major precipitant of crises, including self-harm and suicide attempts. Even if you have friends or family, you may feel like an outsider who does not belong. Or you may experience relationships as exhausting, complicated, and frightening; and thus isolate yourself. Mistrust is a pervasive hindrance to feeling connected and present with other people and a force that pushes you further into isolation. This type of isolation may breed loneliness. Homework Sheet to do at home later: Same questions as above. ........................ ........................ ........................ ... Issa Ellis is new today. He speaks up quietly and thoughtfully, says there is a lot in today's discussion that he is still thinking about. ........................ ........................ ........................ ... Related to: Service Connected Condition Diagnoses: Depressive episode ([facility] [id number]) - Depression, unspecified (ICD-10-CM F32.A) (Primary) Procedures: Group Psychotherapy - Clinical Psychologist /juan/ JANIS SCHAEFER,PhD Neuropsychologist Signed: 03/30/2024 15:20 JANIS SCHAEFER [place] [facility]
--- OUTSIDE RECORDS SUMMARY | 2024-06-07 15:21 | XMS_ITS | Encounter Summary ---
Author Name [facility] [place] [facility] [place] [facility] [place] [facility] [place] Address [address] [place] [address] Care Team Providers Care Bottom Brusher Name Role Phone ALBIN TRENT Primary Care [...] ALEXI FAMIL Y Apr 18, 2009 [id number] [phone] BETHANY ELLIS PATIENT BCBS [place] FEP PREFERRED PROVIDER ORGANIZAT ION (PPO) BASIC INDIV IDUAL Apr 18, 2020 111 [id number] [phone] RHONDA BETHANY PATIENT [place] FEP PREFERRED PROVIDER ORGANIZAT ION (PPO) BASIC SELF Apr 18, 2020 111 [id number] [phone] RHONDA BETHANY PATIENT [place] FEP DENTAL DENTAL INSURANCE BASIC Apr 18, 2020 DENTAL [id number] BETHANY ELLIS PATIENT CAREMARK FEP BCBS PRESCRIPT ION CAREM ARK FEPRX PLAN Apr 18, 2010 [id number] BETHANY ELLIS PATIENT CAREMARK([id number]) PRESCRIPT ION FEP Apr 18, 2020 [id number] BETHANY ELLIS PATIENT EMPIRE BCBS (FEDERAL) PREFERRED PROVIDER ORGANIZAT ION (PPO) BASIC SELF Apr 18, 2020 111 [id number] BETHANY ELLIS PATIENT EMPIRE BCBS FED DENTAL DENTAL INSURANCE FEP DENTA L Apr 18, 2020 FEPDENT AL [id number] [phone] BETHANY ELLIS PATIENT MEDICARE (WNR) MEDICARE () PART A August 16, 2010 PART A [id number] BETHANY ELLIS PATIENT MEDICARE (WNR) MEDICARE () PART B August 16, 2010 PART B [id number] [phone] BETHANY ELLIS PATIENT MEDICARE ([facility]) MEDICARE () PART A August 16, 2010 PART A [id number] WAYNE ELLISO PATIENT MEDICARE (WNR) MEDICARE () PART B August 16, 2010 PART B [id number] BETHANY ELILS PATIENT MEDICARE (WNR) MEDICARE () PART A August 16, 2010 PART A [id number] WAYNE ELLIS JR O PATIENT MEDICARE ([facility]) MEDICARE () PART B August 16, 2010 PART B [id number] RHONDA SCOTTYAIRVENKAT O PATIENT MEDICARE (R) MEDICARE () PART A August 16, 2010 PART A [id number] RHONDA SCOTTYAIRING O PATIENT MEDICARE (WNR) MEDICARE () PART B August 16, 2010 PART B [id number] WAYNE ELLIS JR O PATIENT MEDICARE (WNR) MEDICARE () PART A August 16, 2010 PART A [id number] BETHANY ELLIS PATIENT MEDICARE (WNR) MEDICARE () PART B August 16, 2010 PART B [id number] [phone] BETHANY ELLIS PATIENT MEDICARE (WNR) MEDICARE (M) PART A August 16, 2010 PART A [id number] [phone] WAYNE ELLIS JR O PATIENT MEDICARE (WNR) MEDICARE (M) PART B August 16, 2010 PART B [id number] WAYNE ELLIS JR O PATIENT MEDICARE (WNR) MEDICARE (M) PART A August 16, 2010 PART A [id number] WAYNE ELLIS JR O PATIENT MEDICARE (WNR) MEDICARE (M) PART B August 16, 2010 PART B [id number] WAYNE ELLIS JR PATIENT TRIPLE S ADVANTAGE MCR (WNR) MEDICARE ADVANTAGE MCR (WNR) Apr 18, 2024 DO NOT BILL [id number] BETHANY ELLIS PATIENT TRIPLE-S RAFAEL (FED) PREFERRED PROVIDER ORGANIZAT ION (PPO) FEP PSHB BLUE BASIC Apr 18, 2024 [id number] BETHANY ELLIS PATIENT Selected Encounter This section includes the information on record at [place] for the Encounter. Date/Time Encounter Type Encounter Description Reason Pro vider Source May 09, 2024 08:53 AM Outpatient Encounter SUBSTANCE USE DISORDER IND IHE Encounter Template Text not used by ME Plan of Treatment: Future Appointments (+ 6 months) and Future Tests (+/- 45 days) The Plan of Treatment section includes future care activities for the patient from all [place] treatmentfacilities. This section includes future appointments and future orders which are active, pending or scheduled. Future Appointments This section includes appointments that were scheduled to occur 6 months from the date of the Encounter, up to a maximum of 20 appointments. The data comes from all [place] treatment facilities. Appointment Date/Time Appointment Type Appointme nt Facility Name May 10, 2024 11:00 AM AMBULATORY - PS[place]CHIATRY [place] [facility] [place] [facility] May 22, 2024 10:00 AM AMBULATORY - MEDICINE [place] [facility] [place] [facility] May 23, 2024 03:00 PM AMBULATORY - MEDICINE [place] [facility] [place] [facility] May 28, 2024 01:00 PM AMBULATORY - MEDICINE [place] [facility] [place] [facility] Jun 06, 2024 02:30 PM AMBULATORY - PSYCHIATRY [place] [facility] [place] [facility] Jun 20, 2024 11:00 AM AMBULATORY - PSYCHIATRY [place] [facility] [place] [facility] Jun 25, 2024 10:00 AM [facility] Jun 25, 2024 10:01 AM AMBULATORY - MEDICINE [place] [facility] [place] [facility] Jul 02, 2024 01:45 PM AMBULATORY - MEDICINE [place] [facility] [place] [facility] Jul 16, 2024 11:00 AM AMBULATORY - MEDICINE [place] [facility] [place] [facility] August 21, 2024 01:30 PM AMBULATORY - MEDICINE [facility] Active, Pending, and Scheduled Orders This section includes a listing of several types of active, pending, and scheduled orders, including clinic medications orders, diagnostic test orders, procedure orders and consult orders; where the start date of the order is 45 days before the date of the Encounter or 45 days after the date of theEncounter. The data comes from all [place] treatment facilities. Test Date/Time Test Type Test Details Facility Name Mar 30, 2024 01:26 PM Consult Order HOME SLEEP STUDY NOX/NHM OUTPT Cons Information Systems [facility] Social History: Smoking Status (Most current) and Tobacco Use (All prior to encounter date) This section includes the most current, and the historical, smoking and tobacco- related health factors from the [place] facility where the Encounter took place. Current Smoking Status This section includes the most current smoking, or tobacco-related health factor, from the [place] facility where the Encounter took place. Date/Time Current Smoking Status Comment Facil ity Mar 09, 2024 01:00 PM VA-TOBACCO USE FOR ALEJANDRO CIGARETTES [facility] Tobacco Use History This section includes a history of the smoking, or tobacco-related health factors, that were collected on or before the date of the Encounter. The data comes from the [place] facility where the Encounter took place. Date/Time Smoking Status/Tobacco Use Comment F acility Mar 09, 2024 01:00 PM VA-TOBACCO [facility] Advance Directives: All historical and current Section Date Range: From patient's date of to the date document was created. This section includes ALL of a patient's completed or amended [place] Advance and Rescinded Directives. The entries below indicate that a directive exists for the patient, but an actual copy is not included with this document. The data comes from all [place] facilities. Date Advance Directives Provider Source Dec 15, 2011 ADVANCE DIRECTIVE DISCUSSION Sandra CONNOLLY [facility] Encounter Notes: All associated encounter notes This section contains the clinical notes associated to the Encounter. Date/Time Encounter Note(s) Provider Source May 09, 2024 08:55 AM MENTAL HEALTH DIAG NOSTIC STUDY NOTE: LOCAL TITLE: MENTAL HEALTH DIAGNOSTIC STUDY STANDARD TITLE: MENTAL HEALTH DIAGNOSTIC STUDY NOTE DATE OF NOTE: MAY 09, 2024@08:55:35 ENTRY DATE: MAY 09, 2024@08:55:35 AUTHOR: TOSHIA CONNELL COSIGNER: URGENCY: STATUS: COMPLETED INFORMED CONSENT TO PARTICIPATE: At beginning of session reviewed rights and limits of confidentiality, mandatory reporting situations, duty to warn and protect, [place] Warning, (if treatment team finds patient to be an acute danger to themselves or others, that this information could be relayed to a court of law and presented to a housing court judge), and [facility] access for active duty service members. Provided Suicide Prevention Hotline number, and other contact numbers as necessary. INFORMED CONSENT TO UTILIZE BEHAVIORAL HEALTH LAB: - Poultry Husbandry Worker reviewed with the use of Behavioral Health Lab ([facility]) to facilitate Measurement Based Care (MBC). - A brief overview of this program was offered to the [place], and was encouraged to complete each measure sent via text or email. - [If PHQ-9 will be collected and elevated risk issues are present, insert note regarding discussion with Vet about crisis expectations]. - was informed that responses are not reviewed in real time. was provided with [facility] Crisis Line information and instructed to call [phone] or go to nearest ER if experiencing urgent or life threatening issue. - Poultry Husbandry Worker continued to educate Vet about MBC, and discussed how each completed measures will be reviewed at the start of each session. - Clarified that measures will be used to inform intervention and treatment planning, and data entered into [facility] will be imported into the [facility] medical record. - [place] raised no questions or concerns about the following and will complete [facility] measures, as planned. Provided psychoeducation on the role of Measurement Based Care (MBC) in treatment and agreed to follow measurement over time. Administered MBC, discussed results, and collaboratively used to inform treatment plan. These assessments were completed by BETHANY ELLIS via provider direct entry on 05/09/2024 8:53:07 AM. PATIENT HEALTH QUESTIONNAIRE-9 (PHQ-9) The patient reported some symptoms of depression; symptoms are not consistent with a major depressive episode. Patient reported being bothered by the following over the last 2 weeks: 1. Little interest or pleasure: Several Days 2. Feeling down, depressed or hopeless: Several Days 3. Trouble sleeping: Nearly every day 4. Tired, low energy: Nearly every day 5. Poor appetite, over-eating: Several Days 6. Feelings of failure, guilt: Several Days 7. Trouble concentrating: Several Days 8. Motor retardation, agitation: Several Days 9. Thoughts better off /hurting self: Not at all PHQ-9 total score = 12 1-4 = minimal symptoms 5-9= mild symptoms 10-14= moderate symptoms 15-19= moderately severe symptoms 20-27= severe depressive symptoms The patient stated that the depressive symptoms made it somewhat difficult to work, take care of things at home, or get along with others. PHQ-9 Total Score (past 180 days): 05/09/2024 12 03/28/2024 8 03/09/2024 19 03/05/2024 20 /es/ TOSHIA CONNELL [facility] CLINICAL FUNDING COORDINATOR Signed: 05/09/2024 09:10 [facility]HIA CONNELL [facility]
--- OUTSIDE RECORDS SUMMARY | 2024-06-07 15:21 | XMS_ITS | Encounter Summary ---
Author Name [facility] [place] [facility] [place] Address [address] [place] [address] Care Team Providers Care Merchandise Clerk Name Role Phone ALBIN TRENT Primary [...] ALEXI FAMIL Y Apr 18, 2009 [id number] [phone] RHONDA BETHANY PATIENT BCBS [place] FEP PREFERRED PROVIDER ORGANIZAT ION (PPO) BASIC INDIV IDUAL Apr 18, 2020 111 [id number] RHONDA BETHANY PATIENT [place] FEP PREFERRED PROVIDER ORGANIZAT ION (PPO) BASIC SELF Apr 18, 2020 111 [id number] [phone] YAIR ELLISINGO PATIENT [place] F[place] DENTAL DENTAL INSURANCE BASIC Apr 18, 2020 DENTAL [id number] [phone] RHONDA BETHANY PATIENT CAREMARK FEP BCBS PRESCRIPT ION CAREM ARK FEPRX PLAN Apr 18, 2010 [id number] BETHANY ELLIS PATIENT CAREMARK([id number]) PRESCRIPT ION FEP Apr 18, 2020 [id number] BETHANY ELLIS PATIENT EMPIRE BCBS (FEDERAL) PREFERRED PROVIDER ORGANIZAT ION (PPO) BASIC SELF Apr 18, 2020 111 [id number] BETHANY ELLIS PATIENT [place] BCBS FED DENTAL DENTAL INSURANCE FEP DENTA L Apr 18, 2020 FEPDENT AL [id number] BETHANY ELLIS PATIENT MEDICARE (WNR) MEDICARE () PART A August 16, 2010 PART A [id number] BETHANY ELLIS PATIENT MEDICARE (WNR) MEDICARE () PART B August 16, 2010 PART B [id number] BETHANY ELLIS PATIENT MEDICARE ([facility]) MEDICARE () PART A August 16, 2010 PART A [id number] WAYNE ELLISO PATIENT MEDICARE (WNR) MEDICARE () PART B August 16, 2010 PART B [id number] BETHANY ELLIS PATIENT MEDICARE (WNR) MEDICARE () PART B August 16, 2010 PART B [id number] WAYNE ELLIS JR O PATIENT MEDICARE ([facility]) MEDICARE () PART A August 16, 2010 PART A [id number] RHONDA SCOTTYAIRVENKAT O PATIENT MEDICARE (R) MEDICARE () PART A August 16, 2010 PART A [id number] RHONDA SCTOTYAIRING O PATIENT MEDICARE (WNR) MEDICARE () PART B August 16, 2010 PART B [id number] WAYNE ELLIS JR O PATIENT MEDICARE (WNR) MEDICARE () PART A August 16, 2010 PART A [id number] [phone] BETHANY ELLIS PATIENT MEDICARE (WNR) MEDICARE () PART B August 16, 2010 PART B [id number] BETHANY ELLIS PATIENT MEDICARE (WNR) MEDICARE (M) PART A August 16, 2010 PART A [id number] WAYNE ELLIS JR O PATIENT MEDICARE (WNR) MEDICARE (M) PART B August 16, 2010 PART B [id number] WAYNE ELLIS JR O PATIENT MEDICARE (WNR) MEDICARE (M) PART A August 16, 2010 PART A [id number] WAYNE ELLIS JR O PATIENT MEDICARE (WNR) MEDICARE (M) PART B August 16, 2010 PART B [id number] [phone] WAYNE ELLIS JR PATIENT TRIPLE S ADVANTAGE MCR (WNR) MEDICARE ADVANTAGE MCR (WNR) Apr 18, 2024 DO NOT BILL [id number] [phone] BETHANY ELLIS PATIENT TRIPLE-S RAFAEL (FED) PREFERRED PROVIDER ORGANIZAT ION (PPO) FEP PSHB BLUE BASIC Apr 18, 2024 [id number] BETHANY ELLIS PATIENT Selected Encounter This section includes the information on record at [place] for the Encounter. Date/Time Encounter Type Encounter Description Reason Pro vider Source May 04, 2024 01:00 PM Outpatient Encounter PCMHI INDIV IHE Encounter Template Text not used by [place] Plan of Treatment: Future Appointments (+ 6 [...] 08, 2024 01:00 PM AMBULATORY - MEDICINE [place] [facility] [place] [facility] May 10, 2024 11:00 AM AMBULATORY - PS[facility]CHIATRY [facility] [place] [facility] May 22, 2024 10:00 AM AMBULATORY - MEDICINE [facility] [place] [facility] May 23, 2024 03:00 PM AMBULATORY - MEDICINE [place] [facility] [place] [facility] May 28, 2024 01:00 PM AMBULATORY - MEDICINE [place] [facility] [place] [facility] Jun 06, 2024 02:30 PM [facility] Jun 20, 2024 11:00 AM AM[facility]UL[facility] Jun 25, 2024 10:00 AM [facility]UL[facility] Jun 25, 2024 10:01 AM AMBULATORY - MEDICINE [place] [facility] [place] [facility] Jul 02, 2024 01:45 PM AMBULATORY - MEDICINE [place] [facility] [place] [facility] Jul 16, 2024 11:00 AM [facility] August 21, 2024 01:30 PM [facility]ULAT[facility] Active, Pending, and Scheduled Orders This section includes a listing of several types of active, pending, and scheduled orders, including clinic medications orders, diagnostic test orders, procedure orders and consult orders; where the start date of the order is 45 days before the date of the Encounter or 45 days after the date of theEncounter. The data comes from all [place] treatment facilities. 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 Current Smoking Status This section includes the most current smoking, or tobacco-related health factor, from the [place] facility where the Encounter took place. Date/Time Current Smoking Status Comment Facil ity Mar 09, 2024 01:00 PM VA-TOBACCO USE FOR ALEJANDRO CIGARETTES [facility] Tobacco Use History This section includes a history of the smoking, or tobacco-related health factors, that were collected on or before the date of the Encounter. The data comes from the [place] facility where the Encounter took place. Date/Time Smoking Status/Tobacco Use Comment F acility Mar 09, 2024 01:00 PM VA-TOBACCO USE FOR ALEJANDRO CIGARETTES [facility] Advance Directives: All historical and current Section Date Range: From patient's date of to the date document was created. This section includes ALL of a patient's completed or amended [place] Advance and Rescinded Directives. The entries below indicate that a directive exists for the patient, but an actual copy is not included with this document. The data comes from all [place] facilities. Date Advance Directives Provider Source Dec 15, 2011 ADVANCE DIRECTIVE DISCUSSION Sandra CONNOLLY [facility] Encounter Notes: All associated encounter notes This section contains the clinical notes associated to the Encounter. Date/Time Encounter Note(s) Provider Source Apr 26, 2024 02:14 PM ADMINISTRATIVE NOTE: LOCAL TITLE: ADMINISTRATIVE NOTE STANDARD TITLE: ADMINISTRATIVE NOTE DATE OF NOTE: APR 26, 2024@14:14 ENTRY DATE: APR 26, 2024@14:14:54 AUTHOR: JUDITH GOODEN EXP COSIGNER: URGENCY: STATUS: COMPLETED AMSA spoke with over the phone. needed to cancel 05/04/2024 and would like to reschedule! AMSA cancelled appointment off the schedule. /juan/ JUDITH GOODEN ADVANCED [employer] ARCHITECT Signed: 04/26/2024 14:16 Receipt Acknowledged By: 04/27/2024 08:38 /juan/ ALFREDO JEAN, PhD STAFF PSYCHOLOGIST JUDITH GOODEN [facility]
== END 2024-06-07 15:16 | disposition home or self-care (01) ==
PROVIDERS: PCP Internal Medicine; Visit Provider Internal Medicine
DX: E11.65 Type 2 diabetes mellitus with hyperglycemia (principal); E78.00 Pure hypercholesterolemia, unspecified; I10 Essential (primary) hypertension; F41.1 Generalized anxiety disorder; E66.9 Obesity, unspecified; E11.69 Type 2 diabetes mellitus with other specified complication; N52.1 Erectile dysfunction due to diseases classified elsewhere; R79.89 Other specified abnormal findings of blood chemistry; R19.09 Other intra-abdominal and pelvic swelling, mass and lump; Z13.9 Encounter for screening, unspecified

== ENCOUNTER → 2024-06-07 14:13 | Outpatient (BNVA) | payer MEDICARE, BC, SELFPAY | PROVIDERS: PCP Internal Medicine; Visit Provider Internal Medicine | DX: E11.65 Type 2 diabetes mellitus with hyperglycemia (principal); E78.00 Pure hypercholesterolemia, unspecified; I10 Essential (primary) hypertension; F41.1 Generalized anxiety disorder; E11.69 Type 2 diabetes mellitus with other specified complication; N52.1 Erectile dysfunction due to diseases classified elsewhere; R79.89 Other specified abnormal findings of blood chemistry; R19.09 Other intra-abdominal and pelvic swelling, mass and lump | CPT/HCPCS: 83036; 96127; 99212 ==

== ENCOUNTER 2024-09-06 13:59 | Outpatient (AMB) | payer MEDICARE, BC, SELFPAY ==
--- OUTSIDE RECORDS SUMMARY | 2024-09-06 14:07 | XMS_ITS | Continuity of Care Document ---
Author Name [facility] Organization [facility] Care Team Providers Care Workers Compensation Examiner Name Role Phone [facility] Unavailable Unavailable Problems Combined list of problems from Department of Defense and Veterans Affairs facilities. It does not include entries that were removed or entered in error. Problem Status Onset Date Problem Type Date of Resolution Comments Source Obstructive Sleep Apnea of Adult (SCT 8316107664230) Active 04/18/19 25 Condition September 05, 2024 Entered By: ALBIN TRENT Comment: confirmed by sleep study [facility] Tremor Active 04/18/19 24 Condition Feb 02, 2024 Entered By: ALBIN TRENT Comment: referred to neurology [facility] Allergic rhinitis Active Condition Se p 2023 Entered By: PERNELL ALLRED Comment: Allergic Rhinitis- grass, dust [facility] BURSITIS NEC Active Condition [facility] CH HEP C W/O COMA Active Condition [facility] CHR ALC DEP,IN REM Active Condition [facility] Depression screening positive Active Condition [facility] Depressive episode (SNOMED CT [id number]) Active Condition [facility] DM TYPE II, W/O COMP Active Condition [place] 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, 2006 Entered By: ZEV PIERRE Comment: Excision of back 2023 Entered By: ALBIN TRENT Comment: chronic pain [...] HCS HEPATITIS C W/O COMA Active Condition [facility] Hyperglycemia Active Condition [facility] Diagnosis: ICD-10-CM F41.9 Anxiety disorder, unspecified Active Diagnosis [facility] Diagnosis: ICD-10-CM G47.30 Sleep apnea, unspecified Active Diagnosis [facility] Diagnosis: ICD-10-CM F32.A Depression, unspecified Active Diagnosis [facility] Diagnosis: ICD-10-CM G89.28 Other chronic postprocedural pain Active Diagnosis [facility] Diagnosis: ICD-10-CM F33.0 Major depressive disorder, recurrent, mild Active Diagnosis [facility] Diagnosis: ICD-10-CM I10 Essential (primary) hypertension Active Diagnosis [facility] Diagnosis: ICD-10-CM G89.29 Other chronic pain Active Diagnosis [facility] Diagnosis: ICD-10-CM Z73.3 Stress, not elsewhere classified Active Diagnosis [facility] Diagnosis: ICD-10-CM Z72.3 Lack of physical exercise Active Diagnosis [facility] Diagnosis: ICD-10-CM G89.4 Chronic pain syndrome Active Diagnosis [facility] Diagnosis: ICD-10-CM F33.8 Other recurrent depressive disorders Active Diagnosis [facility] Diagnosis: ICD-10-CM Z71.81 Spiritual or yazidism counseling Active Diagnosis [facility] Diagnosis: ICD-10-CM Z71.9 Counseling, unspecified Active Diagnosis [facility] Diagnosis: ICD-10-CM F43.9 Reaction to severe stress, unspecified Active Diagnosis [facility] Diagnosis: ICD-10-CM F43.10 Post-traumatic stress disorder, unspecified Active Diagnosis [facility] Medications Combined list of outpatient medications from Department of Defense and [facility] facilities.Medications provided include 1) outpatient medications from the last 15 months, and 2) patient-reported medications. Medication Details Route Status Patient Instructions Prescription Expires Prescription Number Last Dispense Date Ordering Provider Order Date Order Qty Source ALBUTEROL 100MCG/IPRA TROPIUM BR 20MCG/SPRAY INHALER,ORA L,4GM INHALE 1 PUFF BY MOUTH FOUR TIMES DAILY NEEDED FOR BRONCHOS PASM RESPIR ATORY (INHAL ATION) ACTIVE 05/24/2025 [id number] 5 DONNA TRENT D 2024 3 [facility] AMLODIPINE BESYLATE 10MG TAB TAKE ONE TABLET BY MOUTH ONCE DAILY FOR BLOOD PRESSURE /HEART, DO NOT TAKE WITH GRAPEFRU IT JUICE ORAL ACTIVE 05/24/2025 [id number] 5 DONNA TRENT D 2024 90 [facility] ATORVASTATI N CA 20MG TAB TAKE ONE-HALF TABLET BY MOUTH AT BEDTIME ORAL ACTIVE 05/24/2025 [id number] 5 DONNA TRENT D 2024 45 [facility] ESCITALOPRA M OXALATE 20MG TAB TAKE ONE-HALF TABLET BY MOUTH ONCE DAILY FOR MOOD/DEP RESSION ORAL DISCONT INUED BY PROVIDE R 03/31/2025 [id number] 4 YFN ELIZABETH 2023 15 [facility] FLUOXETINE HCL 10MG CAP TAKE ONE CAPSULE BY MOUTH ONCE DAILY FOR DEPRESSI ON AND ANXIETY ORAL DISCONT INUED (EDIT) 07/13/2025 [id number] 5 YFN ELIZABETH 2024 30 [facility] FLUOXETINE HCL 20MG CAP TAKE ONE CAPSULE BY MOUTH ONCE DAILY FOR DEPRESSI ON AND ANXIETY ORAL ACTIVE 09/05/2025 [id number] 5 YFN ELIZABETH 2024 30 [facility] [place] 50MG TAB TAKE ONE TABLET BY MOUTH ONCE DAILY FOR BLOOD PRESSURE /HEART ORAL ACTIVE 05/24/2025 [id number] 5 DONNA TRENT ALEXI D 2024 90 [facility] M[place]/MET HYL SALICYLATE (10-15%) LOW CONC. CREAM,TOP APPLY A THIN FILM TOPICALL Y THREE TIMES DAILY NEEDED FOR MUSCLE PAIN TOPICA L ACTIVE 04/10/2025 [id number] 4 DONNA TRENT D 2023 90 [facility] METFORMIN HCL 500MG 24HR TAB,SA TAKE TWO TABLETS BY MOUTH ONCE DAILY ORAL ACTIVE 05/24/2025 [id number] 5 DONNA TRENT D 2024 180 [facility] SITAGLIPTIN (EQV-JANUVI A) 100MG TAB TAKE ONE TABLET BY MOUTH ONCE DAILY ORAL ACTIVE DONNA TRENT D 2023 [facility] SITAGLIPTIN (EQV-ZITUVI O) 100MG TAB TAKE ONE TABLET BY MOUTH ONCE DAILY ORAL ACTIVE 05/24/2025 [id number] 5 DONNA TRENT D 2024 90 [facility] Allergies, Adverse Reactions, Alerts Combined list of allergies from Department of Defense and Veterans Affairs facilities. It does not include entries that were removed or entered in error. Substance Category Reaction Severity Reaction type Status Date Reported Comments Source LISINOPRIL Propensity to adverse reactions to drug (finding) active 4 [facility] Immunizations Combined list of available immunizations from the Department of Defense and Veterans Affairs facilities. Immunization Series Date Given Administered By Site Reaction Lot Number CVX Code Drug Packaging Clerk Status Comments Source COVID-19 (MODERNA), MRNA, LNP-S, PF, 50 MCG/0.5 ML (AGES 12+ YEARS) 4 2023 RANDOLPH MANCUSO LEFT DELTO ID [id number] 312 complet ed [facility] INFLUENZA, HIGH-DOSE, TRIVALENT, PF 2023 RANDOLPH MANCUSO LEFT DELTO ID [id number] 135 complet ed Completed Series, [facility] TD (ADULT), 2 LF TETANUS TOXOID, PRESERVATIVE FREE, ADSORBED 1 2022 09 complet ed HISTORICA L INFORMATI ON - FROM OTHER REGISTRY, Tetanus Diphtheri a 2 Lf - Td (adult) [facility] COVID-19 (PFIZER), MRNA, LNP-S, PF, 30 MCG/0.3 ML DOSE 3 2021 208 complet ed HISTORICA L INFORMATI ON - FROM OTHER REGISTRY, Covid Juancarlos- Evelinerolando Lot#: [id number] Mfr: Vdol[employer], INC [facility] COVID-19 (PFIZER), MRNA, LNP-S, PF, 30 MCG/0.3 ML DOSE 2 2020 208 complet ed PFR; [id number]; 1 [facility] COVID-19 (PFIZER), MRNA, LNP-S, PF, 30 MCG/0.3 ML DOSE 1 2020 208 complet ed PFR; [id number]; 1 [facility] PNEUMOCOCCAL CONJUGATE PCV 13 1 2018 133 complet ed HISTORICA L INFORMATI ON - FROM OTHER REGISTRY, Pneumococ gino Conjugate Vaccine, 13 valent [facility] ZOSTER RECOMBINANT 1 2018 187 complet ed HISTORICA L INFORMATI ON - FROM OTHER REGISTRY, Shingles (Zoster recombina nt) [facility] FLU,3 YRS (HISTORICAL) 2015 88 complet ed [...] E PPV23 1 2013 33 complet ed HISTORICA L INFORMATI ON - FROM OTHER REGISTRY, Pneumococ gino Polysacc. Vaccine, 23 valent [facility] [...] 02, 2024 12:05 PM Reporting Lab: [facility] [address] [facility] [address] Performing Lab: [facility] [place] [facility] [address] [facility] [address] [facility] MICROSCO PIC AUTOMATE D, URINE ERYTHROCYT ES [#/AREA] IN URINE SEDIMENT BY MICROSCOPY HIGH POWER FIELD 0-2/[HPF ] 0 - 3 03/28 Specimen Type: URINE Comment: If Glucose = >500 and Ketones are positive, please alert the Physician. Ordering Provider: TIFFANY TRENT Report Released Date/Time: Feb 02, 2024 12:05 PM Reporting Lab: [facility] [place] [facility] [address] [facility] [address] Per[facility] Lab: [facility] [address] [facility] [address] [facility] TSH THYROTROPI N [UNITS/VOL UME] IN SERUM OR PLASMA 0.89 u[IU]/mL 0.35 - 5.00 03/28 Specimen Type: SERUM No comment entered. Ordering Provider: TIFFANY TRENT Report Released Date/Time: Feb 02, 2024 12:05 PM Reporting Lab: [facility] [place] [address] [address] Performing Lab: [facility] [address] [address] [facility] LIPID PANEL FASTING CHOLESTERO L [MASS/VOLU ME] IN SERUM OR PLASMA 248 mg/dL 03/28 H Specimen Type: SERUM No comment entered. Ordering Provider: TIFFANY TRENT Report Released Date/Time: Feb 02, 2024 12:05 PM Reporting Lab: [facility] [address] [address] Performing Lab: [facility] [place] [address] [address] [facility] LIPID PANEL FASTING TRIGLYCERI DE [MASS/VOLU ME] IN SERUM OR PLASMA 170 mg/dL 0 - 150 03/28 H Specimen Type: SERUM No comment entered. Ordering Provider: TIFFANY TRENT Report Released Date/Time: Feb 02, 2024 12:05 PM Reporting Lab: [facility] [place] [facility] [address] [facility] [address] Performing Lab: [facility] [place] [address] [address] [facility] LIPID PANEL FASTING CHOLESTERO L IN LDL [MASS/VOLU ME] IN SERUM OR PLASMA BY VALERIE Murphy 166 mg/dL 0 - 129 03/28 H Specimen Type: SERUM No comment entered. Ordering Provider: TIFFANY TRENT Report Released Date/Time: Feb 02, 2024 12:05 PM Reporting Lab: [facility] [place] [facility] [address] [facility] [address] Performing Lab: [facility] [place] [facility] [address] [facility] [address] [facility] [facility] LIPID PANEL FASTING CHOLESTERO L.TOTAL/CH OLESTEROL IN HDL [MASS RATIO] IN SERUM OR PLASMA 5.2 03/28 Specimen Type: SERUM No comment entered. Ordering Provider: TIFFANY TRENT Report Released Date/Time: Feb 02, 2024 12:05 PM Reporting Lab: [facility] [place] [address] [address] Performing Lab[facility] [place] [facility] [address] [facility] [address] [facility] LIPID PANEL FASTING CHOLESTERO L IN HDL [MASS/VOLU ME] IN SERUM OR PLASMA 48 mg/dL 40 - 60 03/28 Specimen Type: SERUM No comment entered. Ordering Provider: TIFFANY TRENT Report Released Date/Time: Feb 02, 2024 12:05 PM Reporting Lab: [facility] [place] [facility] [address] [facility] [address] Performing Lab: [facility] [place] [facility] [address] [facility] [address] [facility] LIVER FUNCTION PROTEIN [MASS/VOLU ME] IN SERUM OR PLASMA 7.0 g/dL 6.0 - 8.3 03/28 Specimen Type: SERUM No comment entered. Ordering Provider: TIFFANY TRENT Report Released Date/Time: Feb 02, 2024 12:05 PM Reporting Lab: [facility] [place] [facility] [address] [facility] [address] Performing Lab: [facility] [place] [facility] [address] [facility] [address] [facility] LIVER FUNCTION ALBUMIN [MASS/VOLU ME] IN SERUM OR PLASMA 4.1 g/dL 3.5 - 5.0 03/28 Specimen Type: SERUM No comment entered. Ordering Provider: TIFFANY TRENT Report Released Date/Time: Feb 02, 2024 12:05 PM Reporting Lab: [facility] [address] [facility] [address] Performing Lab: [facility] [address] [facility] [address] [facility] LIVER FUNCTION ALKALINE PHOSPHATAS E [ENZYMATIC ACTIVITY/V OLUME] IN SERUM OR PLASMA 37 U/L 40 - 150 03/28 L Specimen Type: SERUM No comment entered. Ordering Provider: TIFFANY TRENT Report Released Date/Time: Feb 02, 2024 12:05 PM Reporting Lab: [facility] [address] [facility] [address] Performing Lab: [facility] [place] [facility] [address] [facility] [address] [facility] LIVER FUNCTION ASPARTATE AMINOTRANS FERASE [ENZYMATIC ACTIVITY/V OLUME] IN SERUM OR PLASMA 19 U/L 5 - 34 03/28 Specimen Type: SERUM No comment entered. Ordering Provider: TIFFANY TRENT Report Released Date/Time: Feb 02, 2024 12:05 PM Reporting Lab: [facility] [address] [facility] [address] Performing Lab: [facility] [address] [facility] [address] [facility] LIVER FUNCTION ALANINE AMINOTRANS FERASE [ENZYMATIC ACTIVITY/V OLUME] IN SERUM OR PLASMA 28 U/L 03/28 Specimen Type: SERUM No comment entered. Ordering Provider: TIFFANY TRENT Report Released Date/Time: Feb 02, 2024 12:05 PM Reporting Lab: [facility] [place] [facility] [address] [facility] [address] Performing Lab: [facility] [place] [facility] [address] [facility] [address] [facility] LIVER FUNCTION BILIRUBIN. TOTAL [MASS/VOLU ME] IN SERUM OR PLASMA 0.6 mg/dL 0.2 - 1.2 03/28 Specimen Type: SERUM No comment entered. Ordering Provider: TIFFANY TRENT Report Released Date/Time: Feb 02, 2024 12:05 PM Reporting Lab: [facility] [place] [facility] [address] [facility] [address] Performing Lab: [facility] [address] [facility] BASIC METABOLI C PANEL (fasting ) UREA NITROGEN [MASS/VOLU ME] IN SERUM OR PLASMA 19 mg/dL 7 - 25 03/28 Specimen Type: SERUM No comment entered. Ordering Provider: TIFFANY TRENT Report Released Date/Time: Feb 02, 2024 12:05 PM Reporting Lab: [facility] [address] [facility] [address] Performing Lab: [facility] [address] [facility] [address] [facility] BASIC METABOLI C PANEL (fasting ) GLUCOSE [MASS/VOLU ME] IN SERUM OR PLASMA 227 mg/dL 65 - 100 03/28 H Specimen Type: SERUM No comment entered. Ordering Provider: TIFFANY TRENT Report Released Date/Time: Feb 02, 2024 12:05 PM Reporting Lab: [facility] [place] [facility] [address] [facility] [address] Performing Lab: [facility] [address] [facility] [address] [facility] BASIC METABOLI C PANEL (fasting ) SODIUM [MOLES/VOL UME] IN SERUM OR PLASMA 137 mmol/L 135 - 145 03/28 Specimen Type: SERUM No comment entered. Ordering Provider: TIFFANY TRENT Report Released Date/Time: Feb 02, 2024 12:05 PM Reporting Lab: [facility] [place] [facility] [address] [facility] [address] Performing Lab: [facility] [place] [facility] [address] [facility] [address] [facility] BASIC METABOLI C PANEL (fasting ) POTASSIUM [MOLES/VOL UME] IN SERUM OR PLASMA 4.4 mmol/L 3.5 - 5.0 03/28 Specimen Type: SERUM No comment entered. Ordering Provider: TIFFANY TRENT Report Released Date/Time: Feb 02, 2024 12:05 PM Reporting Lab: [facility] [place] [facility] [address] [facility] [address] Performing Lab: [facility] [place] [facility] [address] [facility] [address] [facility] BASIC METABOLI C PANEL (fasting ) CHLORIDE [MOLES/VOL UME] IN SERUM OR PLASMA 108 mmol/L 100 - 110 03/28 Specimen Type: SERUM No comment entered. Ordering Provider: TIFFANY TRENT Report Released Date/Time: Feb 02, 2024 12:05 PM Reporting Lab: [facility] [place] [facility] [address] [facility] [address] Performing Lab: [facility] [place] [address] [address] [facility] BASIC METABOLI C PANEL (fasting ) CARBON DIOXIDE, TOTAL [MOLES/VOL UME] IN SERUM OR PLASMA 20 meq/L 20 - 30 03/28 Specimen Type: SERUM No comment entered. Ordering Provider: TIFFANY TRENT Report Released Date/Time: Feb 02, 2024 12:05 PM Reporting Lab: [facility] [place] [facility] [address] [facility] [address] Performing Lab: [facility] [place] [address] [address] [facility] BASIC METABOLI C PANEL (fasting ) CREATININE [MASS/VOLU ME] IN SERUM OR PLASMA 0.97 mg/dL 0.50 - 1.40 03/28 Specimen Type: SERUM No comment entered. Ordering Provider: TIFFANY TRENT Report Released Date/Time: Feb 02, 2024 12:05 PM Reporting Lab: [facility] [address] [facility] [address] Performing Lab: [address] [address] [facility] BASIC METABOLI C PANEL (fasting ) GLOMERULAR FILTRATION RATE/1.73 SQ M.PREDICTE D [VOLUME RATE/AREA] IN SERUM, PLASMA OR BLOOD BY CREATININE -BASED FORMULA (CKD-EPI 2020) 80 mL/min 60 03/28 Specimen Type: SERUM No comment entered. Ordering Provider: TIFFANY TRENT Report Released Date/Time: Feb 02, 2024 12:05 PM Reporting Lab: [address] [address] Performing Lab: [address] [address] [facility] HEMOGLOB IN A1C PANEL HEMOGLOBIN A1C/HEMOGL OBIN.TOTAL [...] Feb 02, 2024 12:05 PM Reporting Lab: [address] [address] Performing Lab: [address] [address] [facility] MICROALB UMIN CREATINI NE RATIO PANEL MICROALBUM IN/CREATIN INE [MASS RATIO] IN URINE 556.1 mg/g 0 - 29.9 03/28 H Specimen Type: URINE No comment entered. Ordering Provider: TIFFANY TRENT Report Released Date/Time: Feb 02, 2024 12:05 PM Reporting Lab: [facility] [place] [facility] [address] [facility] [address] Performing Lab: [facility] [place] [address] [address] [facility] MICROALB UMIN CREATINI NE RATIO PANEL MICROALBUM IN [MASS/VOLU ME] IN URINE 46.1 mg/dL 03/28 Specimen Type: URINE No comment entered. Ordering Provider: TIFFANY TRENT Report Released Date/Time: Feb 02, 2024 12:05 PM Reporting Lab: [facility] [address] [address] Performing Lab: [facility] [place] [address] [address] [facility] [place] [facility] MICROALB UMIN CREATINI NE RATIO PANEL CREATININE [MASS/VOLU ME] IN URINE 82.90 mg/dL 03/28 Specimen Type: URINE No comment entered. Ordering Provider: TIFFANY TRENT Report Released Date/Time: Feb 02, 2024 12:05 PM Reporting Lab: [facility] [place] [address] [address] Performing Lab: [facility] [place] [address] [address] [facility] CBC AND DIFF (AUTO) LEUKOCYTES [#/VOLUME] IN BLOOD BY AUTOMATED COUNT 4.53 10*3/uL 4.50 - 11.00 03/28 Specimen Type: BLOOD No comment entered. Ordering Provider: TIFFANY TRENT Report Released Date/Time: Feb 02, 2024 12:05 PM Reporting Lab: [facility] [address] [address] Performing Lab: [facility] [place] [address] [place] [address] [facility] [place] [facility] CBC AND DIFF (AUTO) ERYTHROCYT ES [#/VOLUME] IN BLOOD BY AUTOMATED COUNT 4.74 10*6/uL 4.23 - 5.66 03/28 Specimen Type: BLOOD No comment entered. Ordering Provider: TIFFANY TRENT Report Released Date/Time: Feb 02, 2024 12:05 PM Reporting Lab: [facility] [place] [facility] [address] [facility] [address] Performing Lab: [facility] [place] [address] [facility] [address] [facility] [place] [facility] CBC AND DIFF (AUTO) HEMOGLOBIN [MASS/VOLU ME] IN BLOOD 13.9 g/dL 12.8 - 17 03/28 Specimen Type: BLOOD No comment entered. Ordering Provider: TIFFANY TRENT Report Released Date/Time: Feb 02, 2024 12:05 PM Reporting Lab: [facility] [address] [facility] [address] Performing Lab: [facility] [place] [facility] [address] [facility] [address] [facility] CBC AND DIFF (AUTO) HEMATOCRIT [VOLUME FRACTION] OF BLOOD BY AUTOMATED COUNT 40.2 39.2 - 50.4 03/28 Specimen Type: BLOOD No comment entered. Ordering Provider: TIFFANY TRENT Report Released Date/Time: Feb 02, 2024 12:05 PM Reporting Lab: [facility] [address] [facility] [address] Performing Lab: [facility] [address] [facility] [address] [facility] CBC AND DIFF (AUTO) MCV [ENTITIC VOLUME] BY AUTOMATED COUNT 84.8 fL 82 - 99 03/28 Specimen Type: BLOOD No comment entered. Ordering Provider: TIFFANY TRENT Report Released Date/Time: Feb 02, 2024 12:05 PM Reporting Lab: [facility] [place] [facility] [address] [facility] [address] Performing Lab: [facility] [place] [facility] [address] [facility] [address] [facility] CBC AND DIFF (AUTO) MCHC [MASS/VOLU ME] BY AUTOMATED COUNT 34.6 g/dL 30.8 - 35.1 03/28 Specimen Type: BLOOD No comment entered. Ordering Provider: TIFFANY TRENT Report Released Date/Time: Feb 02, 2024 12:05 PM Reporting Lab: [facility] [place] [facility] [address] [facility] [address] Performing Lab: [facility] [place] [facility] [address] [facility] [address] [facility] [place] [facility] CBC AND DIFF (AUTO) PLATELETS [#/VOLUME] IN BLOOD BY AUTOMATED COUNT 195 10*3/uL 140 - 360 03/28 Specimen Type: BLOOD No comment entered. Ordering Provider: TIFFANY TRENT Report Released Date/Time: Feb 02, 2024 12:05 PM Reporting Lab: [facility] [place] [facility] [address] [facility] [id number] Performing Lab: [facility] [place] [facility] [address] [facility] [phone] [facility] CBC AND DIFF (AUTO) ERYTHROCYT E DISTRIBUTI ON WIDTH [RATIO] BY AUTOMATED COUNT 14.0 12.0 - 16.0 03/28 Specimen Type: BLOOD No comment entered. Ordering Provider: TIFFANY TRENT Report Released Date/Time: Feb 02, 2024 12:05 PM Reporting Lab[facility] [place] [facility] [address] [facility] [address] Performing Lab: [facility] [place] [facility] [address] [facility] [address] [facility] [place] [facility] CBC AND DIFF (AUTO) MONOCYTES [#/VOLUME] IN BLOOD BY AUTOMATED COUNT 0.35 10*3/uL 0.30 - 1.10 03/28 Specimen Type: BLOOD No comment entered. Ordering Provider: TIFFANY TRENT Report Released Date/Time: Feb 02, 2024 12:05 PM Reporting Lab: [facility] [place] [facility] [address] [facility] [address] Performing Lab: [facility] [place] [facility] [address] [facility] [address] [facility] [place] [facility] CBC AND DIFF (AUTO) MCH [ENTITIC MASS] BY AUTOMATED COUNT 29.3 pg 26.2 - 32.6 03/28 Specimen Type: BLOOD No comment entered. Ordering Provider: TIFFANY TRENT Report Released Date/Time: Feb 02, 2024 12:05 PM Reporting Lab: [facility] [place] [facility] [address] [facility] [address] Performing Lab: [facility] [place] [facility] [address] [facility] [address] [facility] [place] [facility] CBC AND DIFF (AUTO) NEUTROPHIL S/100 LEUKOCYTES IN BLOOD BY AUTOMATED COUNT 60.5 43.7 - 75.8 03/28 Specimen Type: BLOOD No comment entered. Ordering Provider: TIFFANY TRENT Report Released Date/Time: Feb 02, 2024 12:05 PM Reporting Lab: [facility] [place] [facility] [address] [facility] [address] Performing Lab: [facility] [place] [facility] [address] [facility] [address] [facility] [place] [facility] CBC AND DIFF (AUTO) LYMPHOCYTE S/100 LEUKOCYTES IN BLOOD BY AUTOMATED COUNT 25.2 14.0 - 42.3 03/28 Specimen Type: BLOOD No comment entered. Ordering Provider: TIFFANY TRENT Report Released Date/Time: Feb 02, 2024 12:05 PM Reporting Lab: [facility] [place] [facility] [address] [facility] [address] Performing Lab: [facility] [place] [facility] [address] [facility] [address] [facility] [place] [facility] CBC AND DIFF (AUTO) MONOCYTES/ 100 LEUKOCYTES IN BLOOD BY AUTOMATED COUNT 7.7 5.1 - 13.7 03/28 Specimen Type: BLOOD No comment entered. Ordering Provider: TIFFANY TRENT Report Released Date/Time: Feb 02, 2024 12:05 PM Reporting Lab: [facility] [place] [facility] [address] [facility] [address] Performing Lab: [facility] [place] [facility] [address] [facility] [address] [facility] [place] [facility] CBC AND DIFF (AUTO) EOSINOPHIL S/100 LEUKOCYTES IN BLOOD BY AUTOMATED COUNT 4.6 0.4 - 6.8 03/28 Specimen Type: BLOOD No comment entered. Ordering Provider: TIFFANY TRENT Report Released Date/Time: Feb 02, 2024 12:05 PM Reporting Lab: [facility] [place] [facility] [address] [facility] [address] Performing Lab: [facility] [place] [facility] [address] [facility] [address] [facility] [place] [facility] CBC AND DIFF (AUTO) BASOPHILS/ 100 LEUKOCYTES IN BLOOD BY AUTOMATED COUNT 1.1 0.1 - 2.0 03/28 Specimen Type: BLOOD No comment entered. Ordering Provider: TIFFANY TRENT Report Released Date/Time: Feb 02, 2024 12:05 PM Reporting Lab: [facility] [place] [facility] [address] [facility] [address] Performing Lab: [facility] [place] [facility] [address] [facility] [address] [facility] [place] [facility] CBC AND DIFF (AUTO) NEUTROPHIL S [#/VOLUME] IN BLOOD BY AUTOMATED COUNT 2.74 10*3/uL 2.20 - 7.60 03/28 Specimen Type: BLOOD No comment entered. Ordering Provider: TIFFANY TRENT Report Released Date/Time: Feb 02, 2024 12:05 PM Reporting Lab: [facility] [place] [facility] [address] [facility] [address] Performing Lab: [facility] [place] [facility] [address] [facility] [address] [facility] [place] [facility] CBC AND DIFF (AUTO) LYMPHOCYTE S [#/VOLUME] IN BLOOD BY AUTOMATED COUNT 1.14 10*3/uL 1.00 - 3.20 03/28 Specimen Type: BLOOD No comment entered. Ordering Provider: TIFFANY TRENT Report Released Date/Time: Feb 02, 2024 12:05 PM Reporting Lab: [facility] [place] [address] [address] Performing Lab: [facility] [place] [address] [address] [facility] [place] [facility] CBC AND DIFF (AUTO) EOSINOPHIL S [#/VOLUME] IN BLOOD BY AUTOMATED COUNT 0.21 10*3/uL 0.03 - 0.44 03/28 Specimen Type: BLOOD No comment entered. Ordering Provider: TIFFANY TRENT Report Released Date/Time: Feb 02, 2024 12:05 PM Reporting Lab: [facility] [place] [address] [address] Performing Lab: [facility] [place] [address] [address] [facility] [place] [facility] CBC AND DIFF (AUTO) BASOPHILS [#/VOLUME] IN BLOOD BY AUTOMATED COUNT 0.05 10*3/uL 0.01 - 0.13 03/28 Specimen Type: BLOOD No comment entered. Ordering Provider: TIFFANY TRENT Report Released Date/Time: Feb 02, 2024 12:05 PM Reporting Lab: [facility] [place] [address] [address] Performing Lab[facility] [place] [address] [address] [facility] [place] [facility] CBC AND DIFF (AUTO) IMMATURE GRANULOCYT ES/100 LEUKOCYTES IN BLOOD BY AUTOMATED COUNT 0.9 0.0 - 0.7 03/28 H Specimen Type: BLOOD No comment entered. Ordering Provider: TIFFANY TRENT Report Released Date/Time: Feb 02, 2024 12:05 PM Reporting Lab: [facility] [place] [address] [address] Performing Lab: [facility] [place] [facility] [address] [facility] [address] [facility] [place] [facility] CBC AND DIFF (AUTO) IMMATURE GRANULOCYT ES [#/VOLUME] IN BLOOD 0.04 10*3/uL 0.00 - 0.06 03/28 Specimen Type: BLOOD No comment entered. Ordering Provider: TIFFANY TRENT Report Released Date/Time: Feb 02, 2024 12:05 PM Reporting Lab: [facility] [place] [facility] [address] [facility] [address] Per[facility] Lab: [facility] [address] [facility] [address] [facility] CBC AND DIFF (AUTO) NRBC % 0.0 0.0 - 0.0 03/28 Specimen Type: BLOOD No comment entered. Ordering Provider: TIFFANY TRENT Report Released Date/Time: Feb 02, 2024 12:05 PM Reporting Lab: [facility] [place] [facility] [address] [facility] [address] Performing Lab: [facility] [address] [facility] [address] [facility] CBC AND DIFF (AUTO) NRBC, ABS 0.00 10*3/uL 0.00 - 0.00 03/28 Specimen Type: BLOOD No comment entered. Ordering Provider: TIFFANY TRENT Report Released Date/Time: Feb 02, 2024 12:05 PM Reporting Lab: [facility] [place] [address] [address] Performing Lab: [facility] [address] [address] [facility] URINALYS IS CLEAN CATCH COLOR OF URINE Light-Ye llow 03/28 Specimen Type: URINE Comment: If Glucose = >500 and Ketones are positive, please alert the Physician. Ordering Provider: TIFFANY TRENT Report Released Date/Time: Feb 02, 2024 12:05 PM Reporting Lab: [facility] [place] [facility] [address] [facility] [address] Performing Lab: [facility] [place] [facility] [address] [facility] [address] [facility] [place] [facility] URINALYS IS CLEAN CATCH APPEARANCE OF URINE Clear 03/28 Specimen Type: URINE Comment: If Glucose = >500 and Ketones are positive, please alert the Physician. Ordering Provider: TIFFANY TRENT Report Released Date/Time: Feb 02, 2024 12:05 PM Reporting Lab: [facility] [place] [facility] [address] [facility] [address] Performing Lab: [facility] [place] [facility] [address] [facility] [address] [facility] [place] [facility] URINALYS IS CLEAN CATCH GLUCOSE [MASS/VOLU ME] IN URINE Normalmg /dL 03/28 Specimen Type: URINE Comment: If Glucose = >500 and Ketones are positive, please alert the Physician. Ordering Provider: TIFFANY TRENT Report Released Date/Time: Feb 02, 2024 12:05 PM Reporting Lab: [facility] [place] [facility] [address] [facility] [address] Performing Lab: [facility] [place] [facility] [address] [facility] [address] [facility] [place] [facility] URINALYS IS CLEAN CATCH KETONES [MASS/VOLU ME] IN URINE BY TEST STRIP NEGATIVE mg/dL 03/28 Specimen Type: URINE Comment: If Glucose = >500 and Ketones are positive, please alert the Physician. Ordering Provider: TIFFANY TRENT Report Released Date/Time: Feb 02, 2024 12:05 PM Reporting Lab: [facility] [place] [facility] [address] [facility] [address] Performing Lab: [facility] [place] [facility] [address] [facility] [address] [facility] [place] [facility] URINALYS IS CLEAN CATCH ERYTHROCYT ES [PRESENCE] IN URINE SEDIMENT BY LIGHT MICROSCOPY NEGATIVE mg/dL 03/28 Specimen Type: URINE Comment: If Glucose = >500 and Ketones are positive, please alert the Physician. Ordering Provider: TIFFANY TRENT Report Released Date/Time: Feb 02, 2024 12:05 PM Reporting Lab: [facility] [place] [facility] [address] [facility] [address] Performing Lab: [facility] [place] [facility] [address] [facility] [address] [facility] [place] [facility] URINALYS IS CLEAN CATCH PROTEIN [MASS/VOLU ME] IN URINE BY TEST STRIP 50 mg/dL 03/28 Specimen Type: URINE Comment: If Glucose = >500 and Ketones are positive, please alert the Physician. Ordering Provider: TIFFANY TRENT Report Released Date/Time: Feb 02, 2024 12:05 PM Reporting Lab: [facility] [place] [facility] [address] [facility] [address] Performing Lab: [facility] [place] [facility] [address] [facility] [address] [facility] [place] [facility] URINALYS IS CLEAN CATCH NITRITE [PRESENCE] IN URINE NEGATIVE mg/dL 03/28 Specimen Type: URINE Comment: If Glucose = >500 and Ketones are positive, please alert the Physician. Ordering Provider: TIFFANY TRENT Report Released Date/Time: Feb 02, 2024 12:05 PM Reporting Lab: [facility] [place] [facility] [address] [facility] [address] Performing Lab: [facility] [place] [facility] [address] [facility] [address] [facility] [place] [facility] URINALYS IS CLEAN CATCH BILIRUBIN. TOTAL [PRESENCE] IN URINE NEGATIVE mg/dL 03/28 Specimen Type: URINE Comment: If Glucose = >500 and Ketones are positive, please alert the Physician. Ordering Provider: TIFFANY TRENT Report Released Date/Time: Feb 02, 2024 12:05 PM Reporting Lab: [facility] [place] [facility] [address] [facility] [address] Performing Lab: [facility] [place] [facility] [address] [facility] [address] [facility] [place] [facility] URINALYS IS CLEAN CATCH SPECIFIC GRAVITY OF URINE BY REFRACTOME TRY 1.019 1.016 - 1.022 03/28 Specimen Type: URINE Comment: If Glucose = >500 and Ketones are positive, please alert the Physician. Ordering Provider: TIFFANY TRENT Report Released Date/Time: Feb 02, 2024 12:05 PM Reporting Lab: [facility] [place] [facility] [address] [facility] [address] Performing Lab: [facility] [place] [address] [facility] [place] [facility] URINALYS IS CLEAN CATCH PH OF URINE BY TEST STRIP 6.0 5.0 - 9.0 03/28 Specimen Type: URINE Comment: If Glucose = >500 and Ketones are positive, please alert the Physician. Ordering Provider: TIFFANY TRENT Report Released Date/Time: Feb 02, 2024 12:05 PM Reporting Lab: [facility] [place] [address] [address] Performing Lab: [facility] [place] [address] [address] [facility] [place] [facility] URINALYS IS CLEAN CATCH UROBILINOG EN [MASS/VOLU ME] IN URINE BY TEST STRIP Normalmg /dL <2.0 - 2.0 03/28 Specimen Type: URINE Comment: If Glucose = >500 and Ketones are positive, please alert the Physician. Ordering Provider: TIFFANY TRENT Report Released Date/Time: Feb 02, 2024 12:05 PM Reporting Lab: [facility] [place] [address] [address] Performing Lab: [facility] [place] [address] [facility] [place] [facility] URINALYS IS CLEAN CATCH LEUKOCYTE ESTERASE [PRESENCE] IN URINE BY TEST STRIP NEGATIVE 03/28 Specimen Type: URINE Comment: If Glucose = >500 and Ketones are positive, please alert the Physician. Ordering Provider: TIFFANY TRENT Report Released Date/Time: Feb 02, 2024 12:05 PM Reporting Lab: [facility] [place] [facility] [address] [facility] [address] Performing Lab: [facility] [place] [facility] [address] [facility] [address] [facility] [place] [facility] Vital Signs Combined list of inpatient and outpatient Vital Signs from Department of Defense and Veterans Affairs, ranging from 12 months to all on record, depending upon the facility. Vital Sign Value Date Comments Source SYSTOLIC BLOOD PRESSURE 142 05/23/19 14:53:04 [facility] [place] [facility] DIASTOLIC BLOOD PRESSURE 80 025 14:53:04 [facility] [place] [facility] PULSE OXIMETRY 98 05/23/2024 14:53:04 [facility] [place] [facility] WEIGHT 204 05/23/2024 14:53:04 [facility] [place] [facility] BMI 30 kg/m2 05/23/2024 14:53:04 [facility] [place] [facility] PAIN 7 05/23/2024 14:53:04 [facility] [place] [facility] HEIGHT 69 05/23/2024 14:53:04 [facility] [place] [facility] SYSTOLIC BLOOD PRESSURE 152 03/13/20 15:07:03 [facility] [place] [facility] DIASTOLIC BLOOD PRESSURE 76 024 15:07:03 [facility] [place] [facility] PULSE [...] [facility] [place] [facility] DIASTOLIC BLOOD PRESSURE 74 01/12/2 024 13:40:59 [facility] [place] [facility] [...] [facility] [place] [facility] Out[facility] Encounter [id number] 03/28 [facility] [place] [place] En[facility] [id number] GABRIEL PITTS 01/12 [facility] [place] [place] [id number] 1.01/22 [facility] [place] [place] Out[facility] Encounter [id number] [facility] [place] [place] OFFICE O/P EST LOW 20 MIN [id number] Diagnos is: ICD-10- CM F43.10 Post-tr aumatic stress disorde r, unspeci fialex TRENTMILLER GEORGINA D 02/01 [facility] [place] [place] HC PRO PHONE CALL 11-20 MIN [id number] 1. Diagnos is: ICD-10- CM F43.9 Reactio n to severe stress, unspeci ONIEL Shay RTKETAN R 02/01 [facility] [place] En[facility] [id number] 1.02/01 [facility] [place] [place] CASE MANAGEMENT [id number] 1. Diagnos is: ICD-10- CM F32.A Depress ion, unspeci fied RE LIM N 03/05 [facility] [place] [place] En[facility] [id number] 1. RE LIM N 03/05 [facility] [place] [place] En[facility] [id number] 1. RE LIM N 03/05 [facility] [place] [place] Encounter [id number] 1. RE LIM N 03/05 [facility] [place] [place] PSYTX W PT 45 MINUTES [id number] Diagnos is: ICD-10- CM F32.A Depress ion, unspeci ONIEL Shay R 03/09 [facility] [place] [place] PSYCH DIAGNOSTIC EVALUATION [id number] 1. 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 Diagnos is: ICD-10- CM F32.A Depress ion, unspeci fied MIRANDAONIEL NOEL R 03/28 [facility] [place] [facility] [place] [facility] Outpatient Encounter [id number] JANIS SCHAEFER 03/30 [facility] [place] [facility] [place] [facility] GROUP PSYCHOTHER APY [id number] Diagnos is: ICD-10- CM F32.A Depress ion, unspeci fied JANIS SCHAEFER 03/30 [facility] [place] [facility] [place] [facility] OFFICE O/P EST HI 40 MIN [id number] Diagnos is: ICD-10- CM F33.8 Other recurre nt depress darrius disorde rs Marita ELIZABETH 03/30 [facility] HC PRO PHONE CALL 11-20 MIN [id number] Diagnos is: ICD-10- CM Z72.3 Lack of physica l REJI Weathers 04/02 [facility] GROUP PSYCHOTHER APY [id number] Diagnos is: ICD-10- CM F32.A Depress ion, unspeci fied OLIVEJANIS 04/06 [facility] [place] OFFICE O/P EST LOW 20 MIN [id number] Diagnos is: ICD-10- CM G89.4 Chronic pain syndrom e MILLER TRENT RD 04/09 [facility] [place] Out[facility] Encounter [id number] 04/10 [facility] [place] PSYTX W PT 45 MINUTES [id number] Diagnos is: ICD-10- CM F41.9 Anxiety disorde r, unspeci fiONIEL Mena 04/17 [facility] GROUP PSYCHOTHER APY [id number] Diagnos is: ICD-10- CM F32.A Depress ion, unspeci fied MALINOFSKERIJANIS 04/20 [facility] [place] [facility] EDU&TRN PT SELF-MGMT NQHP 1 [id number] Diagnos is: ICD-10- CM Z72.3 Lack of physica l REJI Weathers 04/24 [facility] EXERCISE CLASS [id number] Diagnos is: ICD-10- CM Z72.3 Lack of physica l exercis Marita Rajan JAJA 04/25 [facility] Out[facility] Encounter [id number] 05/01 [facility] [place] OFFICE O/P EST MOD 30 MIN [id number] Diagnos is: ICD-10- CM F32.A Depress ion, unspeci Marita Benjamin JAJA 05/02 [facility] Encounter [id number] [facility] [place] [place] [facility] HLTH BHV IVNTJ GRP EA ADDL [id number] Diagnos is: ICD-10- CM Z73.3 Stress, not elsewhe re classif ied JR TORRES RA 05/08 [facility] Encounter [id number] 05/09 [facility] [place] PSYTX W PT 30 MINUTES [id number] Diagnos is: ICD-10- CM F41.9 Anxiety disorde r, unspeci fiONIEL Mena 05/10 [facility] Encounter [id number] 05/21 [facility] [place] [place] [facility] EDU&TRN PT SLF-MGMT NQHP 5-8 [id number] Diagnos is: ICD-10- CM G89.29 Other chronic pain MARY ANN VINCENT EEN 05/22 [facility] [place] [facility] OFFICE O/P EST LOW 20 MIN [id number] Diagnos is: ICD-10- CM I10 Essenti al (primar y) hyperte nsMILLER Mclain RD D 05/23 [facility] [place] [facility] [place] [facility] Outpatient Encounter [id number] 05/25 [facility] [place] [facility] OFFICE O/P EST SF 10 MIN [id number] Diagnos is: ICD-10- CM G89.28 Other chronic postpro cedural pain GAUNYA,CHR ISTOPHER M 05/28 [facility] [place] [facility] [place] [facility] PSYTX W PT 60 MINUTES [id number] Diagnos is: ICD-10- CM 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, recurre nt, mild FABIANO CONNELL 06/06 [facility] Outpatient Encounter [id number] 06/13 [facility] PSYTX W PT 60 MINUTES [id number] Diagnos is: ICD-10- CM F32.A Depress ion, unspeci fied FABIANO CONNELL 06/20 [facility] FEE [id number] Diagnos is: ICD-10- CM G47.30 Sleep apnea, unspeci fied OFELIA,FREDE PORFIRIO 06/25 [facility] ([id number]) EDU&TRN PT SELF-MGMT NQHP 1 [id number] Diagnos is: ICD-10- CM G47.30 Sleep apnea, unspeci fied OFELIA,FREDE PORFIRIO 06/25 [facility] ([id number]) [facility] PSYTX W PT 60 MINUTES [id number] Diagnos is: ICD-10- CM F32.A Depress ion, unspeci FABIANO Manuel 06/27 [facility] PSYTX W PT 60 MINUTES [id number] Diagnos is: ICD-10- CM F32.A Depress ion, unspeci FABIANO Manuel 07/04 [facility] Outpatient Encounter [id number] 07/05 [facility] Outpatient Encounter [id number] 07/09 [facility] ACUP 1/> W/O ESTIM EA ADD 15 [id number] Diagnos is: ICD-10- CM G89.28 Other chronic postpro cedural pain GAUNYA,CHR ISTOPHER M 07/09 [facility] PSYTX W PT 60 MINUTES [id number] Diagnos is: ICD-10- CM F32.A Depress ion, unspeci fied FABIANO CONNELL 07/11 [facility] [facility] SLEEP STUDY UNATT&RESP EFFT [id number] Diagnos is: ICD-10- CM G47.30 Sleep apnea, unspeci fied MARTIN-EFFIE ESPINOZA 07/11 [facility] OFF[facility] O/P EST MOD 30 MIN [id number] Diagnos is: ICD-10- CM F41.9 Anxiety disorde r, unspeci fied Marita ELIZABETHIN 07/12 [facility] Out[facility] Encounter [id number] 07/18 [facility] Encounter [id number] 07/23 [facility] Encounter [id number] 07/23 [facility] Encounter [id number] 07/25 [facility] Encounter [id number] 08/01 [facility] Encounter [id number] 08/01 [facility] Encounter [id number] FABIANO CONNELL 08/06 [facility] En[facility] [id number] 08/21 [facility] Outpatient Encounter [id number] 08/21 [facility] Outpatient Encounter [id number] 09/04 [facility] Outpatient Encounter [id number] 09/04 [facility] Outpatient Encounter [id number] 09/05 [facility] Social History Combined list of available smoking, tobacco, and other social history from Department of Defense and Veterans Affairs facilities. Social History Type Response Date Comment Source Tobacco smoking status ARIS OH-TOBACCO USE FORMER CIGARETTES 03/09/2024 [facility] History of tobacco use OH-TOBACCO NEVER USED OTHER TYPE 03/09/2024 [facility] History of tobacco use QUIT TOBACCO USE > 7 YEARS AGO 08/16/2006 QUIT 20 YEARS AGO [place] Plan of Care List of future care activities from Department of Veterans Affairs facilities. Additional future care activities may be listed in the Assessment and Plan section. Date/Time Care Activity Care Activity Detail Facili ty 09/14/2024 [facility] Advance Directives List of completed, amended, or rescinded Advance Directives on record at Department of Veterans Affairs facilities. An actual copy of the Directive is not included. Date Advance Directive Provider Source 12/15/2011 ADVANCE DIRECTIVE DISCUSSION [facility]
[2024-09-06 14:11] VITALS: BP 132/68; PULSE 71; O2SAT 97; BMI 30.7
--- NOTE | 2024-09-06 14:11 | A.OFFPC_ITS ---
Vital Signs 09/06/24 14:11 Height 5 ft 9 in Weight 208 lb 4 oz BMI 30.7 BP 132/68 Blood Pressure Location Lt brachial Position Sitting Pulse 71 Pulse Source Pulse Oximeter Pulse Oximetry (%) 97 Oxygen Delivery Method Room Air Intake Visit Reasons: 3 Month F/U Pediatric Lpn Required: No Accompanied by: Self / Same As Patient Allergies lisinopril Allergy (Unknown, Verified 09/06/24 14:11) cough seasonal allergies Allergy (Unknown, Uncoded 09/06/24 14:11) rhinitis Medication List - Last Reconciled 09/06/24 by Cindy Conner MD albuterol sulfate 90 mcg/actuation 2 puffs PO Q6H PRN amlodipine 10 mg PO DAILY ascorbic acid (vitamin C) 1 g PO DAILY blood sugar diagnostic (Angie's Listyle Test strips) As directed blood-glucose meter (Daylight DigitalStyle [place] Lite kit) As directed escitalopram oxalate (Lexapro) 5 mg PO DAILY ezetimibe 10 mg PO DAILY fluticasone propion-salmeterol 250-50 mcg/dose (Wixela Inhub) 1 inh inhalation BID fluticasone propionate 50 mcg/actuation 2 sprays intranasal DAILY lancets (FreeStyle Lancets) As directed losartan 50 mg PO DAILY metformin ER 500 mg PO BID 90 days sildenafil 100 mg PO ONCE PRN 30 days sitagliptin phosphate (Januvia) 100 mg PO DAILY tadalafil 5 mg PO DAILY 90 days Tobacco use date assessed: 09/06/24 Fall risk assessment: 2 + Falls in past year Last assessed Fall Risk: 09/06/24 Dental Screening Dental Screen Date: 09/06/24 Did you have a dental visit in the last 12 months?: No Did you have a dental problem in the last 6 months where you did not have access to dental care?: No Was dental information given to patient?: No [facility] Medical History (Updated 09/06/24 @ 14:59 by Cindy Conner MD) Dyslipidemia Proteinuria Depression Atypical nevi Anxiety Degenerative disc disease Type 2 diabetes mellitus with other diabetic kidney complication Essential hypertension Type 2 diabetes mellitus with diabetic polyneuropathy Surgical History Hx of arthroscopy of left knee History of back surgery Family History Father No problems noted. Mother No problems noted. Other Mental health disorder Social History Household Members Other:: son Housing: House Alcohol intake: never Patient Tobacco Use Status: Former Tobacco user Tobacco use type: Cigarette Cigarette Packs Per Day: 2 Years Smoked: 25 e-Cigarette/Vaping Use: Never Used service: Yes Current occupational status: retired Cognitive needs: No Hearing needs: No Vision needs: Yes (glasses) Questionnaire PHQ-9 Over the last 2 weeks, how often have you been bothered by any of the following problems? 1. Little interest or pleasure in doing things: several days 2. Feeling down, depressed, or hopeless: several days 3. Trouble falling or staying asleep, or sleeping too much: several days 4. Feeling tired or having little energy: several days 5. Poor appetite or overeating: not at all 6. Feeling bad about yourself - or that you are a failure or have let yourself or your family down: not at all 7. Trouble concentrating on things, such as reading the newspaper or watching television: not at all 8. Moving or speaking so slowly that other people could have noticed. Or the opposite - being so fidgety or restless that you have been moving around a lot more than usual: not at all 9. Thoughts that you would be better off or of hurting yourself in some way: not at all Total score: 4 Source: Developed by Drs. Luis Ji, Daniela Ga, Lan Gray and colleagues, with an educational shalonda from [employer]. Thrive Questionnaire Date Thrive assessed: 09/06/24 I am a: Patient What is your living situation today?: I have a steady place to live Within the past 12 months, did the food you bought not last and you didn't have the money to get more?: Sometimes True Within the past 12 months, did you worry whether your food would run out before you got money to buy more?: Often true Do you have trouble paying for medicines?: No Do you have trouble getting transportation to medical appointments?: No Do you have trouble paying your heating and electricity bill?: No Do you have trouble taking care of your child, family member or friend?: Yes Do you have trouble with day-to-day activities such as bathing, preparing meals, shopping, managing finances, etc.?: No Are you currently unemployed and looking for a job?: No Are you interested in more education?: No Please select the resources that you would like help with: None Currently or been in a relationship where the following occur: I choose not to answer THRIVE Score: 2 AUDIT C Alcohol Use Questionnaire (AUDIT-C) 1. How often do you have a drink containing alcohol?: Monthly or less 2. How many drinks containing alcohol do you have on a typical day when you are drinking?: 1 or 2 3. How often do you have six or more drinks on one occasion?: Never Total Score: 1 BEULAH-7 AMB Questionnaire BEULAH-7 Date BEULAH - 7 assessed: 09/06/24 Feeling nervous, anxious, or on edge: 1 = Several days Not being able to stop or control worryin = Not at all Worrying too much about different things: 1 = Several days Trouble relaxin = Several days Being so restless that it is hard to sit still: 0 = Not at all Becoming easily annoyed or irritable: 0 = Not at all Feeling afraid as if something awful might happen: 0 = Not at all Total BEULAH-7 score (0-4 normal; 5-9 mild; 10-14 moderate; 15-21 severe): 3 Source: Developed by Drs. Luis Ji, Daniela Ga, Lan Gray and colleagues, with an educational shalonda from [employer]. Physical exam (Primary Care) Vital Signs: Last Vital Signs Pulse 71 09/06/24 14:11 BP 132/68 09/06/24 14:11 Pulse Ox 97 09/06/24 14:11 Oxygen Delivery Method Room Air 09/06/24 14:11 BMI result Body Mass Index 30.7 Tobacco/Smoking Status: Tobacco use Status Tobacco use date assessed 09/06/24 09/06/24 14:12 Patient Tobacco Use Status Former Tobacco user 09/06/24 14:12 Tobacco use type Cigarette 09/06/24 14:12 e-Cigarette/Vaping Use Never Used 09/06/24 14:12 PHQ-9: PHQ-9 Score PHQ-9: Total score 4 09/06/24 14:51 Thrive Assessment: Date of Thrive Assessment Date Thrive assessed 09/06/24 09/06/24 14:12 Currently or been in a relationship where the following occur: I choose not to answer Const General: alert; No acute distress Eyes Conjunctivae: conjunctivae normal Resp Auscultation: clear to auscultation bilaterally Cardio Rate: regular rate Rhythm: regular rhythm GI Inspection: Yes normal to inspection Extrem General: Yes normal to inspection and No edema Coding Level of Care Code Est Pt Level 4 (50556) Complex EM visit Add On G2211 Diagnoses Type 2 diabetes mellitus with hyperglycemia E11.65 Essential hypertension I10 Generalized anxiety disorder F41.1 Obesity (BMI 30-39.9) E66.9 Hypercholesterolemia E78.00 Colon cancer screening Z12.11 Right hip pain M25.551 Essential tremor G25.0 Assessment & Plan Assessment & Plan (1) Type 2 diabetes mellitus with hyperglycemia: Comment: Fredy Markham care Code(s): E11.65 - Type 2 diabetes mellitus with hyperglycemia Category: Medical Plan: Decrease the amount of carbohydrate intake, pasta, bread, rice and potatoes are all sugar and that is aside from all the sweet stuff, remember that fruits are good but they are Sweet also. Hemoglobin A1c goal of less than 7.0. Patient is on metformin only 500 mg twice a day and Januvia 100 mg once a day (2) Essential hypertension: Code(s): I10 - Essential (primary) hypertension Category: Medical Plan: Continue with blood pressure medication. Decrease salt intake and exercise takes losartan 50 mg once a day and amlodipine 10 mg once a day (3) Generalized anxiety disorder: Code(s): F41.1 - Generalized anxiety disorder Category: Medical Plan: Continue with present therapy with Lexapro 5 mg once a day (4) Obesity (BMI 30-39.9): Code(s): E66.9 - Obesity, unspecified Category: Medical Plan: Diet and exercise (5) Hypercholesterolemia: Code(s): E78.00 - Pure hypercholesterolemia, unspecified Category: Medical Plan: Avoid fried foods, chicken skin, eggs, butter margarine, pastries and meat. Be it pork or beef they have a lot of cholesterol . No medication presently patient needs blood work (6) Colon cancer screening: Code(s): Z12.11 - Encounter for screening for malignant neoplasm of colon Category: Medical (7) Right hip pain: Code(s): M25.551 - Pain in right hip Category: Medical (8) Essential tremor: Code(s): G25.0 - Essential tremor Category: Medical Plan History of Present Illness The patient is a 78-year-old male presenting for a follow-up regarding weight gain and management of Type 2 Diabetes Mellitus, hypercholesterolemia, and hypertension. He reports an increase in his weight, noting obesity as a concern, alongside fluctuation in dietary habits affecting his diabetes control. His diabetes medication regimen is metformin 500 mg twice daily and Januvia 100 mg once daily, unchanged as A1c remains above target. The patient's most recent A1c is reported as 7.9, and hypercholesterolemia management is pending updated lab work given the last cholesterol assessment in October 2023. Additionally, the patient mentions experiencing musculoskeletal pain over recent months in the hip that occasionally radiates to his back. This sometimes painful state worsens during activity, partly alleviated by Biofreeze. The patient acknowledges performing extensive home repairs contributing to increased pain frequency. The patient is experiencing noticeable hand tremors, causing social discomfort. He describes burning dry eyes and occasionally inconsistent relief from applied eyedrops. He discusses general anxiety, managed with lexapro 5 mg daily. He's committed to medication adherence yet struggles with negotiating lifestyle changes adaptable to chronic condition management. Health Maintenance - Colonoscopy not updated since 2013; recommended repeat referral for colon cancer screening. - Review of blood chemistry from April 2024 shows stable renal function; need for liver function reassessment as levels noted elevated. - Routine monitoring and new lab work recommended to assess HbA1c and lipid profile for diabetic and cholesterol management. - Encouragement of diet and exercise modifications for weight management. Social History - Denies tobacco or alcohol use. - Active in home repair activities but acknowledges overexertion. - Reports difficulty maintaining a consistent healthy diet, partially contributing to weight gain and diabetes management challenges. Review of Systems - General: Reports weight gain, obesity concerns. - Cardiovascular: Reports good blood pressure control. - Endocrine: Reports unstable diabetes control. - Musculoskeletal: Reports hip and back pain exacerbated by activity. - Neurological: Reports hand tremor. - Ophthalmological: Reports dry, burning eyes. - Psychological: Reports generalized anxiety concerns. Physical Exam - Musculoskeletal- No pain reported upon physical examination of the hip or knee. Results - Labs: Hemoglobin A1c in May 2024 was 7.9. Normal blood chemistry with stable renal function from April 2024. Liver function tests elevated at 41 in April 2024. - Cholesterol last tested in October 2023; results pending new assessment. Plan The tailored management strategy involves optimizing diabetic control through possible Mounjaro initiation if coverage permits, with cessation of Januvia. Hypercholesterolemia assessment is to be updated, determining suitable pharmacotherapy if necessary. Hypertension management with current medications is satisfactory based on subjective reports. I will facilitate repeating recommended colonoscopy and advise on dietary and activity modifications aimed at addressing obesity. Musculoskeletal evaluations will proceed with a hip X- ray, advice on activity modification, and topical treatments. For essential tremor, propranolol may be initiated, contingent on need and the patient's preference. For dry eyes, the use of eyedrops will continue, with alternative options considered. Patient was informed and verbally consented to the use of an ambient scribe for clinic note documentation during this visit. Discussion Notes I reviewed with Mr. Granger the planned management of his diabetes, including the proposal of Mounjaro injections to improve glycemic control and promote weight loss, discontinuing Januvia upon commencement. The pros and cons of this addition, including weight reduction and control of glucose levels, were discussed with emphasis on insurance approval being the determinant. We detailed the importance of cholesterol and glucose monitoring via updated lab work, with potential lipid-lowering therapies forthcoming. He was counseled on musculoskeletal pain management through environmental and activity modifications, awaiting confirmation of possible hip arthritis from X-rays. After discussing essential tremor, I suggested propranolol, should the tremor's social impact necessitate treatment. The patient's dry eyes will be revisited dependent on ongoing symptomatology and current drops efficacy. Patient Instructions - Schedule a blood draw for cholesterol and HbA1c testing as soon as possible. - Continue current medication regimen as prescribed. - Initiate lifestyle changes, focusing on diet and exercise to manage weight and blood sugar. - Expect a follow-up call regarding Mounjaro after insurance confirmation. - Use Biofreeze and adjust activities to manage musculoskeletal discomfort. - Keep eye drops handy for dry eyes; retry if previous relief was inconsistent. - Schedule a hip X-ray at your convenience. - Seek medical attention should there be a sudden change in pain or other symptoms. - Contact the office with any new or worsening symptoms or for further clarification on medication changes. Orders: Orders Prostate Specific Antigen Scr Today E11.65 - Type 2 diabetes mellitus with hyperglycemia Free T4 (Free Thyroxine) Today E11.65 - Type 2 diabetes mellitus with hyperglycemia AMB Hemoglobin A1c Today Z13.9 - Encounter for screening, unspecified Complete Blood Count Auto Diff Today E11.65 - Type 2 diabetes mellitus with hyperglycemia Vitamin B12 and Folate Today E11.65 - Type 2 diabetes mellitus with hypergly cemia Thyroid Stimulating Hormone Today E11.65 - Type 2 diabetes mellitus with hyperglycemia Microalbumin, Random (w Creat) Today E11.65 - Type 2 diabetes mellitus with hyperglycemia XR hip RT min 2V Today M25.551 - Pain in right hip Referrals Gastroenterology Referral Z12.11 - Encounter for screening for malignant neoplasm of colon Medications: New tirzepatide (Mounjaro) for 4 weeks 2.5 mg (0.5 mL) subcut QWEEK 2 mL 3RF E11.65 - Type 2 diabetes mellitus with hyperglycemia propranolol 10 mg PO BID 60 tabs 0RF G25.0 - Essential tremor Discontinued sitagliptin phosphate (Januvia) Discontinued Reason: Patient Completed Course 100 mg PO DAILY 60 tabs 2RF
== END 2024-09-06 15:04 | disposition home or self-care (01) ==
LOC: HO.HMCH 14:00
PROVIDERS: PCP Internal Medicine; Visit Provider Internal Medicine
DX: E11.65 Type 2 diabetes mellitus with hyperglycemia (principal); I10 Essential (primary) hypertension; E66.9 Obesity, unspecified; Z68.30 Body mass index [BMI] 30.0-30.9, adult; F41.1 Generalized anxiety disorder; E78.00 Pure hypercholesterolemia, unspecified; Z12.11 Encounter for screening for malignant neoplasm of colon; M25.551 Pain in right hip; G25.0 Essential tremor

== ENCOUNTER → 2024-09-06 13:59 | Outpatient (BNVA) | payer MEDICARE, BC, SELFPAY | PROVIDERS: PCP Internal Medicine; Visit Provider Internal Medicine | DX: E11.65 Type 2 diabetes mellitus with hyperglycemia (principal); E78.00 Pure hypercholesterolemia, unspecified; I10 Essential (primary) hypertension; F41.1 Generalized anxiety disorder; G25.0 Essential tremor; M25.551 Pain in right hip; E66.9 Obesity, unspecified; Z68.30 Body mass index [BMI] 30.0-30.9, adult; Z71.3 Dietary counseling and surveillance | CPT/HCPCS: 99212 ==

== ENCOUNTER 2024-10-03 10:00 | Outpatient (REF) | payer MEDICARE, BC, SELFPAY ==
--- NOTE | ~2024-10-03 | XR_ITS ---
EXAMINATION: XR HIP, RIGHT CLINICAL INFORMATION: M25.551 - Pain in right hip COMPARISON: None available. TECHNIQUE: Two views of the right hip. FINDINGS: No fracture. Alignment is anatomic. Hip joint space is maintained. Minimal degenerative arthritis is present. Normal acetabular coverage. Soft tissues are unremarkable. XR/XR hip RT min 2V IMPRESSION: Minimal degenerative arthritis right hip. Otherwise normal exam. Electronically signed by: Luis Tang MD 10/03/2024 11:06 AM EDT
--- OUTSIDE RECORDS SUMMARY | 2024-10-03 06:14 | XMS_ITS | Continuity of Care Document ---
Author Name [facility] Organization [facility] Care Team Providers Care Board Liner Operator Name Role Phone [facility] Unavailable Unavailable Problems Combined list of problems from Department of Defense and Veterans Affairs facilities. It does not include entries that were removed or entered in error. 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, 2006 Entered [...] HCS HEPATITIS C W/O COMA Active Condition [facility] Hyperglycemia Active Condition [facility] [place] [facility] Diagnosis: ICD-10-CM G47.33 Obstructive sleep apnea (adult) (pediatric) Active Diagnosis [facility] [place] Diagnosis: ICD-10-CM F41.9 Anxiety disorder, unspecified Active Diagnosis [facility] Diagnosis: ICD-10-CM G47.30 Sleep apnea, unspecified Active Diagnosis [facility] Diagnosis: ICD-10-CM F32.A Depression, unspecified Active [...] depressive disorders Active [facility] Diagnosis: ICD-10-CM Z71.81 Spiritual or advent counseling Active Diagnosis [facility] Diagnosis: ICD-10-CM Z71.9 Counseling, unspecified Active Diagnosis [facility] Diagnosis: ICD-10-CM F43.9 Reaction to severe stress, unspecified Active Diagnosis [facility] Diagnosis: ICD-10-CM F43.10 Post-traumatic stress disorder, unspecified Active Diagnosis [facility] Medications Combined list of outpatient medications [...] PASM RESPIR ATORY (INHAL ATION) ACTIVE 05/24/2025 [id number] DONNA TRENT ALEXI D 2024 3 [facility] AMLODIPINE BESYLATE 10MG TAB TAKE ONE TABLET BY MOUTH ONCE DAILY FOR BLOOD PRESSURE /HEART, DO NOT TAKE WITH GRAPEFRU IT JUICE ORAL ACTIVE 05/24/2025 [id number] 5 DONNA TRENT D 2024 90 [facility] ATORVASTATI N CA 20MG TAB TAKE ONE-HALF TABLET BY MOUTH AT BEDTIME ORAL ACTIVE 05/24/2025 [id number] 5 DONNA TRENT D 2024 45 [facility] ESCITALOPRA M OXALATE 20MG TAB TAKE ONE-HALF TABLET BY MOUTH ONCE DAILY FOR MOOD/DEP RESSION ORAL DISCONT INUED BY PROVIDE R 03/31/2025 [id number] 4 YFN ELIZABETH 2023 [facility] FLUOXETINE HCL 10MG CAP TAKE ONE CAPSULE BY MOUTH ONCE DAILY FOR DEPRESSI ON AND ANXIETY ORAL DISCONT INUED (EDIT) 07/13/2025 [id number] 5 YFN ELIZABETH 2024 30 [facility] FLUOXETINE HCL 20MG CAP TAKE ONE CAPSULE BY MOUTH ONCE DAILY FOR DEPRESSI ON AND ANXIETY ORAL ACTIVE 09/05/2025 [id number] 5 YFN ELIZABETH 2024 30 [facility] LOS[place]AN 50MG TAB TAKE ONE TABLET BY MOUTH ONCE DAILY FOR BLOOD PRESSURE /HEART ORAL ACTIVE 05/24/2025 [id number] 5 DONNA TRENT ALEXI D 2024 90 [facility] M[place]/MET HYL SALICYLATE (10-15%) LOW CONC. CREAM,TOP APPLY A THIN FILM TOPICALL Y THREE TIMES DAILY NEEDED FOR MUSCLE PAIN TOPICA L ACTIVE 04/10/2025 [id number] 4 DONNA TRENT D 2023 90 [facility] METFORMIN HCL 500MG 24HR TAB,SA TAKE TWO TABLETS BY MOUTH ONCE DAILY ORAL ACTIVE 05/24/2025 [id number] 5 DONNA TRENT D 2024 180 [facility] SITAGLIPTIN (EQV-JANUVI A) 100MG TAB TAKE ONE TABLET BY MOUTH ONCE DAILY ORAL ACTIVE DONNA TRENT D 2023 [facility] SITAGLIPTIN (EQV-ZITUVI O) 100MG TAB TAKE ONE TABLET BY MOUTH ONCE DAILY ORAL ACTIVE 05/24/2025 [id number] 5 DONNA TRENT D 2024 90 [facility] Allergies, Adverse Reactions, Alerts Combined list of allergies from Department of Defense and Veterans Affairs facilities. It does not include entries that were removed or entered in error. Substance Category Reaction Severity Reaction type Status Date Reported Comments Source LISINOPRIL Propensity to adverse reactions to drug (finding) active [facility] Immunizations Combined list of available immunizations from the Department of Defense and Veterans Affairs facilities. Immunization Series Date Given Administered By Site Reaction Lot Number CVX Code Drug Specialty Manufacturing Supervisor Status Comments Source COVID-19 (MODERNA), MRNA, LNP-S, PF, 50 MCG/0.5 ML (AGES 12+ YEARS) 4 2023 RANDOLPH MANCUSO LEFT DELTO ID [id number] 312 complet ed [facility] INFLUENZA, HIGH-DOSE, TRIVALENT, PF 2023 JAMEEHOLLIEGabriela Murphy Marita LEFT DELTO ID [id number] 135 complet ed Completed Series, [facility] TD (ADULT), 2 LF TETANUS TOXOID, PRESERVATIVE FREE, ADSORBED 1 2022 09 complet ed HISTORICA L INFORMATI ON - FROM OTHER REGISTRY, Tetanus Diphtheri a 2 Lf - Td (adult) [facility] COVID-19 (PFIZER), MRNA, LNP-S, PF, 30 MCG/0.3 ML DOSE 3 2021 208 complet ed HISTORICA L INFORMATI ON - FROM OTHER REGISTRY, Covid Card- Zahra Lot#: [id number] Mfr: [employer] [facility] COVID-19 (PFIZER), MRNA, LNP-S, PF, 30 MCG/0.3 ML DOSE 2 2020 208 complet ed PFR; [id number]; 1 [facility] COVID-19 (PFIZER), MRNA, LNP-S, PF, 30 MCG/0.3 ML DOSE 1 2020 208 complet ed PFR; [id number]; 1 [facility] PNEUMOCOCCAL CONJUGATE PCV 13 1 2018 133 complet ed HISTORICA L INFORMATI ON - FROM OTHER REGISTRY, Pneumococ gino Conjugate Vaccine, 13 valent [facility] ZOSTER RECOMBINANT 1 2018 187 complet ed HISTORICA L INFORMATI ON - FROM OTHER REGISTRY, Shingles (Zoster recombina nt) [facility] [...] Feb 02, 2024 12:05 PM Reporting Lab: [place] [facility] [facility] [address] [facility] [address] Performing Lab: [place] [facility] [facility] [facility] [address] [facility] [address] [place] [facility] [facility] MICROSCO PIC AUTOMATE D, URINE ERYTHROCYT ES [#/AREA] IN URINE SEDIMENT BY MICROSCOPY HIGH POWER FIELD 0-2/[HPF ] 0 - 3 03/28 Specimen Type: URINE Comment: If Glucose = >500 and Ketones are positive, please alert the Physician. Ordering Provider: TIFFANY TRENT Report Released Date/Time: Feb 02, 2024 12:05 PM Reporting Lab: [facility] [address] Performing Lab: [place] [facility] [address] [address] [facility] LIPID PANEL FASTING CHOLESTERO L [MASS/VOLU ME] IN SERUM OR PLASMA 248 mg/dL 03/28 H Specimen Type: SERUM No comment entered. Ordering Provider: TIFFANY TRENT Report Released Date/Time: Feb 02, 2024 12:05 PM Reporting Lab: [facility] [address] Performing Lab: [facility] TRN [facility] [address] [address] [facility] LIPID PANEL FASTING TRIGLYCERI DE [MASS/VOLU ME] IN SERUM OR PLASMA 170 mg/dL 0 - 150 03/28 H Specimen Type: SERUM No comment entered. Ordering Provider: TIFFANY TRENT Report Released Date/Time: Feb 02, 2024 12:05 PM Reporting Lab: [facility] [address] [address] Performing Lab: [facility] [address] [address] [facility] LIPID PANEL FASTING CHOLESTERO L IN LDL [MASS/VOLU ME] IN SERUM OR PLASMA BY CALCULATIO N 166 mg/dL 0 - 129 03/28 H Specimen Type: SERUM No comment entered. Ordering Provider: TIFFANY TRENT Report Released Date/Time: Feb 02, 2024 12:05 PM Reporting Lab: [facility] [address] Performing Lab: [facility] [place] [facility] [address] [facility] [address] [place] [facility] [facility] [facility] LIPID PANEL FASTING CHOLESTERO L.TOTAL/CH OLESTEROL IN HDL [MASS RATIO] IN SERUM OR PLASMA 5.2 03/28 Specimen Type: SERUM No comment entered. Ordering Provider: TIFFANY TRENT Report Released Date/Time: Feb 02, 2024 12:05 PM Reporting Lab: [facility] [place] [facility] [address] [facility] [address] Performing Lab: [place] [facility] [facility] [address] [facility] [address] [facility] LIPID PANEL FASTING CHOLESTERO L IN HDL [MASS/VOLU ME] IN SERUM OR PLASMA 48 mg/dL 40 - 60 03/28 Specimen Type: SERUM No comment entered. Ordering Provider: TIFFANY TRENT Report Released Date/Time: Feb 02, 2024 12:05 PM Reporting Lab: [facility] [place] [facility] [address] [facility] [address] Performing Lab: [facility] [address] [address] [facility] TSH THYROTROPI N [UNITS/VOL UME] IN SERUM OR PLASMA 0.89 u[IU]/mL 0.35 - 5.00 03/28 Specimen Type: SERUM No comment entered. Ordering Provider: TIFFANY TRENT Report Released Date/Time: Feb 02, 2024 12:05 PM Reporting Lab: [facility] [place] [facility] [address] [facility] [address] Performing Lab: [place] [facility] [address] [address] [facility] LIVER FUNCTION PROTEIN [MASS/VOLU ME] IN SERUM OR PLASMA 7.0 g/dL 6.0 - 8.3 03/28 Specimen Type: SERUM No comment entered. Ordering Provider: TIFFANY TRENT Report Released Date/Time: Feb 02, 2024 12:05 PM Reporting Lab: [facility] [place] [facility] [address] [facility] [address] Performing Lab: [facility] [place] [facility] [address] [facility] [address] [facility] [place] [facility] LIVER FUNCTION ALBUMIN [MASS/VOLU ME] IN SERUM OR PLASMA 4.1 g/dL 3.5 - 5.0 03/28 Specimen Type: SERUM No comment entered. Ordering Provider: TIFFANY TRENT Report Released Date/Time: Feb 02, 2024 12:05 PM Reporting Lab: [facility] [place] [facility] [address] [facility] [address] Performing Lab: [facility] [place] [facility] [address] [facility] [address] [place] [facility] [facility] LIVER FUNCTION ALKALINE PHOSPHATAS E [ENZYMATIC ACTIVITY/V OLUME] IN SERUM OR PLASMA 37 U/L 40 - 150 03/28 L Specimen Type: SERUM No comment entered. Ordering Provider: TIFFANY TRENT Report Released Date/Time: Feb 02, 2024 12:05 PM Reporting Lab: [facility] [place] [facility] [address] [facility] [address] Performing Lab: [facility] [place] [facility] [address] [facility] [address] [place] [facility] [facility] LIVER FUNCTION ASPARTATE AMINOTRANS FERASE [ENZYMATIC ACTIVITY/V OLUME] IN SERUM OR PLASMA 19 U/L 5 - 34 03/28 Specimen Type: SERUM No comment entered. Ordering Provider: TIFFANY TRENT Report Released Date/Time: Feb 02, 2024 12:05 PM Reporting Lab: [facility] [place] [facility] [address] [facility] [address] Performing Lab: [facility] [place] [facility] [address] [facility] [address] [place] [facility] [facility] LIVER FUNCTION ALANINE AMINOTRANS FERASE [ENZYMATIC ACTIVITY/V OLUME] IN SERUM OR PLASMA 28 U/L 03/28 Specimen Type: SERUM No comment entered. Ordering Provider: TIFFANY TRENT Report Released Date/Time: Feb 02, 2024 12:05 PM Reporting Lab: [facility] [place] [facility] [address] [facility] [address] Performing Lab: [facility] [place] [place] [facility] [address] [facility] [address] [facility] [place] [facility] LIVER FUNCTION BILIRUBIN. TOTAL [MASS/VOLU ME] IN SERUM OR PLASMA 0.6 mg/dL 0.2 - 1.2 03/28 Specimen Type: SERUM No comment entered. Ordering Provider: TIFFANY TRENT Report Released Date/Time: Feb 02, 2024 12:05 PM Reporting Lab: [facility] [place] [facility] [address] [facility] [address] Performing Lab: [place] [facility] [address] [address] [facility] [place] [facility] BASIC METABOLI C PANEL (fasting ) UREA NITROGEN [MASS/VOLU ME] IN SERUM OR PLASMA 19 mg/dL 7 - 25 03/28 Specimen Type: SERUM No comment entered. Ordering Provider: TIFFANY TRENT Report Released Date/Time: Feb 02, 2024 12:05 PM Reporting Lab: [facility] [place] [facility] [address] [facility] [address] Performing Lab: [place] [facility] [place] [place] [address] [address] [place] [facility] [facility] BASIC METABOLI C PANEL (fasting ) GLUCOSE [MASS/VOLU ME] IN SERUM OR PLASMA 227 mg/dL 65 - 100 03/28 H Specimen Type: SERUM No comment entered. Ordering Provider: TIFFANY TRENT Report Released Date/Time: Feb 02, 2024 12:05 PM Reporting Lab: [facility] [place] [place] [facility] [address] [facility] [address] Performing Lab: [place] [facility] [place] [facility] [address] [facility] [address] [place] [facility] [facility] BASIC METABOLI C PANEL (fasting ) SODIUM [MOLES/VOL UME] IN SERUM OR PLASMA 137 mmol/L 135 - 145 03/28 Specimen Type: SERUM No comment entered. Ordering Provider: TIFFANY TRENT Report Released Date/Time: Feb 02, 2024 12:05 PM Reporting Lab: [facility] [address] [facility] [address] Performing Lab: [facility] [address] [address] [facility]ENTERTRN [facility] BASIC METABOLI C PANEL (fasting ) POTASSIUM [MOLES/VOL UME] IN SERUM OR PLASMA 4.4 mmol/L 3.5 - 5.0 03/28 Specimen Type: SERUM No comment entered. Ordering Provider: TIFFANY TRENT Report Released Date/Time: Feb 02, 2024 12:05 PM Reporting Lab: [facility] CENTERTRN [address] [address] Performing Lab: [facility] [address] [address] [facility] BASIC METABOLI C PANEL (fasting ) CHLORIDE [MOLES/VOL UME] IN SERUM OR PLASMA 108 mmol/L 100 - 110 03/28 Specimen Type: SERUM No comment entered. Ordering Provider: TIFFANY TRENT Report Released Date/Time: Feb 02, 2024 12:05 PM Reporting Lab: [facility] [address] [address] Performing Lab: [facility] [address] [facility] BASIC METABOLI C PANEL (fasting ) CARBON DIOXIDE, TOTAL [MOLES/VOL UME] IN SERUM OR PLASMA 20 meq/L 20 - 30 03/28 Specimen Type: SERUM No comment entered. Ordering Provider: TIFFANY TRENT Report Released Date/Time: Feb 02, 2024 12:05 PM Reporting Lab: [facility] [address] [address] Performing Lab: [facility] [address] [address] [facility] BASIC METABOLI C PANEL (fasting ) CREATININE [MASS/VOLU ME] IN SERUM OR PLASMA 0.97 mg/dL 0.50 - 1.40 03/28 Specimen Type: SERUM No comment entered. Ordering Provider: TIFFANY TRENT Report Released Date/Time: Feb 02, 2024 12:05 PM Reporting Lab: [facility] [address] [facility] [address] Performing Lab: [facility] [address] [facility] [address] [facility] BASIC METABOLI C PANEL (fasting ) GLOMERULAR FILTRATION RATE/1.73 SQ M.PREDICTE D [VOLUME RATE/AREA] IN SERUM, PLASMA OR BLOOD BY CREATININE -BASED FORMULA (CKD-EPI 2020) 80 mL/min 60 03/28 Specimen Type: SERUM No comment entered. Ordering Provider: TIFFANY TRENT Report Released Date/Time: Feb 02, 2024 12:05 PM Reporting Lab: [facility] [address] [facility] [address] Performing Lab: [address] [address] [facility] HEMOGLOB IN A1C PANEL HEMOGLOBIN A1C/HEMOGL [...] Feb 02, 2024 12:05 PM Reporting Lab: [address] [address] Performing Lab: [address] [address] [place] [facility] [place] [facility] MICROALB UMIN CREATINI NE RATIO PANEL MICROALBUM IN/CREATIN INE [MASS RATIO] IN URINE 556.1 mg/g 0 - 29.9 03/28 H Specimen Type: URINE No comment entered. Ordering Provider: TIFFANY TRENT Report Released Date/Time: Feb 02, 2024 12:05 PM Reporting Lab: [facility] [place] [facility] [address] [facility] [address] Performing Lab: [place] [facility] [place] [facility] [address] [facility] [address] [place] [facility] [facility] MICROALB UMIN CREATINI NE RATIO PANEL MICROALBUM IN [MASS/VOLU ME] IN URINE 46.1 mg/dL 03/28 Specimen Type: URINE No comment entered. Ordering Provider: TIFFANY TRENT Report Released Date/Time: Feb 02, 2024 12:05 PM Reporting Lab: [place] [facility] [place] [address] [address] Performing Lab: [place] [facility] [place] [facility] [address] [facility] [address] [place] [facility] [facility] MICROALB UMIN CREATINI NE RATIO PANEL CREATININE [MASS/VOLU ME] IN URINE 82.90 mg/dL 03/28 Specimen Type: URINE No comment entered. Ordering Provider: TIFFANY TRENT Report Released Date/Time: Feb 02, 2024 12:05 PM Reporting Lab: [facility] [place] [facility] [address] [facility] [address] Performing Lab: [place] [facility] [place] [address] [address] [place] [facility] [place] [facility] CBC AND DIFF (AUTO) LEUKOCYTES [#/VOLUME] IN BLOOD BY AUTOMATED COUNT 4.53 10*3/uL 4.50 - 11.00 03/28 Specimen Type: BLOOD No comment entered. Ordering Provider: TIFFANY TRENT Report Released Date/Time: Feb 02, 2024 12:05 PM Reporting Lab: [facility] [place] [facility] [address] [facility] [address] Performing Lab: [place] [facility] [facility] [address] [facility] [address] [place] [facility] [place] [facility] CBC AND DIFF (AUTO) ERYTHROCYT ES [#/VOLUME] IN BLOOD BY AUTOMATED COUNT 4.74 10*6/uL 4.23 - 5.66 03/28 Specimen Type: BLOOD No comment entered. Ordering Provider: TIFFANY TRENT Report Released Date/Time: Feb 02, 2024 12:05 PM Reporting Lab: [place] [facility] [facility] [address] [facility] [address] Performing Lab: [place] [facility] [facility] [address] [facility] [address] [place] [facility] [place] [facility] CBC AND DIFF (AUTO) HEMOGLOBIN [MASS/VOLU ME] IN BLOOD 13.9 g/dL 12.8 - 17 03/28 Specimen Type: BLOOD No comment entered. Ordering Provider: TIFFANY TRENT Report Released Date/Time: Feb 02, 2024 12:05 PM Reporting Lab: [place] [facility] [facility] [address] [facility] [address] Performing Lab: [place] [facility] [facility] [address] [facility] [address] [facility] [place] [facility] CBC AND DIFF (AUTO) HEMATOCRIT [VOLUME FRACTION] OF BLOOD BY AUTOMATED COUNT 40.2 39.2 - 50.4 03/28 Specimen Type: BLOOD No comment entered. Ordering Provider: TIFFANY TRENT Report Released Date/Time: Feb 02, 2024 12:05 PM Reporting Lab: [place] [facility] [facility] [address] [facility] [address] Performing Lab: [place] [facility] [facility] [address] [facility] [address] [place] [facility] [place] [facility] CBC AND DIFF (AUTO) MCV [ENTITIC VOLUME] BY AUTOMATED COUNT 84.8 fL 82 - 99 03/28 Specimen Type: BLOOD No comment entered. Ordering Provider: TIFFANY TRENT Report Released Date/Time: Feb 02, 2024 12:05 PM Reporting Lab: [facility] [place] [facility] [address] [facility] [address] Performing Lab: [facility] [place] [facility] [address] [facility] [address] [facility] [place] [facility] CBC AND DIFF (AUTO) MCHC [MASS/VOLU ME] BY AUTOMATED COUNT 34.6 g/dL 30.8 - 35.1 03/28 Specimen Type: BLOOD No comment entered. Ordering Provider: TIFFANY TRENT Report Released Date/Time: Feb 02, 2024 12:05 PM Reporting Lab: [facility] [place] [facility] [address] [facility] [address] Performing Lab: [facility] [place] [facility] [address] [facility] [address] [facility] [place] [facility] CBC AND DIFF (AUTO) PLATELETS [#/VOLUME] IN BLOOD BY AUTOMATED COUNT 195 10*3/uL 140 - 360 03/28 Specimen Type: BLOOD No comment entered. Ordering Provider: TIFFANY TRENT Report Released Date/Time: Feb 02, 2024 12:05 PM Reporting Lab: [facility] [place] [facility] [address] [facility] [address] Performing Lab: [facility] [place] [facility] [address] [facility] [address] [facility] [place] [facility] CBC AND DIFF (AUTO) ERYTHROCYT E DISTRIBUTI ON WIDTH [RATIO] BY AUTOMATED COUNT 14.0 12.0 - 16.0 03/28 Specimen Type: BLOOD No comment entered. Ordering Provider: TIFFANY TRENT Report Released Date/Time: Feb 02, 2024 12:05 PM Reporting Lab: [facility] [place] [facility] [address] [facility] [address] Performing Lab: [facility] [place] [facility] [address] [facility] [address] [facility] [place] [facility] CBC AND DIFF (AUTO) MONOCYTES [#/VOLUME] IN BLOOD BY AUTOMATED COUNT 0.35 10*3/uL 0.30 - 1.10 03/28 Specimen Type: BLOOD No comment entered. Ordering Provider: TIFFANY TRENT Report Released Date/Time: Feb 02, 2024 12:05 PM Reporting Lab: [facility] [place] [facility] [address] [facility] [address] Performing Lab: [facility] [place] [facility] [address] [facility] [address] [facility] CBC AND DIFF (AUTO) MCH [ENTITIC MASS] BY AUTOMATED COUNT 29.3 pg 26.2 - 32.6 03/28 Specimen Type: BLOOD No comment entered. Ordering Provider: TIFFANY TRENT Report Released Date/Time: Feb 02, 2024 12:05 PM Reporting Lab: [facility] [address] [facility] [address] Performing Lab: [facility] [facility] [address] [facility] [address] [facility] CBC AND DIFF (AUTO) NEUTROPHIL S/100 LEUKOCYTES IN BLOOD BY AUTOMATED COUNT 60.5 43.7 - 75.8 03/28 Specimen Type: BLOOD No comment entered. Ordering Provider: TIFFANY TRENT Report Released Date/Time: Feb 02, 2024 12:05 PM Reporting Lab: [facility] [address] [facility] [address] Performing Lab[facility] [facility] [address] [facility] [address] [facility] CBC AND DIFF (AUTO) LYMPHOCYTE S/100 LEUKOCYTES IN BLOOD BY AUTOMATED COUNT 25.2 14.0 - 42.3 03/28 Specimen Type: BLOOD No comment entered. Ordering Provider: TIFFANY TRENT Report Released Date/Time: Feb 02, 2024 12:05 PM Reporting Lab: [facility] [facility] [address] [facility] [address] Performing Lab: [facility] [facility] [address] [facility] [address] [facility] CBC AND DIFF (AUTO) MONOCYTES/ 100 LEUKOCYTES IN BLOOD BY AUTOMATED COUNT 7.7 5.1 - 13.7 03/28 Specimen Type: BLOOD No comment entered. Ordering Provider: TIFFANY TRENT Report Released Date/Time: Feb 02, 2024 12:05 PM Reporting Lab: [facility] [place] [facility] [address] [facility] [address] Performing Lab: [facility] [place] [facility] [address] [facility] [address] [facility] CBC AND DIFF (AUTO) EOSINOPHIL S/100 LEUKOCYTES IN BLOOD BY AUTOMATED COUNT 4.6 0.4 - 6.8 03/28 Specimen Type: BLOOD No comment entered. Ordering Provider: TIFFANY TRENT Report Released Date/Time: Feb 02, 2024 12:05 PM Reporting Lab: [place] [facility] [place] [address] [address] Performing Lab: [facility] [place] [facility] [address] [facility] [address] [facility] CBC AND DIFF (AUTO) BASOPHILS/ 100 LEUKOCYTES IN BLOOD BY AUTOMATED COUNT 1.1 0.1 - 2.0 03/28 Specimen Type: BLOOD No comment entered. Ordering Provider: TIFFANY TRENT Report Released Date/Time: Feb 02, 2024 12:05 PM Reporting Lab: [facility] [address] [address] Performing Lab: [facility] [place] [facility] [address] [facility] [address] [facility] CBC AND DIFF (AUTO) NEUTROPHIL S [#/VOLUME] IN BLOOD BY AUTOMATED COUNT 2.74 10*3/uL 2.20 - 7.60 03/28 Specimen Type: BLOOD No comment entered. Ordering Provider: TIFFANY TRENT Report Released Date/Time: Feb 02, 2024 12:05 PM Reporting Lab: [facility] [place] [address] [address] Performing Lab: [facility] [place] [facility] [address] [facility] [address] [facility] CBC AND DIFF (AUTO) LYMPHOCYTE S [#/VOLUME] IN BLOOD BY AUTOMATED COUNT 1.14 10*3/uL 1.00 - 3.20 03/28 Specimen Type: BLOOD No comment entered. Ordering Provider: TIFFANY TRENT Report Released Date/Time: Feb 02, 2024 12:05 PM Reporting Lab: [facility] [address] [facility] [address] Performing Lab: [facility] [place] [facility] [address] [facility] [address] [facility] CBC AND DIFF (AUTO) EOSINOPHIL S [#/VOLUME] IN BLOOD BY AUTOMATED COUNT 0.21 10*3/uL 0.03 - 0.44 03/28 Specimen Type: BLOOD No comment entered. Ordering Provider: ITFFANY TRENT Report Released Date/Time: Feb 02, 2024 12:05 PM Reporting Lab: [facility] [place] [facility] [address] [facility] [address] Performing Lab: [facility] [place] [facility] [address] [facility] [address] [facility] [place] CBC AND DIFF (AUTO) BASOPHILS [#/VOLUME] IN BLOOD BY AUTOMATED COUNT 0.05 10*3/uL 0.01 - 0.13 03/28 Specimen Type: BLOOD No comment entered. Ordering Provider: TIFFANY TRENT Report Released Date/Time: Feb 02, 2024 12:05 PM Reporting Lab: [facility] [address] [facility] [address] Performing Lab: [facility] [place] [facility] [address] [facility] [address] [facility] CBC AND DIFF (AUTO) IMMATURE GRANULOCYT ES/100 LEUKOCYTES IN BLOOD BY AUTOMATED COUNT 0.9 0.0 - 0.7 03/28 H Specimen Type: BLOOD No comment entered. Ordering Provider: TIFFANY TRENT Report Released Date/Time: Feb 02, 2024 12:05 PM Reporting Lab: [facility] [place] [facility] [address] [facility] [address] Performing Lab: [facility] [place] [facility] [address] [facility] [address] [place] [facility] [place] CBC AND DIFF (AUTO) IMMATURE GRANULOCYT ES [#/VOLUME] IN BLOOD 0.04 10*3/uL 0.00 - 0.06 03/28 Specimen Type: BLOOD No comment entered. Ordering Provider: TIFFANY TRENT Report Released Date/Time: Feb 02, 2024 12:05 PM Reporting Lab: [facility] [address] [address] Performing Lab: [place] [facility] [place] [address] [address] [facility] [place] [facility] CBC AND DIFF (AUTO) NRBC % 0.0 0.0 - 0.0 03/28 Specimen Type: BLOOD No comment entered. Ordering Provider: TIFFANY TRENT Report Released Date/Time: Feb 02, 2024 12:05 PM Reporting Lab: [facility] [place] [address] [address] Performing Lab: [place] [facility] [place] [address] [address] [facility] [place] [facility] CBC AND DIFF (AUTO) NRBC, ABS 0.00 10*3/uL 0.00 - 0.00 03/28 Specimen Type: BLOOD No comment entered. Ordering Provider: TIFFANY TRENT Report Released Date/Time: Feb 02, 2024 12:05 PM Reporting Lab: [facility] [place] [address] [address] Performing Lab: [place] [facility] [place] [address] [address] [facility] URINALYS IS CLEAN CATCH COLOR OF URINE Light-Ye llow 03/28 Specimen Type: URINE Comment: If Glucose = >500 and Ketones are positive, please alert the Physician. Ordering Provider: TIFFANY TRENT Report Released Date/Time: Feb 02, 2024 12:05 PM Reporting Lab: [facility] [address] [facility] [address] Performing Lab: [facility] [address] [facility] [address] [facility] URINALYS IS CLEAN CATCH APPEARANCE OF URINE Clear 03/28 Specimen Type: URINE Comment: If Glucose = >500 and Ketones are positive, please alert the Physician. Ordering Provider: TIFFANY TRENT Report Released Date/Time: Feb 02, 2024 12:05 PM Reporting Lab: [facility] [address] [facility] [address] Performing Lab: [facility] [address] [facility] [address] [facility] URINALYS IS CLEAN CATCH GLUCOSE [MASS/VOLU ME] IN URINE Normalmg /dL 03/28 Specimen Type: URINE Comment: If Glucose = >500 and Ketones are positive, please alert the Physician. Ordering Provider: TIFFANY TRENT Report Released Date/Time: Feb 02, 2024 12:05 PM Reporting Lab: [facility] [address] [facility] [address] Performing Lab: [facility] [address] [facility] [address] [facility] URINALYS IS CLEAN CATCH KETONES [MASS/VOLU ME] IN URINE BY TEST STRIP NEGATIVE mg/dL 03/28 Specimen Type: URINE Comment: If Glucose = >500 and Ketones are positive, please alert the Physician. Ordering Provider: TIFFANY TRENT Report Released Date/Time: Feb 02, 2024 12:05 PM Reporting Lab: [facility] [address] [facility] [address] Performing Lab: [facility] [address] [facility] [address] [facility] URINALYS IS CLEAN CATCH ERYTHROCYT ES [PRESENCE] IN URINE SEDIMENT BY LIGHT MICROSCOPY NEGATIVE mg/dL 03/28 Specimen Type: URINE Comment: If Glucose = >500 and Ketones are positive, please alert the Physician. Ordering Provider: TIFFANY TRENT Report Released Date/Time: Feb 02, 2024 12:05 PM Reporting Lab: [facility] [place] [facility] [address] [facility] [address] Performing Lab: [facility] [place] [facility] [address] [facility] [address] [facility] URINALYS IS CLEAN CATCH PROTEIN [MASS/VOLU ME] IN URINE BY TEST STRIP 50 mg/dL 03/28 Specimen Type: URINE Comment: If Glucose = >500 and Ketones are positive, please alert the Physician. Ordering Provider: TIFFANY TRENT Report Released Date/Time: Feb 02, 2024 12:05 PM Reporting Lab: [facility] [place] [facility] [address] [facility] [address] Performing Lab: [facility] [place] [facility] [address] [facility] [address] [facility] URINALYS IS CLEAN CATCH NITRITE [PRESENCE] IN URINE NEGATIVE mg/dL 03/28 Specimen Type: URINE Comment: If Glucose = >500 and Ketones are positive, please alert the Physician. Ordering Provider: TIFFANY TRENT Report Released Date/Time: Feb 02, 2024 12:05 PM Reporting Lab: [facility] [place] [facility] [address] [facility] [address] Performing Lab: [facility] [place] [facility] [address] [facility] [address] [facility] URINALYS IS CLEAN CATCH BILIRUBIN. TOTAL [PRESENCE] IN URINE NEGATIVE mg/dL 03/28 Specimen Type: URINE Comment: If Glucose = >500 and Ketones are positive, please alert the Physician. Ordering Provider: TIFFANY TRENT Report Released Date/Time: Feb 02, 2024 12:05 PM Reporting Lab: [facility] [place] [facility] [address] [facility] [address] Performing Lab: [facility] [place] [facility] [address] [facility] [address] [facility] URINALYS IS CLEAN CATCH SPECIFIC GRAVITY OF URINE BY REFRACTOME TRY 1.019 1.016 - 1.022 03/28 Specimen Type: URINE Comment: If Glucose = >500 and Ketones are positive, please alert the Physician. Ordering Provider: TIFFANY TRENT Report Released Date/Time: Feb 02, 2024 12:05 PM Reporting Lab: [facility] [place] [facility] [address] [facility] [address] Performing Lab: [facility] [place] [facility] [address] [facility] [address] [facility] URINALYS IS CLEAN CATCH PH OF URINE BY TEST STRIP 6.0 5.0 - 9.0 03/28 Specimen Type: URINE Comment: If Glucose = >500 and Ketones are positive, please alert the Physician. Ordering Provider: TIFFANY TRENT Report Released Date/Time: Feb 02, 2024 12:05 PM Reporting Lab: [facility] [place] [facility] [address] [facility] [address] Performing Lab: [facility] [place] [facility] [address] [facility] [address] [facility] URINALYS IS CLEAN CATCH UROBILINOG EN [MASS/VOLU ME] IN URINE BY TEST STRIP Normalmg /dL <2.0 - 2.0 03/28 Specimen Type: URINE Comment: If Glucose = >500 and Ketones are positive, please alert the Physician. Ordering Provider: TIFFANY TRENT Report Released Date/Time: Feb 02, 2024 12:05 PM Reporting Lab: [facility] [place] [facility] [address] [facility] [address] Performing Lab: [facility] [place] [facility] [address] [facility] [address] [facility] URINALYS IS CLEAN CATCH LEUKOCYTE ESTERASE [PRESENCE] IN URINE BY TEST STRIP NEGATIVE 03/28 Specimen Type: URINE Comment: If Glucose = >500 and Ketones are positive, please alert the Physician. Ordering Provider: TIFFANY TRENT Report Released Date/Time: Feb 02, 2024 12:05 PM Reporting Lab: [facility] [address] [facility] [address] Performing Lab: [facility] [address] [facility] [address] [facility] Vital Signs Combined list of inpatient and outpatient Vital Signs from Department of Defense and Veterans Affairs, ranging from 12 months to all on record, depending upon the facility. Vital Sign Value Date Comments Source SYSTOLIC BLOOD PRESSURE 168 09/15/19 15:15:54 [facility] DIASTOLIC BLOOD PRESSURE 80 025 15:15:54 [facility] PULSE OXIMETRY 96 % 09/14/2024 15:15:54 [facility] WEIGHT 213 09/14/2024 15:15:54 [facility] BMI 32 kg/m2 09/14/2024 15:15:54 [facility] PAIN 1 09/14/2024 15:15:54 [facility] HEIGHT 69 09/14/2024 15:15:54 [facility] TEMPERATURE 97.9 09/14/2024 15:15:54 [facility] PULSE 83 09/14/2024 15[facility]15:54 [facility] RESPIRATION 16 09/14/2024 15:15:54 [facility] SYSTOLIC BLOOD PRESSURE 142 05/23/19 25 14:53:04 [facility] DIASTOLIC [place] [facility] SYSTOLIC BLOOD PRESSURE 146 04/09/20 14:19:14 [facility] [place] DIASTOLIC [...] [facility] [place] [facility] DIASTOLIC BLOOD PRESSURE 76 03/13/ 024 15:07:03 [facility] [...] 02/02/2024 08:42:35 [facility] Encounters Combined [...] [facility] En[facility] [id number] GABRIEL PITTS 01/12 [facility] [id number] 1.01/22 [facility] Encounter [id number] 1.02/01 [facility] OFFICE O/P EST LOW 20 MIN [id number] Diagnos is: ICD-10- CM F43.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 Diagnos is: ICD-10- CM F43.9 Reactio n to severe stress, unspeci ONIEL Shay R 02/01 [facility] Out[facility] Encounter [id number] 1.02/01 [facility] CASE MANAGEMENT [id number] 1. Diagnos is: ICD-10- CM F32.A Depress ion, unspeci fied RE LIM N 03/05 [facility] En[facility] [id number] 1. RE LIM N 03/05 [facility] En[facility] [id number] RE LIM N 03/05 [facility] Out[facility] Encounter [id number] 1. RE LIM N 03/05 [facility] PSYTX W PT 45 MINUTES [id number] 1. Diagnos is: ICD-10- CM F32.A Depress ion, unspeci ONIEL Shay R 03/09 [facility] PSYCH DIAGNOSTIC EVALUATION [id number] 1. Diagnos is: ICD-10- CM F32.A Depress ion, unspeci fied RAPHAELGINNAN N 03/13 [facility] OFF/OP EST AUGUST X REQ PHY/QHP [id number] 1. 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 Diagnos is: ICD-10- CM Z71.81 Spiritu al or religio us counseling aide ing VALERI BETHEA 03/14 [facility] Outpatient Encounter [id number] 1.03/16 [facility] PSYTX W PT 30 MINUTES [id number] 1. Diagnos is: ICD-10- CM F32.A Depress ion, unspeci fied MIRANDAONIEL NOEL R 03/28 [facility] [place] Outpatient Encounter [id number] JANIS SCHAEFER 03/30 [facility] [place] GROUP PSYCHOTHER APY [id number] Diagnos is: ICD-10- CM F32.A Depress ion, unspeci fied JANIS SCHAEFER 03/30 [facility] [place] OFFICE O/P EST HI 40 MIN [id number] 1. Diagnos is: ICD-10- CM F33.8 Other recurre nt depress darrius disorde rs Marita ELIZABETH JAJA 03/30 [facility] HC PRO PHONE CALL 11-20 MIN [id number] 1. Diagnos is: ICD-10- CM Z72.3 Lack of physica l exercis e REJI HOLGUIN 04/02 [facility] GROUP PSYCHOTHER APY [id number] Diagnos is: ICD-10- CM F32.A Depress ion, unspeci fied JANIS SCHAEFER 04/06 [facility] OFFICE O/P EST LOW 20 MIN [id number] Diagnos is: ICD-10- CM G89.4 Chronic pain syndrom e MILLER TRENT RD 04/09 [facility] Out[facility] En[facility] [id number] 04/10 [facility] PSYTX W PT 45 MINUTES [id number] Diagnos is: ICD-10- CM F41.9 Anxiety disorde r, unspeci fiONIEL Mena 04/17 [facility] GROUP PSYCHOTHER APY [id number] Diagnos is: ICD-10- CM F32.A Depress ion, unspeci fied MALINOFSKERIJANIS 04/20 [facility] EDU&TRN PT SELF-MGMT NQHP 1 [id number] Diagnos is: ICD-10- CM Z72.3 Lack of physica l exercis e REJI HOLGUIN 04/24 [facility] EXERCISE CLASS [id number] Diagnos is: ICD-10- CM Z72.3 Lack of physica l exercis e Marita ACEVES JAJA 04/25 [facility] Out[facility] Encounter [id number] 05/01 [facility] OFFICE O/P EST MOD 30 MIN [id number] Diagnos is: ICD-10- CM F32.A Depress ion, unspeci Marita Benjamin JAJA 05/02 [facility] Outpatient Encounter [id number] 05/04 [facility] HLTH BHV IVNTJ GRP EA ADDL [id number] Diagnos is: ICD-10- CM Z73.3 Stress, not elsewhe re classif ied JR TORRES RA 05/08 [facility] Outpatient Encounter [id number] 05/09 [facility] PSYTX W PT 30 MINUTES [id number] Diagnos is: ICD-10- CM F41.9 Anxiety disorde r, unspeci fied ONIEL JEAN 05/10 [facility] Outpatient Encounter [id number] 05/21 [facility] [place] EDU&TRN PT SLF-MGMT NQHP 5-8 [id number] Diagnos is: ICD-10- CM G89.29 Other chronic pain MARY ANN VINCENT EEN 05/22 [facility] OFFICE O/P EST LOW 20 MIN [id number] Diagnos is: ICD-10- CM I10 Essenti al (primar y) hyperte nsion MILLER TRENT RD D 05/23 [facility] Outpatient Encounter [id number] 05/25 [facility] OFFICE O/P EST SF 10 MIN [id number] Diagnos is: ICD-10- CM G89.28 Other chronic postpro cedural pain GAUNYA,CHR ISTOPHER M 05/28 [facility] [place] PSYTX W PT 60 MINUTES [id number] Diagnos is: ICD-10- CM 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, recurre nt, mild FABIANO CONNELL 06/06 [facility] [place] Outpatient Encounter [id number] 06/13 [facility] PSYTX W PT 60 MINUTES [id number] Diagnos is: ICD-10- CM F32.A Depress ion, unspeci fied FABIANO CONNELL 06/20 [facility] FEE [id number] Diagnos is: ICD-10- CM G47.30 Sleep apnea, unspeci fied OFELIA,FREDE RONNIE 06/25 [facility] (6[facility] EDU&TRN PT SELF-MGMT NQHP 1 [id number] Diagnos is: ICD-10- CM G47.30 Sleep apnea, unspeci fied OFELIA,FREDE RONNIE 06/25 [facility] [place] PSYTX W PT 60 MINUTES [id number] Diagnos is: ICD-10- CM F32.A Depress ion, unspeci fied FABIANO CONNELL MARK 06/27 [facility] [place] [place] PSYTX W PT 60 MINUTES [id number] Diagnos is: ICD-10- CM F32.A Depress ion, unspeci fied FABIANO CONNELL MARK 07/04 [facility] [place] [place] Outpatient Encounter [id number] 07/05 [facility] [place] [place] Outpatient Encounter [id number] 07/09 [facility] [place] [facility] [place] ACUP 1/> W/O ESTIM EA ADD 15 [id number] Diagnos is: ICD-10- CM G89.28 Other chronic postpro cedural pain GAUNYA,CHR ISTOPHER M 07/09 [facility] [place] [place] PSYTX W PT 60 MINUTES [id number] Diagnos is: ICD-10- CM F32.A Depress ion, unspeci fied FABIANO CONNELL 07/11 [facility] SLEEP STUDY UNATT&RESP EFFT [id number] Diagnos is: ICD-10- CM G47.30 Sleep apnea, unspeci fied CURIOSO-UY ,EFFIE 07/11 [facility] OFFICE O/P EST MOD 30 MIN [id number] Diagnos is: ICD-10- CM F41.9 Anxiety disorde r, unspeci fied Marita ELIZABETH 07/12 [facility] [id number] 07/18 [facility] [id number] 07/23 [facility] [id number] 07/23 [facility] [id number] 07/25 [facility] [id number] 08/01 [facility] [id number] 08/01 [facility] En[facility] [id number] FABIANO CONNELL 08/06 [facility] En[facility] [id number] 08/21 [facility] [id number] 08/21 [facility] [id number] 09/04 [facility] [id number] 09/04 [facility] [id number] 09/05 [facility] OFFICE O/P EST LOW 20 MIN [id number] Diagnos is: ICD-10- CM G47.33 Obstruc tive sleep apnea (adult) (pediat ronnie) [address] 09/14 [facility] Outpatient Encounter [id number] 09/26 [facility] Social History Combined list of available smoking, tobacco, and other social history from Department of Defense and Veterans Affairs facilities. Social History Type Response Date Comment Source Tobacco smoking status [facility] VA-TOBACCO USE FORMER CIGARETTES 03/09/2024 [facility] History of tobacco use VA-TOBACCO NEVER USED OTHER TYPE 03/09/2024 [facility] History of tobacco use QUIT TOBACCO USE > 7 YEARS AGO 08/16/2006 QUIT 20 YEARS AGO [facility] Plan of Care List of future care activities from Department of Veterans Affairs facilities. Additional future care activities may be listed in the Assessment and Plan section. Date/Time Care Activity Care Activity Detail Facili ty 11/06/2024 AMBULATORY - PSYCHIATRY AMBULATORY - PSYC HIATRY [facility] Advance Directives List of completed, amended, or rescinded Advance Directives on record at Department of [facility] facilities. An actual copy of the Directive is not included. Date Advance Directive Provider Source 12/15/2011 ADVANCE DIRECTIVE DISCUSSION Sandra [facility]
[2024-10-03 10:26] LABS: MANUAL DIFF FLAG NO
[2024-10-03 10:45] LABS: Basophils Absolute Auto 0.1 X10*3/uL (0.0-0.2); Basophils Percent Auto 1.1 % (0-2); Eosinophils Absolute Auto 0.2 X10*3/uL (0.0-0.4); Eosinophils Percent Auto 3.9 % (0-4); Hemoglobin 14.8 g/dl (14.0-18.0); Imm Gran Abs Auto 0.04 X10*3/uL (0.00-0.03); Imm Gran Pct Auto 0.7 % (0.0-0.4); Lymphocytes Absolute Auto 1.6 X10*3/uL (1.2-4.9); Lymphocytes Percent Auto 28.9 % (20-40); Mean Corpuscular HGB Conc 34.4 g/dl (31.0-36.0); Mean Corpuscular Hemoglobin 29.5 pg (27.0-33.0); Mean Corpuscular Volume 85.7 fL (80.0-98.0); Mean Platelet Volume 10.7 fL (9.4-12.4); Monocytes Absolute Auto 0.5 X10*3/uL (0.1-1.2); Monocytes Percent Auto 9.1 % (2-11); Neutrophils Absolute Auto 3.2 x10*3/uL (2.0-8.3); Neutrophils Percent Auto 56.3 % (45-73); Platelet Count 192 X10*3/uL (160-400); Red Blood Count 5.02 X10*6/uL (4.60-5.80); Red Cell Distribution Width 13.7 % (11.0-16.0); White Blood Count 5.6 X10*3/uL (4.8-10.8)
[2024-10-03 10:56] LABS: Estimated Average Glucose 177 mg/dL; Hemoglobin A1c % 7.8 % (<6.0)
[2024-10-03 11:31] LABS: Alanine Aminotransferase 33 U/L (0-40); Albumin Level 4.7 g/dL (3.5-5.0); Alkaline Phosphatase 39 U/L (39-117); Anion Gap 11 (12-20); Aspartate Amino Transferase 24 U/L (5-37); Bilirubin Total 0.7 mg/dL (0.0-1.0); Blood Urea Nitrogen 19 mg/dL (9-16); Carbon Dioxide 24 mmol/L (22-29); Chloride 110 mmol/L (96-108); Cholesterol 175 mg/dL (<200); Estimated Glomerular Filt Rate > 60; Glucose Random 184 mg/dL (60-115); HDL Cholesterol 38 mg/dL (>40); LDL Cholesterol Calculated 109 mg/dL (<100); Potassium 4.4 mmol/L (3.3-5.1); Sodium 141 mmol/L (135-145); Total Protein 7.3 g/dL (6.5-8.0); Triglycerides 144 mg/dL (<150)
[2024-10-03 11:42] LABS: HBS Num1 3.72 mIU/mL (0-7.99); HBc Num1 0.04 S/CO (0.00-0.79); HBsAGNum1 0.41 S/CO (0.00-0.99); Hepatitis B Core Antibody Nonreactive (Nonreactive); Hepatitis B Surface Antigen Negative (Negative); ~HepC Num1 17.17 S/CO (0.00-0.79); ~Hepatitis B Surface Antibody NONREACTIVE (Nonreactive); ~Hepatitis C Antibody Reactive (Nonreactive)
[2024-10-03 11:49] LABS: Free T4 (Free Thyroxine) 0.94 ng/dL (0.71-1.85); Thyroid Stimulating Hormone 1.67 uIU/mL (0.32-4.0)
[2024-10-03 11:57] LABS: Folate 5.5 ng/mL (> or = 4.0); Prostate Specific Antigen Scr 1.02 ng/mL (<0.05-4.0); Vitamin B12 980 pg/mL (200-900)
[2024-10-03 12:35] LABS: Creatinine Urine 132.62 mg/dL; Microalbum/Creatinine Ratio Ur 323.4 ug/mg cr (<30)
== END 2024-10-03 10:01 | disposition home or self-care (01) ==
LOC: HO.LAB 10:00
PROVIDERS: PCP Internal Medicine; Visit Provider Internal Medicine
DX: E78.5 Hyperlipidemia, unspecified (principal); E11.65 Type 2 diabetes mellitus with hyperglycemia; Z13.220 Encounter for screening for lipoid disorders; R79.89 Other specified abnormal findings of blood chemistry; M25.551 Pain in right hip; Z12.5 Encounter for screening for malignant neoplasm of prostate
CPT/HCPCS: 36415; 73502; 80053; 80061; 82043; 82570; 82607; 82746; 83036; 84153; 84439; 84443; 85025; 86704; 86706; 86803; 87340

== ENCOUNTER → 2024-10-03 10:30 | Outpatient (BNV) | payer MEDICARE, BC, SELFPAY | PROVIDERS: PCP Internal Medicine; Visit Provider Radiology Diagnostic Radiology | DX: M25.551 Pain in right hip (principal) | CPT/HCPCS: 73502 ==

== ENCOUNTER 2024-10-05 10:43 | Outpatient (REF) | payer MEDICARE, BC, SELFPAY ==
--- OUTSIDE RECORDS SUMMARY | 2024-10-03 06:14 | XMS_ITS | Continuity of Care Document ---
Author Name [facility] Organization [facility] Care Team Providers Care Business Services Sales Agent Name Role Phone [facility] Unavailable Unavailable Problems Combined list of problems from Department of Defense and Veterans Affairs facilities. It does not include entries that were removed or entered in error. 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 Active Condition [facility] CHR ALC DEP,IN REM Active Condition [facility] Depression screening positive Active [facility] Depressive episode (SNOMED CT [id number]) Active Condition [facility] DM TYPE II, W/O COMP Active Condition [place] 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, 2006 Entered [...] HCS HEPATITIS C W/O COMA Active Condition [facility] Hyperglycemia Active Condition [facility] [...] ICD-10-CM G47.30 Sleep apnea, unspecified Active Diagnosis [facility] Diagnosis: ICD-10-CM F32.A Depression, unspecified Active [...] depressive disorders Active Diagnosis [facility] Diagnosis: ICD-10-CM Z71.81 Spiritual or jewish counseling Active [facility] Diagnosis: ICD-10-CM Z71.9 Counseling, unspecified Active Diagnosis [facility] Diagnosis: ICD-10-CM F43.9 Reaction to severe stress, unspecified Active Diagnosis [facility] Diagnosis: ICD-10-CM F43.10 Post-traumatic stress disorder, unspecified Active Diagnosis [facility] Medications Combined list of outpatient medications from [...] [facility] RESPIR ATORY (INHAL ATION) ACTIVE 05/24/2025 [id number] DONNA TRENT ALEXI D 2024 3 [facility] AMLODIPINE BESYLATE 10MG TAB TAKE ONE TABLET BY MOUTH ONCE DAILY FOR BLOOD PRESSURE /HEART, DO NOT TAKE WITH GRAPEFRU IT JUICE ORAL ACTIVE 05/24/2025 [id number] 5 DONNA TRENT D 2024 90 [facility] ATORVASTATI N CA 20MG TAB TAKE ONE-HALF TABLET BY MOUTH AT BEDTIME ORAL ACTIVE 05/24/2025 [id number] 5 DONNA TRENT D 2024 45 [facility] ESCITALOPRA M OXALATE 20MG TAB TAKE ONE-HALF TABLET BY MOUTH ONCE DAILY FOR MOOD/DEP RESSION ORAL DISCONT INUED BY PROVIDE R 03/31/2025 [id number] 4 [facility]FN ELIZABETH [facility] FLUOXETINE HCL 10MG CAP TAKE ONE CAPSULE BY MOUTH ONCE DAILY FOR DEPRESSI ON AND ANXIETY ORAL DISCONT INUED (EDIT) 07/13/2025 [id number] 5 YFN ELIZABETH 2024 30 [facility]CS FLUOXETINE HCL 20MG CAP TAKE ONE CAPSULE BY MOUTH ONCE DAILY FOR DEPRESSI ON AND ANXIETY ORAL ACTIVE 09/05/2025 [id number] 5 YFN ELIZABETH 2024 30 [facility] [place] 50MG TAB TAKE ONE TABLET BY MOUTH ONCE DAILY FOR BLOOD PRESSURE /HEART ORAL ACTIVE 05/24/2025 [id number] 5 DONNA TRENT ALEXI D 2024 90 [facility] HCS MENTHOL/MET HYL SALICYLATE (10-15%) LOW CONC. CREAM,TOP APPLY A THIN FILM TOPICALL Y THREE TIMES DAILY NEEDED FOR MUSCLE PAIN TOPICA L ACTIVE 04/10/2025 [id number] 4 DONNA TRENT D 2023 90 [facility] HCS METFORMIN HCL 500MG 24HR TAB,SA TAKE TWO TABLETS BY MOUTH ONCE DAILY ORAL ACTIVE 05/24/2025 [id number] 5 DONNA TRENT D 2024 180 [facility] HCS SITAGLIPTIN (EQV-JANUVI A) 100MG TAB TAKE ONE TABLET BY MOUTH ONCE DAILY ORAL ACTIVE DONNA TRENT D 2023 [facility]CS SITAGLIPTIN (EQV-ZITUVI O) 100MG TAB TAKE ONE TABLET BY MOUTH ONCE DAILY ORAL ACTIVE 05/24/2025 [id number] 5 DONNA TRENT D 2024 90 [facility] Allergies, Adverse Reactions, Alerts Combined list of allergies from Department of Defense and Veterans Affairs facilities. It does not include entries that were removed or entered in error. Substance Category Reaction Severity Reaction type Status Date Reported Comments Source LISINOPRIL Propensity to adverse reactions to drug (finding) [facility] Immunizations Combined list of available immunizations from the Department of Defense and Veterans Affairs facilities. Immunization Series Date Given Administered By Site Reaction Lot Number CVX Code Drug Light Adjuster Status Comments Source COVID-19 (MODERNA), MRNA, LNP-S, PF, 50 MCG/0.5 ML (AGES 12+ YEARS) 4 2023 RANDOLPH MANCUSO LEFT DELTO ID [id number] 312 complet ed [facility] INFLUENZA, HIGH-DOSE, TRIVALENT, PF 2023 JAMEEHOLLIEGabriela Murphy Marita LEFT DELTO ID [id number] 135 complet ed Completed Series, [facility] TD (ADULT), 2 LF TETANUS TOXOID, PRESERVATIVE FREE, ADSORBED 1 2022 09 complet ed HISTORICA L INFORMATI ON - FROM OTHER REGISTRY, Tetanus Diphtheri a 2 Lf - Td (adult) [facility] COVID-19 (PFIZER), MRNA, LNP-S, PF, 30 MCG/0.3 ML DOSE 3 2021 208 complet ed HISTORICA L INFORMATI ON - FROM OTHER REGISTRY, Covid Card- Zahra Lot#: [id number] Mfr: [email or web address], INC [facility] COVID-19 (PFIZER), MRNA, LNP-S, PF, 30 MCG/0.3 ML DOSE 2 2020 208 complet ed PFR; [id number]; 1 [facility] COVID-19 (PFIZER), MRNA, LNP-S, PF, 30 MCG/0.3 ML DOSE 1 2020 208 complet ed PFR; [id number]; 1 [facility] PNEUMOCOCCAL CONJUGATE PCV 13 1 2018 133 complet ed HISTORICA L INFORMATI ON - FROM OTHER REGISTRY, Pneumococ gino Conjugate Vaccine, 13 valent [facility] ZOSTER RECOMBINANT 1 2018 187 complet [...] Feb 02, 2024 12:05 PM Reporting Lab: [facility] [place] [facility] [address] [address] Performing Lab: [facility] [place] [facility] [address] [address] [facility] MICROSCO PIC AUTOMATE D, URINE ERYTHROCYT ES [#/AREA] IN URINE SEDIMENT BY MICROSCOPY HIGH POWER FIELD 0-2/[HPF ] 0 - 3 03/28 Specimen Type: URINE Comment: If Glucose = >500 and Ketones are positive, please alert the Physician. Ordering Provider: TIFFANY TRENT Report Released Date/Time: Feb 02, 2024 12:05 PM Reporting Lab: [facility]TRN [facility]ITALUSE[address] [address] Performing Lab: [place] [facility] [address] [address] [facility]ITALRUAB [facility]N [facility]ITALUSE [facility] LIPID PANEL FASTING CHOLESTERO L [MASS/VOLU ME] IN SERUM OR PLASMA 248 mg/dL 03/28 H Specimen Type: SERUM No comment entered. Ordering Provider: TIFFANY TRENT Report Released Date/Time: Feb 02, 2024 12:05 PM Reporting Lab: [facility]ITALRUAB [facility]N [facility]ITALUSE[address] [address] Performing Lab: [facility]ITALRL TRN [facility]OSPITALUSETS [address] [address] [facility]ITALRUAB [facility]N [facility]ITALUSE [facility] LIPID PANEL FASTING TRIGLYCERI DE [MASS/VOLU ME] IN SERUM OR PLASMA 170 mg/dL 0 - 150 03/28 H Specimen Type: SERUM No comment entered. Ordering Provider: TIFFANY TRENT Report Released Date/Time: Feb 02, 2024 12:05 PM Reporting Lab: [facility]ITALRNOR[facility]PITALTRN [facility] HOSPITALUSETS [address] [address] Performing Lab: [facility]PITALRL [facility] [address] [address] [facility]ITALRUAB [facility]N [facility]ITALUSE [facility] LIPID PANEL FASTING CHOLESTERO L IN LDL [MASS/VOLU ME] IN SERUM OR PLASMA BY CALCULATIO N 166 mg/dL 0 - 129 03/28 H Specimen Type: SERUM No comment entered. Ordering Provider: TIFFANY TRENT Report Released Date/Time: Feb 02, 2024 12:05 PM Reporting Lab: [facility]ITALR[facility]ITALTRN [facility]ITALUSE[address] [address] Performing Lab: [facility] [place] [facility] [address] [address] [facility] [place] [facility] LIPID PANEL FASTING CHOLESTERO L.TOTAL/CH OLESTEROL IN HDL [MASS RATIO] IN SERUM OR PLASMA 5.2 03/28 Specimen Type: SERUM No comment entered. Ordering Provider: TIFFANY TRENT Report Released Date/Time: Feb 02, 2024 12:05 PM Reporting Lab: [facility] [place] [facility] [address] [address] Performing Lab: [facility] [place] [facility] [address] [address] [facility]RL WSTRN [facility]OSPITALUSE [facility] LIPID PANEL FASTING CHOLESTERO L IN HDL [MASS/VOLU ME] IN SERUM OR PLASMA 48 mg/dL 40 - 60 03/28 Specimen Type: SERUM No comment entered. Ordering Provider: TIFFANY TRENT Report Released Date/Time: Feb 02, 2024 12:05 PM Reporting Lab: [facility] [place] [facility] [address] [address] Performing Lab: [facility]ITAL[facility] [address] [address] [facility] TRN [facility] HOSPITALUSE [facility] TSH THYROTROPI N [UNITS/VOL UME] IN SERUM OR PLASMA 0.89 u[IU]/mL 0.35 - 5.00 03/28 Specimen Type: SERUM No comment entered. Ordering Provider: ITFFANY TRENT Report Released Date/Time: Feb 02, 2024 12:05 PM Reporting Lab: [facility] [place] [facility] [address] [address] Performing Lab: [place] [facility] [place] [place] [address] [address] [facility]RL TRN [facility] HOSPITALUSE [facility] LIVER FUNCTION PROTEIN [MASS/VOLU ME] IN SERUM OR PLASMA 7.0 g/dL 6.0 - 8.3 03/28 Specimen Type: SERUM No comment entered. Ordering Provider: TIFFANY TRENT Report Released Date/Time: Feb 02, 2024 12:05 PM Reporting Lab: [facility] [place] [facility] [address] [address] Performing Lab: [facility] [place] [facility] [address] [address] [facility] [place] [facility] LIVER FUNCTION ALBUMIN [MASS/VOLU ME] IN SERUM OR PLASMA 4.1 g/dL 3.5 - 5.0 03/28 Specimen Type: SERUM No comment entered. Ordering Provider: TIFFANY TRENT Report Released Date/Time: Feb 02, 2024 12:05 PM Reporting Lab: [facility] [place] [facility] [address] [address] Performing Lab: [facility] [place] [facility] [address] [address] [facility] [place] [facility] LIVER FUNCTION ALKALINE PHOSPHATAS E [ENZYMATIC ACTIVITY/V OLUME] IN SERUM OR PLASMA 37 U/L 40 - 150 03/28 L Specimen Type: SERUM No comment entered. Ordering Provider: TIFFANY TRENT Report Released Date/Time: Feb 02, 2024 12:05 PM Reporting Lab: [facility] [place] [facility] [address] [address] Performing Lab: [facility] [place] [facility] [address] [address] [facility] [place] [facility] LIVER FUNCTION ASPARTATE AMINOTRANS FERASE [ENZYMATIC ACTIVITY/V OLUME] IN SERUM OR PLASMA 19 U/L 5 - 34 03/28 Specimen Type: SERUM No comment entered. Ordering Provider: TIFFANY TRENT Report Released Date/Time: Feb 02, 2024 12:05 PM Reporting Lab: [facility] [place] [facility] [address] [address] Performing Lab: [facility] [place] [facility] [address] [address] [facility] [place] [facility] LIVER FUNCTION ALANINE AMINOTRANS FERASE [ENZYMATIC ACTIVITY/V OLUME] IN SERUM OR PLASMA 28 U/L 03/28 Specimen Type: SERUM No comment entered. Ordering Provider: TIFFANY TRENT Report Released Date/Time: Feb 02, 2024 12:05 PM Reporting Lab: [facility] [place] [facility] [address] [address] Performing Lab: [facility] [place] [facility] [address] [address] [facility] [place] [facility] LIVER FUNCTION BILIRUBIN. TOTAL [MASS/VOLU ME] IN SERUM OR PLASMA 0.6 mg/dL 0.2 - 1.2 03/28 Specimen Type: SERUM No comment entered. Ordering Provider: TIFFANY TRENT Report Released Date/Time: Feb 02, 2024 12:05 PM Reporting Lab: [facility] [place] [facility] [address] [address] Performing Lab: [place] [facility] [place] [address] [address] [facility]ITALRL [facility] [place] [facility] BASIC METABOLI C PANEL (fasting ) UREA NITROGEN [MASS/VOLU ME] IN SERUM OR PLASMA 19 mg/dL 7 - 25 03/28 Specimen Type: SERUM No comment entered. Ordering Provider: TIFFANY TRENT Report Released Date/Time: Feb 02, 2024 12:05 PM Reporting Lab: [facility] [place] [facility] [address] [address] Performing Lab: [facility] [place] [place] [address] [address] [facility] [place] [facility] BASIC METABOLI C PANEL (fasting ) GLUCOSE [MASS/VOLU ME] IN SERUM OR PLASMA 227 mg/dL 65 - 100 03/28 H Specimen Type: SERUM No comment entered. Ordering Provider: TIFFANY TRENT Report Released Date/Time: Feb 02, 2024 12:05 PM Reporting Lab: [facility] [place] [facility] [address] [address] Performing Lab: [facility] [place] [facility] [address] [address] [facility] [place] [facility] BASIC METABOLI C PANEL (fasting ) SODIUM [MOLES/VOL UME] IN SERUM OR PLASMA 137 mmol/L 135 - 145 03/28 Specimen Type: SERUM No comment entered. Ordering Provider: TIFFANY TRENT Report Released Date/Time: Feb 02, 2024 12:05 PM Reporting Lab: [facility]N [facility]ITALUSETS [facility] [address] [address] Performing Lab: [facility]PITALRUAB [facility]ITALN [address] [address] [facility]ITALRNORTH ALABAMA [facility] HOSPITALTRN [facility]ITALUSE [facility] BASIC METABOLI C PANEL (fasting ) POTASSIUM [MOLES/VOL UME] IN SERUM OR PLASMA 4.4 mmol/L 3.5 - 5.0 03/28 Specimen Type: SERUM No comment entered. Ordering Provider: TIFFANY TRENT Report Released Date/Time: Feb 02, 2024 12:05 PM Reporting Lab: [facility]ITALRNORTH ALABAMA [facility] HOSPITALTRN [address] [address] Performing Lab: [facility]ITALRUAB [facility]N [address] [address] [facility]ITALRUAB [facility]ITALN [facility] BASIC METABOLI C PANEL (fasting ) CHLORIDE [MOLES/VOL UME] IN SERUM OR PLASMA 108 mmol/L 100 - 110 03/28 Specimen Type: SERUM No comment entered. Ordering Provider: TIFFANY TRENT Report Released Date/Time: Feb 02, 2024 12:05 PM Reporting Lab: [facility]ITALRUAB [facility]OSPITALN [address] [address] Performing Lab: [facility]ITALRL TRN [facility]OSPITALUSE[address] [address] [facility]RL TRN [facility] HOSPITALUSE [facility] BASIC METABOLI C PANEL (fasting ) CARBON DIOXIDE, TOTAL [MOLES/VOL UME] IN SERUM OR PLASMA 20 meq/L 20 - 30 03/28 Specimen Type: SERUM No comment entered. Ordering Provider: TIFFANY TRENT Report Released Date/Time: Feb 02, 2024 12:05 PM Reporting Lab: [facility]ITALRUAB [facility]OS[facility]ITALN [address] [address] Performing Lab: [facility]ITALRUAB [facility]OS[facility]ITALN [address] [address] [facility] BASIC METABOLI C PANEL (fasting ) CREATININE [MASS/VOLU ME] IN SERUM OR PLASMA 0.97 mg/dL 0.50 - 1.40 03/28 Specimen Type: SERUM No comment entered. Ordering Provider: TIFFANY TRENT Report Released Date/Time: Feb 02, 2024 12:05 PM Reporting Lab: [facility] [address] [address] Performing Lab: [facility] [address] [address] [facility] BASIC METABOLI C PANEL (fasting ) GLOMERULAR FILTRATION RATE/1.73 SQ M.PREDICTE D [VOLUME RATE/AREA] IN SERUM, PLASMA OR BLOOD BY CREATININE -BASED FORMULA (CKD-EPI 2020) 80 mL/min 60 03/28 Specimen Type: SERUM No comment entered. Ordering Provider: TIFFANY TRENT Report Released Date/Time: Feb 02, 2024 12:05 PM Reporting Lab: [facility] [address] [address] Performing Lab: [address] [address] [facility] HEMOGLOB IN A1C PANEL HEMOGLOBIN A1C/HEMOGL [...] Feb 02, 2024 12:05 PM Reporting Lab: [address] [address] Performing Lab: [address] [address] [facility] [place] [facility] MICROALB UMIN CREATINI NE RATIO PANEL MICROALBUM IN/CREATIN INE [MASS RATIO] IN URINE 556.1 mg/g 0 - 29.9 03/28 H Specimen Type: URINE No comment entered. Ordering Provider: TIFFANY TRENT Report Released Date/Time: Feb 02, 2024 12:05 PM Reporting Lab: [facility] [place] [place] [facility] [address] [address] Performing Lab: [facility] [place] [facility] [address] [address] [facility] [place] [place] [facility] MICROALB UMIN CREATINI NE RATIO PANEL MICROALBUM IN [MASS/VOLU ME] IN URINE 46.1 mg/dL 03/28 Specimen Type: URINE No comment entered. Ordering Provider: TIFFANY TRENT Report Released Date/Time: Feb 02, 2024 12:05 PM Reporting Lab: [facility] [place] [address] [address] Performing Lab: [facility] [place] [facility] [address] [address] [facility] [place] [place] [facility] MICROALB UMIN CREATINI NE RATIO PANEL CREATININE [MASS/VOLU ME] IN URINE 82.90 mg/dL 03/28 Specimen Type: URINE No comment entered. Ordering Provider: TIFFANY TRENT Report Released Date/Time: Feb 02, 2024 12:05 PM Reporting Lab: [facility] [place] [facility] [address] [address] Performing Lab: [facility] [place] [address] [address] [facility] [place] [facility] CBC AND DIFF (AUTO) LEUKOCYTES [#/VOLUME] IN BLOOD BY AUTOMATED COUNT 4.53 10*3/uL 4.50 - 11.00 03/28 Specimen Type: BLOOD No comment entered. Ordering Provider: TIFFANY TRENT Report Released Date/Time: Feb 02, 2024 12:05 PM Reporting Lab: [facility] [place] [facility] [address] [address] [address] Performing Lab: [facility] [place] [facility] [address] [address] [facility] [place] [facility] CBC AND DIFF (AUTO) ERYTHROCYT ES [#/VOLUME] IN BLOOD BY AUTOMATED COUNT 4.74 10*6/uL 4.23 - 5.66 03/28 Specimen Type: BLOOD No comment entered. Ordering Provider: TIFFANY TRENT Report Released Date/Time: Feb 02, 2024 12:05 PM Reporting Lab: [facility] [place] [facility] [address] [address] Performing Lab: [facility] [place] [facility] [address] [address] [facility] [place] [facility] CBC AND DIFF (AUTO) HEMOGLOBIN [MASS/VOLU ME] IN BLOOD 13.9 g/dL 12.8 - 17 03/28 Specimen Type: BLOOD No comment entered. Ordering Provider: TIFFANY TRENT Report Released Date/Time: Feb 02, 2024 12:05 PM Reporting Lab: [facility] [place] [facility] [address] [facility] [address] Performing Lab: [facility] [place] [facility] [address] [address] [facility] CBC AND DIFF (AUTO) HEMATOCRIT [VOLUME FRACTION] OF BLOOD BY AUTOMATED COUNT 40.2 39.2 - 50.4 03/28 Specimen Type: BLOOD No comment entered. Ordering Provider: TIFFANY TRENT Report Released Date/Time: Feb 02, 2024 12:05 PM Reporting Lab: [facility] [place] [facility] [address] [address] Performing Lab: [facility] [place] [facility] [address] [address] [facility] [place] [facility] CBC AND DIFF (AUTO) MCV [ENTITIC VOLUME] BY AUTOMATED COUNT 84.8 fL 82 - 99 03/28 Specimen Type: BLOOD No comment entered. Ordering Provider: TIFFANY TRENT Report Released Date/Time: Feb 02, 2024 12:05 PM Reporting Lab: [facility] [place] [facility] [address] [address] Performing Lab: [facility] [place] [facility] [address] [address] [facility] CBC AND DIFF (AUTO) MCH[facility] [MASS/VOLU ME] BY AUTOMATED COUNT 34.6 g/dL 30.8 - 35.1 03/28 Specimen Type: BLOOD No comment entered. Ordering Provider: TIFFANY TRENT Report Released Date/Time: Feb 02, 2024 12:05 PM Reporting Lab: [facility] [address] [facility] [address] Performing Lab: [facility] [address] [facility] [address] [facility] CBC AND DIFF (AUTO) PLATELETS [#/VOLUME] IN BLOOD BY AUTOMATED COUNT 195 10*3/uL 140 - 360 03/28 Specimen Type: BLOOD No comment entered. Ordering Provider: TIFFANY TRENT Report Released Date/Time: Feb 02, 2024 12:05 PM Reporting Lab: [facility] [address] [facility] [address] Performing Lab: [facility] [address] [facility] [address] [facility] CBC AND DIFF (AUTO) ERYTHROCYT E DISTRIBUTI ON WIDTH [RATIO] BY AUTOMATED COUNT 14.0 12.0 - 16.0 03/28 Specimen Type: BLOOD No comment entered. Ordering Provider: TIFFANY TRENT Report Released Date/Time: Feb 02, 2024 12:05 PM Reporting Lab: [facility] [address] [facility] [address] Performing Lab: [facility] [address] [facility] [address] [facility] CBC AND DIFF (AUTO) MONOCYTES [#/VOLUME] IN BLOOD BY AUTOMATED COUNT 0.35 10*3/uL 0.30 - 1.10 03/28 Specimen Type: BLOOD No comment entered. Ordering Provider: TIFFANY TRETN Report Released Date/Time: Feb 02, 2024 12:05 PM Reporting Lab: [facility] [address] [facility] [address] Performing Lab[facility] [address] [facility] [address] [facility] CBC AND DIFF (AUTO) MCH [ENTITIC MASS] BY AUTOMATED COUNT 29.3 pg 26.2 - 32.6 03/28 Specimen Type: BLOOD No comment entered. Ordering Provider: TIFFANY TRENT Report Released Date/Time: Feb 02, 2024 12:05 PM Reporting Lab: [facility] [place] [facility] [address] [facility] [address] Performing Lab: [facility] [place] [facility] [address] [address] [facility] [place] [facility] CBC AND DIFF (AUTO) NEUTROPHIL S/100 LEUKOCYTES IN BLOOD BY AUTOMATED COUNT 60.5 43.7 - 75.8 03/28 Specimen Type: BLOOD No comment entered. Ordering Provider: TIFFANY TRENT Report Released Date/Time: Feb 02, 2024 12:05 PM Reporting Lab: [facility] [place] [facility] [address] [facility] [address] Performing Lab: [facility] [place] [facility] [address] [address] [facility] [place] [facility] CBC AND DIFF (AUTO) LYMPHOCYTE S/100 LEUKOCYTES IN BLOOD BY AUTOMATED COUNT 25.2 14.0 - 42.3 03/28 Specimen Type: BLOOD No comment entered. Ordering Provider: TIFFANY TRENT Report Released Date/Time: Feb 02, 2024 12:05 PM Reporting Lab: [facility] [place] [facility] [address] [facility] [address] Performing Lab: [facility] [place] [facility] [address] [facility] [address] [facility] [place] [facility] CBC AND DIFF (AUTO) MONOCYTES/ 100 LEUKOCYTES IN BLOOD BY AUTOMATED COUNT 7.7 5.1 - 13.7 03/28 Specimen Type: BLOOD No comment entered. Ordering Provider: TIFFANY TRENT Report Released Date/Time: Feb 02, 2024 12:05 PM Reporting Lab: [facility] [place] [facility] [address] [facility] [facility] [address] Performing Lab: [facility] [place] [facility] [address] [facility] [facility] [address] [facility] [place] CBC AND DIFF (AUTO) EOSINOPHIL S/100 LEUKOCYTES IN BLOOD BY AUTOMATED COUNT 4.6 0.4 - 6.8 03/28 Specimen Type: BLOOD No comment entered. Ordering Provider: TIFFANY TRENT Report Released Date/Time: Feb 02, 2024 12:05 PM Reporting Lab: [facility] [place] [address] [address] Performing Lab: [facility] [place] [facility] [address] [facility] [address] [facility] [place] CBC AND DIFF (AUTO) BASOPHILS/ 100 LEUKOCYTES IN BLOOD BY AUTOMATED COUNT 1.1 0.1 - 2.0 03/28 Specimen Type: BLOOD No comment entered. Ordering Provider: TIFFANY TRENT Report Released Date/Time: Feb 02, 2024 12:05 PM Reporting Lab: [facility] [place] [address] [address] Performing Lab: [facility] [place] [facility] [address] [facility] [address] [facility] [place] CBC AND DIFF (AUTO) NEUTROPHIL S [#/VOLUME] IN BLOOD BY AUTOMATED COUNT 2.74 10*3/uL 2.20 - 7.60 03/28 Specimen Type: BLOOD No comment entered. Ordering Provider: TIFFANY TRENT Report Released Date/Time: Feb 02, 2024 12:05 PM Reporting Lab: [facility] [place] [address] [address] Performing Lab: [facility] [place] [facility] [address] [facility] [address] [facility] [place] CBC AND DIFF (AUTO) LYMPHOCYTE S [#/VOLUME] IN BLOOD BY AUTOMATED COUNT 1.14 10*3/uL 1.00 - 3.20 03/28 Specimen Type: BLOOD No comment entered. Ordering Provider: TIFFANY TRENT Report Released Date/Time: Feb 02, 2024 12:05 PM Reporting Lab: [facility] [place] [facility] [address] [facility] [address] Performing Lab: [facility] [place] [facility] [address] [facility] [address] [facility] [place] CBC AND DIFF (AUTO) EOSINOPHIL S [#/VOLUME] IN BLOOD BY AUTOMATED COUNT 0.21 10*3/uL 0.03 - 0.44 03/28 Specimen Type: BLOOD No comment entered. Ordering Provider: TIFFANY TRENT Report Released Date/Time: Feb 02, 2024 12:05 PM Reporting Lab: [facility] [place] [facility] [address] [facility] [address] Performing Lab: [facility] [place] [facility] [address] [facility] [address] [facility] [place] [facility] CBC AND DIFF (AUTO) BASOPHILS [#/VOLUME] IN BLOOD BY AUTOMATED COUNT 0.05 10*3/uL 0.01 - 0.13 03/28 Specimen Type: BLOOD No comment entered. Ordering Provider: TIFFANY TRENT Report Released Date/Time: Feb 02, 2024 12:05 PM Reporting Lab: [facility] [place] [facility] [address] [facility] [facility] [address] Performing Lab: [facility] [place] [facility] [address] [address] [facility] [place] CBC AND DIFF (AUTO) IMMATURE GRANULOCYT ES/100 LEUKOCYTES IN BLOOD BY AUTOMATED COUNT 0.9 0.0 - 0.7 03/28 H Specimen Type: BLOOD No comment entered. Ordering Provider: TIFFANY TRENT Report Released Date/Time: Feb 02, 2024 12:05 PM Reporting Lab: [facility] [place] [facility] [address] [address] Performing Lab: [facility] [place] [facility] [address] [address] [facility] [place] [facility] CBC AND DIFF (AUTO) IMMATURE GRANULOCYT ES [#/VOLUME] IN BLOOD 0.04 10*3/uL 0.00 - 0.06 03/28 Specimen Type: BLOOD No comment entered. Ordering Provider: TIFFANY TRENT Report Released Date/Time: Feb 02, 2024 12:05 PM Reporting [facility] [address] [address] Performing Lab: [facility] [place] [address] [address] [facility] [place] [facility] CBC AND DIFF (AUTO) NRBC % 0.0 0.0 - 0.0 03/28 Specimen Type: BLOOD No comment entered. Ordering Provider: TIFFANY TERNT Report Released Date/Time: Feb 02, 2024 12:05 PM Reporting Lab: [facility] [place] [address] [address] Performing Lab: [facility] [place] [address] [address] [facility] [place] [facility] CBC AND DIFF (AUTO) NRBC, ABS 0.00 10*3/uL 0.00 - 0.00 03/28 Specimen Type: BLOOD No comment entered. Ordering Provider: TIFFANY TRENT Report Released Date/Time: Feb 02, 2024 12:05 PM Reporting Lab: [facility] [place] [address] [address] Performing Lab: [facility] [place] [address] [address] [facility] URINALYS IS CLEAN CATCH COLOR OF URINE Light-Ye llow 03/28 Specimen Type: URINE Comment: If Glucose = >500 and Ketones are positive, please alert the Physician. Ordering Provider: TIFFANY TRENT Report Released Date/Time: Feb 02, 2024 12:05 PM Reporting Lab: [facility] [place] [facility] [address] [facility] [facility] [address] Performing Lab: [facility] [place] [facility] [address] [facility] [facility] [address] [facility] URINALYS IS CLEAN CATCH APPEARANCE OF URINE Clear 03/28 Specimen Type: URINE Comment: If Glucose = >500 and Ketones are positive, please alert the Physician. Ordering Provider: TIFFANY TRENT Report Released Date/Time: Feb 02, 2024 12:05 PM Reporting Lab: [facility] [place] [facility] [address] [facility] [address] Performing Lab: [facility] [place] [facility] [address] [facility] [address] [facility] [place] URINALYS IS CLEAN CATCH GLUCOSE [MASS/VOLU ME] IN URINE Normalmg /dL 03/28 Specimen Type: URINE Comment: If Glucose = >500 and Ketones are positive, please alert the Physician. Ordering Provider: TIFFANY TRENT Report Released Date/Time: Feb 02, 2024 12:05 PM Reporting Lab: [facility] [place] [facility] [address] [facility] [facility] [address] Performing Lab: [facility] [place] [facility] [address] [facility] [address] [facility] [place] URINALYS IS CLEAN CATCH KETONES [MASS/VOLU ME] IN URINE BY TEST STRIP NEGATIVE mg/dL 03/28 Specimen Type: URINE Comment: If Glucose = >500 and Ketones are positive, please alert the Physician. Ordering Provider: TIFFANY TRENT Report Released Date/Time: Feb 02, 2024 12:05 PM Reporting Lab: [facility] [place] [facility] [address] [facility] [address] Performing Lab: [facility] [place] [facility] [address] [facility] [address] [facility] URINALYS IS CLEAN CATCH ERYTHROCYT ES [PRESENCE] IN URINE SEDIMENT BY LIGHT MICROSCOPY NEGATIVE mg/dL 03/28 Specimen Type: URINE Comment: If Glucose = >500 and Ketones are positive, please alert the Physician. Ordering Provider: TIFFANY TRENT Report Released Date/Time: Feb 02, 2024 12:05 PM Reporting Lab: [facility] [place] [facility] [address] [address] Performing Lab: [facility] [place] [facility] [address] [facility] [facility] [address] [facility] [place] URINALYS IS CLEAN CATCH PROTEIN [MASS/VOLU ME] IN URINE BY TEST STRIP 50 mg/dL 03/28 Specimen Type: URINE Comment: If Glucose = >500 and Ketones are positive, please alert the Physician. Ordering Provider: TIFFANY TRENT Report Released Date/Time: Feb 02, 2024 12:05 PM Reporting [facility]: [facility] [place] [facility] [address] [facility] [facility] [address] Performing Lab: [facility] [place] [facility] [address] [facility] [facility] [address] [facility] [place] [facility] URINALYS IS CLEAN CATCH NITRITE [PRESENCE] IN URINE NEGATIVE mg/dL 03/28 Specimen Type: URINE Comment: If Glucose = >500 and Ketones are positive, please alert the Physician. Ordering Provider: TIFFANY TRENT Report Released Date/Time: Feb 02, 2024 12:05 PM Reporting Lab: [facility] [place] [facility] [address] [facility] [facility] [address] Performing Lab: [facility] [place] [facility] [address] [facility] [facility] [address] [facility] [place] URINALYS IS CLEAN CATCH BILIRUBIN. TOTAL [PRESENCE] IN URINE NEGATIVE mg/dL 03/28 Specimen Type: URINE Comment: If Glucose = >500 and Ketones are positive, please alert the Physician. Ordering Provider: TIFFANY TRENT Report Released Date/Time: Feb 02, 2024 12:05 PM Reporting Lab: [facility] [place] [facility] [address] [facility] [address] Performing Lab: [facility] [place] [facility] [address] [facility] [facility] [address] [facility] [place] URINALYS IS CLEAN CATCH SPECIFIC GRAVITY OF URINE BY REFRACTOME TRY 1.019 1.016 - 1.022 03/28 Specimen Type: URINE Comment: If Glucose = >500 and Ketones are positive, please alert the Physician. Ordering Provider: TIFFANY TRENT Report Released Date/Time: Feb 02, 2024 12:05 PM Reporting Lab: [facility] [place] [facility] [address] [facility] [facility] [address] Performing Lab: [facility] [place] [facility] [address] [facility] [address] [facility] [place] [facility] URINALYS IS CLEAN CATCH PH OF URINE BY TEST STRIP 6.0 5.0 - 9.0 03/28 Specimen Type: URINE Comment: If Glucose = >500 and Ketones are positive, please alert the Physician. Ordering Provider: TIFFANY TRENT Report Released Date/Time: Feb 02, 2024 12:05 PM Reporting Lab: [facility] [place] [facility] [address] [facility] [address] Performing Lab: [facility] [place] [facility] [address] [facility] [address] [facility] [place] URINALYS IS CLEAN CATCH UROBILINOG EN [MASS/VOLU ME] IN URINE BY TEST STRIP Normalmg /dL <2.0 - 2.0 03/28 Specimen Type: URINE Comment: If Glucose = >500 and Ketones are positive, please alert the Physician. Ordering Provider: TIFFANY TRENT Report Released Date/Time: Feb 02, 2024 12:05 PM Reporting Lab: [facility] [place] [facility] [address] [address] Performing Lab: [facility] [place] [facility] [address] [address] [facility] [place] URINALYS IS CLEAN CATCH LEUKOCYTE ESTERASE [PRESENCE] IN URINE BY TEST STRIP NEGATIVE 03/28 Specimen Type: URINE Comment: If Glucose = >500 and Ketones are positive, please alert the Physician. Ordering Provider: TIFFANY TRENT Report Released Date/Time: Feb 02, 2024 12:05 PM Reporting Lab: [facility] [place] [facility] [address] [facility] [address] Performing Lab: [facility] [place] [facility] [address] [facility] [address] [facility] [place] Vital [...] [facility] [place] En[facility] [id number] GABRIEL PITTS 01/12 [facility] [place] [place] En[facility] [id number] 1.01/22 [facility] [place] [place] En[facility] [id number] 1.02/01 [facility] [place] OFFICE O/P EST LOW 20 MIN [id number] Diagnos is: ICD-10- CM F43.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 Diagnos is: ICD-10- CM F43.9 Reactio n to severe stress, unspeci ONIEL Shay R 02/01 [facility] [place] [id number] 1.02/01 [facility] [place] [place] [facility] CASE MANAGEMENT [id number] 1. Diagnos is: ICD-10- CM F32.A Depress ion, unspeci fied RE LIM N 03/05 [facility] [place] En[facility] [id number] 1. RE LIM N 03/05 [facility] [place] En[facility] [id number] RE LIM N 03/05 [facility] [place] En[facility] [id number] 1. RE LIM N 03/05 [facility] PSYTX W PT 45 MINUTES [id number] 1. Diagnos is: ICD-10- CM F32.A Depress ion, unspeci ONIEL Shay R 03/09 [facility] PSYCH DIAGNOSTIC EVALUATION [id number] 1. Diagnos is: ICD-10- CM F32.A Depress ion, unspeci fied RAPHAELGINNAN N 03/13 [facility] [place] OFF/OP EST AUGUST X REQ PHY/QHP [id number] 1. 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 1. Diagnos is: ICD-10- CM F32.A Depress ion, unspeci fied MIRANDAONIEL NOEL R 03/28 [facility] [place] [facility] [place] [facility] Outpatient Encounter [id number] JANIS SCHAEFER 03/30 [facility] [place] [facility] [place] [facility] GROUP PSYCHOTHER APY [id number] Diagnos is: ICD-10- CM F32.A Depress ion, unspeci fied JANIS SCHAEFER 03/30 [facility] [place] [facility] [place] OFFICE O/P EST HI 40 MIN [id number] 1. Diagnos is: ICD-10- CM F33.8 Other recurre nt depress darrius disorde rs Marita ELIZABETH JAJA 03/30 [facility] HC PRO PHONE CALL 11-20 MIN [id number] 1. Diagnos is: ICD-10- CM Z72.3 Lack of physica l exercis e REJI HOLGUIN 04/02 [facility] GROUP PSYCHOTHER APY [id number] Diagnos is: ICD-10- CM F32.A Depress ion, unspeci fied JANIS SCHAEFER 04/06 [facility] [place] [place] OFFICE O/P EST LOW 20 MIN [id number] Diagnos is: ICD-10- CM G89.4 Chronic pain syndrom e MILLER TRENT RD 04/09 [facility] Out[facility] Encounter [id number] 04/10 [facility] PSYTX W PT 45 MINUTES [id number] Diagnos is: ICD-10- CM F41.9 Anxiety disorde r, unspeci fiONIEL Mena 04/17 [facility] GROUP PSYCHOTHER APY [id number] Diagnos is: ICD-10- CM F32.A Depress ion, unspeci fied MALINOFSKERIJANIS 04/20 [facility] [place] EDU&TRN PT SELF-MGMT NQHP 1 [id number] Diagnos is: ICD-10- CM Z72.3 Lack of physica l exercis e REJI HOLGUIN 04/24 [facility] EXERCISE CLASS [id number] Diagnos is: ICD-10- CM Z72.3 Lack of physica l exercis e Marita ACEVES JAJA 04/25 [facility] Out[facility] En[facility] [id number] 05/01 [facility] [place] OFFICE O/P EST MOD 30 MIN [id number] Diagnos is: ICD-10- CM F32.A Depress ion, unspeci Marita Benjamin JAJA 05/02 [facility] [place] Outpatient Encounter [id number] 05/04 [facility] [place] HLTH BHV IVNTJ GRP EA ADDL [id number] Diagnos is: ICD-10- CM Z73.3 Stress, not elsewhe re classif ied JR TORRES RA 05/08 [facility] [place] Outpatient Encounter [id number] 05/09 [facility] [place] [facility] PSYTX W PT 30 MINUTES [id number] Diagnos is: ICD-10- CM F41.9 Anxiety disorde r, unspeci fied ONIEL JEAN 05/10 [facility] [place] Outpatient Encounter [id number] 05/21 [facility] [place] EDU&TRN PT SLF-MGMT NQHP 5-8 [id number] Diagnos is: ICD-10- CM G89.29 Other chronic pain MARY ANN VINCENT EEN 05/22 [facility] [place] [place] OFFICE O/P EST LOW 20 MIN [id number] Diagnos is: ICD-10- CM I10 Essenti al (primar y) hyperte nsion MILLER TRENT RD D 05/23 [facility] [place] Outpatient Encounter [id number] 05/25 [facility] [place] OFFICE O/P EST SF 10 MIN [id number] Diagnos is: ICD-10- CM G89.28 Other chronic postpro cedural pain GAUNYA,CHR ISTOPHER M 05/28 [facility] [place] [place] PSYTX W PT 60 MINUTES [id number] Diagnos is: ICD-10- CM 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, recurre nt, mild FABIANO CONNELL 06/06 [facility] [place] [facility] [place] Outpatient [facility]counter [id number] 06/13 [facility] PSYTX W PT 60 MINUTES [id number] Diagnos is: ICD-10- CM F32.A Depress ion, unspeci fied FABIANO CONNELL 06/20 [facility] FAC[facility] FEE [id number] Diagnos is: ICD-10- CM G47.30 Sleep apnea, unspeci fied OFELIA,FREDE RONNIE 06/25 [facility] [place] [address] (631GE) EDU&TRN PT SELF-MGMT NQHP 1 [id number] [id number] Diagnos is: ICD-10- CM G47.30 Sleep apnea, unspeci fied OFELIA,FREDE RONNIE 06/25 [facility] (631GE) [facility] PSYTX W PT 60 MINUTES [id number] Diagnos is: ICD-10- CM F32.A Depress ion, unspeci fied FABIANO CONNELL MARK 06/27 [facility] [place] [place] PSYTX W PT 60 MINUTES [id number] Diagnos is: ICD-10- CM F32.A Depress ion, unspeci fied FABIANO CONNELL MARK 07/04 [facility] [place] [place] Outpatient [facility]counter [id number] 07/05 [facility] [place] [place] Outpatient [facility]counter [id number] 07/09 [facility] [place] [place] ACUP 1/> W/O ESTIM EA ADD 15 [id number] Diagnos is: ICD-10- CM G89.28 Other chronic postpro cedural pain GAUNYA,CHR ISTOPHER M 07/09 [facility] [place] PSYTX W PT 60 MINUTES [id number] Diagnos is: ICD-10- CM F32.A Depress ion, unspeci fied FABIANO CONNELL 07/11 [facility] [place] [place] [facility] SLEEP STUDY UNATT&RESP EFFT [id number] [id number] Diagnos is: ICD-10- CM G47.30 Sleep apnea, unspeci fied CURIOSO-UY ,EFFIE 07/11 [facility] OFFICE O/P EST MOD 30 MIN [id number] [id number] Diagnos is: ICD-10- CM F41.9 Anxiety disorde r, unspeci fied Marita ELZIABETH 07/12 [facility] En[facility] [id number] 07/18 [facility] [id number] 07/23 [facility] [id number] 07/23 [facility] [id number] 07/25 [facility] [id number] 08/01 [facility] En[facility] [id number] 08/01 [facility] [facility] En[facility] [id number] FABIANO CONNELL 08/06 [facility] Out[facility] Encounter [id number] 08/21 [facility] Encounter [id number] 08/21 [facility] Encounter [id number] 09/04 [facility] Encounter [id number] 09/04 [facility] Encounter [id number] 09/05 [facility] OFFICE O/P EST LOW 20 MIN [id number] Diagnos is: ICD-10- CM G47.33 Obstruc tive sleep apnea (adult) (pediat ronnie) [address] 09/14 [facility] Outpatient Encounter [id number] 09/26 [facility] Social History Combined list of available smoking, tobacco, and other social history from Department of Defense and Veterans Affairs facilities. Social History Type Response Date Comment Source Tobacco smoking status [facility] VA-TOBACCO USE FORMER CIGARETTES 03/09/2024 [facility] History of tobacco use VA-TOBACCO NEVER USED OTHER TYPE 03/09/2024 [facility] History of tobacco use QUIT TOBACCO USE > 7 YEARS AGO 08/16/2006 QUIT 20 YEARS AGO [place] Plan of Care List of future care activities from Department of Veterans Affairs facilities. Additional future care activities may be listed in the Assessment and Plan section. Date/Time Care Activity Care Activity Detail Facili ty 11/06/2024 AMBULATORY - PSYCHIATRY AMBULATORY - PSYC HIATRY [facility] Advance Directives List of completed, amended, or rescinded Advance Directives on record at Department of [facility] facilities. An actual copy of the Directive is not included. Date Advance Directive Provider Source 12/15/2011 ADVANCE DIRECTIVE DISCUSSION Sandra [facility]NO[place] [facility]
[2024-10-05 13:05] LABS: Alanine Aminotransferase 33 U/L (0-40); Albumin Level 4.6 g/dL (3.5-5.0); Alkaline Phosphatase 40 U/L (39-117); Anion Gap 11 (12-20); Aspartate Amino Transferase 24 U/L (5-37); Bilirubin Total 0.7 mg/dL (0.0-1.0); Blood Urea Nitrogen 17 mg/dL (9-16); Calcium 9.5 mg/dL (8.4-10.2); Carbon Dioxide 22 mmol/L (22-29); Chloride 107 mmol/L (96-108); Estimated Glomerular Filt Rate > 60; Glucose Random 227 mg/dL (60-115); Potassium 3.8 mmol/L (3.3-5.1); Sodium 136 mmol/L (135-145); Total Protein 7.1 g/dL (6.5-8.0)
[2024-10-05 13:54] LABS: Creatinine Urine 121.14 mg/dL
[2024-10-06 08:43] LABS: ~HepC Num1 17.41 S/CO (0.00-0.79); ~Hepatitis C Antibody Reactive (Nonreactive)
[2024-10-08 08:43] LABS: HCV Log PCR <1.18 NOT DETECTED Log IU/mL (NOT DETECTED); HepC Viral Load <15 NOT DETECTED IU/mL (NOT DETECTED)
[2024-10-09 21:53] LABS: Hepatitis C Genotype Not Detected (Not Detected)
== END 2024-10-05 10:44 | disposition home or self-care (01) ==
LOC: HO.LAB 10:43
PROVIDERS: PCP Internal Medicine; Visit Provider Internal Medicine
DX: E11.65 Type 2 diabetes mellitus with hyperglycemia (principal); R76.8 Other specified abnormal immunological findings in serum
CPT/HCPCS: 36415; 80053; 82570; 86803; 87522; 87902

== ENCOUNTER → 2024-10-29 10:37 | Outpatient (BNV) | payer MEDICARE, BC, SELFPAY | PROVIDERS: Emergency Provider Emergency Medicine; PCP Internal Medicine; Visit Provider Radiology Diagnostic Radiology | DX: M25.511 Pain in right shoulder (principal); M25.512 Pain in left shoulder | CPT/HCPCS: 73030 ==

== ENCOUNTER 2024-10-29 11:10 | Emergency (ER) | payer MEDICARE, BC, SELFPAY ==
--- OUTSIDE RECORDS SUMMARY | 2024-04-17 10:00 | XMS_ITS | Encounter Summary ---
Author Name [facility] [facility] Address [address] [place] [address] Care Team Providers Care Bottom Hoop Driver Name Role Phone ALBIN TRENT Primary Care Provider Unavailabl e Insurance Providers: All historical and current Section Date Range: From patient's date of to the date document was created. This section includes the names of all active insurance providers for the patient. Insurance Provider Type of Coverage Plan Name Start of Policy Coverage End of Policy Coverage Group Number Member ID Insurance Provider's Telephone Number Policy Downing's Name Patient's Relationship to Policy Downing ANTHEM BCBS CT FEDERAL PREFERRED PROVIDER ORGANIZAT ION (PPO) STAND ALEXI FAMIL Y Apr 18, 2009 [id number] BETHANY ELLIS PATIENT BCBS [place] F[place] PREFERRED PROVIDER ORGANIZAT ION (PPO) BASIC INDIV IDUAL Apr 18, 2020 [id number] BETHANY ELLIS PATIENT [place] PREFERRED PROVIDER ORGANIZAT ION (PPO) BASIC SELF Apr 18, 2020 [id number] RHONDA BETHANY PATIENT [place] FEP DENTAL DENTAL INSURANCE BASIC Apr 18, 2020 DENTAL [id number] BETHANY ELLIS PATIENT [place] FEP BCBS PRESCRIPT ION CAREM ARK FEPRX PLAN Apr 18, 2010 [id number] BETHANY ELLIS PATIENT [place]ARK([id number]) PRESCRIPT ION FEP Apr 18, 2020 [id number] BETHANY ELLIS PATIENT [place] BCBS (FEDERAL) PREFERRED PROVIDER ORGANIZAT ION (PPO) BASIC SELF Apr 18, 2020 [id number] BETHANY ELLIS PATIENT [place] BCBS (FEDERAL) PREFERRED PROVIDER ORGANIZAT ION (PPO) BASIC SELF Apr 18, 2020 111 [id number] BETHANY ELLIS PATIENT [place] BCBS FED DENTAL DENTAL INSURANCE FEP DENTA L Apr 18, 2020 FEPDENT [place] [id number] BETHANY ELLIS PATIENT MEDICARE ([facility]) MEDICARE () PART A August 16, 2010 PART A [id number] RHONDA SCOTTYAIRVENKAT O PATIENT MEDICARE ([facility]) MEDICARE () PART B August 16, 2010 PART B [id number] [phone] RHONDA SCOTTWAYNE O PATIENT MEDICARE ([facility]) MEDICARE () PART B August 16, 2010 PART B [id number] RHONDA SCOTTWAYNE O PATIENT MEDICARE ([facility]) MEDICARE () PART A August 16, 2010 PART A [id number] RHONDA SCOTTYAIRVENKAT O PATIENT MEDICARE ([facility]) MEDICARE () PART A August 16, 2010 PART A [id number] [phone] RHONDA SCOTTYAIRING O PATIENT MEDICARE (WN) MEDICARE () PART B August 16, 2010 PART B [id number] RHONDA SCOTTYAIRVENKAT O PATIENT MEDICARE (WN) MEDICARE () PART A August 16, 2010 PART A [id number] [phone] WAYNE ELLISO PATIENT MEDICARE (WN) MEDICARE () PART B August 16, 2010 PART B [id number] WAYNE ELLISO PATIENT MEDICARE (WN) MEDICARE () PART A August 16, 2010 PART A [id number] BETHANY ELLIS PATIENT MEDICARE (WNR) MEDICARE (M) PART B August 16, 2010 PART B [id number] [phone] BETHANY ELLIS PATIENT MEDICARE (WNR) MEDICARE (M) PART A August 16, 2010 PART A [id number] [phone] WAYNE ELLIS JR O PATIENT MEDICARE (WNR) MEDICARE (M) PART B August 16, 2010 PART B [id number] WAYNE ELLIS JR O PATIENT MEDICARE (WNR) MEDICARE (M) PART A August 16, 2010 PART A [id number] BETHANY ELLIS PATIENT MEDICARE (WNR) MEDICARE (M) PART B August 16, 2010 PART B [id number] BETHANY ELLIS PATIENT TRIPLE S ADVANTAGE MCR (WNR) MEDICARE ADVANTAGE MCR (WNR) Apr 18, 2024 DO NOT BILL [id number] BETHANY ELLIS PATIENT TRIPLE-S RAFAEL (FED) PREFERRED PROVIDER ORGANIZAT ION (PPO) FEP PSHB BLUE BASIC Apr 18, 2024 [id number] BETHANY ELLIS PATIENT Selected Encounter This section includes the information on record at [place] for the Encounter. Date/Time Encounter Type Encounter Description Reason Provider Source Apr 17, 2024 02:00 PM PSYTX W PT 45 MINUTES PCMHI INDIV ICD-10-CM F41.9 Anxiety disorder, unspecified KAILA JEAN E Encounter Template Text not used by [place] Assessments - Encounter Diagnoses This section includes the primary and secondary diagnoses documented for the Encounter. Date/Time Primary/Secondary Diagnosis Diagnosis Name Provider Source May 06, 2024 05:17 PM PRIMARY Anxiety disorder, unspecified [facility] [place] [facility] May 06, 2024 05:17 PM SECONDARY Depression, unspecified KAILA JEAN [facility] [place] [facility] Plan of Treatment: Future Appointments (+ 6 months) and Future Tests (+/- 45 days) The Plan of Treatment section includes future care activities for the patient from [facility] [place] [facility] [place] This section includes future appointments and future orders which are active, pending or scheduled. Future Appointments This section includes appointments that were scheduled to occur 6 months from the date of the Encounter, up to a maximum of 20 appointments. The data comes from all [place] treatment facilities. Appointment Date/Time Appointment Type Appointme nt Facility Name Apr 20, 2024 09:00 AM AMBULATORY - PS[facility]CHIATRY [facility] [place] [facility] May 02, 2024 03:00 PM AMBULATORY - [facility]IAT[facility] [place] [facility] May 08, 2024 01:00 PM AMBULATORY [facility] MEDICINE [facility] [place] [facility] May 10, 2024 11:00 AM AMBULATORY - [facility]IAT[facility] [place] [facility] May 22, 2024 10:00 AM AM[facility]ULATORY [facility]IC[facility] [place] [facility] May 23, 2024 03:00 PM [facility] [place] [facility] May 28, 2024 01:00 PM AM[facility]ULATORY [facility]INE [facility] [place] [facility] Jun 06, 2024 02:30 PM AMBULATORY - PS[facility]IATRY [facility] [place] [facility] Jun 20, 2024 02:30 PM AMBULATORY - [facility]AT[facility] [place] [facility] Jun 25, 2024 10:00 AM AMBULATORY [facility]ICINE [facility] [place] [facility] Jun 25, 2024 10:01 AM AMBULATORY [facility]ICINE [facility] [place] [facility] Jun 27, 2024 02:30 PM AMBULATORY - PS[facility]CHIATRY [facility] [place] [facility] Jul 02, 2024 01:45 PM AMBULATORY [facility]ICINE [facility] [place] [facility] Jul 04, 2024 02:30 PM AMBULATORY - PS[facility]CHIATRY [facility] [place] [facility] Jul 09, 2024 01:45 PM AMBULATORY [facility]ICINE [facility] [place] [facility] Jul 11, 2024 02:30 PM AMBULATORY - PS[facility]CHIATRY [facility] [place] [facility] Jul 12, 2024 03:30 PM AMBULATORY - PS[facility]CHIATRY [facility] [place] [facility] Jul 18, 2024 02:30 PM AMBULATORY - PS[facility]CHIATRY [facility] [place] [facility] Jul 19, 2024 09:15 AM [facility] Jul 25, 2024 02:30 PM [facility] Lab Results: +/- 30 days of the encounter This section includes the Chemistry and Hematology Lab Results on record with [place] for the patient. Radiology Reports and Pathology Reports are provided separately, in subsequent sections. Lab Results This section contains the Chemistry/Hematology Results that were resulted 30 days before or 30 daysafter the date of the Encounter. Date/Time Source Result Type Result - Unit Interpretation Reference Range Specimen Type Comment Mar 28, 2024 12:21 PM [facility] MICROSCOPIC AUTOMATED, URINE URINE Specimen T ype: URINE Comment: If Glucose = >500 and Ketones are positive, please alert the Physician. Ordering Provider: ALBIN TRENT Report Released Date/Time: Feb 02, 2024 12:05 PM Reporting Lab: [facility] [address] [address] Performing Lab: [facility] [address] [address] UA WBC 0-5 /[HPF] 0-5 UA RBC 0-2 /[HPF] 0-3 Mar 28, 2024 12:21 PM [facility] TSH SERUM Specimen Type: SERUM No comment entered. Ordering Provider: ALBIN TRENT Report Released Date/Time: Feb 02, 2024 12:05 PM Reporting Lab: [facility] [place] [facility] [address] [address] Performing Lab: [facility] [address] [address] TSH 0.89 u[IU]/mL 0.35-5.00 Mar 28, 2024 12:21 PM [facility] LIPID PANEL FASTING SERUM Specimen Type: SERU M No comment entered. Ordering Provider: ALBIN TRENT Report Released Date/Time: Feb 02, 2024 12:05 PM Reporting [facility]: [facility] [address] [address] Performing Lab: [facility] [address] [address] CHOLESTEROL 248 mg/dL H TRIGLYCERIDE 170 mg/dL H 0-150 LDL calculated 166 mg/dL H 0-129 CHOL/HDL 5.2 HDL CHOLESTEROL 48 mg/dL 40-60 Mar 28, 2024 12:21 PM [facility] LIVER FUNCTION SERUM Specimen Type: SERUM No comment entered. Ordering Provider: ALBIN TRENT Report Released Date/Time: Feb 02, 2024 12:05 PM Reporting Lab: [facility] [address] [address] Performing Lab: [facility] [address] [address] PROTEIN,TOTAL 7.0 g/dL 6.0-8.3 ALBUMIN 4.1 g/dL 3.5-5.0 ALKALINE PHOSPHATASE 37 U/L L 40-150 AST 19 U/L 5-34 ALT 28 U/L BILIRUBIN, TOTAL 0.6 mg/dL 0.2-1.2 Mar 28, 2024 12:21 PM [facility] HEMOGLOBIN A1C PANEL BLOOD Specimen Type: BLO OD Comment: Values obtained from A1C measurements can vary. For atypical A1C assays, a reported value of 7.0 could actually be between 6.72 and 7.28 if measured by a reference method. A reported value of 9.0 could actually be between 8.73 and 9.27. Ref: http://www.ngsp.org/CAPdata.asp Ordering Provider: ALBIN TRENT Report Released Date/Time: Feb 02, 2024 12:05 PM Reporting Lab: [facility] [address] [address] Performing Lab: [address] [address] HEMOGLOBIN A1C 7.5 H 4.0-5.6 Mar 28, 2024 12:21 PM [facility] MICROALBUMIN CREATININE RATIO PANEL URINE Spe cimen Type: URINE No comment entered. Ordering Provider: ALBIN TRENT Report Released Date/Time: Feb 02, 2024 12:05 PM Reporting Lab: [facility] [address] [address] Performing Lab: [address] [address] MICROALBUMIN/CREATININE RATIO 556.1 mg/g H 0-29.9 MICROALBUMIN,QUANTITATIVE 46.1 mg/dL RR UNAVAIL CREATININE URINE 82.90 mg/dL Mar 28, 2024 12:21 PM [facility] BASIC METABOLIC PANEL (fasting) SERUM Specime n Type: SERUM No comment entered. Ordering Provider: ALBIN TRENT Report Released Date/Time: Feb 02, 2024 12:05 PM Reporting Lab: [address] [address] Performing Lab: [address] [address] UREA NITROGEN 19 mg/dL 7-25 GLUCOSE 227 mg/dL H 65-100 SODIUM 137 mmol/L 135-145 POTASSIUM 4.4 mmol/L 3.5-5.0 CHLORIDE 108 mmol/L 100-110 CO2 20 meq/L 20-30 CREATININE, Serum 0.97 mg/dL 0.50-1.40 eGFR(CKD-EPI 2020) 80 mL/min >60 Mar 28, 2024 12:21 PM [facility] CBC AND DIFF (AUTO) BLOOD Specimen Type: BLOO D No comment entered. Ordering Provider: ALBIN TRENT Report Released Date/Time: Feb 02, 2024 12:05 PM Reporting Lab: [address] [address] Performing Lab: [address] [address] WBC 4.53 10*3/uL 4.50-11.00 RBC 4.74 10*6/uL 4.23-5.66 HGB 13.9 g/dL 12.8-17 HCT 40.2 39.2-50.4 MCV 84.8 fL 82-99 MCHC 34.6 g/dL 30.8-35.1 PLT 195 10*3/uL 140-360 RDW-CV 14.0 12.0-16.0 MONO, ABS 0.35 10*3/uL 0.30-1.10 MCH 29.3 pg 26.2-32.6 NEUT % 60.5 43.7-75.8 LYMPH % 25.2 14.0-42.3 MONO % 7.7 5.1-13.7 EOS % 4.6 0.4-6.8 BASO % 1.1 0.1-2.0 NEUT, ABS 2.74 10*3/uL 2.20-7.60 LYMPH, ABS 1.14 10*3/uL 1.00-3.20 EOS, ABS 0.21 10*3/uL 0.03-0.44 BASO, ABS 0.05 10*3/uL 0.01-0.13 IMMATURE GRAN % 0.9 H 0.0-0.7 IMMATURE GRAN, ABS 0.04 10*3/uL 0.00-0.0 6 NRBC % 0.0 0.0-0.0 NRBC, ABS 0.00 10*3/uL 0.00-0.00 Mar 28, 2024 12:21 PM [facility] URINALYSIS CLEAN CATCH URINE Specimen Type: U RINE Comment: If Glucose = >500 and Ketones are positive, please alert the Physician. Ordering Provider: ALBIN TRENT Report Released Date/Time: Feb 02, 2024 12:05 PM Reporting Lab: [address] [address] Performing Lab: [address] [address] UA COLOR Light-Yellow Yellow UA APPEARANCE Clear Clear UA GLUCOSE Normal mg/dL Negative UA KETONES NEGATIVE mg/dL Negative UA BLOOD NEGATIVE mg/dL Negative UA PROTEIN 50 mg/dL Negative UA NITRITE NEGATIVE mg/dL Negative UA BILIRUBIN NEGATIVE mg/dL Negative UA SPECIFIC GRAVITY 1.019 1.016-1.022 UA pH 6.0 5.0-9.0 UA UROBILINOGEN Normal mg/dL <2.0 UA LEUKOCYTE NEGATIVE Negative Social History: Smoking Status (Most current) and Tobacco Use (All prior to encounter date) This section includes the most current, and the historical, smoking and tobacco- related health factors from the [place] facility where the Encounter took place. Current Smoking Status This section includes the most current smoking, or tobacco-related health factor, from the [place] facility where the Encounter took place. Date/Time Current Smoking Status Comment Rosalba ity Mar 09, 2024 01:00 PM VA-TOBACCO USE FOR ALEJANDRO CIGARETTES [facility] Tobacco Use History This section includes a history of the smoking, or tobacco-related health factors, that were collected on or before the date of the Encounter. The data comes from the [place] facility where the Encounter took place. Date/Time Smoking Status/Tobacco Use Comment F acility Mar 09, 2024 01:00 PM VA-TOBACCO USE FOR ALEJANDRO CIGARETTES [facility] Advance Directives: All historical and current Section Date Range: From patient's date of to the date document was created. This section includes ALL of a patient's completed or amended [place] Advance and Rescinded Directives. The entries below indicate that a directive exists for the patient, but an actual copy is not included with this document. The data comes from all [place] facilities. Date Advance Directives Provider Source Dec 15, 2011 ADVANCE DIRECTIVE DISCUSSION Sandra CONNOLLY [facility] Encounter Notes: All associated encounter notes This section contains the clinical notes associated to the Encounter. Date/Time Encounter Note(s) Provider Source Apr 17, 2024 05:52 AM [facility] LOCAL TITLE: PRIMARY MENTAL HEALTH OUTPATIENT FOLLOW UP NOTE STANDARD TITLE: MENTAL HEALTH OUTPATIENT NOTE DATE OF NOTE: APR 17, 2024@05:52 ENTRY DATE: APR 17, 2024@05:53:03 AUTHOR: ALFREDO JEANIGNER: URGENCY: STATUS: COMPLETED PC-[facility] OUTPATIENT F/U NOTE DURATION: 40 mins Mr. Ellis is a 78 year-old, male with a PMH of depression, anxiety, PTSD, tremors and chronic pain. This was the third session between typewriter repairer and . Uriel Ellis explored how he hopes to schedule a sleep test and is aware the consult for the sleep study was placed. Chute Man assisted with coordinating the scheduling of this appointment for the Anatone during today's appt. In addition, he explored how he has started group psychotherapy and found it helpful thus far. He denied SI/HI. He explored ways in which he is practicing assertiveness since last session.He also shared that he spent the holiday with his son, the first time in ten years. He also explored how setting limits on activities and improving assertive communication with partner is helping. Options of topics to explore for today were reviewed and he chose sleep hygiene. Related handouts were reviewed. Anatone identified room to not stay in bed unable to sleep more than 15 minutes, room to find more consistency with his bedtime and wake time, and room to limit the use of electronics before bed and in the middle of the night. Moreover, he identified how he could benefit from learning more relaxation strategies and it was decided this would be the focus of next session. Related handouts were provided. Furthermore, he identified how returning to more exercise again may assist mood and sleep, and he will start walking more again, and continue wit upcoming screening appt with PT for Gerofit. SCREENERS: PHQ-9: 8, moderately severe depression, somewhat difficult BEULAH-7: 12, moderately severe anxiety, somewhat difficult DIAGNOSES: Anxiety Disorder, Unspecified; Depressive Disorder, Unspecified IMPRESSIONS/PLAN: Uriel Ellis endorsed symptoms of trauma-related anxiety and depression that originated after [place] war and have waxed and waned since that time. He acknowledged that pride and shame caused difficulty talking about depression and anxiety symptoms for many eyras. He also shared that he struggled with substance abuse following [place] war. He denied SI/HI. In collaboration with Anatone considering evidence-based treatment, clinical judgment and patient preference, options of treatment were offered. Anatone agreed to return for brief CBT for anxiety and depression, including relaxation training and cognitive restructuring, and further evaluation of trauma-related anxiety symptoms. In addition, he will learn of other MH treatment options. He will return to [facility] for roughly 2-3, individual sessions. He will return to [facility], 05/04 at 1pm. /juan/ ALFREDO JEAN, PhD STAFF PSYCHOLOGIST Signed: 04/19/2024 15:40 ALFREDO JEAN [facility]
--- NOTE | ~2024-10-29 | XR_ITS ---
EXAMINATION: X-ray shoulders, bilaterally. CLINICAL INFORMATION: Shoulder pain, bilaterally. TECHNIQUE: AP view in neutral internal rotation and Y-view projection.. COMPARISON: None FINDINGS: No acute cortical disruption or malalignment. Degenerative changes in the acromioclavicular joints. 2 mm calcification at the right supraspinatus tendon insertion. No lytic or blastic lesions. XR/XR Shoulder Adam min 2V IMPRESSION: Mild degenerative changes, right greater than left shoulder. No acute fracture or dislocation. Questionable calcific tendinosis/tendinopathy, right supraspinatus. Electronically signed by: Aamir Carmen MD 10/29/2024 11:48 AM EDT
[2024-10-29 11:23] VITALS: BP 142/77; PULSE 79; RESP 16; TEMP 36.2; O2SAT 96; BMI 29.6
--- NOTE | 2024-10-29 11:42 | ED.EXTPRO ---
HPI - Extremity Problem General Chief complaint: Extremity Injury, Upper Stated complaint: both shoulders in pain Time Seen by Provider: 10/29/24 11:57 Source: patient Mode of arrival: ambulatory Limitations: no limitations History of Present Illness ED Provider: KINGS BRODERICK PA-C HPI Narrative: 79 year old male with pmhx significant for T2DM, HTN, ED, anxiety, MDD, asthma, HLD presents to the ED today for evaluation of bilateral shoulder pain (R>L) x4-5 months. Reports heavy lifting in the gym. No known injury or trauma. He was evaluated at for this approx 1 month ago. He was prescribed lidocaine patches and diclofenac cream which helped temporarily however he has since run out of these. Denies numbness/tingling/weakness of the upper extremities. Denies fever, chills. Related Data Home Medications ?Medication ?Instructions ?Recorded ?Confirmed ascorbic acid (vitamin C) 1,000 mg 1 g PO DAILY 12/27/22 09/06/24 tablet Previous Rx's ?Medication ?Instructions ?Recorded fluticasone 250 mcg-salmeterol 50 1 inh inhalation BID #3 ea 08/20/20 mcg/dose blistr powdr for inhalation (Wixela Inhub) blood-glucose meter (FreeStyle #1 ea 12/27/22 [place] Lite kit) blood sugar diagnostic (FreeStyle #10 ea 12/29/22 Test strips) lancets 28 gauge (FreeStyle #100 ea 12/29/22 Lancets) fluticasone propionate 50 2 spray intranasal DAILY #3 ea 12/27/23 mcg/actuation nasal spray,suspension sildenafil 100 mg tablet 100 mg PO ONCE PRN sexual activity 01/31/24 30 days #30 tabs tadalafil 5 mg tablet 5 mg PO DAILY sexual activity 90 01/31/24 days #90 tabs albuterol sulfate 90 mcg/actuation 2 puff PO Q6H PRN bronchospasm 03/02/24 aerosol inhaler #8.5 grams ezetimibe 10 mg tablet 10 mg PO DAILY #90 tabs 03/02/24 escitalopram oxalate 5 mg tablet 5 mg PO DAILY #90 tabs 04/03/24 (Lexapro) amlodipine 10 mg tablet 10 mg PO DAILY #90 tabs 05/02/24 metformin 500 mg tablet,extended 500 mg PO BID 90 days #180 tabs 06/07/24 release 24 hr losartan 50 mg tablet 50 mg PO DAILY #90 tabs 08/09/24 propranolol 10 mg tablet 10 mg PO BID #60 tabs 09/06/24 tirzepatide 2.5 mg/0.5 mL 2.5 mg (0.5 mL) subcut QWEEK #2 mL 09/06/24 subcutaneous pen injector (Mounjaro) diclofenac sodium 1 % topical gel 2 g topical QID PRN pain (scale 10/29/24 (Arthritis Pain (diclofenac)) score 4-6) #100 grams lidocaine 5 % topical patch 1 patch topical DAILY #15 ea 10/29/24 (Lidoderm) naproxen 500 mg tablet 500 mg PO Q12H PRN pain (scale 10/29/24 score 1-3) #20 tabs Allergies Allergy/AdvReac Type Severity Reaction Status Date / Time lisinopril Allergy Unknown cough Verified 10/29/24 11:25 seasonal allergies Allergy Unknown rhinitis Uncoded 09/06/24 14:11 Review of Systems Review of Systems: Constitutional: No fever, chills, fatigue, night sweats, weight changes ENT/Mouth: No ear pain, hearing loss, nasal congestion, sinus pain, rhinorrhea, sore throat Eyes: No eye pain, swelling, redness, vision changes, discharge Cardio: No chest pain, palpitations, LICONA, orthopnea, peripheral edema Pulm: No SOB, cough, sputum, wheezing, dyspnea, hemoptysis GI: No nausea, vomiting, hematemesis, abdominal pain, diarrhea, constipation, hematochezia, melena : No irregular bleeding, dysuria, frequency, urgency, hesitancy, hematuria, flank pain, urinary flow changes, urinary incontinence or retention MSK: No back pain, neck pain, joint pain, myalgias, +b/l shoulder pain Skin: No lesions, rashes Neuro: No weakness, numbness, paresthesias, LOC, dizziness, headache Psych: No anxiety/panic, depression, SI/HI, AH/VH All other systems reviewed and are negative. [facility] Past Medical History Attestation statement: The following information was validated with the patient. Source: old records reviewed and nursing notes reviewed Medical History Dyslipidemia Proteinuria Depression Atypical nevi Anxiety Degenerative disc disease Type 2 diabetes mellitus with other diabetic kidney complication Essential hypertension Type 2 diabetes mellitus with diabetic polyneuropathy Surgical History Hx of arthroscopy of left knee History of back surgery Family History Family History Father No problems noted. Mother No problems noted. Other Mental health disorder Social History Social History Household Members Other:: son Housing: House Alcohol intake: never Patient Tobacco Use Status: Former Tobacco user Tobacco use type: Cigarette Cigarette Packs Per Day: 2 Years Smoked: 25 e-Cigarette/Vaping Use: Never Used Advance Directives: No Advance Directives Information Provided: Yes Do you have a plan to hurt others: No Plan service: Yes Current occupational status: retired Cognitive needs: No Hearing needs: No Vision needs: Yes (glasses) Physical Exam Vital Signs: Vital Signs: Last Vital Signs Temp 97.2 F 10/29/24 11:23 Pulse 79 10/29/24 11:23 Resp 16 10/29/24 11:23 BP 142/77 H 10/29/24 11:23 Pulse Ox 96 10/29/24 11:23 O2 Del Method Room Air 10/29/24 11:23 BMI result Body Mass Index 29.6 Hypertensive General: Well appearing, in no acute distress. Skin: Warm, dry, intact. No rashes or lesions. Head: Normocephalic, atraumatic. EENT: Hearing is intact b/l. Conjunctiva clear. Sclera is anicteric. PERRLA. EOM intact. Moist mucous membranes.? Neck: Supple without LAD. FROM Cardiac: Chest wall symmetric. RRR Lungs: Normal respiratory effort without accessory muscle use. CTA bilaterally Back: No midline spinous or paraspinal tenderness. No step off deformity. Ext: +no overlying skin changes/ deformity to bilateral shoulders. Full ROM intact to bilateral shoulders with some pain on abduction and extension. No reproducible tenderness to palpation of bilateral shoulders. Sensation intact to light touch. 2+ radial pulse intact. Neuro: AOx3. Normal speech. Ambulating with steady gait. Psych: Appropriate mood and affect. Responds appropriately to questions. Course Course Course Narrative: 10/29/24 1142 RUDI Porter This is a Rapid Medical Examination (RME) performed by Paras Broderick PA-C in triage. Full HPI, ROS, assessment and treatment plan per primary provider in the Main ED. Hx: 79 yo M here for eval of b/l shoulder pain x4-5 mos. seen at in September, no xrs taken, prescribed meds without improvement. does not know if he pulled something working out. no known injury/trauma. Plan: xrs Reevaluation(s) Reevaluation #1: X-ray bilateral shoulders showing findings concerning for calcific tendonitis of the right shoulder. Left shoulder unremarkable. Patient is diabetic, currently working with PCP to better control glucose. Recently started Mounjaro. Given poorly-controlled diabetes, while you shared decision making to determine that steroids were not the best treatment option for him. Will send naproxen to pharmacy. He will likely have to follow up with PCP/ortho for further management, possible physical therapy. Will also refill his diclofenac cream and lidocaine patches. Patient has remained stable throughout ED visit today. Discussed worrisome signs and symptoms and when to return to the ED. All questions answered at this time. Patient is agreeable with disposition and stable for discharge. Medications Administered Discontinued Medications Generic Name Dose Route Start Last Admin Trade Name Freq PRN Reason Stop Dose Admin Ketorolac Tromethamine 30 mg 10/29/24 12:39 10/29/24 12:47 Ketorolac Tromethamine 30 Mg/Ml Vial IM 10/29/24 12:40 30 mg ONCE ONE Administration Medical Decision Making Medical Decision Making [facility] Narrative: 79 year old male with pmhx significant for T2DM, HTN, ED, anxiety, MDD, asthma, HLD presents to the ED today for evaluation of bilateral shoulder pain (R>L) x4-5 months. Hypertensive, vitals otherwise WNL. Afebrile. on exam, no overlying skin changes/ deformity to bilateral shoulders. Full ROM intact to bilateral shoulders with some pain on abduction and extension. No reproducible tenderness to palpation of bilateral shoulders. Sensation intact to light touch. 2+ radial pulse intact. Differential diagnosis includes osteoarthritis, tendonitis, bursitis, overuse injury, rotator cuff injury, ligament/tendon injury, fracture Unlikely gout, pseudogout, dislocation, neurovascular compromise, threat to limb, compartment syndrome. Plan for xrays and re-evaluation. Differential Diagnosis Differential Diagnoses: The differential diagnosis associated with the presentation includes as above. Admission/Observation Not indicated Independent Interpretation I performed an independent interpretation of an: Plain X-Ray Interpretation: xrs b/l shoulder without fracture Radiology Impression Discussion of test interpretation with radiology: I have reviewed the radiologist's reading. Radiologist Impression: Date of Service: 10/29/24 Procedure(s): XR Shoulder Adam min 2V Accession Number(s): [id number] cc: Generic ED Physician; Cindy Conner MD~ EXAMINATION: X-ray shoulders, bilaterally. CLINICAL INFORMATION: Shoulder pain, bilaterally. TECHNIQUE: AP view in neutral internal rotation and Y-view projection.. COMPARISON: None FINDINGS: No acute cortical disruption or malalignment. Degenerative changes in the acromioclavicular joints. 2 mm calcification at the right supraspinatus tendon insertion. No lytic or blastic lesions. XR/XR Shoulder Adam min 2V IMPRESSION: Mild degenerative changes, right greater than left shoulder. No acute fracture or dislocation. Questionable calcific tendinosis/tendinopathy, right supraspinatus. Electronically signed by: Aamir Carmen MD 10/29/2024 11:48 AM EDT External Record Review External record reviewed: Inpatient record Prescription Management I considered prescription management with: Pain Medication Chronic Conditions Patient?s care impacted by: Diabetes Social Determinants Patient?s care significantly limited by Social Determinants of Health including: Other Social Determinant of Health Critical Care Time Critical Care Time Critical Care Time: No Discharge Plan Discharge Clinical Impression: Calcific tendonitis Patient Disposition: Home, Self-Care Instructions: Tendinitis (ED) Additional Instructions: You were evaluated in the ED today for shoulder pain. As discussed, your x-rays show calcific tendonitis of your right shoulder. See home care instructions. Given you are diabetic, we want to avoid steroids. I am prescribing you naproxen which is an anti-inflammatory pain medication. Do not take this with other NSAIDs such as Motrin/ibuprofen as this may cause increased risk of GI bleeding. I am also refilling your diclofenac cream and lidocaine patches. These have been sent to your pharmacy. I advise you follow up with your primary care provider and safety specialist. If you do not have 1, a referral has been provided to you. Call them to establish care. They will not call you. Return with any new or worsening symptoms. In the case of an emergency call 911. Prescriptions: New diclofenac sodium [Arthritis Pain (diclofenac)] 1 % gel 2 g topical QID PRN (Reason: pain (scale score 4-6)) Qty: 100 0RF Rx Instructions: apply to single elbow, wrist or hand; for hand includes palm/fingers/back of hand lidocaine [Lidoderm] 5 % adhesive patch,medicated 1 patch topical DAILY Qty: 15 0RF Rx Instructions: leave on most painful area for up to 12 hrs naproxen 500 mg tablet 500 mg PO Q12H PRN (Reason: pain (scale score 1-3)) Qty: 20 0RF No Action fluticasone propion-salmeterol [Wixela Inhub] 250-50 mcg/dose blister with device 1 inh inhalation BID Qty: 3 3RF (DME) FreeStyle Test Strip See Rx Instructions miscellaneous .MEDSUPPLY Qty: 10 0RF Rx Instructions: As directed (DME) lancets [FreeStyle Lancets] 28 gauge misc See Rx Instructions .MEDSUPPLY Qty: 100 3RF Rx Instructions: As directed fluticasone propionate 50 mcg/actuation spray,suspension 2 spray intranasal DAILY Qty: 3 3RF Rx Instructions: administer into each nostril albuterol sulfate 90 mcg/actuation HFA aerosol inhaler 2 puff PO Q6H PRN (Reason: bronchospasm) Qty: 8.5 3RF ezetimibe 10 mg tablet 10 mg PO DAILY Qty: 90 2RF escitalopram oxalate [Lexapro] 5 mg tablet 5 mg PO DAILY Qty: 90 1RF amlodipine 10 mg tablet 10 mg PO DAILY Qty: 90 0RF losartan 50 mg tablet 50 mg PO DAILY Qty: 90 2RF ascorbic acid (vitamin C) 1,000 mg tablet 1 g PO DAILY (DME) blood-glucose meter [FreeStyle [place] Lite] Kit See Rx Instructions miscellaneous .MEDSUPPLY Qty: 1 0RF Rx Instructions: As directed tadalafil 5 mg tablet 5 mg PO DAILY 90 Days Qty: 90 1RF sildenafil 100 mg tablet 100 mg PO ONCE PRN (Reason: sexual activity) 30 Days Qty: 30 1RF Rx Instructions: administer 60 minutes before intended activity metformin 500 mg tablet extended release 24 hr 500 mg PO BID 90 Days Qty: 180 2RF Mounjaro 2.5 mg/0.5 mL pen injector 2.5 mg subcut QWEEK Qty: 2 3RF Rx Instructions: for 4 weeks propranolol 10 mg tablet 10 mg PO BID Qty: 60 0RF Referrals: [facility] [Provider Group] Cindy Conner MD [Primary Care Provider, Internal Medicine] Discharge Date/Time: 10/29/24 13:03 Print Language: Macedonian
== END 2024-10-29 13:03 | disposition home or self-care (01) ==
PROVIDERS: Emergency Provider Emergency Medicine; PCP Internal Medicine
DX: M75.32 Calcific tendinitis of left shoulder (principal); M75.31 Calcific tendinitis of right shoulder; M25.512 Pain in left shoulder; M25.511 Pain in right shoulder; I10 Essential (primary) hypertension; E11.9 Type 2 diabetes mellitus without complications; Z79.899 Other long term (current) drug therapy; Z79.84 Long term (current) use of oral hypoglycemic drugs
CPT/HCPCS: 73030; 96372; 99282; 99284; J1885

== ENCOUNTER 2024-11-26 09:31 | Outpatient (AMB) | payer MEDICARE, BC, SELFPAY ==
--- NOTE | 2024-11-26 09:34 | A.OFFVIS_ITS ---
Vital Signs 11/26/24 09:37 Height 5 ft 9 in Weight 207 lb BMI 30.6 Intake Visit Reasons: Bilateral shoulder pain and weakness Intake Note: Issa is a 79 year old right hand dominant male who presents with complaints of progressively worsening bilateral shoulder pains and weakness, right greater than left. The patient describes his pains as sharp in nature. His symptoms have gotten worse over the last 8 months in spite of continued non operative treatments. He has failed the last 6 weeks of conservative treatment which has included Tylenol, naproxen, lidocaine patches, a home exercise program and physical therapy exercises. Reports difficulty lifting his right hand above shoulder height. Allergies lisinopril Allergy (Unknown, Verified 11/26/24 09:38) cough seasonal allergies Allergy (Unknown, Uncoded 09/06/24 14:11) rhinitis Medication List - Last Reconciled 11/26/24 by Brandon Feliciano MD albuterol sulfate 90 mcg/actuation 2 puffs PO Q6H PRN amlodipine 10 mg PO DAILY ascorbic acid (vitamin C) 1 g PO DAILY blood sugar diagnostic (FreeStyle Test strips) As directed blood-glucose meter (FreeStyle [place] Lite kit) As directed diclofenac sodium 1% (Arthritis Pain (diclofenac)) 2 grams topical QID PRN escitalopram oxalate (Lexapro) 5 mg PO DAILY ezetimibe 10 mg PO DAILY fluticasone propion-salmeterol 250-50 mcg/dose (Wixela Inhub) 1 inh inhalation BID fluticasone propionate 50 mcg/actuation 2 sprays intranasal DAILY lancets (FreeStyle Lancets) As directed lidocaine 5% (Lidoderm) 1 patch topical DAILY losartan 50 mg PO DAILY metformin ER 500 mg PO BID 90 days propranolol 10 mg PO BID sildenafil 100 mg PO ONCE PRN 30 days tadalafil 5 mg PO DAILY 90 days tirzepatide (Mounjaro) 2.5 mg (0.5 mL) subcut QWEEK PFSH Medical History Dyslipidemia Proteinuria Depression Atypical nevi Anxiety Degenerative disc disease Type 2 diabetes mellitus with other diabetic kidney complication Essential hypertension Type 2 diabetes mellitus with diabetic polyneuropathy Surgical History Hx of arthroscopy of left knee History of back surgery Family History Father No problems noted. Mother No problems noted. Other Mental health disorder Social History Household Members Other:: son Housing: House Alcohol intake: never Patient Tobacco Use Status: Former Tobacco user Tobacco use type: Cigarette Cigarette Packs Per Day: 2 Years Smoked: 25 e-Cigarette/Vaping Use: Never Used service: Yes Current occupational status: retired Cognitive needs: No Hearing needs: No Vision needs: Yes (glasses) Physical Exam Vital Signs: BMI result Body Mass Index 30.6 Const Other: Well-nourished well-developed very friendly male awake alert and oriented x3 in no acute distress Extrem Other: Bilateral shoulder examination shows 4+ out of 5 strength with supraspinatus testing, positive impingement signs, tenderness over his acromioclavicular joint, no instability Results Reviewed Results Reviewed: X-rays of the patient's bilateral shoulder show severe acromioclavicular joint narrowing, type 2 acromion, no acute bony abnormalities Assessment & Plan Assessment & Plan (1) Rotator cuff insufficiency of right shoulder: Code(s): M25.311 - Other instability, right shoulder Category: Medical Plan Mr. Granger presents with progressively worsening bilateral shoulder pains and weakness, right greater than left, due to impingement syndrome and possible rotator cuff tearing. Thus, I will send the patient for an MRI of his right shoulder for further evaluation. I will see him back once the MRI is completed to discuss the findings and treatment options. I also gave him a prescription for Celebrex to help with his discomfort in the meantime. Feel free to call me at any time should questions regarding his orthopedic management arise. Thank you very much for asking me to see this very friendly gentleman. I spent 21 minutes in reviewing the patient's records and imaging studies, seeing the patient and documenting in the medical record. Orders: Orders MR shoulder RT wo con 11/27/24 M25.311 - Other instability, right shoulder Medications: New celecoxib (Celebrex) 200 mg PO DAILY PRN 30 caps 3RF pain Coding Level of Care Code New Pt Level 3 (12102) Complex EM visit Add On G2211 Diagnoses Rotator cuff insufficiency of right shoulder M25.311
[2024-11-26 09:37] VITALS: BMI 30.6
--- OUTSIDE RECORDS SUMMARY | 2024-11-26 10:01 | XMS_ITS | Clinical Summary ---
Author Organization [facility] Address [address] [place] [phone] Phone Care Team Providers Care Import/Export Clerk Name Role Phone Reg Herring MD Primary Care Provider + Social History Tobacco Use Types Packs/Day Years Used Date Smoking Tobacco: Never Assessed Education Answer Date Recorded Are you interested in more education? Not on ehsan e 05/21/2024 Are you concerned about learning? Not on file 05/21/2024 No 05/21/2024 No 05/21/2024 Digital Access Answer Date Recorded No 05/21/2024 No 05/21/2024 Reliable internet access at home? Not on file 05/21/2024 Device with a working camera? Not on file Sex and Gender Information Value Date Recorded Sex Assigned at Not on file Legal Sex Male 4:30 PM EST Gender Identity Not on file Sexual Orientation Not on file Plan of Treatment Upcoming Encounters Date Type Department Care Team (Late st Contact Info) Description 07/18/2025 9:30 AM EDT Office Visit [facility] Neurology [address] [place] [phone] Aniket Lewis MD [address] [facility], [address]nd [place] [address] [email or web address] Health Maintenance Due Date Last Done Comments Adult Td,Tdap Booster 1945 LIPID PANEL 1945 DEPRESSION SCREENING 1957 SMOKING Hx and SMOKELESS TOB ACCO SCREENING 1958 HEPATITIS C SCREENING 09/11/1963 PNEUMOCOCCAL VACCINES (50+ y ears) (1 of 1 - PCV) 09/11/1995 ZOSTER VACCINES (1 of 2) 09/11/1995 RSV VACCINE (1 - 1-dose 75+ series) 2020 COVID-19 VACCINE (1 - 2023-2 5 season) 2023 HEPATITIS A VACCINES Aged Out No long er eligible based on patient's age to complete this topic HIB VACCINES Aged Out No longer eligi ble based on patient's age to complete this topic MENINGOCOCCAL VACCINES (ACWY) Aged Out No longer eligible based on patient's age to complete this topic MENINGOCOCCAL VACCINES (B) Aged Out N o longer eligible based on patient's age to complete this topic Medical Devices Not on file Insurance [facility] [place] MED[place] BLUE REPLACEMENT [facility] MEDICARE HMO BLUE REPLACEMENT [facility] MEDICARE HMO BLUE REPLACEMENT [facility] MEDICARE HMO BLUE REPLACEMENT [facility] Member Subscriber Plan / Payer (Ef fective 2024-Present) Name:Issa Granger Relation to Subscriber:Self Name:Issa Granger Payer ID:[id number] (NAIC) Group ID:Not on file Type:Indemnity Address: [facility] [employer] [address] [place], [address] MEDICARE HMO BLUE REPLACEMENT [facility] [place] BLUE REPLACEMENT Care Teams Import/Export Clerk Relationship Specialty Start Date End Date Reg Herring MD [address] [place] [id number] PCP - General Internal Medicine 03/27/24 Additional Source Comments The information contained in this document represents components of the legal health record. It is not the complete legal health record.[facility]
== END 2024-11-26 09:52 | disposition home or self-care (01) ==
LOC: HO.HOS 09:32
PROVIDERS: PCP Internal Medicine; Visit Provider Orthopaedic Surgery
DX: M25.311 Other instability, right shoulder (principal)
CPT/HCPCS: 99203; G2211

== ENCOUNTER → 2024-11-26 09:31 | Outpatient (BNVA) | payer MEDICARE, BC, SELFPAY | PROVIDERS: PCP Internal Medicine; Visit Provider Orthopaedic Surgery | DX: M25.311 Other instability, right shoulder (principal) | CPT/HCPCS: 99202 ==

== ENCOUNTER 2024-11-30 19:55 | Outpatient (REF) | payer MEDICARE, BC, SELFPAY ==
--- NOTE | ~2024-11-30 | MR_ITS ---
CLINICAL HISTORY: M25.311 - Other instability, right shoulder Exam: MRI of the right shoulder without intravenous contrast. Comparison: Radiographs October 29, 2024. Findings: Images degraded by patient motion. Patient motion improved, but does not completely resolve, on repeat imaging. Partial-thickness articular surface tear seen involving the anterior fibers of the distal infraspinatus tendon extending into the posterior fibers of the distal supraspinatus tendon. There is suggestion of a subtle pinhole full-thickness tear involving the posterior aspect of the infraspinatus tendon. This tear spans a longitudinal distance of 10 mm. No tendon retraction or muscle atrophy is seen. Teres minor subscapularis tendons are intact. There are no tears of the glenoid labrum. Specifically, no tear of the superior labrum or the anteroinferior labrum is identified. The tendon of the long head of the biceps is appropriately positioned within the bicipital groove. There is a type 2 acromion. There is widening of the acromioclavicular distance to 10 mm with disruption of the acromioclavicular ligaments. There is fluid seen within the AC joint. Coracoclavicular ligament is intact. Small amount of fluid within the subacromial/subdeltoid bursa. Impression: 1. Partial-thickness articular surface tear of the distal rotator cuff, primarily involving the infraspinatus tendon. There suggestion of a small pinhole full-thickness component of this tear. 2. Grade 2 shoulder separation as discussed above. This document has been electronically signed by: Taiwo Boyer MD on 12/03/2024 22:02:59
== END 2024-11-30 19:56 | disposition home or self-care (01) ==
LOC: HO.MRI 19:55
PROVIDERS: PCP Internal Medicine; Visit Provider Orthopaedic Surgery
DX: M25.311 Other instability, right shoulder (principal)
CPT/HCPCS: 73221

== ENCOUNTER → 2024-11-30 19:55 | Outpatient (BNV) | payer MEDICARE, BC, SELFPAY | PROVIDERS: PCP Internal Medicine; Visit Provider Radiology Diagnostic Radiology | DX: S46.011A Strain of muscle(s) and tendon(s) of the rotator cuff of right shoulder, initial encounter (principal); S43.101A Unspecified dislocation of right acromioclavicular joint, initial encounter; X50.0XXA Overexertion from strenuous movement or load, initial encounter; Y93.B3 Activity, free weights | CPT/HCPCS: 73221 ==

== ENCOUNTER 2025-01-02 07:59 | Outpatient (AMB) | payer MEDICARE, BC, SELFPAY ==
--- NOTE | 2025-01-02 08:04 | MHC.OFFVIS ---
Intake Visit Reasons: OV-Rt shoulder MRI review, Right knee pain and giving way Intake Note: Issa is a 79 year old male who presents with complaints of intermittent discomfort along the lateral aspect of his right shoulder as well as progressively worsening right knee pain and giving way. The patient states that he did have ?meniscus surgery? on his left knee several years ago. He got fairly good relief from that procedure. Most of his right knee pain is along the medial aspect of his right knee. His right knee symptoms have gotten worse over the last year in spite of continued non operative treatments. He has failed the last 6 weeks of conservative treatment which has included Tylenol, anti-inflammatory medicines, physical therapy exercises and a home exercise program. The patient reports mild weakness when lifting his right hand above shoulder height. Allergies lisinopril Allergy (Unknown, Verified 01/02/25 08:06) cough seasonal allergies Allergy (Unknown, Uncoded 09/06/24 14:11) rhinitis Medication List - Last Reconciled 01/02/25 by Brandon Feliciano MD albuterol sulfate 90 mcg/actuation 2 puffs PO Q6H PRN amlodipine 10 mg PO DAILY ascorbic acid (vitamin C) 1 g PO DAILY blood sugar diagnostic (FreeStyle Test strips) As directed blood-glucose meter (FreeStyle [place] Lite kit) As directed celecoxib (Celebrex) 200 mg PO DAILY PRN diclofenac sodium 1% (Arthritis Pain (diclofenac)) 2 grams topical QID PRN escitalopram oxalate (Lexapro) 5 mg PO DAILY ezetimibe 10 mg PO DAILY fluticasone propion-salmeterol 250-50 mcg/dose (Wixela Inhub) 1 inh inhalation BID fluticasone propionate 50 mcg/actuation 2 sprays intranasal DAILY lancets (FreeStyle Lancets) As directed lidocaine 5% (Lidoderm) 1 patch topical DAILY losartan 50 mg PO DAILY metformin ER 500 mg PO BID 90 days propranolol 10 mg PO BID sildenafil 100 mg PO ONCE PRN 30 days tadalafil 5 mg PO DAILY 90 days tirzepatide (Mounjaro) 2.5 mg (0.5 mL) subcut QWEEK PFSH Medical History Dyslipidemia Proteinuria Depression Atypical nevi Anxiety Degenerative disc disease Type 2 diabetes mellitus with other diabetic kidney complication Essential hypertension Type 2 diabetes mellitus with diabetic polyneuropathy Surgical History Hx of arthroscopy of left knee History of back surgery Family History Father No problems noted. Mother No problems noted. Other Mental health disorder Social History Household Members Other:: son Housing: House Alcohol intake: never Patient Tobacco Use Status: Former Tobacco user Tobacco use type: Cigarette Cigarette Packs Per Day: 2 Years Smoked: 25 e-Cigarette/Vaping Use: Never Used service: Yes Current occupational status: retired Cognitive needs: No Hearing needs: No Vision needs: Yes (glasses) Physical Exam Const Other: Well-nourished well-developed very friendly male awake alert and oriented x3 in no acute distress Extrem Other: Right shoulder examination shows slightly decreased range of motion when compared to his left shoulder, 4/5 strength with supraspinatus testing, positive impingement signs, no instability Right knee examination shows a minimal effusion, mild crepitus with range of motion, tenderness along his medial joint line, positive Libia's test, no instability Results Reviewed Results Reviewed: MRI of the patient's right shoulder show severe acromioclavicular joint narrowing, a type 2 acromion, a small full-thickness tear of the supraspinatus tendon Assessment & Plan Assessment & Plan (1) Tear of medial meniscus of right knee: Code(s): S83.241A - Other tear of medial meniscus, current injury, right knee, initial encounter Category: Medical Plan Mr. Granger presents with progressively worsening right knee pain and mechanical symptoms most likely due to a medial meniscus tear. Thus, I will send the patient for an MRI of his right knee for further evaluation. He also has intermittent right shoulder discomfort due to impingement syndrome, acromioclavicular joint arthritis and a small full-thickness rotator cuff tear. I had a lengthy discussion with the patient regarding the treatment options. At this point his symptoms are tolerable to him. He will continue with his activity modifications. I will see him back after his right knee MRI to discuss the findings and treatment options. Feel free to call me at any time should questions regarding his orthopedic management arise. I spent 21 minutes in reviewing the patient's records and imaging studies, seeing the patient and documenting in the medical record. Orders: Orders MR knee RT wo con 01/03/25 S83.241A - Other tear of medial meniscus, current injury, right knee, initial encounter Coding Level of Care Code Est Pt Level 3 (54653) Complex EM visit Add On G2211 Diagnoses Tear of medial meniscus of right knee S83.241A
== END 2025-01-02 08:14 | disposition home or self-care (01) ==
LOC: HO.HOS 08:00
PROVIDERS: PCP Internal Medicine; Visit Provider Orthopaedic Surgery
DX: S83.241A Other tear of medial meniscus, current injury, right knee, initial encounter (principal)
CPT/HCPCS: 99213; G2211

== ENCOUNTER → 2025-01-02 07:59 | Outpatient (BNVA) | payer MEDICARE, BC, SELFPAY | PROVIDERS: PCP Internal Medicine; Visit Provider Orthopaedic Surgery | DX: S83.241A Other tear of medial meniscus, current injury, right knee, initial encounter (principal) | CPT/HCPCS: 99212 ==

== ENCOUNTER 2025-01-03 14:38 | Outpatient (AMB) | payer MEDICARE, BC, SELFPAY ==
[2025-01-03 14:39] VITALS: BP 148/78; PULSE 87; TEMP 36.2; O2SAT 96; BMI 30.4
--- NOTE | 2025-01-03 14:39 | A.OFFPC_ITS ---
Vital Signs 01/03/25 14:39 01/03/25 15:41 Height 5 ft 9 in Weight 206 lb 2 oz BMI 30.4 BP 148/78 H 140/70 H Blood Pressure Location Lt brachial Lt brachial Position Sitting Sitting Pulse 87 Pulse Source Pulse Oximeter Temp 97.1 F Temp Source Temporal Artery Scan Pulse Oximetry (%) 96 Oxygen Delivery Method Room Air Intake Visit Reasons: DM Allergies lisinopril Allergy (Unknown, Verified 01/03/25 14:44) cough seasonal allergies Allergy (Unknown, Uncoded 01/03/25 14:44) rhinitis Tobacco use date assessed: 01/03/25 Fall risk assessment: No Falls in past year Last assessed Fall Risk: 01/03/25 Dental Screening Dental Screen Date: 01/03/25 Did you have a dental visit in the last 12 months?: No Did you have a dental problem in the last 6 months where you did not have access to dental care?: No Was dental information given to patient?: No PFSH Medical History Dyslipidemia Proteinuria Depression Atypical nevi Anxiety Degenerative disc disease Type 2 diabetes mellitus with other diabetic kidney complication Essential hypertension Type 2 diabetes mellitus with diabetic polyneuropathy Surgical History Hx of arthroscopy of left knee History of back surgery Family History Father No problems noted. Mother No problems noted. Other Mental health disorder Social History Household Members Other:: son Housing: House Alcohol intake: never Patient Tobacco Use Status: Former Tobacco user Tobacco use type: Cigarette Cigarette Packs Per Day: 2 Years Smoked: 25 e-Cigarette/Vaping Use: Never Used service: Yes Current occupational status: retired Cognitive needs: No Hearing needs: No Vision needs: Yes (glasses) Questionnaire PHQ-9 Over the last 2 weeks, how often have you been bothered by any of the following problems? 1. Little interest or pleasure in doing things: several days 2. Feeling down, depressed, or hopeless: several days 3. Trouble falling or staying asleep, or sleeping too much: several days 4. Feeling tired or having little energy: several days 5. Poor appetite or overeating: not at all 6. Feeling bad about yourself - or that you are a failure or have let yourself or your family down: not at all 7. Trouble concentrating on things, such as reading the newspaper or watching television: not at all 8. Moving or speaking so slowly that other people could have noticed. Or the opposite - being so fidgety or restless that you have been moving around a lot more than usual: not at all 9. Thoughts that you would be better off or of hurting yourself in some wa y: not at all Total score: 4 Source: Developed by Drs. Luis Ji, Daniela Ga, Lan Gray and colleagues, with an educational shalonda from [employer]. Thrive Questionnaire Date Thrive assessed: 09/06/24 I am a: Patient What is your living situation today?: I have a steady place to live Within the past 12 months, did the food you bought not last and you didn't have the money to get more?: Sometimes True Within the past 12 months, did you worry whether your food would run out before you got money to buy more?: Often true Do you have trouble paying for medicines?: No Do you have trouble getting transportation to medical appointments?: No Do you have trouble paying your heating and electricity bill?: No Do you have trouble taking care of your child, family member or friend?: Yes Do you have trouble with day-to-day activities such as bathing, preparing meals, shopping, managing finances, etc.?: No Are you currently unemployed and looking for a job?: No Are you interested in more education?: No Please select the resources that you would like help with: None Currently or been in a relationship where the following occur: I choose not to answer THRIVE Score: 2 AUDIT C Alcohol Use Questionnaire (AUDIT-C) 1. How often do you have a drink containing alcohol?: Never 3. How often do you have six or more drinks on one occasion?: Never Total Score: 0 BEULAH-7 AMB Questionnaire BEULAH-7 Date BEULAH - 7 assessed: 09/06/24 Feeling nervous, anxious, or on edge: 1 = Several days Not being able to stop or control worryin = Not at all Worrying too much about different things: 1 = Several days Trouble relaxin = Several days Being so restless that it is hard to sit still: 0 = Not at all Becoming easily annoyed or irritable: 0 = Not at all Feeling afraid as if something awful might happen: 0 = Not at all Total BEULAH-7 score (0-4 normal; 5-9 mild; 10-14 moderate; 15-21 severe): 3 Source: Developed by Drs. Luis Ji, Daniela Ga, Lan Gray and colleagues, with an educational shalonda from [employer]. Physical exam (Primary Care) Vital Signs: Last Vital Signs Temp 97.1 F 01/03/25 14:39 Pulse 87 01/03/25 14:39 BP 140/70 H 01/03/25 15:41 Pulse Ox 96 01/03/25 14:39 Oxygen Delivery Method Room Air 01/03/25 14:39 BMI result Body Mass Index 30.4 Tobacco/Smoking Status: Tobacco use Status Tobacco use date assessed 01/03/25 01/03/25 14:48 Patient Tobacco Use Status Former Tobacco user 01/03/25 14:48 Tobacco use type Cigarette 01/03/25 14:48 e-Cigarette/Vaping Use Never Used 01/03/25 14:48 PHQ-9: PHQ-9 Score PHQ-9: Total score 4 01/03/25 15:41 Thrive Assessment: Date of Thrive Assessment Date Thrive assessed 09/06/24 01/03/25 14:48 Currently or been in a relationship where the following occur: I choose not to answer Const General: alert; No acute distress Eyes Conjunctivae: conjunctivae normal Resp Auscultation: clear to auscultation bilaterally Cardio Rate: regular rate Rhythm: regular rhythm GI Inspection: Yes normal to inspection Extrem General: Yes normal to inspection and No edema Results AMB Hemoglobin A1c AMB Hemoglobin A1c 8.0 % Last Edit by Leonarda Flores CMA on 01/03/25 14:49 Results Reviewed Results Reviewed: Laboratory Last Values Hgb A1c (Clinic) 8.0 % (4.0-6.0) H 01/03/25 14:49 Coding Level of Care Code Est Pt Level 4 (89725) Complex EM visit Add On G2211 Diagnoses Type 2 diabetes mellitus with hyperglycemia E11.65 Obesity (BMI 30-39.9) E66.9 Essential hypertension I10 Hypercholesterolemia E78.00 Assessment & Plan Assessment & Plan (1) Type 2 diabetes mellitus with hyperglycemia: Comment: Fredy I care Code(s): E11.65 - Type 2 diabetes mellitus with hyperglycemia Category: Medical Plan: Decrease the amount of carbohydrate intake, pasta, bread, rice and potatoes are all sugar and that is aside from all the sweet stuff, remember that fruits are good but they are Sweet also. Patient is taking metformin 500 mg twice a day and placed on Mounjaro 2.5 mg once a week (2) Obesity (BMI 30-39.9): Code(s): E66.9 - Obesity, unspecified Category: Medical Plan: Diet and exercise (3) Essential hypertension: Code(s): I10 - Essential (primary) hypertension Category: Medical Plan: Continue with blood pressure medication. Decrease salt intake and exercise on propranolol 10 mg twice a day losartan 50 mg once a day amlodipine 10 mg once a day (4) Hypercholesterolemia: Code(s): E78.00 - Pure hypercholesterolemia, unspecified Category: Medical Plan: Avoid fried foods, chicken skin, eggs, butter margarine, pastries and meat. Be it pork or beef they have a lot of cholesterol LDL goal of less than 100 and triglyceride of less than 150 patient on Zetia only. Plan History of Present Illness The patient is a 79-year-old male presenting for a follow-up visit. He has a history of diabetes mellitus, hypertension, anxiety disorder, asthma, and hypercholesterolemia. His last colonoscopy was performed in 2013, and he has a scheduled appointment with gastroenterology on February 15. The patient has been experiencing right knee pain, for which he was seen by orthopedics and diagnosed with a tear. An MRI was requested to further evaluate the knee condition. Additionally, the patient has a partial thickness tear of the distal rotator cuff involving the infraspinatus tendon, with a suggestion of a small pinhole full thickness component and a grade 2 shoulder separation. He was prescribed Celebrex for this condition. Blood work performed on October 03 revealed normal blood count, no anemia, normal electrolytes, and stable renal function at 1.01. The patient's blood sugar was 227, and the hemoglobin A1c today is 8, indicating poor glycemic control. His cholesterol level was 109 in September, with an LDL goal of less than 100 and triglycerides less than 150. Health Maintenance - Colonoscopy scheduled with gastroenterology for February 15 - Blood work to be repeated in three months to monitor cholesterol and glycemic control - Flu shot recommended for January History - Exercise: Patient acknowledges the need to return to the gym despite knee issues Review of Systems - Musculoskeletal: Reports right knee pain and right shoulder pain - Genitourinary: Denies pain during urination - Gastrointestinal: Denies constipation Physical Exam - Cardiovascular: Blood pressure measured at 140/70 mmHg Results - Labs: Normal blood count, no anemia, normal electrolytes, stable renal function at 1.01, blood sugar 227, hemoglobin A1c 8 - Imaging: MRI of the right shoulder showing partial thickness tear of the distal rotator cuff and grade 2 shoulder separation Plan Patient was informed and verbally consented to the use of an ambient scribe for clinic note documentation during this visit. 1. Diabetes Mellitus The patient is currently taking metformin 500 mg twice a day and Mounjaro 2.5 mg once a week, with plans to increase the Mounjaro dose to 5 mg due to inadequate weight loss and glycemic control. Diet and exercise are emphasized as part of the management plan. 2. Hypertension The patient is on propranolol 10 mg twice a day, losartan 50 mg once a day, and amlodipine 10 mg once a day to manage blood pressure. Blood pressure was recorded at 140/70 mmHg, with a target of below 130/80 mmHg. 3. Hypercholesterolemia The patient is on Zetia, and atorvastatin 10 mg is being added to achieve an LDL goal of less than 100 mg/dL. Follow-up blood work is scheduled for three months to assess cholesterol levels. 4. Right Knee Pain With Suspected Tear The patient was seen by orthopedics and diagnosed with a tear, with an MRI requested for further evaluation. 5. Partial Thickness Tear Of The Distal Rotator Cuff The patient has a partial thickness tear of the distal rotator cuff with a grade 2 shoulder separation and was prescribed Celebrex for pain management. Discussion Notes I discussed with the patient the importance of managing diabetes, hypertension, and hypercholesterolemia to prevent complications. We reviewed the need for medication adherence and lifestyle modifications, including diet and exercise. I explained the plan to increase the Mounjaro dose and add atorvastatin to the regimen. The patient was advised to follow up with blood work in three months and to schedule a colonoscopy. Patient Instructions - Continue taking metformin and Mounjaro as prescribed, with an increased dose of Mounjaro to 5 mg once a week. - Maintain a healthy diet and regular exercise routine. - Take propranolol, losartan, and amlodipine as prescribed for blood pressure management. - Start atorvastatin 10 mg as prescribed and continue Zetia for cholesterol management. - Schedule and attend the colonoscopy appointment in January. - Follow up with blood work in three months to monitor cholesterol and blood sugar levels. - Consider getting a flu shot in January. Orders: Orders Comprehensive Met. Panel Today E11.65 - Type 2 diabetes mellitus with hyperglycemia Hemoglobin A1c Today E11.65 - Type 2 diabetes mellitus with hyperglycemia AMB Hemoglobin A1c Today Z13.9 - Encounter for screening, unspecified Lipid Panel Today E11.65 - Type 2 diabetes mellitus with hyperglycemia, E78.00 - Pure hypercholesterolemia, unspecified Thyroid Stimulating Hormone Today E11.65 - Type 2 diabetes mellitus with hyperglycemia Free T4 (Free Thyroxine) Today E11.65 - Type 2 diabetes mellitus with hyperglycemia Medications: New atorvastatin (Lipitor) 10 mg PO DAILY 30 tabs 4RF E78.00 - Pure hypercholesterolemia, unspecified Changed From tirzepatide (Mounjaro) for 4 weeks 2.5 mg (0.5 mL) subcut QWEEK 2 mL 3RF E11.65 - Type 2 diabetes mellitus with hyperglycemia To tirzepatide for 4 weeks 5 mg (0.5 mL) subcut QWEEK 2 mL 3RF E11.65 - Type 2 diabetes mellitus with hyperglycemia Refilled losartan 50 mg PO DAILY 90 tabs 2RF E78.00 - Pure hypercholesterolemia, unspecified amlodipine 10 mg PO DAILY 90 tabs 2RF I10 - Essential (primary) hypertension metformin ER 500 mg PO BID 180 tabs 2RF 90 days E11.65 - Type 2 diabetes mellitus with hyperglycemia
[2025-01-03 15:41] VITALS: BP 140/70
--- OUTSIDE RECORDS SUMMARY | 2025-01-03 16:22 | XMS_ITS | Clinical Summary ---
Author Organization [facility] Address [address] [facility] [address] [place] [phone] Phone Care Team Providers Care Channel Sales Director Name Role Phone Reg Herring MD Primary [...] Description 07/18/2025 9:30 AM EDT Office Visit [facility] Neurology [address] [place] [phone] Aniket Lewis MD [address] [facility], 2nd [place] [address] [email or web address] Health Maintenance Due Date Last Done Comments Adult Td,Tdap Booster 1945 LIPID PANEL 1945 DEPRESSION SCREENING 1957 SMOKING Hx and SMOKELESS TOB ACCO SCREENING 1958 HEPATITIS C SCREENING 09/11/1963 PNEUMOCOCCAL VACCINES (50+ y ears) (1 of 1 - PCV) 09/11/1995 ZOSTER VACCINES (1 of 2) 09/11/1995 RSV VACCINE (1 - 1-dose 75+ series) 2020 INFLUENZA VACCINE (#1) 2024 COVID-19 VACCINE (1 - 2023-2 5 season) 2024 HEPATITIS A VACCINES Aged Out No long [...] topic Medical Devices Not on file Insurance [facility] [place] BLUE RE[place]ACEMENT [facility] MEDIC[facility] HMO BLUE REPLACEMENT [facility] MEDIC[facility]MO BLUE REPLACEMENT [facility] MEDIC[facility]MO [facility]UE REPLACEMENT [facility] MEDIC[facility] HMO BLUE REPLACEMENT [facility] [place] BL[place] RE[place]ACEMENT Care Teams Channel Sales Director Relationship Specialty Start Date End Date Reg Herring MD [address] [place] [id number] PCP - General Internal Medicine 03/27/24 Additional Source Comments The information contained in this document represents components of the legal health record. It is not the complete legal health record.[facility]
== END 2025-01-03 15:51 | disposition home or self-care (01) ==
LOC: HO.HMCH 14:39
PROVIDERS: PCP Internal Medicine; Visit Provider Internal Medicine
DX: E11.65 Type 2 diabetes mellitus with hyperglycemia (principal); E66.9 Obesity, unspecified; Z68.30 Body mass index [BMI] 30.0-30.9, adult; I10 Essential (primary) hypertension; E78.00 Pure hypercholesterolemia, unspecified

== ENCOUNTER → 2025-01-03 14:38 | Outpatient (BNVA) | payer MEDICARE, BC, SELFPAY | PROVIDERS: PCP Internal Medicine; Visit Provider Internal Medicine | DX: E11.65 Type 2 diabetes mellitus with hyperglycemia (principal); E66.9 Obesity, unspecified; Z68.30 Body mass index [BMI] 30.0-30.9, adult; E78.00 Pure hypercholesterolemia, unspecified; I10 Essential (primary) hypertension; Z71.3 Dietary counseling and surveillance | CPT/HCPCS: 83036; 99212 ==

== ENCOUNTER → 2025-01-19 10:54 | Outpatient (BNV) | payer MEDICARE, BC, SELFPAY | PROVIDERS: PCP Internal Medicine; Visit Provider Radiology Diagnostic Radiology | DX: M17.11 Unilateral primary osteoarthritis, right knee (principal); M22.2X1 Patellofemoral disorders, right knee | CPT/HCPCS: 73721 ==

== ENCOUNTER 2025-01-19 11:06 | Outpatient (REF) | payer MEDICARE, BC, SELFPAY ==
--- NOTE | ~2025-01-19 | MR_ITS ---
CLINICAL HISTORY: S83.241A - Other tear of medial meniscus, current injury, right knee, in... MR right knee without gadolinium Comparison: None provided Findings: Mild reactive marrow edema underlying grade three-four central patellar chondromalacia. No acute fracture or pathologic bone lesion. Physiologic amount of joint fluid. No tears of the cruciate or collateral ligaments. No disruption of the patellar retinacula or iliotibial band. No tears of the quadriceps, patellar, popliteus, or flexor tendons. Bilateral meniscal degenerative signal with no discrete tears. IMPRESSION: 1. Patellofemoral degenerative change. 2. Degenerative signal within the menisci with no discrete tears. This document has been electronically signed by: Sil Serrano MD on 01/22/2025 20:58:12
--- OUTSIDE RECORDS SUMMARY | 2025-01-19 11:09 | XMS_ITS | Clinical Summary ---
Author Organization [facility] Address [address] [facility] [address] [place] [phone] Phone Care Team Providers Care Life Guard Name Role Phone Reg Herring MD Primary [...] Description 07/18/2025 9:30 AM EDT Office Visit [facility] Neurology [address] [place] [id number] Aniket Lewis MD [address] [facility], [address]nd [place] [address] [email or web address] Health Maintenance Due Date Last Done Comments [...] topic Medical Devices Not on file Insurance [facility] [place] MEDICARE H[place] BLUE REPLACEMENT [facility] MEDICARE HMO BLUE [facility]PLACEMENT [facility] MEDICARE HMO BLUE REPLACEMENT [facility] MEDICARE HMO BLUE REPLACEMENT [facility] MEDICARE HMO BLUE REPLACEMENT [facility] [place] MED[place] BLUE REPLACEMENT Care Teams Life Guard Relationship Specialty Start Date End Date Reg Herring MD [address] [place] [phone] PCP - General Internal Medicine 03/27/24 Additional Source Comments The information contained in this document represents components of the legal health record. It is not the complete legal health record.[facility]
== END 2025-01-19 11:07 | disposition home or self-care (01) ==
LOC: HO.MRI 11:06
PROVIDERS: PCP Internal Medicine; Visit Provider Orthopaedic Surgery
DX: S83.241A Other tear of medial meniscus, current injury, right knee, initial encounter (principal)
CPT/HCPCS: 73721

== ENCOUNTER 2025-01-29 10:56 | Outpatient (AMB) | payer MEDICARE, BC, SELFPAY ==
--- NOTE | 2025-01-29 11:04 | MHC.OFFVIS ---
Intake Visit Reasons: 6m follow up (no show in july) Intake Note: patient presents today for: 6mo follow up urology medications: vitC, sildenafil, tadalafil blood thinners: none Merchandise Displayer Required: No Accompanied by: Self / Same As Patient Allergies lisinopril Allergy (Unknown, Verified 01/29/25 11:06) cough seasonal allergies Allergy (Unknown, Uncoded 01/29/25 11:06) rhinitis HPI Comments Details: Issa is a pleasant male. He is a patient Dr. Conner. He seen for the following urologic conditions - lower urinary tract symptoms - erectile dysfunction - background diabetes Yearly follow-up Effective response with combination daily tadalafil plus sildenafil on demand 100 mg Sildenafil sometimes takes 8 hours to work Discussed timing with food Six-month follow-up Erectile dysfunction Prior therapy sildenafil 50 mg on demand Background diabetes HBA1c % - 6.8, 01/08 7.5, 11/08 6.4 Cardiovascular risk factors include hypertension, dyslipidemia, diabetes Recommendation daily 5 mg tadalafil with on demand 100 mg PFSH Medical History Dyslipidemia Proteinuria Depression Atypical nevi Anxiety Degenerative disc disease Type 2 diabetes mellitus with other diabetic kidney complication Essential hypertension Type 2 diabetes mellitus with diabetic polyneuropathy Surgical History Hx of arthroscopy of left knee History of back surgery Family History Father No problems noted. Mother No problems noted. Other Mental health disorder Social History Household Members Other:: son Housing: House Alcohol intake: never Patient Tobacco Use Status: Former Tobacco user Tobacco use type: Cigarette Cigarette Packs Per Day: 2 Years Smoked: 25 e-Cigarette/Vaping Use: Never Used service: Yes Current occupational status: retired Cognitive needs: No Hearing needs: No Vision needs: Yes (glasses) Review of Systems Const Denies chills and Denies fever(s) Card Reports no additional complaints and Denies syncope Resp Denies cough GI Denies abdominal pain and Denies heartburn Reports as per HPI and Denies change in libido Neuro Denies syncope Psych Denies change in libido Endo Denies change in libido Physical Exam Const General: cooperative, healthy appearing, comfortable and no acute distress Orientation/consciousness: patient oriented x3 HEENT Face and sinus: Yes normal facial exam Mouth: moist mucous membranes Neck Neck: Yes normal visual inspection, Yes full ROM and Yes trachea midline Chest Chest palpation & inspection: normal inspection of the chest Resp Effort & Inspection: normal respiratory effort, able to speak in complete sentences and no respiratory distress GI Inspection: Yes normal to inspection Back/Spine/Pelvis Cervical Spine: normal cervical lordosis Thoracic/Lumbar Spine: thoracic and lumbar spine normal to inspection Skin General skin exam: no rashes or lesions noted Neuro General: patient oriented x3, gait normal, tone normal and moves all extremities Extrem General: Yes normal to inspection and Yes capillary refill normal Assessment & Plan Assessment & Plan (1) Erectile dysfunction associated with type 2 diabetes mellitus: Code(s): E11.69 - Type 2 diabetes mellitus with other specified complication; N52.1 - Erectile dysfunction due to diseases classified elsewhere Category: Medical Plan Six-month follow-up Medications: Refilled tadalafil 5 mg PO DAILY 90 tabs 1RF sexual activity 90 days E11.69 - Type 2 diabetes mellitus with other specified complication, N52.1 - Erectile dysfunction due to diseases classified elsewhere sildenafil administer 60 minutes before intended activity 100 mg PO ONCE PRN 30 tabs 1RF sexual activity 30 days E11.69 - Type 2 diabetes mellitus with other specified complication, N52.1 - Erectile dysfunction due to diseases classified elsewhere Patient Instructions: This note is constructed using voice recognition software. While every effort has been made to ensure accuracy infection control practitioner errors may have been included. Imaging studies, laboratory and physical exam results were discussed and reviewed in detail. No major barriers to patient understanding were identified. An opportunity to ask questions regarding the treatment plan was provided. All questions were answered. The patient expressed understanding and agreement with the above treatment plan. The patient is aware they should contact our office by phone for worsening of their current condition or the appearance of new urologic symptoms. Compliance is encouraged with any medications and followup testing that is ordered. It is a privilege to participate in the urologic care of your patient. If you have any questions or concerns regarding treatment for the above conditions, or other urologic issues, please do not hesitate to contact me. The office telephone contact is [phone]. Sincerely, Dr Herber Chaudhari MD, [facility] - Urology Compassionate Specialist Care for the Genitourinary System Coding Level of Care Code Est Pt Level 4 (27892) Complex EM visit Add On G2211 Diagnoses Erectile dysfunction associated with type 2 diabetes mellitus E11.69; N52.1
--- OUTSIDE RECORDS SUMMARY | 2025-01-29 13:03 | XMS_ITS | Clinical Summary ---
Author Organization [facility] Address [address] [facility] [address] [place] [phone] Phone Care Team Providers Care Sand Mill Operator Name Role Phone Reg Herring MD Primary [...] Description 07/18/2025 9:30 AM EDT Office Visit [facility] Neurology [address] [place] [phone] Aniket Lewis MD [address] [facility], [address]nd [place] [address] [email or web address] Health Maintenance Due Date Last Done Comments Adult Td,Tdap Booster 1945 LIPID PANEL 1945 DEPRESSION SCREENING 1957 SMOKING Hx and SMOKELESS TOB ACCO SCREENING 1958 HEPATITIS C SCREENING 09/11/1963 PNEUMOCOCCAL VACCINES (50+ y ears) (1 of 1 - PCV) 09/11/1995 ZOSTER VACCINES (1 of 2) 09/11/1995 RSV VACCINE (1 - 1-dose 75+ series) 2020 INFLUENZA VACCINE (#1) 2024 COVID-19 VACCINE (1 - 2024-2 6 season) 2024 HEPATITIS A VACCINES Aged Out [...] topic Medical Devices Not on file Insurance [facility] [employer] [place] MED[place]ARE H[place] BLUE REPLACEMENT [facility] MEDICARE HMO BLUE REPLACEMENT [facility] MEDICARE HMO BLUE REPLACEMENT [facility] MEDICARE HMO BLUE REPLACEMENT [facility] MEDICARE HMO BLUE REPLACEMENT [facility] [place] BLUE REPLACEMENT Care Teams Sand Mill Operator Relationship Specialty Start Date End Date Reg Herring MD [address] [place] [id number] PCP - General Internal Medicine 03/27/24 Additional Source Comments The information contained in this document represents components of the legal health record. It is not the complete legal health record.[facility]
== END 2025-01-29 11:33 | disposition home or self-care (01) ==
LOC: HO.HUSH 10:57
PROVIDERS: PCP Internal Medicine; Visit Provider Urology
DX: E11.69 Type 2 diabetes mellitus with other specified complication (principal); N52.1 Erectile dysfunction due to diseases classified elsewhere
CPT/HCPCS: 99214; G2211

== ENCOUNTER → 2025-01-29 10:56 | Outpatient (BNVA) | payer MEDICARE, BC, SELFPAY | PROVIDERS: PCP Internal Medicine; Visit Provider Urology | DX: E11.69 Type 2 diabetes mellitus with other specified complication (principal); N52.1 Erectile dysfunction due to diseases classified elsewhere; Z87.891 Personal history of nicotine dependence | CPT/HCPCS: 99212 ==

== ENCOUNTER 2025-02-06 10:26 | Outpatient (AMB) | payer MEDICARE, BC, SELFPAY ==
--- NOTE | 2025-02-06 10:35 | A.OFFVIS_ITS ---
Vital Signs 02/06/25 10:36 Height 5 ft 9 in Weight 206 lb BMI 30.4 Intake Visit Reasons: OV- MRI review/ Right knee Intake Note: Issa is a 79 year old man who presents with complaints of intermittent right knee pain and giving way. He describes his pain as achy in nature. Most of the pain is along the medial aspect of his knee. He states that his right knee will give out several times per day. He has tried physical therapy exercises which aggravated his pain. Has also tried Tylenol and anti-inflammatory medicines which gave him only mild relief. Allergies lisinopril Allergy (Unknown, Verified 02/06/25 10:36) cough seasonal allergies Allergy (Unknown, Uncoded 02/06/25 10:36) rhinitis Medication List - Last Reconciled 02/06/25 by Brandon Feliciano MD albuterol sulfate 90 mcg/actuation 2 puffs PO Q6H PRN amlodipine 10 mg PO DAILY ascorbic acid (vitamin C) 1 g PO DAILY atorvastatin (Lipitor) 10 mg PO DAILY blood sugar diagnostic (SolarOne SolutionsStyle Test strips) As directed blood-glucose meter (FreeStyle [place] Lite kit) As directed celecoxib (Celebrex) 200 mg PO DAILY PRN diclofenac sodium 1% (Arthritis Pain (diclofenac)) 2 grams topical QID PRN ezetimibe 10 mg PO DAILY fluticasone propion-salmeterol 250-50 mcg/dose (Wixela Inhub) 1 inh inhalation BID fluticasone propionate 50 mcg/actuation 2 sprays intranasal DAILY lancets (FreeStyle Lancets) As directed lidocaine 5% (Lidoderm) 1 patch topical DAILY losartan 50 mg PO DAILY metformin ER 500 mg PO BID 90 days propranolol 10 mg PO BID sildenafil 100 mg PO ONCE PRN 30 days tadalafil 5 mg PO DAILY 90 days tirzepatide 5 mg (0.5 mL) subcut QWEEK PFSH Medical History Dyslipidemia Proteinuria Depression Atypical nevi Anxiety Degenerative disc disease Type 2 diabetes mellitus with other diabetic kidney complication Essential hypertension Type 2 diabetes mellitus with diabetic polyneuropathy Surgical History Hx of arthroscopy of left knee History of back surgery Family History Father No problems noted. Mother No problems noted. Other Mental health disorder Social History Household Members Other:: son Housing: House Alcohol intake: never Patient Tobacco Use Status: Former Tobacco user Tobacco use type: Cigarette Cigarette Packs Per Day: 2 Years Smoked: 25 e-Cigarette/Vaping Use: Never Used service: Yes Current occupational status: retired Cognitive needs: No Hearing needs: No Vision needs: Yes (glasses) Physical Exam Vital Signs: BMI result Body Mass Index 30.4 Const Other: Well-nourished well-developed very friendly male awake alert and oriented x3 in no acute distress Extrem Other: Right knee examination shows a minimal effusion, mild crepitus with range of motion, tenderness along his medial joint line, positive Libia's test, no instability Results Reviewed Results Reviewed: MRI of the patient's right knee shows mild diffuse degenerative changes most significant in the patellofemoral joint, a tear of the medial meniscus, no acute bony abnormalities Assessment & Plan Assessment & Plan (1) Tear of medial meniscus of right knee: Code(s): S83.241A - Other tear of medial meniscus, current injury, right knee, initial encounter Category: Medical Plan Mr. Granger presents with intermittent right knee pain and mechanical symptoms due to early degenerative joint disease as well as a medial meniscus tear. I had a lengthy discussion with the patient regarding the treatment options. At this point the patient's symptoms are tolerable to him. He will continue with his activity modifications. He will follow up with me on an as-needed basis should his symptoms worsen in any way. Feel free to call me at any time should questions regarding his orthopedic management arise. I spent 21 minutes in reviewing the patient's records and imaging studies, seeing the patient and documenting in the medical record. Coding Level of Care Code Est Pt Level 3 (14220) Complex EM visit Add On G2211 Diagnoses Tear of medial meniscus of right knee S83.241A
[2025-02-06 10:36] VITALS: BMI 30.4
== END 2025-02-06 11:02 | disposition home or self-care (01) ==
LOC: HO.HOS 10:28
PROVIDERS: PCP Internal Medicine; Visit Provider Orthopaedic Surgery
DX: S83.241A Other tear of medial meniscus, current injury, right knee, initial encounter (principal)
CPT/HCPCS: 99213; G2211

== ENCOUNTER → 2025-02-06 10:26 | Outpatient (BNVA) | payer MEDICARE, BC, SELFPAY | PROVIDERS: PCP Internal Medicine; Visit Provider Orthopaedic Surgery | DX: S83.241A Other tear of medial meniscus, current injury, right knee, initial encounter (principal); M25.561 Pain in right knee | CPT/HCPCS: 99212 ==

== ENCOUNTER 2025-02-15 12:46 | Outpatient (AMB) | payer MEDICARE, BC, SELFPAY ==
--- NOTE | 2025-02-15 13:04 | A.OFFVIS_ITS ---
Vital Signs 02/15/25 13:28 Height 5 ft 9 in Weight 203 lb 4.259 oz BMI 30.0 BP 142/68 H Blood Pressure Location Rt brachial Position Sitting Pulse 72 Intake Visit Reasons: [place] screening r/s 11/08/24 Intake Note: Patient new consult for pre Colonoscopy screening. Patient cc: constipation about twice a month. Also c/o acid reflux, burning sensation after dinner. OTC tums help. Thinks Metformin is the cause for the acid reflux. Reports no personal or family hx of Colon CA. had a colonoscopy about 10 yrs ago in [place]. Personal Computer Specialist Required: No Accompanied by: Self / Same As Patient Allergies lisinopril Allergy (Unknown, Verified 02/15/25 13:35) cough seasonal allergies Allergy (Unknown, Uncoded 02/15/25 13:35) rhinitis Medication List - Last Reconciled 02/15/25 by Pia Batres CNP albuterol sulfate 90 mcg/actuation 2 puffs PO Q6H PRN amlodipine 10 mg PO DAILY atorvastatin 10 mg PO DAILY blood sugar diagnostic (FreeStyle Test strips) As directed blood-glucose meter (FreeStyle [place] Lite kit) As directed celecoxib (Celebrex) 200 mg PO DAILY PRN diclofenac sodium 1% (Arthritis Pain (diclofenac)) 2 grams topical QID PRN ezetimibe 10 mg PO DAILY fluticasone propion-salmeterol 250-50 mcg/dose (Wixela Inhub) 1 inh inhalation BID fluticasone propionate 50 mcg/actuation 2 sprays intranasal DAILY lancets (FreeStyle Lancets) As directed lidocaine 5% (Lidoderm) 1 patch topical DAILY losartan 50 mg PO DAILY metformin ER 500 mg PO BID 90 days propranolol 10 mg PO BID sildenafil 100 mg PO ONCE PRN 30 days tadalafil 5 mg PO DAILY 90 days tirzepatide 5 mg (0.5 mL) subcut QWEEK HPI HPI [place] screening r/s 11/08/24: Details: Patient is a 79-year-old male with PMH of anxiety, depression, hypertension, hyperlipidemia, diabetes . Referred by PCP for pre colonoscopy screening Patient reports regular daily bowel movements with intermittent constipation occurring approximately twice per month, sometimes requiring straining. Bowel consistency is generally normal except during episodes of constipation. Abdominal pain is localized above the umbilicus, intermittent, and occasionally associated with nausea and infrequent vomiting (last episode one month ago), without clear triggers Acid reflux has been occurring intermittently over the past 6?7 months, with episodes up to 2?3 times per week. Symptoms are generally managed with Tums or omeprazole as needed. Heartburn is not associated with dysphagia or regurgitation. Symptoms appear to be somewhat responsive to dietary changes and supplemental vitamin D, though benefits were transient. Weight remains stable in the low 200s. Comorbid conditions that may influence GI management include T2DM on metformin and injectable therapy, hyperlipidemia, hypertension, history of torn meniscus and chronic pain managed with NSAIDs, and remote history of melanoma (status post excision, ~30 years ago). Patient denies: fever/chills, appetite changes, dysphasia, unintentional wt loss or melena/hematochezia. Social hx: -ETOH use cessation 30 years -remote history of heroin (injected and snorted), methadone, cocaine, and other drugs, denies current recreational drug use -former smoker, cessation 30 years - family hx as below -denies significant cardiopulmonary history -tolerated anesthesia in the past without difficulty. [facility] Medical History (Updated 02/15/25 @ 15:13 by Pia Batres CNP) Constipation Acid reflux Dyslipidemia Proteinuria Depression Atypical nevi Anxiety Degenerative disc disease Type 2 diabetes mellitus with other diabetic kidney complication Essential hypertension Type 2 diabetes mellitus with diabetic polyneuropathy Surgical History Hx of arthroscopy of left knee History of back surgery Family History (Updated 02/15/25 @ 14:04 by Pia Batres CNP) Father Heart disease Mother No problems noted. Other Mental health disorder Social History Household Members Other:: son Housing: House Alcohol intake: never Patient Tobacco Use Status: Former Tobacco user Tobacco use type: Cigarette Cigarette Packs Per Day: 2 Years Smoked: 25 e-Cigarette/Vaping Use: Never Used service: Yes Current occupational status: retired Cognitive needs: No Hearing needs: No Vision needs: Yes (glasses) Review of Systems Const Reports as per HPI ENT Reports as per HPI Card Reports as per HPI Resp Reports as per HPI GI Reports as per HPI Reports as per HPI Physical Exam Vital Signs: Last Vital Signs Pulse 72 02/15/25 13:28 BP 142/68 H 02/15/25 13:28 BMI result Body Mass Index 30.0 Const General: healthy appearing, no acute distress and well developed Nutritional Appearance: average body habitus Orientation/consciousness: patient oriented x3 HEENT Head: Yes normal to inspection, Yes normocephalic and Yes atraumatic Face and sinus: Yes normal facial exam Eyes General: appearance normal, both eyes and all related structures Neck Neck: Yes normal visual inspection Resp Effort & Inspection: normal respiratory effort, able to speak in complete sentences, no tracheal deviation and symmetric chest movement Cardio Jugular venous distension: no JVD Neuro General: patient oriented x3 Gait exam (Neuro): Normal gait present Psych Appearance: grossly normal Mental Status: mental status grossly normal Speech and movement: Normal speech and movement present Affect: normal affect Attitude: cooperative Thought process: Normal thought process present Thought content: Normal thought content present Insight: Good insight present (Psych) Judgement: Good judgement present (Psych) Assessment & Plan Assessment & Plan (1) Colon cancer screening: Comment: 01/09/14 colonoscopy (Dr. Greer) complete adequate prep-diverticulosis (sigmoid), ileitis (TI) w/ indeterminate pathology, small internal hemorrhoids Code(s): Z12.11 - Encounter for screening for malignant neoplasm of colon Category: Medical Plan: Standard interval, personal risk factors (diverticulosis, prior non-diagnostic inflammation, internal hemorrhoids), history of remote illicit drug use, and prior incomplete pathology evaluation. Additional Testing: Colonoscopy with polypectomy/biopsy as indicated; EGD for upper GI assessment. Medication Management: Prep with 4L PEG-ELS ( GoLYTELY ) per patient preference, laxative/gas tablets for prep, adjust DM medications prior to procedure. Nurse to review med hold per protocol Lifestyle Recommendations: Review/adhere to clear liquid prep, no red/blue/purple dyes, NPO as directed, secure transportation post-procedure. Follow-Up:schedule post-procedure review or sooner if complications/concerns. (2) Acid reflux: Code(s): K21.9 - Gastro-esophageal reflux disease without esophagitis Category: Medical Qualifiers: Esophagitis presence: esophagitis presence not specified Qualified Code(s): K21.9 - Gastro-esophageal reflux disease without esophagitis Plan: Reflux symptoms 2?3 times/week, improved with PRN antacids/omeprazole, no dysphagia, no significant weight loss. Additional Testing: Upper endoscopy scheduled concurrently with colonoscopy for further evaluation. Medication Management: Continue PRN antacids/omeprazole as needed. Daily PPI if symptoms increase in frequency/severity. Lifestyle Recommendations: Avoid identified triggers (acidic/spicy/fatty foods, overeating, eating before lying down), continue regular physical activity. Follow-Up: Monitor symptom frequency; escalate therapy if needed. (3) Constipation: Code(s): K59.00 - Constipation, unspecified Category: Medical Qualifiers: Constipation type: unspecified constipation type Qualified Code(s): K59.00 - Constipation, unspecified Plan: Infrequent, episodic symptoms, generally normal bowel function otherwise, history of diverticulosis; no red flag symptoms. Additional Testing: Recommend colonoscopy as per standard screening interval and to reassess for diverticulosis, polyps. Medication Management: Initiate fiber supplement (titrate as outlined), stool softener (HS). Consider mild laxative (e.g., PEG 3350) if inadequate response. Independent Living Specialist on purchasing generic OTC agents where appropriate. Lifestyle Recommendations: Increase dietary fiber/plant intake, maintain/improve hydration, regular physical activity. Follow-Up: Revisit at post-procedure follow-up or sooner if symptoms worsen/fail to respond. Plan Follow-up after endoscopy or sooner as needed Time: I spent a total of 30 minutes on the date of encounter which includes: Preparing to see the patient (reviewed previous documentation, test results and medical history) Performing a medically appropriate exam and/or evaluation Ordering medications, tests, and procedures Documenting clinical information in the health record Orders: Referrals GI Procedure Notification K21.9 - Gastro-esophageal reflux disease without esophagitis, R19.09 - Other intra-abdominal and pelvic swelling, mass and lump Medications: New bisacodyl Take per colonoscopy instructions 20 mg (4 x 5 mg) PO ONCE 4 tabs 0RF simethicone (Gas Relief (simethicone)) per colonoscopy prep instructions 500 mg (4 x 125 mg) PO ONCE 4 caps 0RF abdominal distention methylcellulose (laxative) (Fiber Laxative (methylcellulose)) Take 1 daily X 2 weeks, increase to two tablets daily thereafter 500 mg PO DAILY 180 tabs 3RF docusate sodium Take one tablet at bedtime 100 mg PO BEDTIME 90 caps 1RF constipation peg 3350-electrolytes 236-22.74-6.74 -5.86 gram until fecal effluent is clear 240 mL PO ONCE 4,000 mL 0RF Coding Level of Care Code New Pt New Pt Level 3 (19922) Patient Type New Diagnoses Colon cancer screening Z12.11 Gastroesophageal reflux disease, unspecified whether esophagitis present K21.9 Esophagitis presence: esophagitis presence not specified Constipation, unspecified constipation type K59.00 Constipation type: unspecified constipation type
[2025-02-15 13:28] VITALS: BP 142/68; PULSE 72
--- OUTSIDE RECORDS SUMMARY | 2025-02-15 13:54 | XMS_ITS | Clinical Summary ---
Author Organization [facility] Address [address] [place] [phone] Phone Care Team Providers Care Medicine And Health Service Manager Name Role Phone Reg Herring MD Primary [...] Description 07/18/2025 9:30 AM EDT Office Visit [facility] Neurology [address] [place] [phone] Aniket Lewis MD [address] [facility] [facility] [place] [address] [email or web address] Health Maintenance Due Date Last Done Comments [...] topic Medical Devices Not on file Insurance [facility] [place] MED[place] H[place] BLUE REPLACEMENT [facility] MEDICARE HMO BLUE [facility]PLACEMENT [facility] MEDICARE HMO BLUE REPLACEMENT [facility] MEDICARE HMO BLUE REPLACEMENT [facility] MEDICARE HMO BLUE REPLACEMENT [facility] [place] BLUE REPLACEMENT Care Teams Medicine And Health Service Manager Relationship Specialty Start Date End Date Reg Herring MD [address] [place] [id number] PCP - General Internal Medicine 03/27/24 Additional Source Comments The information contained in this document represents components of the legal health record. It is not the complete legal health record.[facility]
== END 2025-02-15 14:17 | disposition home or self-care (01) ==
LOC: HO.HGI 12:47
PROVIDERS: PCP Internal Medicine; Visit Provider Nurse Practitioner Family
DX: Z12.11 Encounter for screening for malignant neoplasm of colon (principal); K59.00 Constipation, unspecified; K21.9 Gastro-esophageal reflux disease without esophagitis
CPT/HCPCS: 99024

== ENCOUNTER → 2025-02-15 12:46 | Outpatient (BNVA) | payer MEDICARE, BC, SELFPAY | PROVIDERS: PCP Internal Medicine; Visit Provider Nurse Practitioner Family | DX: K21.9 Gastro-esophageal reflux disease without esophagitis (principal); K59.00 Constipation, unspecified; Z12.11 Encounter for screening for malignant neoplasm of colon; I10 Essential (primary) hypertension; Z87.891 Personal history of nicotine dependence; E78.5 Hyperlipidemia, unspecified | CPT/HCPCS: 99212 ==